=== PATIENT | female | born 1955 | race Caucasian/White ===

== ENCOUNTER 2018-01-14 10:56 | Emergency (ER) | payer OTHER ==
--- NOTE | 2018-01-14 11:46 | RAD REPORT ---
EXAM DESCRIPTION: Nicolasa Single View01/14/2018 11:35 am CLINICAL HISTORY: Chest pain COMPARISON: 2014 FINDINGS: The lungs are hyperaerated. The lungs appear clear of acute infiltrate. The heart is macario l size IMPRESSION: No acute abnormalities displayed
[2018-01-14 12:07] LABS: Protime INR 0.97
[2018-01-14 12:08] LABS: Absolute Lymphocytes (CBC) 1.8 K/uL (0.7-4.9); Absolute Monocytes 0.6 K/uL (0.1-1.3); Absolute Neutrophil 4.8 K/uL (1.8-8.0); Basophils % 0.9 % (0-1.3); Eosinophils % 1.1 % (0-4.4); Hematocrit 41.4 % (36.0-45.0); Lymphocytes % 24.6 % (15.3-44.8); MCH 29.6 pg (27.0-35.0); MCV 89.5 fL (80-100); MPV 9.3 fL (7.6-11.3); Monocytes % 8.5 % (3.3-12.3); RBC Red Blood Cell Count 4.63 M/uL (3.86-4.86)
[2018-01-14 12:12] LABS: Potassium 3.8 mEq/L (3.6-5.0)
[2018-01-14] MEDS ORDERED: ASPIRIN 325 MG TAB ONE (12:17)
[2018-01-14 12:18] LABS: Albumin 3.7 g/dL (3.2-5.5); Bilirubin Direct 0.2 mg/dL (0-0.2); Bilirubin Total 0.6 mg/dL (0.3-1.2); Magnesium 1.7 mg/dL (1.8-2.5); Protein, Total 6.3 g/dL (6.0-8.3)
[2018-01-14 12:29] LABS: Blood Morphology Comment NOT SEEN (NOT SEEN); Platelet Estimate ADEQ; Urine White Blood Cell Casts OK
[2018-01-14 12:36] LABS: Barbiturates NEGATIVE; Benzodiazepines NEGATIVE; Cocaine NEGATIVE; METHAMPHETAM NEGATIVE; Opiates NEGATIVE; Phencyclidine NEGATIVE; THC Cannibis NEGATIVE
--- NOTE | 2018-01-14 14:03 | EKG ---
Test Date: 2018-01-14 Test Time: 11:21:15 Shipping Manager: MEASUREMENT RESULTS: Intervals: Rate: 64 WY: 198 QRSD: 82 QT: 472 QTc: 486 [place]: P: 78 WY: 198 QRS: -35 T: 71 INTERPRETIVE STATEMENTS: Normal sinus rhythm Left axis deviation Cannot rule out Anteroseptal infarct, age undetermined Abnormal ECG Compared to ECG 12/24/2014 05:30:08 Myocardial infarct finding now present ST (T wave) deviation no longer present Possible ischemia no longer present Electronically Signed On 01-14-18 14:02:48 CDT by Mahad Meredith
[2018-01-14 14:20] LABS: Urine Blood NEGATIVE (NEG); Urine Glucose NEGATIVE (NEG); Urine Protein NEGATIVE (NEG); Urine Specific Gravity 1.015 (1.005-1.030)
[2018-01-14] MEDS ORDERED: predniSONE 20 MG TAB ONE (14:40)
[2018-01-14] MEDS ORDERED: IPRATROPIUM BROM 0.5MG/2.5ML ONE (14:40)
[2018-01-14] MEDS ORDERED: MAGNESIUM SULFATE 1 gm IVPB 1 GM/100 ML BAG IV ONE (14:40)
[2018-01-14] MEDS ORDERED: ALBUTEROL 2.5 MG/3 ML NEB SOL ONE (14:40)
--- NOTE | 2018-01-14 17:05 | ER ---
Nurse's Notes [facility] Name: Ophelia Grady Age: 62 yrs Sex: Female : 1955 Arrival Date: 01/14/2018 Time: 11:00 Bed 25 Private MD: Diagnosis: Chest pain, unspecified;Chronic obstructive pulmonary disease, unspecified Presentation: 01/14 11:02 Presenting complaint: Patient states: Chest pain with exertion today, hx of CHF and la1 COPD. Transition of care: patient was not received from another setting of care. Onset of symptoms was January 14, 2018. Care prior to arrival: None. 11:02 Method Of Arrival: Ambulatory la1 11:02 Acuity: SHAWN 3 la1 Historical: - Allergies: 11:03 No Known Allergies; la1 - PMHx: 11:03 Hyperlipidemia; Hypertension; COPD; CHF; la1 - Immunization history:: Adult Immunizations up to date. - Social history:: Smoking status: Patient uses tobacco products, smokes one pack cigarettes per day. Screenin:15 Abuse screen: Denies threats or abuse. Denies injuries from another. Nutritional aj1 screening: No deficits noted. Tuberculosis screening: No symptoms or risk factors identified. 17:13 Fall Risk None identified. aj1 Assessment: 11:15 General: Appears in no apparent distress. comfortable, Behavior is calm, cooperative, aj1 appropriate for age. Pain: Complains of pain in left breast Pain does not radiate. Pain currently is 2 out of 10 on a pain scale. Quality of pain is described as aching, Pain began 1 hour ago. Is continuous, Alleviated by aspirin Aggravated by nothing. Neuro: Level of Consciousness is awake, alert, obeys commands, Oriented to person, place, time, situation, Speech is normal, Facial symmetry appears normal. Cardiovascular: Reports chest pain, Denies diaphoresis, lightheadedness, nausea, palpitations, shortness of breath, syncope, vomiting, Heart tones S1 S2 present Patient's skin is warm and dry. Rhythm is regular Chest pain is described as mild, quality is aching is located in left anterior chest wall began 1 hour prior to arrival. Respiratory: Airway is patent Respiratory effort is even, unlabored, Respiratory pattern is regular, symmetrical, Breath sounds are clear bilaterally. Denies cough, shortness of breath. GI: No signs and/or symptoms were reported involving the gastrointestinal system. : No signs and/or symptoms were reported regarding the genitourinary system. EENT: No signs and/or symptoms were reported regarding the EENT system. Derm: No signs and/or symptoms reported regarding the dermatologic system. Skin is pink, warm \T\ dry. normal. Musculoskeletal: No signs and/or symptoms reported regarding the musculoskeletal system. Circulation, motion, and sensation intact. 12:10 Reassessment: Patient appears in no apparent distress at this time. No changes from aj1 previously documented assessment. Patient and/or family updated on plan of care and expected duration. Pain level reassessed. Patient is alert, oriented x 3, equal unlabored respirations, skin warm/dry/pink. 13:10 Reassessment: Patient and/or family updated on plan of care and expected duration. Pain aj1 level reassessed. General: Appears in no apparent distress. comfortable, Behavior is calm, cooperative, appropriate for age. Neuro: Level of Consciousness is awake, alert, obeys commands, Oriented to person, place, time, situation, Speech is normal, Facial symmetry appears normal. Cardiovascular: Patient's skin is warm and dry. Rhythm is sinus rhythm Chest pain is improved. Respiratory: Airway is patent Respiratory effort is even, unlabored, Respiratory pattern is regular, symmetrical, Breath sounds are clear bilaterally. GI: No signs and/or symptoms were reported involving the gastrointestinal system. : No signs and/or symptoms were reported regarding the genitourinary system. EENT: No signs and/or symptoms were reported regarding the EENT system. Derm: No signs and/or symptoms reported regarding the dermatologic system. Skin is pink, warm \T\ dry. normal. Musculoskeletal: No signs and/or symptoms reported regarding the musculoskeletal system. Circulation, motion, and sensation intact. 14:10 Reassessment: Patient appears in no apparent distress at this time. No changes from aj1 previously documented assessment. Patient and/or family updated on plan of care and expected duration. Pain level reassessed. Patient is alert, oriented x 3, equal unlabored respirations, skin warm/dry/pink. 14:45 Reassessment: Notified Blaise Morin NP that patient no longer has IV access, and has aj1 multiple missed attempts trying to get IC access order received to continue to attempt to get IV access. 15:10 Reassessment: P. Marinas ENDO TECH notified by ANA Fountain charge nurse that we continue to aj1 have difficulty obtaining IV access, order received to change Magnesium to PO and stop attempting to obtain IV access. 15:21 Reassessment: Patient and/or family updated on plan of care and expected duration. Pain aj1 level reassessed. General: Appears in no apparent distress. comfortable, Behavior is calm, cooperative, appropriate for age. Neuro: Level of Consciousness is awake, alert, obeys commands, Oriented to person, place, time, situation, Speech is normal, Facial symmetry appears normal. Cardiovascular: Patient's skin is warm and dry. Rhythm is sinus rhythm Chest pain remains improved. Respiratory: Airway is patent Respiratory effort is even, unlabored, Respiratory pattern is regular, symmetrical. Derm: Skin is pink, warm \T\ dry. normal. Musculoskeletal: Circulation, motion, and sensation intact. 16:20 Reassessment: No changes from previously documented assessment. General: Appears in no aj1 apparent distress. comfortable, Behavior is calm, cooperative. Neuro: Level of Consciousness is awake, alert, obeys commands, Oriented to person, place, time, situation, Speech is normal, Facial symmetry appears normal. Cardiovascular: Patient's skin is warm and dry. Rhythm is sinus rhythm. Respiratory: Airway is patent Respiratory effort is even, unlabored, Respiratory pattern is regular, symmetrical. GI: No signs and/or symptoms were reported involving the gastrointestinal system. : No signs and/or symptoms were reported regarding the genitourinary system. EENT: No signs and/or symptoms were reported regarding the EENT system. Derm: No signs and/or symptoms reported regarding the dermatologic system. Skin is pink, warm \T\ dry. normal. Musculoskeletal: No signs and/or symptoms reported regarding the musculoskeletal system. Circulation, motion, and sensation intact. 17:10 Reassessment: Patient appears in no apparent distress at this time. No changes from aj1 previously documented assessment. Patient and/or family updated on plan of care and expected duration. Pain level reassessed. Patient is alert, oriented x 3, equal unlabored respirations, skin warm/dry/pink. Patient states that she would like a meal tray before she leaves. Patient notified that she is already ready for discharge and provided with crackers and peanut butter. Vital Signs: 11:03 BP 158 / 96; Pulse 68; Resp 16; Temp 98.7(TE); Pulse Ox 98% on R/A; Weight 71.67 kg; la1 Height 5 ft. 4 in. (162.56 cm); Pain 3/10; 12:10 BP 169 / 107; Pulse 60; Resp 15; Pulse Ox 97% on R/A; aj1 13:15 BP 137 / 85; Pulse 58; Resp 16; Pulse Ox 97% on R/A; aj1 14:15 BP 147 / 80; Pulse 62; Resp 18; Pulse Ox 96% on R/A; aj1 15:24 BP 158 / 90; Pulse 60; Resp 14; Pulse Ox 97% on R/A; aj1 16:20 BP 149 / 89; Pulse 65; Resp 18; Pulse Ox 99% ; aj1 17:13 BP 147 / 89; Pulse 58; Resp 20; Pulse Ox 97% ; aj1 11:03 Body Mass Index 27.12 (71.67 kg, 162.56 cm) la1 ED Course: 11:00 Patient arrived in ED. sb2 11:03 Triage completed. la1 11:03 Arm band placed on left wrist. la1 11:05 Daniel Morin, AMANDEEP is PHCP. pm1 11:05 Mike Vegas MD is Attending Physician. pm1 11:05 Angi Spears, ANA is Primary Nurse. aj1 11:15 Patient has correct armband on for positive identification. Placed in gown. Bed in low aj1 position. Call light in reach. Side rails up X 1. gambling monitor on. Pulse ox on. NIBP on. 11:15 No provider procedures requiring assistance completed. EKG done, reviewed by Mike Vegas MD. Patient maintains SpO2 saturation greater than 95% on room air. 11:35 X-ray completed. Portable x-ray completed in exam room. Patient tolerated procedure jb2 well. 11:36 XRAY Chest (1 view) In Process Unspecified. EDMS 11:45 Missed attempt(s): 20 gauge in left antecubital area. Bleeding controlled, band aid aj1 applied, catheter tip intact. 11:50 Missed attempt(s): 22 gauge in left forearm. Bleeding controlled, band aid applied, aj1 catheter tip intact. 11:50 Initial lab(s) drawn, by me, sent to lab. aj1 12:45 Inserted saline lock: 22 gauge in left antecubital area, using aseptic technique. [facility] 14:30 IV discontinued, intact, bleeding controlled, Pressure dressing applied, IV infiltrated.aj1 14:40 Missed attempt(s): 22 gauge in right antecubital area. by ANA Lauren. aj1 15:00 Missed attempt(s): 24 gauge in left forearm. by CECELIA Conway. Notified neida Fountain charge nurse, RN of need for a new IV. 17:43 Artur Ambrocio MD is Referral Physician. pm1 17:44 Mahad Meredith MD is Referral Physician. pm1 Administered Medications: 11:59 Drug: Aspirin 325 mg Route: PO; aj1 12:53 Follow up: Response: No adverse reaction aj1 14:37 Drug: Albuterol - atroVENT (3:1) (2.5 mg - 0.5 mg) 3 ml Route: Nebulizer; aj1 17:50 Follow up: Response: No adverse reaction aj1 14:37 Drug: predniSONE 60 mg Route: PO; aj1 17:50 Follow up: Response: No adverse reaction aj1 18:07 Drug: Magnesium 400 mg Route: PO; aj1 18:21 Follow up: Response: No adverse reaction aj1 18:22 Not Given (changed to PO): Magnesium Sulfate 1 grams IVPB once over 1 hrs aj Outcome: 17:05 Discharge ordered by . pm1 18:22 Discharged to home ambulatory. aj1 18:22 Condition: good 18:22 Discharge instructions given to patient, Instructed on discharge instructions, follow up and referral plans. medication usage, Demonstrated understanding of instructions, follow-up care, medications. 18:22 Patient left the ED. aj1 Signatures: Dispatcher [employer] EDMS Angi Spears RN RN aj1 Karson Al jb2 Kalen Mcdonnell RN RN la1 Daniel Morin, AMANDEEP ENDO TECH pm1 Morena Tenorio 5 Jory Meadows
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
[2018-01-14] MEDS ORDERED: MAGNESIUM OXIDE 400 MG TAB ONE (18:19)
[2018-01-14 18:45] VITALS: TEMP 98.7
[2018-01-14 18:51] VITALS: BP 147/89; O2SAT 97
== END 2018-01-14 18:22 | disposition home or self-care (01) ==
LOC: ER 10:56
DX: J44.9 Chronic obstructive pulmonary disease, unspecified (principal); I10 Essential (primary) hypertension; F17.210 Nicotine dependence, cigarettes, uncomplicated
CPT/HCPCS: 36415; 71045; 80048; 80076; 80307; 81003; 83735; 83880; 84484; 85025; 85610; 85730; 93005; 94640; 99285; J3475; J7512

== ENCOUNTER 2018-02-13 18:41 | Emergency (ER) | payer OTHER ==
--- OUTSIDE RECORDS SUMMARY | 2018-02-13 18:43 | XMS REPORT ---
:1955 Author Organization eClinicalWorks Care Team Providers Name Role Phone Juancarlos Rodriguez Provider Role Unavailable Allergies No Known Allergies Problems Problem Type Condition Code Onset Dates Condition Status Problem Osteoarthritis of multiple joints M15.9 Active Problem Hyperlipidemia, mixed E78.2 Active Problem Hx of breast cancer Z85.3 Active Problem GERD (gastroesophageal reflux K21.9 Active disease) Assessment Osteoarthritis of multiple joints M15.9 Active Problem Insomnia G47.00 Active Assessment GERD (gastroesophageal reflux K21.9 Active disease) Problem Benign essential HTN I10 Active Problem Chronic back pain M54.9 Active Problem Chronic obstructive pulmonary J44.9 Active disease Problem Depression with anxiety F41.8 Active Problem Stented coronary artery Z95.5 Active Assessment Insomnia G47.00 Active Assessment Tobacco use disorder Z72.0 Active Assessment Stented coronary artery Z95.5 Active Assessment Hyperlipidemia, mixed E78.2 Active Assessment Benign essential HTN I10 Active Assessment Chronic obstructive pulmonary J44.9 Active disease Assessment Depression with anxiety F41.8 Active Problem Atherosclerosis of coronary artery I25.10 Active of [place] heart Assessment Atherosclerosis of coronary artery I25.10 Active of [place] heart Problem Tobacco use disorder Z72.0 Active Medications Medication Code Code Instructions Start End Status Dosage System Date Date Prozac [facility] 26898582891 40 MG Orally Active 1 capsule Once a day Trazodone HCl [facility] [place] 80573669041 300 MG Orally Active 0.5 Once a day tablet at bedtime Lisinopril [facility] [place] 66684856133 40 MG Orally Active 1 tablet Once a day Norvasc [facility] 14093853102 10 MG Orally Active 1 tablet Once a day Isosorbide Mononitrate [facility] [place] 12017030078 60 MG Orally Active 1 tablet ER Once a day in the morning Aspir-81 [facility] [place] 69568944765 81 MG Orally Active 1 tablet Once a day Latuda [facility] [place] 21565802805 60 MG Orally Active 1 tablet Once a day with food Hydrochlorothiazide [facility] [place] 20575451952 25 MG Orally Active 1 tablet Once a day in the morning Lipitor [facility] [place] 74501686285 40 MG Orally Active 1 tablet Once a day Metoprolol Tartrate [facility] 89964532117 100 MG Orally Active 1 tablet Twice a day with food ProAir HFA [facility] [place] 49569443525 108 (90 Base) Active 2 puffs MCG/ACT as needed Inhalation every 6 hrs HydrALAZINE HCl [facility] [place] 06419302410 50 MG Orally Active 1 tablet Three times a with food day Results Name Result Date Reference Range Unit Abnormality Flag CBC W/AUTO DIFF CMP Magnesium, Serum LIPID PANEL WITH REFLEX TO DIRECT LDL Summary Purpose eClinicalWorks Submission
[2018-02-13] MEDS ORDERED: NA CHLORIDE 0.9% 0 ML ONE (19:29)
[2018-02-13] MEDS ORDERED: NA CHLORIDE 0.9% 1,000 ML ONE (19:29)
[2018-02-13] MEDS ORDERED: NA CHLORIDE 0.9% 500 ML ONE (19:33)
[2018-02-13 19:48] LABS: Absolute Lymphocytes (CBC) 2.2 K/uL (0.7-4.9); Absolute Monocytes 0.6 K/uL (0.1-1.3); Absolute Neutrophil 4.3 K/uL (1.8-8.0); Basophils % 0.8 % (0-1.3); Eosinophils % 1.5 % (0-4.4); Hematocrit 45.7 % (36.0-45.0); Lymphocytes % 30.4 % (15.3-44.8); MCH 29.5 pg (27.0-35.0); MCV 88.1 fL (80-100); MPV 8.9 fL (7.6-11.3); RBC Red Blood Cell Count 5.19 M/uL (3.86-4.86)
[2018-02-13 19:49] LABS: Protime INR 0.97
[2018-02-13 19:53] LABS: Barbiturates NEGATIVE; Benzodiazepines NEGATIVE; Cocaine NEGATIVE; Opiates NEGATIVE; Phencyclidine NEGATIVE; THC Cannibis NEGATIVE
[2018-02-13 19:55] LABS: METHAMPHETAM POSITIVE
[2018-02-13 19:56] LABS: Glucose Level 92 mg/dL (65-120)
[2018-02-13 20:02] LABS: Alkaline Phosphatase 62 IU/L (42-121); BUN Blood Urea Nitrogen 16 mg/dL (6-20); Bilirubin Direct 0.2 mg/dL (0-0.2); Bilirubin Total 0.6 mg/dL (0.3-1.2)
[2018-02-13 20:03] LABS: ALT/SGPT 38 IU/L (10-60); AST/SGOT 40 IU/L (10-42); Alcohol Serum/Plasma < 10 mg/dl; Bicarbonate 26 mEq/L (21-31); Potassium 3.6 mEq/L (3.6-5.0); Salicylates Level < 4.0 mg/dl (<30); Sodium Level 139 mEq/L (135-145)
[2018-02-13 20:04] LABS: Urine Blood NEGATIVE (NEG); Urine Glucose NEGATIVE (NEG); Urine Protein NEGATIVE (NEG); Urine pH 5.5 (5.0-7.0)
[2018-02-13] MEDS ORDERED: KETOROLAC 30 MG/ML INJ ONE ×2 (20:21→21:22)
[2018-02-13] MEDS ORDERED: hydrOXYzine HCl 25 MG TAB ONE (21:22)
[2018-02-13] MEDS ORDERED: MAGNESIUM SULFATE 1 gm IVPB 1 GM/100 ML BAG IV ONE (21:22)
--- NOTE | 2018-02-13 23:06 | EDPHYS ---
Physician Documentation [facility] Name: Ophelia Grady Age: 62 yrs Sex: Female : 1955 Arrival Date: 02/13/2018 Time: 18:47 Bed 16 Private MD: ED Physician Adonis Mc HPI: 02/13 19:04 This 62 yrs old Female presents to ER via EMS with complaints of Suicidal snw Ideation, Flank Pain. 19:04 The patient presents to the emergency department with anxiety, depression, suicide snw ideation, and the patient has a plan, to overdose with medications. Onset: The symptoms/episode began/occurred 2 day(s) ago. Past psychiatric history: Prior diagnosis: depression, schizo affective, the patient has not had a prior suicide gesture. Associated signs and symptoms: Pertinent positives; anxiety, suicide ideation, back/flank pain. Severity of symptoms: At their worst the symptoms were moderate. The patient has not experienced similar symptoms in the past. The patient has been recently seen by a physician: the patient's primary care provider, Dr. Rodriguez. pt states she had breast cancer, no rad, no chemo, resection and revision. Historical: - Allergies: 18:52 No Known Allergies; la1 - PMHx: 18:52 CHF; COPD; Hyperlipidemia; Hypertension; Depression; major depressive disorder; la1 schizo-affective disorder; - PSHx: 23:34 Unable to obtain; bs1 - Immunization history:: Adult Immunizations up to date. - Social history:: Smoking status: Patient uses tobacco products, smokes one pack cigarettes per day. ROS: 19:01 Constitutional: Negative for fever, chills, and weight loss, Eyes: Negative for injury, snw pain, redness, and discharge, ENT: Negative for injury, pain, and discharge, Neck: Negative for injury, pain, and swelling, Cardiovascular: Negative for chest pain, palpitations, and edema, Respiratory: Negative for shortness of breath, cough, wheezing, and pleuritic chest pain, Abdomen/GI: Negative for abdominal pain, nausea, vomiting, diarrhea, and constipation. 19:01 : Negative for injury, bleeding, discharge, and swelling. 19:01 Skin: Negative for injury, rash, and discoloration, Neuro: Negative for headache, weakness, numbness, tingling, and seizure. 19:01 Back: Positive for pain at rest, flank pain, radiated pain. 19:01 MS/extremity: Positive for tenderness, of the left foot. 19:01 Psych: Positive for depression, suicidal ideation. Exam: 18:59 Constitutional: This is a well developed, well nourished patient who is awake, alert, snw and in no acute distress. Head/Face: Normocephalic, atraumatic. Eyes: Pupils equal round and reactive to light, extra-ocular motions intact. Lids and lashes normal. Conjunctiva and sclera are non-icteric and not injected. Cornea within normal limits. Periorbital areas with no swelling, redness, or edema. ENT: Nares patent. No nasal discharge, no septal abnormalities noted. Tympanic membranes are normal and external auditory canals are clear. Oropharynx with no redness, swelling, or masses, exudates, or evidence of obstruction, uvula midline. Mucous membranes moist. Neck: Trachea midline, no thyromegaly or masses palpated, and no cervical lymphadenopathy. Supple, full range of motion without nuchal rigidity, or vertebral point tenderness. No Meningismus. Chest/axilla: Normal chest wall appearance and motion. Nontender with no deformity. No lesions are appreciated. Cardiovascular: Regular rate and rhythm with a normal S1 and S2. No gallops, murmurs, or rubs. Normal PMI, no JVD. No pulse deficits. Respiratory: Lungs have equal breath sounds bilaterally, clear to auscultation and percussion. No rales, rhonchi or wheezes noted. No increased work of breathing, no retractions or nasal flaring. Abdomen/GI: Soft, non-tender, with normal bowel sounds. No distension or tympany. No guarding or rebound. No evidence of tenderness throughout. Back: No spinal tenderness. No costovertebral tenderness. Full range of motion. MS/ Extremity: Pulses equal, no cyanosis. Neurovascular intact. Full, normal range of motion. Neuro: Awake and alert, GCS 15, oriented to person, place, time, and situation. Cranial nerves II-XII grossly intact. Motor strength 5/5 in all extremities. Sensory grossly intact. Cerebellar exam normal. Normal gait. 18:59 Skin: Appearance: Color: Bronze, Temperature: normal temperature, Moisture: dry. 18:59 Psych: Behavior/mood is pleasant, cooperative, Affect is calm, Oriented to person, place, time, Patient having thoughts of suicide. Plan for suicide is take all HTN meds Pt did not discuss suicidal ideation on my exam, she states she has had diarrhea x 3 days and right flank/upper back pain . Vital Signs: 18:52 BP 167 / 108; Pulse 67; Resp 19; Temp 97.1; Pulse Ox 100% on R/A; Weight 71.67 kg; la1 Height 5 ft. 4 in. (162.56 cm); 23:15 BP 152 / 87; Pulse 63; Resp 16; Temp 97.9(O); Pulse Ox 96% on R/A; Pain 6/10; bs1 18:52 Body Mass Index 27.12 (71.67 kg, 162.56 cm) la1 MDM: 18:50 Patient medically screened. snw 23:06 Data reviewed: vital signs, nurses notes. Data interpreted: Pulse oximetry: on room air snw is 100 %. Interpretation: normal. Counseling: I had a detailed discussion with the patient and/or guardian regarding: the historical points, exam findings, and any diagnostic results supporting the discharge/admit diagnosis, lab results, radiology results, the need for outpatient follow up, to return to the emergency department if symptoms worsen or persist or if there are any questions or concerns that arise at home. Other consultation: [facility]. Special discussion: Based on the history and exam findings, there is no indication for further emergent testing or inpatient evaluation. I discussed with the patient/guardian the need to see the psychiatrist for further evaluation of the symptoms. 23:27 ED course: pt annoyed that she is not being treated with stronger pain medication and snw sleep agents. 02/13 18:50 Order name: Acetaminophen; Complete Time: 20:19 snw 02/13 18:50 Order name: Basic Metabolic Panel; Complete Time: 20:19 snw 02/13 18:50 Order name: CBC with Diff; Complete Time: 19:54 snw 02/13 18:50 Order name: ETOH Level; Complete Time: 20:19 snw 02/13 18:50 Order name: Hepatic Function; Complete Time: 20:19 snw 02/13 18:50 Order name: PT-INR; Complete Time: 19:54 snw 02/13 18:50 Order name: Ptt, Activated; Complete Time: 19:54 snw 02/13 18:50 Order name: Salicylate; Complete Time: 20:19 snw 02/13 18:50 Order name: Urine Drug Screen; Complete Time: 19:56 snw 02/13 19:39 Order name: Urine Dipstick--Ancillary (enter results); Complete Time: 20:19 em1 02/13 18:50 Order name: EKG; Complete Time: 18:50 snw 02/13 18:50 Order name: EKG - Nurse/Tech; Complete Time: 19:34 snw 02/13 18:50 Order name: IV Saline Lock; Complete Time: 19:34 snw 02/13 18:50 Order name: Labs collected and sent; Complete Time: 19:34 snw 02/13 18:50 Order name: Urine Dipstick-Ancillary (obtain specimen); Complete Time: 19:34 snw Administered Medications: 19:35 Drug: NS 0.9% 500 ml Route: IV; Rate: bolus; Site: left hand; aa1 23:36 Follow up: IV Status: Completed infusion bs1 19:35 Drug: NS 0.9% 1000 ml Route: IV; Rate: 125 ml/hr; Site: left hand; aa1 23:37 Follow up: IV Status: Order to discontinue infusion; IV Intake: 600ml bs1 20:22 CANCELLED (Patient Refused): TORadol 30 mg IVP once la1 21:29 Drug: TORadol 30 mg Route: IVP; Site: left hand; la1 23:36 Follow up: Response: No adverse reaction bs1 21:29 Drug: Atarax 25 mg Route: PO; la1 23:36 Follow up: Response: No adverse reaction bs1 21:29 Drug: Magnesium Sulfate 1 grams Route: IVPB; Infused Over: 1 hrs; Site: left hand; la1 23:35 Follow up: IV Status: Completed infusion bs1 Disposition: 02/14 07:30 Co-signature as Attending Physician, Adonis Mc MD. rn Disposition: 02/13/18 23:05 Discharged to Home. Impression: Insomnia, unspecified, Flank pain. - Condition is Stable. - Discharge Instructions: Insomnia, Leg Cramps, Muscle Strain, Muscle Pain, Adult, Cryotherapy, Heat Therapy. - Medication Reconciliation Form, Thank You Letter, Antibiotic Education, Prescription Opioid Use form. - Follow up: Private Physician; When: Tomorrow; Reason: Recheck today's complaints, Continuance of care, Re-evaluation by your physician. Follow up: Emergency Department; When: As needed; Reason: Worsening of condition. - Notes: Follow up with [facility] as directed. Signatures: Dispatcher [employer] EDMS Shellie Cuadra RN RN aa1 Angela Talavera, DIRECTOR PHONE-C DIRECTOR PHONE-Csnw Adonis Mc MD MD rn Attema, Lee, RN RN la1 Haley Rocha RN RN bs1 Corrections: (The following items were deleted from the chart) 02/13 20:22 20:19 TORadol 30 mg IVP once ordered. dee laguna 23:37 23:05 02/13/2018 23:05 Discharged to Home. Impression: Insomnia, unspecified; Flank bs1 pain. Condition is Stable. Forms are Medication Reconciliation Form, Thank You Letter, Antibiotic Education, Prescription Opioid Use. Follow up: Private Physician; When: Tomorrow; Reason: Recheck today's complaints, Continuance of care, Re-evaluation by your physician. Follow up: Emergency Department; When: As needed; Reason: Worsening of condition. dee
--- NOTE | 2018-02-13 23:06 | ER ---
Nurse's Notes [facility] Name: Ophelia Grady Age: 62 yrs Sex: Female : 1955 Arrival Date: 02/13/2018 Time: 18:47 Bed 16 Private MD: Diagnosis: Insomnia, unspecified;Flank pain Presentation: 02/13 18:49 Presenting complaint: Patient states: SI for 2 days, states she wants to take all of la1 her BP meds to kill herself, also C/O right flank pain. Transition of care: patient was not received from another setting of care. Onset of symptoms was February 13, 2018. Initial Sepsis Screen: Does the patient meet any 2 criteria? No. Patient's initial sepsis screen is negative. Does the patient have a suspected source of infection? No. Patient's initial sepsis screen is negative. Care prior to arrival: None. 18:49 Method Of Arrival: Ambulatory la1 18:49 Method Of Arrival: EMS: [facility] la1 18:49 Acuity: SHAWN 2 la1 Historical: - Allergies: 18:52 No Known Allergies; la1 - PMHx: 18:52 CHF; COPD; Hyperlipidemia; Hypertension; Depression; major depressive disorder; la1 schizo-affective disorder; - PSHx: 23:34 Unable to obtain; bs1 - Immunization history:: Adult Immunizations up to date. - Social history:: Smoking status: Patient uses tobacco products, smokes one pack cigarettes per day. Screenin:54 Abuse screen: Denies threats or abuse. Nutritional screening: No deficits noted. la1 Tuberculosis screening: No symptoms or risk factors identified. Fall Risk None identified. Assessment: 18:54 General: Appears uncomfortable, Behavior is calm, cooperative. Pain: Complains of pain la1 in abdomen diffusely. Neuro: Level of Consciousness is awake, alert, obeys commands, Oriented to person, place, time, situation. Cardiovascular: Heart tones S1 S2 present Capillary refill < 3 seconds Patient's skin is warm and dry. Respiratory: Airway is patent Respiratory effort is even, unlabored, Respiratory pattern is regular, symmetrical, Breath sounds are clear bilaterally. GI: Abdomen is round non-distended, Bowel sounds present X 4 quads. Abd is soft and non tender X 4 quads. : No signs and/or symptoms were reported regarding the genitourinary system. 20:23 Reassessment: Pt requesting medication for RUQ pain from bending over 3 days ago and la1 "bruising her rib" pt offered toradol, states "I don't want that, I want something to help me sleep" . 21:05 Reassessment: Patient appears in no apparent distress at this time. No changes from la1 previously documented assessment. Patient and/or family updated on plan of care and expected duration. Pain level reassessed. pt resting in stretcher, sitter at bedside. 21:33 Reassessment: pt states " I am no longer suicidal, I prayed and now I want to be on the la right side, I still have things to love for. It is a waste of time fot [facility] to [facility] out". 22:01 Reassessment: Report received from ANA Higuera. bs1 23:03 Reassessment: Patient appears in no apparent distress at this time. Patient and/or bs1 family updated on plan of care and expected duration. Pain level reassessed. Patient is alert, oriented x 3, equal unlabored respirations, skin warm/dry/pink. Archie Coast at bedside. Patient states "I am no longer suicidal.". Psych: 18:52 Subjective: Patient's mood is sad, Delusions are denied, Hallucinations are denied la1 Having thoughts of suicide. Plan for suicide is Take all of her BP medications. Objective: Patient is cooperative, Speech is normal, Affect is appropriate. Interventions: Removed personal items and placed in bag. Patient placed in hospital gown. Suicide Risk Assessment: Sad Person Scale: Sex of patient: Female: Score 0 points. Age of patient: Score 0 point if patient falls outside of specified age parameters. Depression: Score 1 point if signs of depression are present. Previous Attempt: Score 1 point if patient has previously attempted suicide. Substance Abuse: Score 0 point if patient does not abuse alcohol or drugs. Rational Thinking: Score 0 point if patient has rational thinking. Social Support: Score 1 point if social support is lacking and/or unavailable. Organized Plan: Score 1 point if patient had a plan in place. Relationship: Score 1 point if patient is , , , or for a single male Chronic Sickness: Score 1 point if patient has illness, chronic, debilitating, or severe. Safety Checks: Personal items have been removed. Door is open. No visitors are present at this time. Pt denies substance abuse. Commitment: Patient will be a voluntary commitment. Vital Signs: 18:52 BP 167 / 108; Pulse 67; Resp 19; Temp 97.1; Pulse Ox 100% on R/A; Weight 71.67 kg; la1 Height 5 ft. 4 in. (162.56 cm); 23:15 BP 152 / 87; Pulse 63; Resp 16; Temp 97.9(O); Pulse Ox 96% on R/A; Pain 6/10; bs1 18:52 Body Mass Index 27.12 (71.67 kg, 162.56 cm) la1 ED Course: 18:47 Patient arrived in ED. la1 18:49 Angela Talavera FNP-C [facility]. snw 18:49 Adonis Mc MD is Attending Physician. snw 18:50 Triage completed. la1 18:52 Arm band placed on left wrist. la1 18:54 Bed in low position. Call light in reach. Side rails up X 1. Cardiac monitoring not la1 applicable on this patient. 19:00 Safety Checks: Personal items have been removed The door is open or patient has been la1 placed in a hallway bed/chair. There are no family/friend visitors at this time. 19:00 Safety checks: Items removed: yes. Door open/sign placed on door: yes. Family/friend mt present: no. 19:15 Safety Checks: Personal items have been removed The door is open or patient has been la1 placed in a hallway bed/chair. There are no family/friend visitors at this time. 19:15 Safety checks: Items removed: yes. Door open/sign placed on door: yes. Family/friend mt present: no. 19:20 Urine collected: clean catch specimen, clear. Missed attempt(s): 16 gauge in right dh3 wrist. Bleeding controlled, band aid applied, catheter tip intact. 19:30 Safety Checks: Personal items have been removed The door is open or patient has been la1 placed in a hallway bed/chair. There are no family/friend visitors at this time. 19:30 Safety checks: Items removed: yes. Door open/sign placed on door: yes. Family/friend mt present: no. 19:45 Safety Checks: Personal items have been removed The door is open or patient has been la1 placed in a hallway bed/chair. There are no family/friend visitors at this time. 19:45 Safety checks: Items removed: yes. Door open/sign placed on door: yes. Family/friend mt present: no. 20:00 Kalen Mcdonnell RN is Primary Nurse. la1 20:00 Safety Checks: Personal items have been removed The door is open or patient has been la1 placed in a hallway bed/chair. There are no family/friend visitors at this time. 20:00 Safety checks: Items removed: yes. Door open/sign placed on door: yes. Family/friend mt present: no. 20:15 Safety Checks: Personal items have been removed The door is open or patient has been la1 placed in a hallway bed/chair. There are no family/friend visitors at this time. 20:15 Safety checks: Items removed: yes. Door open/sign placed on door: yes. Family/friend mt present: no. 20:30 Safety Checks: Personal items have been removed The door is open or patient has been la1 placed in a hallway bed/chair. There are no family/friend visitors at this time. 20:30 Safety checks: Items removed: yes. Door open/sign placed on door: yes. Family/friend mt present: no. 20:45 Safety Checks: Personal items have been removed The door is open or patient has been la1 placed in a hallway bed/chair. There are no family/friend visitors at this time. 20:45 Safety checks: Items removed: yes. Door open/sign placed on door: yes. Family/friend mt present: no. 21:00 Safety Checks: Personal items have been removed The door is open or patient has been la1 placed in a hallway bed/chair. There are no family/friend visitors at this time. 21:00 Safety checks: Items removed: yes. Door open/sign placed on door: yes. Family/friend mt present: no. 21:15 Safety Checks: Personal items have been removed The door is open or patient has been la1 placed in a hallway bed/chair. There are no family/friend visitors at this time. 21:15 Safety checks: Items removed: yes. Door open/sign placed on door: yes. Family/friend mt present: no. 21:30 Safety Checks: Personal items have been removed The door is open or patient has been la1 placed in a hallway bed/chair. There are no family/friend visitors at this time. 21:30 Safety checks: Items removed: yes. Door open/sign placed on door: yes. Family/friend mt present: no. 21:45 Safety checks: Items removed: yes. Door open/sign placed on door: yes. Family/friend mt present: no. 22:00 Safety checks: Items removed: yes. Door open/sign placed on door: yes. Family/friend mt present: no. 23:34 No provider procedures requiring assistance completed. IV discontinued, bleeding bs1 controlled, No redness/swelling at site. Pressure dressing applied. Administered Medications: 19:35 Drug: NS 0.9% 500 ml Route: IV; Rate: bolus; Site: left hand; aa1 23:36 Follow up: IV Status: Completed infusion bs1 19:35 Drug: NS 0.9% 1000 ml Route: IV; Rate: 125 ml/hr; Site: left hand; aa1 23:37 Follow up: IV Status: Order to discontinue infusion; IV Intake: 600ml bs1 20:22 CANCELLED (Patient Refused): TORadol 30 mg IVP once la1 21:29 Drug: TORadol 30 mg Route: IVP; Site: left hand; la1 23:36 Follow up: Response: No adverse reaction bs1 21:29 Drug: Atarax 25 mg Route: PO; la1 23:36 Follow up: Response: No adverse reaction bs1 21:29 Drug: Magnesium Sulfate 1 grams Route: IVPB; Infused Over: 1 hrs; Site: left hand; la1 23:35 Follow up: IV Status: Completed infusion bs1 Intake: 23:37 IV: 600ml; Total: 600ml. bs1 Outcome: 23:05 Discharge ordered by MD. price 23:35 Discharged to [facility],patient called family member to pick patient up bs1 23:35 Condition: stable 23:35 Discharge instructions given to patient, Instructed on discharge instructions, follow up and referral plans. Demonstrated understanding of instructions, follow-up care. 23:37 Patient left the ED. bs1 Signatures: Shellie Cuadra RN RN aa1 Angela Talavera, NUCLE[employer]APONS MECHANICAL SPECIALIST-C NUCLE[employer] MECHANICAL SPECIALIST-Csnw Kalen Mcdonnell RN RN la1 Jasmine Viera mt, Deanna 3 Haley Rocha RN RN bs1
[2018-02-13 23:43] VITALS: BP 152/87; TEMP 97.9; O2SAT 96
--- NOTE | 2018-02-14 06:54 | EKG ---
Test Date: 2018-02-13 Test Time: 19:37:19 Appeals And Generalist Clerk: MAO MEASUREMENT RESULTS: Intervals: Rate: 61 VT: 194 QRSD: 90 QT: 490 QTc: 493 Linn: P: 46 VT: 194 QRS: -43 T: 77 INTERPRETIVE STATEMENTS: Normal sinus rhythm Left axis deviation Septal infarct, age undetermined Abnormal ECG Compared to ECG 01/14/2018 11:21:15 No significant changes Electronically Signed On 02-14-18 06:53:43 CDT by Pacheco Sotomayor
== END 2018-02-13 23:37 | disposition home or self-care (01) ==
LOC: ER 18:41
DX: R10.9 Unspecified abdominal pain (principal); G47.00 Insomnia, unspecified; F17.210 Nicotine dependence, cigarettes, uncomplicated; I10 Essential (primary) hypertension
CPT/HCPCS: 36415; 80048; 80076; 80307; 80320; 80329; 81003; 85025; 85610; 85730; 93005; 96361; 96365; 96366; 96375; 99284; J3475; J7030

== ENCOUNTER 2018-04-12 16:29 | Emergency (ER) | payer OTHER ==
--- OUTSIDE RECORDS SUMMARY | 2018-04-12 16:31 | XMS REPORT ---
:1955 Author Organization eClinicalWorks Care Team Providers Name Role Phone Juancarlos Rodriguez Provider Role Unavailable Allergies No Known Allergies Problems Problem Type Condition Code Onset Dates Condition Status Problem Osteoarthritis of multiple joints M15.9 Active Problem Hyperlipidemia, mixed E78.2 Active Problem Hx of breast cancer Z85.3 Active Problem GERD (gastroesophageal reflux K21.9 Active disease) Problem Insomnia G47.00 Active Problem Benign essential HTN I10 Active Problem Chronic back pain M54.9 Active Problem Chronic obstructive pulmonary J44.9 Active disease Problem Depression with anxiety F41.8 Active Problem Stented coronary artery Z95.5 Active Assessment Atherosclerosis of coronary artery I25.10 Active of [place] heart Problem Atherosclerosis of coronary artery I25.10 Active of [place] heart Problem Tobacco use disorder Z72.0 Active Medications Medication Code Code Instructions Start End Status Dosage System Date Date Isosorbide NDC 58070926352 60 MG Orally Active 1 tablet Mononitrate ER Once a day in the morning Results No Known Results Summary Purpose [employer] Submission
--- OUTSIDE RECORDS SUMMARY | 2018-04-12 16:31 | XMS REPORT ---
[...] Atherosclerosis of coronary artery I25.10 Active of [place] heart Assessment Atherosclerosis of coronary artery I25.10 Active of [place] [facility] Problem Tobacco use disorder Z72.0 Active Medications Medication Code Code Instructions Start End Status Dosage System Date Date Prozac [facility] 48293589579 40 MG Orally Active 1 capsule Once a day Trazodone HCl [facility] 13825040920 300 MG Orally Active 0.5 Once a day tablet at bedtime Lisinopril [facility] 75632030851 40 MG Orally Active 1 tablet Once a day Norvasc [facility] 80591145729 10 MG Orally Active 1 tablet Once a day Isosorbide Mononitrate [facility] 87108441139 60 MG Orally Active 1 tablet ER Once a day in the morning Aspir-81 [facility] 37157052008 81 MG Orally Active 1 tablet Once a day Latuda [facility] 64921851491 60 MG Orally Active 1 tablet Once a day with food Hydrochlorothiazide [facility] 56590897629 25 MG Orally Active 1 tablet Once a day in the morning Lipitor [facility] 89791615239 40 MG Orally Active 1 tablet Once a day Metoprolol Tartrate [facility] 94307215905 100 MG Orally Active 1 tablet Twice a day with food ProAir HFA [facility] 91892710863 108 (90 Base) Active 2 puffs MCG/ACT as needed Inhalation every 6 hrs HydrALAZINE HCl [facility] 95064931652 50 MG Orally Active 1 tablet Three times a with food day Results Name Result Date Reference Range Unit Abnormality Flag CBC W/AUTO DIFF CMP Magnesium, Serum LIPID PANEL WITH REFLEX TO DIRECT LDL Summary Purpose eClinicalWorks Submission
--- OUTSIDE RECORDS SUMMARY | 2018-04-12 16:31 | XMS REPORT ---
:1955 Author Organization eClinicalWorks Care Team Providers Name Role Phone uJancarlos Rodriguez Provider Role Unavailable Allergies No Known [...] Atherosclerosis of coronary artery I25.10 Active of [place] heart Assessment Atherosclerosis of coronary artery I25.10 Active of [place] [facility] Problem Tobacco use disorder Z72.0 Active Medications Medication Code Code Instructions Start End Status Dosage System Date Date Metoprolol Tartrate [facility] 04316638355 100 MG Orally Active 1 tablet Twice a day with food Lisinopril [facility] 41146284810 40 MG Orally Active 1 tablet Once a day Trazodone HCl [facility] 03451209128 300 MG Orally Active 0.5 Once a day tablet at bedtime Norvasc [facility] 90249642155 10 MG Orally Active 1 tablet Once a day Latuda [facility] 30810536090 60 MG Orally Active 1 tablet Once a day with food HydrALAZINE HCl [facility] 02738256448 50 MG Orally Active 1 tablet Three times a with food day ProAir HFA [facility] 14411937059 108 (90 Base) Active 2 puffs MCG/ACT as needed Inhalation every 6 hrs as needed for cough, shortness of breath and wheezing Isosorbide Mononitrate [facility] 42792367486 60 MG Orally Active 1 tablet ER Once a day in the morning Prozac [facility] 35505164321 40 MG Orally Active 1 capsule Once a day Hydrochlorothiazide [facility] 80880719031 25 MG Orally Active 1 tablet Once a day in the morning -81 [facility] 45415197482 81 MG Orally Active 1 tablet Once a day Lipitor [facility] 57527703568 40 MG Orally Active 1 tablet Once a day Results No Known Results Summary Purpose eClinicalWorks Submission
--- OUTSIDE RECORDS SUMMARY | 2018-04-12 16:32 | XMS REPORT ---
[...] Problem Stented coronary artery Z95.5 Active Assessment Benign essential HTN I10 Active Assessment Hyperlipidemia, mixed E78.2 Active Problem Atherosclerosis of coronary artery I25.10 Active of [place] heart Problem Tobacco use disorder Z72.0 Active Medications Medication Code Code Instructions Start End Status Dosage System Date Date Lipitor ND 64814938042 40 MG Orally Active 1 tablet Once a day Lisinopril ND 89273220318 40 MG Orally Active 1 tablet Once a day HydrALAZINE HCl ND 64958995092 50 MG Orally Active 1 tablet Three times a with food day Hydrochlorothiazide ND 17936177179 25 MG Orally Active 1 tablet Once a day in the morning Metoprolol Tartrate ND 70987548159 100 MG Orally Active 1 tablet Twice a day with food Results No Known Results Summary Purpose eClinicalWorks Submission
--- OUTSIDE RECORDS SUMMARY | 2018-04-12 16:32 | XMS REPORT ---
:1955 Author Organization eClinicalWorks Care Team Providers Name Role Phone Rodriguez, Juancarlos Provider Role Unavailable Allergies No Known Allergies Problems Problem Type Condition Code Onset Dates Condition Status Problem Osteoarthritis of multiple joints M15.9 Active Problem Hyperlipidemia, mixed E78.2 Active Problem Hx of breast cancer Z85.3 Active Problem Atherosclerosis of coronary artery I25.10 Active of [place] heart Problem Tobacco use disorder Z72.0 Active Problem GERD (gastroesophageal reflux K21.9 Active disease) Problem Insomnia G47.00 Active Problem Benign essential HTN I10 Active Problem Chronic back pain M54.9 Active Problem Chronic obstructive pulmonary J44.9 Active disease Problem Depression with anxiety F41.8 Active Problem Stented coronary artery Z95.5 Active Medications No Known Medications Results No Known Results Summary Purpose eClinicalWorks Submission
[2018-04-12] MEDS ORDERED: TETANUS & DIPHTHERIA TOX,ADULT 0.5 ML VIAL ONE (16:49)
[2018-04-12] MEDS ORDERED: LIDOCAINE 1% MPF 5 ML VIAL ONE (16:49)
--- NOTE | 2018-04-12 17:49 | RAD REPORT ---
EXAM DESCRIPTION: RAD - Hand Right 3 View - 04/12/2018 5:20 pm CLINICAL HISTORY: Right hand pain status post injury FINDINGS: No fracture or dislocation is seen.
--- NOTE | 2018-04-12 18:29 | EDPHYS ---
Physician Documentation [facility] Name: Ophelia Grady Age: 62 yrs Sex: Female : 1955 Arrival Date: 04/12/2018 Time: 16:30 Bed 6 Private MD: ED Physician Mike Vegas HPI: 04/12 16:38 This 62 yrs old Female presents to ER via EMS with complaints of Finger cp Injury. 16:38 The patient or guardian reports injury, a laceration, clean. cp 16:38 The complaints affect the dorsal aspect of distal phalanx of right middle finger. cp Context: resulted from crush injury getting caught in door. Onset: The symptoms/episode began/occurred just prior to arrival. Associated signs and symptoms: Pertinent negatives: cyanosis distally, decreased sensation distally. Severity of symptoms: in the emergency department the symptoms are unchanged, despite EMS interventions. Historical: - Allergies: 16:35 No Known Drug Allergies; tw2 - Home Meds: 16:35 amlodipine 10 mg tab 1 tab once daily [Active]; aspirin 81 mg Oral TbEC 1 tab once tw2 daily [Active]; atorvastatin 40 mg Oral tab 1 tab once daily [Active]; fluoxetine 40 mg Oral cap 1 cap once daily [Active]; hydralazine 50 mg Oral tab 1 tab 2 times per day [Active]; hydrochlorothiazide 25 mg Oral tab 1 tab once daily [Active]; isosorbide mononitrate 60 mg Oral Tb24 1 tab once daily [Active]; Latuda 60 mg Oral tab 1 tab once daily [Active]; lisinopril 40 mg Oral tab 1 tab once daily [Active]; metoprolol tartrate 100 mg Oral tab 1 tab 2 times per day [Active]; trazodone 300 mg Oral tab 1 tab nightly [Active]; - PMHx: 16:35 CHF; COPD; Depression; Hyperlipidemia; Hypertension; Major Depressive Disorder; tw2 Schizo-affective disorder; - PSHx: 16:35 Unable to obtain; tw2 - Immunization history:: Last tetanus immunization: unknown. - Social history:: Smoking status: Patient uses tobacco products, smokes one pack cigarettes per day. - Ebola Screening: : Patient denies travel to an Ebola-affected area in the 21 days before illness onset. ROS: 16:45 Constitutional: Negative for body aches, chills, fever, poor PO intake. cp 16:45 Eyes: Negative for injury, pain, redness, and discharge. cp 16:45 Neck: Negative for pain with movement, pain at rest, tenderness. 16:45 Cardiovascular: Negative for chest pain. 16:45 Respiratory: Negative for cough, shortness of breath, wheezing. 16:45 Abdomen/GI: Negative for abdominal pain, nausea, vomiting, and diarrhea. 16:45 MS/extremity: Positive for laceration, pain, of the dorsal aspect of distal phalanx of right middle finger, Negative for paresthesias. 16:45 All other systems are negative. Exam: 16:52 Constitutional: The patient appears in no acute distress, alert, awake, well developed, cp well nourished. 16:52 Head/Face: Normocephalic, atraumatic. cp 16:52 Eyes: Periorbital structures: appear normal, Conjunctiva: normal, no exudate, no injection, Lids and lashes: appear normal, bilaterally. 16:52 ENT: External ear(s): are unremarkable, Nose: is normal, Mouth: is normal, Posterior pharynx: is normal, airway is patent. 16:52 Neck: ROM/movement: is normal, is supple, without pain, no range of motions limitations. 16:52 Chest/axilla: Inspection: normal. 16:52 Cardiovascular: Rate: normal, Pulses: Pulses are 2+ in right radial artery. 16:52 Respiratory: the patient does not display signs of respiratory distress, Respirations: normal, no use of accessory muscles, no retractions, no splinting, no tachypnea. 16:52 Abdomen/GI: Exam negative for discomfort, distension, guarding, Inspection: abdomen appears normal. 16:52 Musculoskeletal/extremity: Extremities: grossly normal except: noted in the dorsal aspect of distal phalanx of right middle finger: laceration, pain, There is no evidence of decreased ROM, deformity, Perfusion: the extremity is normally perfused throughout, Sensation intact. 16:52 Neuro: Orientation: to person, place \T\ time. Mentation: is normal. Vital Signs: 16:31 BP 153 / 98; Pulse 66; Resp 19; Temp 98.6; Pulse Ox 96% on R/A; Weight 73.94 kg; Height aj 5 ft. 4 in. (162.56 cm); 16:31 Body Mass Index 27.98 (73.94 kg, 162.56 cm) Laceration: 18:25 Wound Repair of 2.5cm ( 1.0in ) subcutaneous laceration to dorsal aspect of distal cp phalanx of right middle finger. Skin/tissue flap noted.. Distal neuro/vascular/tendon intact. Anesthesia: Wound infiltrated with 4 mls of 1% lidocaine. Wound prep: Moderate cleansing by me, Wound irrigation by me. Skin closed with 4 5-0 Prolene using simple sutures and sterile technique. Dressed with Bacitracin, 4x4's, finger splint. Patient tolerated well. MDM: 16:31 Patient medically screened. cp 17:00 Differential diagnosis: dislocation, open fracture, closed fracture, contusion. cp 18:25 Data reviewed: vital signs, nurses notes, radiologic studies, plain films, and as a cp result, I will discharge patient. 18:27 Counseling: I had a detailed discussion with the patient and/or guardian regarding: the cp historical points, exam findings, and any diagnostic results supporting the discharge/admit diagnosis, radiology results, the need for outpatient follow up, a hand specialist, to return to the emergency department if symptoms worsen or persist or if there are any questions or concerns that arise at home. 18:27 Response to treatment: the patient's symptoms have markedly improved after treatment, cp and as a result, I will discharge patient. Special discussion: I discussed in detail with the patient the higher chance of wound infection based on his presenting history. 04/12 16:41 Order name: XRAY Hand RIGHT 3 View; Complete Time: 17:51 04/12 17:51 Interpretation: Report reviewed. 04/12 18:27 Order name: Diet Regular: patient requests a turkey sandwich please; Complete Time: aj 18:27 04/12 16:42 Order name: Gloves, Sterile; Complete Time: 16:48 04/12 16:42 Order name: Setup Suture Tray; Complete Time: 16:48 04/12 18:33 Order name: Wound dressing; Complete Time: 19:04 04/12 18:33 Order name: Splint - Finger; Complete Time: 19:04 cp Administered Medications: 16:30 Drug: Lidocaine (1 %) 5 ml Volume: 5 ml; Route: Infiltration; 16:51 Drug: Tetanus-Diphtheria Toxoid Adult 0.5 ml {Child Care Specialist: [employer]. Exp: aj 05/30/2020. Lot #: [id number]. } Route: IM; Site: right deltoid; 17:55 Follow up: Response: No adverse reaction tw2 19:05 Drug: Ancef 1 grams Route: IM; Site: right gluteus; aj 19:05 Follow up: Response: Medication administered at discharge. aj Disposition: 04/12/18 18:28 Discharged to Home. Impression: Laceration without foreign body of finger without damage to nail - Right Midle, Displaced fracture of distal phalanx of right middle finger. - Condition is Stable. - Discharge Instructions: Finger Fracture, Laceration Care, Adult. - Prescriptions for Ibuprofen 800 mg Oral Tablet - take 1 tablet by ORAL route every 8 hours As needed take with food; 30 tablet. Keflex 500 mg Oral Capsule - take 1 capsule by ORAL route every 6 hours for 10 days; 40 capsule. - Medication Reconciliation Form, Thank You Letter, Antibiotic Education, Prescription Opioid Use form. - Follow up: Kofi Rondon MD; When: 2 - 3 days; Reason: Recheck today's complaints. - Problem is new. - Symptoms have improved. Addendum: 04/14/2018 06:24 Co-signature as Attending Physician, Mike Vegas MD I agree with the assessment and c conte plan of care. Signatures: Dispatcher [employer] Cindy Andrews, RN Mike Ramirez MD MD cha Page, Corey, PA PA Chloé Romano RN RN tw2 Corrections: (The following items were deleted from the chart) 04/12 19:05 18:28 04/12/2018 18:28 Discharged to Home. Impression: Laceration without foreign body aj of finger without damage to nail - Right Midle; Displaced fracture of distal phalanx of right middle finger. Condition is Stable. Forms are Medication Reconciliation Form, Thank You Letter, Antibiotic Education, Prescription Opioid Use. Follow up: Kofi Rondon; When: 2 - 3 days; Reason: Recheck today's complaints. Problem is new. Symptoms have improved. cp
--- NOTE | 2018-04-12 18:29 | ER ---
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 Not bleeding. Transition of care: patient was not received from another setting of care. Onset of symptoms was April 12, 2018. Risk Assessment: Do you want to hurt yourself or someone else? Patient reports no desire to harm self or others. Initial Sepsis Screen: Does the patient meet any 2 criteria? No. Patient's initial sepsis screen is negative. Does the patient have a suspected source of infection? No. Patient's initial sepsis screen is negative. Care prior to arrival: None. 16:31 Method Of Arrival: EMS: [facility] aj 16:31 Acuity: SHAWN 4 aj Triage Assessment: 16:31 General: Appears in no apparent distress. comfortable, Behavior is calm, cooperative, aj appropriate for age. Pain: Complains of pain in dorsal aspect of distal phalanx of right middle finger. Neuro: Level of Consciousness is awake, alert, obeys commands, Oriented to person, place, time, situation, Appropriate for age. Respiratory: Airway is patent Trachea midline Respiratory effort is even, unlabored, Respiratory pattern is regular, symmetrical. Derm: Skin is intact, is healthy with good turgor, Skin is pink, warm \T\ dry. normal. Musculoskeletal: Range of motion: Reports pain in dorsal aspect of distal phalanx of right middle finger. Injury Description: Laceration sustained to dorsal aspect of distal phalanx of right middle finger is clean, 0.5 to 2.5 cm long, was sustained less than 30 minutes ago. no active bleeding noted at this time. Historical: - Allergies: 16:35 No Known Drug Allergies; tw2 - Home Meds: 16:35 amlodipine 10 mg tab 1 tab once daily [Active]; aspirin 81 mg Oral TbEC 1 tab once tw2 daily [Active]; atorvastatin 40 mg Oral tab 1 tab once daily [Active]; fluoxetine 40 mg Oral cap 1 cap once daily [Active]; hydralazine 50 mg Oral tab 1 tab 2 times per day [Active]; hydrochlorothiazide 25 mg Oral tab 1 tab once daily [Active]; isosorbide mononitrate 60 mg Oral Tb24 1 tab once daily [Active]; Latuda 60 mg Oral tab 1 tab once daily [Active]; lisinopril 40 mg Oral tab 1 tab once daily [Active]; metoprolol tartrate 100 mg Oral tab 1 tab 2 times per day [Active]; trazodone 300 mg Oral tab 1 tab nightly [Active]; - PMHx: 16:35 CHF; COPD; Depression; Hyperlipidemia; Hypertension; Major Depressive Disorder; tw2 Schizo-affective disorder; - PSHx: 16:35 Unable to obtain; tw2 - Immunization history:: Last tetanus immunization: unknown. - Social history:: Smoking status: Patient uses tobacco products, smokes one pack cigarettes per day. - Ebola Screening: : Patient denies travel to an Ebola-affected area in the 21 days before illness onset. Screenin:32 Abuse screen: Denies threats or abuse. Nutritional screening: No deficits noted. tw2 Tuberculosis screening: No symptoms or risk factors identified. Fall Risk None identified. Assessment: 16:44 Reassessment: See triage. aj 17:45 Reassessment: Patient appears in no apparent distress at this time. No changes from previously documented assessment. Patient and/or family updated on plan of care and expected duration. Pain level reassessed. Patient is alert, oriented x 3, equal unlabored respirations, skin warm/dry/pink. Visitor is at bedside Patient states feeling better. Vital Signs: 16:31 BP 153 / 98; Pulse 66; Resp 19; Temp 98.6; Pulse Ox 96% on R/A; Weight 73.94 kg; Height aj 5 ft. 4 in. (162.56 cm); 16:31 Body Mass Index 27.98 (73.94 kg, 162.56 cm) ED Course: 16:30 Patient arrived in ED. aj 16:31 Mike Valle PA is PHCP. cp 16:31 Mike Vegas MD is Attending Physician. cp 16:32 Triage completed. aj 16:32 Bed in low position. Call light in reach. Pulse ox on. NIBP on. tw2 16:32 Arm band placed on. tw2 16:44 Cindy Solitario, RN is Primary Nurse. aj 17:17 X-ray completed. Portable x-ray completed in exam room. Patient tolerated procedure bb2 well. 17:18 XRAY Hand RIGHT 3 View In Process Unspecified. EDMS 18:17 Assist provider with laceration repair on dorsal aspect of distal phalanx of right aj middle finger that was 2.5 cm. or less using sutures. Set up tray. Performed by Mike BHATIA Dressed with band aid, Patient tolerated well. Patient did not have IV access during this emergency room visit. 18:25 Kofi Rondon MD is Referral Physician. cp Administered Medications: 16:30 Drug: Lidocaine (1 %) 5 ml Volume: 5 ml; Route: Infiltration; aj 16:51 Drug: Tetanus-Diphtheria Toxoid Adult 0.5 ml {Medical Cost Consultant: [employer]. Exp: aj 05/30/2020. Lot #: [id number]. } Route: IM; Site: right deltoid; 17:55 Follow up: Response: No adverse reaction tw2 19:05 Drug: Ancef 1 grams Route: IM; Site: right gluteus; aj 19:05 Follow up: Response: Medication administered at discharge. aj Outcome: 18:28 Discharge ordered by . cp 19:05 Patient left the ED. aj Signatures: Dispatcher [employer] Cindy Andrews, RN Mike Avery PA PA cp Wise, Tara RN RN tw2 Haley Martino bb2
[2018-04-12] MEDS ORDERED: CEFAZOLIN SODIUM 1 GM/VIAL ONE (18:56)
== END 2018-04-12 19:05 | disposition home or self-care (01) ==
LOC: ER 16:29
PROC: 0HQFXZZ Repair Right Hand Skin, External Approach (ICD-10-PCS; principal; 2018-04-12)
DX: S62.632B Displaced fracture of distal phalanx of right middle finger, initial encounter for open fracture (principal); I11.0 Hypertensive heart disease with heart failure; I50.9 Heart failure, unspecified; E78.5 Hyperlipidemia, unspecified; J44.9 Chronic obstructive pulmonary disease, unspecified; F17.210 Nicotine dependence, cigarettes, uncomplicated; W23.0XXA Caught, crushed, jammed, or pinched between moving objects, initial encounter; Y93.9 Activity, unspecified; Y92.9 Unspecified place or not applicable; Y99.9 Unspecified external cause status; Z23 Encounter for immunization
CPT/HCPCS: 90714; 96372; 99284; J0690

== ENCOUNTER 2018-08-08 10:23 | Emergency (ER) | payer OTHER ==
--- OUTSIDE RECORDS SUMMARY | 2018-08-08 10:25 | XMS REPORT | Continuity of Care Document ---
:1955 Author Organization Interface Problems Problem Status Onset Classification Date Comments Source Date Reported ACUTE CHEST Active [facility] Medications Medication Details Route Status Patient Ordering Order Source Instructions Provider Date Allergies, Adverse Reactions, Alerts Substance Category Reaction Severity Reaction Status Date Comments Source type Reported Immunizations Immunization Date Given Site Status Last Updated Comments Source Results Order Results Value Reference Date Interpretation Comments Source Name Range Chest Chest EXAM: XR CHEST 1 VIEW 06/21 - [facility] 1view 1view /2017 - Hospital DX DATE: 06/21/2018 4:58 PM CDT Read by: Olegario Soto MD Dictated Date/time: 06/21/18 17:26 Electronically Signed by: Olegario Soto MD 06/21/18 17:26 FINAL REPORT INDICATION: Chest pain. COMPARISON: December 22, 2005. TECHNIQUE: Frontal radiograph of the chest was obtained. FINDINGS: No focal consolidation or pneumothorax is identified. The cardiomediastinal silhouette is within normal limits. The costophrenic recesses are sharp and without effusion. No acute osseous abnormality is noted. IMPRESSION: No acute cardiopulmonary abnormality. SL: [id number] Vital Signs Vital Sign Value Date Comments Source Encounters Location Location Encounter Encounter Reason Attending ADM DC Status Source Details Type Number For Provider Date Date Visit Procedures Procedure Code Date Perfomer Comments Source
--- OUTSIDE RECORDS SUMMARY | 2018-08-08 10:25 | XMS REPORT ---
[...] Atherosclerosis of coronary artery I25.10 Active of [place] heart Assessment Atherosclerosis of coronary artery I25.10 Active of [place] heart Problem Tobacco use disorder Z72.0 Active Medications Medication Code Code Instructions Start End Status Dosage System Date Date Prozac [facility] 69438482901 40 MG Orally Active 1 capsule Once a day Trazodone HCl [facility] 44013071766 300 MG Orally Active 0.5 Once a day tablet at bedtime Lisinopril [facility] 89743809742 40 MG Orally Active 1 tablet Once a day Norvasc [facility] 61663951742 10 MG Orally Active 1 tablet Once a day Isosorbide Mononitrate [facility] 05060041364 60 MG Orally Active 1 tablet ER Once a day in the morning Aspir-81 [facility] 31313774683 81 MG Orally Active 1 tablet Once a day Latuda [facility] 13432149090 60 MG Orally Active 1 tablet Once a day with food Hydrochlorothiazide [facility] 09450288540 25 MG Orally Active 1 tablet Once a day in the morning Lipitor [facility] 66130925766 40 MG Orally Active 1 tablet Once a day Metoprolol Tartrate [facility] 30825405190 100 MG Orally Active 1 tablet Twice a day with food ProAir HFA [facility] 64063406379 108 (90 Base) Active 2 puffs MCG/ACT as needed Inhalation every 6 hrs HydrALAZINE HCl [facility] 22058230485 50 MG Orally Active 1 tablet Three times a with food day Results Name Result Date Reference Range Unit Abnormality Flag CBC W/AUTO DIFF CMP Magnesium, Serum LIPID PANEL WITH REFLEX TO DIRECT LDL Summary Purpose eClinicalWorks Submission
--- OUTSIDE RECORDS SUMMARY | 2018-08-08 10:26 | XMS REPORT ---
:1955 Author Organization eClinicalWorks Care Team Providers Name Role Phone Rodriguez, Juancarlos Provider Role Unavailable Allergies No Known Allergies Problems Problem Type Condition Code Onset Dates Condition Status Problem Osteoarthritis of multiple joints M15.9 Active Problem Hyperlipidemia, mixed E78.2 Active Problem Hx of breast cancer Z85.3 Active Problem Atherosclerosis of coronary artery I25.10 Active of [place] heart Problem Tobacco use disorder Z72.0 Active [...]
--- OUTSIDE RECORDS SUMMARY | 2018-08-08 10:26 | XMS REPORT ---
[...] Atherosclerosis of coronary artery I25.10 Active of [place] [facility] Problem Atherosclerosis of coronary artery I25.10 Active of [place] [facility] Problem Tobacco use disorder Z72.0 Active Medications Medication Code Code Instructions Start End Status Dosage System Date Date Isosorbide [facility] 37353771984 60 MG Orally Active 1 tablet Mononitrate ER Once a day in the morning Results No Known Results Summary Purpose [employer] Submission
--- OUTSIDE RECORDS SUMMARY | 2018-08-08 10:26 | XMS REPORT ---
[...] Atherosclerosis of coronary artery I25.10 Active of [place] [facility] Assessment Atherosclerosis of coronary artery I25.10 Active of [place] [facility] Problem Tobacco use disorder Z72.0 Active Medications Medication Code Code Instructions Start End Status Dosage System Date Date Metoprolol Tartrate [facility] 25461077101 100 MG Orally Active 1 tablet Twice a day with food Lisinopril [facility] 52234685224 40 MG Orally Active 1 tablet Once a day Trazodone HCl [facility] 40883353992 300 MG Orally Active 0.5 Once a day tablet at bedtime Norvasc [facility] 87392374616 10 MG Orally Active 1 tablet Once a day Latuda [facility] 40223408013 60 MG Orally Active 1 tablet Once a day with food HydrALAZINE HCl [facility] 17657934897 50 MG Orally Active 1 tablet Three times a with food day ProAir HFA [facility] 60115832063 108 (90 Base) Active 2 puffs MCG/ACT as needed Inhalation every 6 hrs as needed for cough, shortness of breath and wheezing Isosorbide Mononitrate [facility] 56934312173 60 MG Orally Active 1 tablet ER Once a day in the morning Prozac [facility] 90327856039 40 MG Orally Active 1 capsule Once a day Hydrochlorothiazide [facility] 06683901110 25 MG Orally Active 1 tablet Once a day in the morning -81 [facility] 53870407166 81 MG Orally Active 1 tablet Once a day Lipitor [facility] 42879331053 40 MG Orally Active 1 tablet Once a day Results No Known Results Summary Purpose eClinicalWorks Submission
--- OUTSIDE RECORDS SUMMARY | 2018-08-08 10:26 | XMS REPORT ---
:1955 Author Organization eClinicalWorks Care Team Providers Name Role Phone Juancarlos Rodriguez Provider Role Unavailable Allergies No Known Allergies Problems Problem Type Condition Code Onset Dates Condition Status Problem Osteoarthritis of multiple joints M15.9 Active Problem Hyperlipidemia, mixed E78.2 Active Problem Hx of breast cancer Z85.3 Active Problem GERD (gastroesophageal reflux K21.9 Active disease) Assessment Stented coronary artery Z95.5 Active Problem Insomnia G47.00 Active Assessment Osteoarthritis of multiple joints M15.9 Active Assessment GERD (gastroesophageal reflux K21.9 Active disease) Problem Benign essential HTN I10 Active Problem Chronic back pain M54.9 Active Problem Chronic obstructive pulmonary J44.9 Active disease Problem Depression with anxiety F41.8 Active Problem Stented coronary artery Z95.5 Active Assessment Tobacco use disorder Z72.0 Active Assessment Depression with anxiety F41.8 Active Assessment Hyperlipidemia, mixed E78.2 Active Assessment Insomnia G47.00 Active Assessment Chronic obstructive pulmonary J44.9 Active disease Assessment Atherosclerosis of coronary artery I25.10 Active of [place] [facility] Problem Atherosclerosis of coronary artery I25.10 Active of [place] [facility] Assessment Benign essential HTN I10 Active Problem Tobacco use disorder Z72.0 Active Medications Medication Code Code Instructions Start End Status Dosage System Date Date [facility] 89144067073 10 MG Orally Active 1 tablet Once a day Hydrochlorothiazide [facility] 63756069724 25 MG Orally Active 1 tablet Once a day in the morning HydrALAZINE HCl [facility] 57340022696 50 MG Orally Active 1 tablet Three times a with food day Latuda [facility] 68166490436 60 MG Orally Active 1 tablet Once a day with food Lisinopril [facility] 56514802883 40 MG Orally Active 1 tablet Once a day Isosorbide Mononitrate [facility] 44894519227 60 MG Orally Active 1 tablet ER Once a day in the morning Aspir-81 [facility] 39336401125 81 MG Orally Active 1 tablet Once a day Metoprolol Tartrate [facility] 19729173557 100 MG Orally Active 1 tablet Twice a day with food Prozac [facility] 73806514286 40 MG Orally Active 1 capsule Once a day HydrALAZINE HCl [facility] 32671192464 50 MG Orally Active 1 tablet Three times a with food day Trazodone HCl [facility] 76235692576 300 MG Orally Active 0.5 Once a day tablet at bedtime Lipitor [facility] 37047147844 40 MG Orally Active 1 tablet Once a day Norvasc [facility] 82687266130 10 MG Orally Active 1 tablet Once a day ProAir HFA [facility] 65404044523 108 (90 Base) Active 2 puffs MCG/ACT as needed Inhalation every 6 hrs as needed for cough, shortness of breath and wheezing Isosorbide Mononitrate [facility] 99921116673 60 MG Orally Active 1 tablet ER Once a day in the morning Results No Known Results Summary Purpose eClinicalWorks Submission
--- OUTSIDE RECORDS SUMMARY | 2018-08-08 10:26 | XMS REPORT ---
[...] Atherosclerosis of coronary artery I25.10 Active of [place] [facility] Problem Tobacco use disorder Z72.0 Active Medications Medication Code Code Instructions Start End Status Dosage System Date Date Lipitor ND 01370030501 40 MG Orally Active 1 tablet Once a day Lisinopril ND 21114979858 40 MG Orally Active 1 tablet Once a day HydrALAZINE HCl ND 14649390120 50 MG Orally Active 1 tablet Three times a with food day Hydrochlorothiazide ND 92347826331 25 MG Orally Active 1 tablet Once a day in the morning Metoprolol Tartrate ND 20114641684 100 MG Orally Active 1 tablet Twice a day with food Results No Known Results Summary Purpose eClinicalWorks Submission
[2018-08-08 11:43] LABS: Absolute Lymphocytes (CBC) 1.7 K/uL (0.7-4.9); Absolute Monocytes 0.5 K/uL (0.1-1.3); Absolute Neutrophil 4.8 K/uL (1.8-8.0); Basophils % 0.8 % (0-1.3); Eosinophils % 1.1 % (0-4.4); Hematocrit 42.3 % (36.0-45.0); Lymphocytes % 23.9 % (15.3-44.8); MCH 30.9 pg (27.0-35.0); MCV 90.8 fL (80-100); Monocytes % 6.8 % (3.3-12.3); RBC Red Blood Cell Count 4.65 M/uL (3.86-4.86)
[2018-08-08 11:44] LABS: Protime INR 1.03
[2018-08-08 11:52] LABS: Barbiturates NEGATIVE (NEGATIVE); Benzodiazepines NEGATIVE (NEGATIVE); Cocaine NEGATIVE (NEGATIVE); METHAMPHETAM NEGATIVE (NEGATIVE); Methadone NEGATIVE (NEGATIVE); Opiates NEGATIVE (NEGATIVE); Phencyclidine NEGATIVE (NEGATIVE); THC Cannibis NEGATIVE (NEGATIVE)
[2018-08-08 12:04] LABS: ALT/SGPT 35 U/L (12-78); AST/SGOT 24 U/L (15-37); Albumin 3.5 g/dL (3.4-5.0); Alkaline Phosphatase 78 U/L (45-117); BUN Blood Urea Nitrogen 17 mg/dL (7-18); Bicarbonate 26 mmol/L (21-32); Bilirubin Direct 0.2 mg/dL (0-0.2); Bilirubin Total 0.4 mg/dL (0.2-1.0); Glucose Level 116 mg/dL (74-106); Potassium 3.3 mmol/L (3.5-5.1); Protein, Total 6.4 g/dL (6.4-8.2); Sodium Level 142 mmol/L (136-145)
[2018-08-08] MEDS ORDERED: POTASSIUM CL SA 10 MEQ TAB PO ONE (12:59)
[2018-08-08 13:36] LABS: Urine Blood NEGATIVE (NEG); Urine Glucose NEGATIVE (NEG); Urine Protein NEGATIVE (NEG); Urine pH 6.5 (5.0-7.0)
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
--- NOTE | 2018-08-08 16:54 | EDPHYS ---
Physician Documentation [facility] Name: Ophelia Grady Age: 63 yrs Sex: Female : 1955 Arrival Date: 08/08/2018 Time: 10:19 Bed 20 Private MD: ED Physician Mike Vegas HPI: 08/08 13:25 This 63 yrs old Female presents to ER via EMS with complaints of Suicidal jr8 Ideation. 13:25 The patient presents to the emergency department with anxiety, depression, suicide jr8 ideation, and the patient has a plan, to walk into a car. Onset: The symptoms/episode began/occurred gradually, 2 week(s) ago, and became worse and became persistent. Past psychiatric history: Prior diagnosis: no previous psychiatric diagnosis known, depression. Associated signs and symptoms: The patient has no apparent associated signs or symptoms. Severity of symptoms: At their worst the symptoms were moderate in the emergency department the symptoms are unchanged. The patient has not experienced similar symptoms in the past. The patient has not recently seen a physician. 16:49 Patient stated that she battles from depression. Stated that because of her living jr8 situation and other past events she has been having a worse time. Feels that she could walk in front of traffic. Knows that she should not do that so came here for help. Patient is a [facility] patient and has contacted them. Historical: - Allergies: 10:22 No Known Allergies; ch - Home Meds: 10:22 hydralazine 50 mg Oral tab 1 tab 2 times per day [Active]; amlodipine 10 mg tab 1 tab ch once daily [Active]; aspirin 81 mg Oral TbEC 1 tab once daily [Active]; atorvastatin 40 mg Oral tab 1 tab once daily [Active]; fluoxetine 40 mg Oral cap 1 cap once daily [Active]; hydrochlorothiazide 25 mg Oral tab 1 tab once daily [Active]; isosorbide mononitrate 60 mg Oral Tb24 1 tab once daily [Active]; Latuda 60 mg Oral tab 1 tab once daily [Active]; lisinopril 40 mg Oral tab 1 tab once daily [Active]; metoprolol tartrate 100 mg Oral tab 1 tab 2 times per day [Active]; trazodone 300 mg Oral tab 1 tab nightly [Active]; - PMHx: 10:22 CHF; COPD; Depression; Hyperlipidemia; Hypertension; Major Depressive Disorder; ch Schizo-affective disorder; Anemia; ADD/ADHD; - Immunization history:: Adult Immunizations up to date. - Social history:: Smoking status: Patient uses tobacco products, smokes one pack cigarettes per day. - Ebola Screening: : Patient negative for fever greater than or equal to 101.5 degrees Fahrenheit, and additional compatible Ebola Virus Disease symptoms Patient denies exposure to infectious person Patient denies travel to an Ebola-affected area in the 21 days before illness onset No symptoms or risks identified at this time. ROS: 13:25 Eyes: Negative for injury, pain, redness, and discharge, ENT: Negative for injury, jr8 pain, and discharge, Neck: Negative for injury, pain, and swelling, Cardiovascular: Negative for chest pain, palpitations, and edema, Respiratory: Negative for shortness of breath, cough, wheezing, and pleuritic chest pain, Abdomen/GI: Negative for abdominal pain, nausea, vomiting, diarrhea, and constipation, Back: Negative for injury and pain, MS/Extremity: Negative for injury and deformity, Skin: Negative for injury, rash, and discoloration, Neuro: Negative for headache, weakness, numbness, tingling, and seizure. 13:25 Psych: Positive for depression, suicidal ideation. Exam: 16:49 Eyes: Pupils equal round and reactive to light, extra-ocular motions intact. Lids and jr8 lashes normal. Conjunctiva and sclera are non-icteric and not injected. Cornea within normal limits. Periorbital areas with no swelling, redness, or edema. ENT: Nares patent. No nasal discharge, no septal abnormalities noted. Tympanic membranes are normal and external auditory canals are clear. Oropharynx with no redness, swelling, or masses, exudates, or evidence of obstruction, uvula midline. Mucous membranes moist. Neck: Trachea midline, no thyromegaly or masses palpated, and no cervical lymphadenopathy. Supple, full range of motion without nuchal rigidity, or vertebral point tenderness. No Meningismus. Cardiovascular: Regular rate and rhythm with a normal S1 and S2. No gallops, murmurs, or rubs. Normal PMI, no JVD. No pulse deficits. Respiratory: Lungs have equal breath sounds bilaterally, clear to auscultation and percussion. No rales, rhonchi or wheezes noted. No increased work of breathing, no retractions or nasal flaring. Abdomen/GI: Soft, non-tender, with normal bowel sounds. No distension or tympany. No guarding or rebound. No evidence of tenderness throughout. Back: No spinal tenderness. No costovertebral tenderness. Full range of motion. Skin: Warm, dry with normal turgor. Normal color with no rashes, no lesions, and no evidence of cellulitis. MS/ Extremity: Pulses equal, no cyanosis. Neurovascular intact. Full, normal range of motion. Neuro: Awake and alert, GCS 15, oriented to person, place, time, and situation. Cranial nerves II-XII grossly intact. Motor strength 5/5 in all extremities. Sensory grossly intact. Cerebellar exam normal. Normal gait. 16:49 Psych: Behavior/mood is depressed, Affect is calm, Oriented to person, place, time, Patient has no thoughts/intents to harm self or others. Judgement / Insight is normal. Memory is normal. Delusions/hallucinations are not present. Vital Signs: 10:40 BP 146 / 75; Pulse 69; Resp 18; Temp 98.3; Pulse Ox 99% on R/A; Weight 71.67 kg; Height ch 5 ft. 4 in. (162.56 cm); Pain 0/10; 11:07 BP 139 / 79; Pulse 69; Resp 18; Temp 98.0(O); Pulse Ox 97% on R/A; mh5 14:16 BP 130 / 72; Pulse 68; Resp 17; Pulse Ox 99% on R/A; mh5 15:40 BP 124 / 78; Pulse 71; Resp 16; Temp 98.3; Pulse Ox 99% on R/A; Pain 0/10; ch 16:47 BP 132 / 65; Pulse 62; Resp 15; Temp 98.3; Pulse Ox 99% on R/A; Pain 0/10; ch 10:40 Body Mass Index 27.12 (71.67 kg, 162.56 cm) MDM: 10:31 Patient medically screened. [facility] 16:49 Data reviewed: vital signs, nurses notes, lab test result(s), EKG. Data interpreted: [facility] Pulse oximetry: on room air is 99 %. Interpretation: normal. Counseling: I had a detailed discussion with the patient and/or guardian regarding: the historical points, exam findings, and any diagnostic results supporting the discharge/admit diagnosis, lab results, the need for outpatient follow up, a psychiatrist, to return to the emergency department if symptoms worsen or persist or if there are any questions or concerns that arise at home. ED course: Patient feeling much better after talking with us and Lazaro José. [facility] has worked out a plan with her and will adjust medications as well. Not suicidal. Wants to go back to retirement. Would come back if worse. 08/08 11:00 Order name: Acetaminophen; Complete Time: 12:11 [facility] 08/08 11:00 Order name: Basic Metabolic Panel; Complete Time: 12:11 [facility] 08/08 11:00 Order name: CBC with Diff; Complete Time: 12:00 [facility] 08/08 11:00 Order name: ETOH Level; Complete Time: 12:26 [facility] 08/08 11:00 Order name: Hepatic Function; Complete Time: 12:11 08/08 11:00 Order name: PT-INR; Complete Time: 12:00 [facility] 08/08 11:00 Order name: Urine Drug Screen; Complete Time: 12:00 [facility] 08/08 11:28 Order name: Diet Finger Food; Complete Time: 11:28 08/08 11:42 Order name: Urine Dipstick--Ancillary (enter results); Complete Time: 14:14 08/08 11:42 Order name: Urine --Ancillary (enter results); Complete Time: 14:14 08/08 14:55 Order name: Diet Regular; Complete Time: 14:55 [facility] 08/08 11:00 Order name: Labs collected and sent; Complete Time: 11:30 [facility] 08/08 11:00 Order name: Urine Dipstick-Ancillary (obtain specimen); Complete Time: 11:30 Administered Medications: 12:41 Drug: Potassium Chloride 40 mEq Route: PO; ch 15:04 Follow up: Response: No adverse reaction; Marked relief of symptoms Disposition: 08/09 09:25 Co-signature as Attending Physician, Mike Vegas MD I agree with the assessment and denny plan of care. Disposition: 08/08/18 16:52 Discharged to Home. Impression: Major depressive disorder, recurrent, Suicidal ideations. - Condition is Stable. - Discharge Instructions: Suicidal Feelings: How to Help Yourself, Helping Someone Who is Suicidal, Stress and Stress Management, Major Depressive Disorder. - Medication Reconciliation Form, Thank You Letter, Antibiotic Education, Prescription Opioid Use form. - Follow up: Private Physician; When: 1 - 2 days; Reason: Recheck today's complaints, Continuance of care, Re-evaluation by your physician. - Problem is new. - Symptoms have improved. Signatures: Dispatcher [employer] [facility] Xin Fitch RN RN Mike Echeverria MD MD cha Roszak, Josh, PA PA jr8 Corrections: (The following items were deleted from the chart) 08/08 12:20 11:00 SALICYLATE+C.LAB.BRZ ordered. EDDE EDDE 15:04 11:00 IV Saline Lock ordered. jr8 17:22 16:52 08/08/2018 16:52 Discharged to Home. Impression: Major depressive disorder, ch recurrent; Suicidal ideations. Condition is Stable. Forms are Medication Reconciliation Form, Thank You Letter, Antibiotic Education, Prescription Opioid Use. Follow up: Private Physician; When: 1 - 2 days; Reason: Recheck today's complaints, Continuance of care, Re-evaluation by your physician. Problem is new. Symptoms have improved. jr8
[2018-08-08 18:22] VITALS: O2SAT 99
[2018-08-08 18:24] VITALS: TEMP 98.3
[2018-08-08 18:25] VITALS: BP 132/65
== END 2018-08-08 17:22 | disposition home or self-care (01) ==
LOC: ER 10:23
DX: F32.9 Major depressive disorder, single episode, unspecified (principal); R45.851 Suicidal ideations; I11.0 Hypertensive heart disease with heart failure; I50.9 Heart failure, unspecified; J44.9 Chronic obstructive pulmonary disease, unspecified; F17.210 Nicotine dependence, cigarettes, uncomplicated
CPT/HCPCS: 36415; 80048; 80076; 80307; 80320; 80329; 81003; 81025; 85025; 85610; 99284

== ENCOUNTER 2018-08-29 17:34 | Observation (INO) | payer OTHER ==
--- OUTSIDE RECORDS SUMMARY | 2018-08-29 17:37 | XMS REPORT ---
[...] Atherosclerosis of coronary artery I25.10 Active of [place] heart Problem Tobacco use disorder Z72.0 Active Medications Medication Code Code Instructions Start End Status Dosage System Date Date Lipitor ND 63615992957 40 MG Orally Active 1 tablet Once a day Lisinopril ND 69615354887 40 MG Orally Active 1 tablet Once a day HydrALAZINE HCl ND 70027866925 50 MG Orally Active 1 tablet Three times a with food day Hydrochlorothiazide ND 39677706879 25 MG Orally Active 1 tablet Once a day in the morning Metoprolol Tartrate ND 57343290268 100 MG Orally Active 1 tablet Twice a day with food Results No Known Results Summary Purpose eClinicalWorks Submission
--- OUTSIDE RECORDS SUMMARY | 2018-08-29 17:37 | XMS REPORT ---
[...] Atherosclerosis of coronary artery I25.10 Active of [place] heart Assessment Atherosclerosis of coronary artery I25.10 Active of [place] heart Problem Tobacco use disorder Z72.0 Active Medications Medication Code Code Instructions Start End Status Dosage System Date Date Prozac [facility] 02082971939 40 MG Orally Active 1 capsule Once a day Trazodone HCl [facility] 96720582485 300 MG Orally Active 0.5 Once a day tablet at bedtime Lisinopril [facility] 73031792371 40 MG Orally Active 1 tablet Once a day Norvasc [facility] 26929074733 10 MG Orally Active 1 tablet Once a day Isosorbide Mononitrate [facility] 91181042168 60 MG Orally Active 1 tablet ER Once a day in the morning Aspir-81 [facility] 17225984032 81 MG Orally Active 1 tablet Once a day Latuda [facility] 44832052856 60 MG Orally Active 1 tablet Once a day with food Hydrochlorothiazide [facility] 02437916526 25 MG Orally Active 1 tablet Once a day in the morning Lipitor [facility] 32073765191 40 MG Orally Active 1 tablet Once a day Metoprolol Tartrate [facility] 30658633055 100 MG Orally Active 1 tablet Twice a day with food ProAir HFA [facility] 01246199768 108 (90 Base) Active 2 puffs MCG/ACT as needed Inhalation every 6 hrs HydrALAZINE HCl [facility] 09222345719 50 MG Orally Active 1 tablet Three times a with food day Results Name Result Date Reference Range Unit Abnormality Flag CBC W/AUTO DIFF CMP Magnesium, Serum LIPID PANEL WITH REFLEX TO DIRECT LDL Summary Purpose eClinicalWorks Submission
--- OUTSIDE RECORDS SUMMARY | 2018-08-29 17:37 | XMS REPORT ---
[...] Atherosclerosis of coronary artery I25.10 Active of [place] heart Problem Atherosclerosis of coronary artery I25.10 Active of [place] heart Assessment Benign essential HTN I10 Active Problem Tobacco use disorder Z72.0 Active Medications Medication Code Code Instructions Start End Status Dosage System Date Date [facility] 10 MG Orally Active 1 tablet Once a day Hydrochlorothiazide [facility] 70675591573 25 MG Orally Active 1 tablet Once a day in the morning HydrALAZINE HCl [facility] 11683250883 50 MG Orally Active 1 tablet Three times a with food day Latuda [facility] 89720030254 60 MG Orally Active 1 tablet Once a day with food Lisinopril [facility] 63006898682 40 MG Orally Active 1 tablet Once a day Isosorbide Mononitrate [facility] 18361727421 60 MG Orally Active 1 tablet ER Once a day in the morning Aspir-81 [facility] 86666369138 81 MG Orally Active 1 tablet Once a day Metoprolol Tartrate [facility] 99910623444 100 MG Orally Active 1 tablet Twice a day with food Prozac [facility] 15674414009 40 MG Orally Active 1 capsule Once a day HydrALAZINE HCl [facility] 98993668935 50 MG Orally Active 1 tablet Three times a with food day Trazodone HCl [facility] 92516178516 300 MG Orally Active 0.5 Once a day tablet at bedtime Lipitor [facility] 17835214908 40 MG Orally Active 1 tablet Once a day Norvasc [facility] 02046056701 10 MG Orally Active 1 tablet Once a day ProAir HFA [facility] 74156204443 108 (90 Base) Active 2 puffs MCG/ACT as needed Inhalation every 6 hrs as needed for cough, shortness of breath and wheezing Isosorbide Mononitrate [facility] 20830814236 60 MG Orally Active 1 tablet ER Once a day in the morning Results No Known Results Summary Purpose eClinicalWorks Submission
--- OUTSIDE RECORDS SUMMARY | 2018-08-29 17:37 | XMS REPORT ---
:1955 Author Organization eClinicalWorks Care Team Providers Name Role Phone Rodriguez, Juancarlos Provider Role Unavailable Allergies No Known Allergies Problems Problem Type Condition Code Onset Dates Condition Status Problem Osteoarthritis of multiple joints M15.9 Active Problem Hyperlipidemia, mixed E78.2 Active Problem Hx of breast cancer Z85.3 Active Problem Atherosclerosis of coronary artery I25.10 Active of [place] heart Problem Tobacco use disorder Z72.0 Active [...]
--- OUTSIDE RECORDS SUMMARY | 2018-08-29 17:37 | XMS REPORT | Continuity of Care Document ---
:1955 Author Organization Interface Problems Problem Status Onset Classification Date Comments Source Date Reported ACUTE CHEST Active [facility] Medications Medication Details [...]
--- OUTSIDE RECORDS SUMMARY | 2018-08-29 17:37 | XMS REPORT ---
[...] Atherosclerosis of coronary artery I25.10 Active of [place] heart Assessment Atherosclerosis of coronary artery I25.10 Active of [place] heart Problem Tobacco use disorder Z72.0 Active Medications Medication Code Code Instructions Start End Status Dosage System Date Date Metoprolol Tartrate [facility] 68124475819 100 MG Orally Active 1 tablet Twice a day with food Lisinopril [facility] 25817685935 40 MG Orally Active 1 tablet Once a day Trazodone HCl [facility] 49790016481 300 MG Orally Active 0.5 Once a day tablet at bedtime Norvasc [facility] 89170417630 10 MG Orally Active 1 tablet Once a day Latuda [facility] 87285160860 60 MG Orally Active 1 tablet Once a day with food HydrALAZINE HCl [facility] 41238812878 50 MG Orally Active 1 tablet Three times a with food day ProAir HFA [facility] 05098195599 108 (90 Base) Active 2 puffs MCG/ACT as needed Inhalation every 6 hrs as needed for cough, shortness of breath and wheezing Isosorbide Mononitrate [facility] 02132297729 60 MG Orally Active 1 tablet ER Once a day in the morning Prozac [facility] 74905316398 40 MG Orally Active 1 capsule Once a day Hydrochlorothiazide [facility] 86850075117 25 MG Orally Active 1 tablet Once a day in the morning -81 [facility] 86940498226 81 MG Orally Active 1 tablet Once a day Lipitor [facility] 71994432476 40 MG Orally Active 1 tablet Once a day Results No Known Results Summary Purpose eClinicalWorks Submission
--- OUTSIDE RECORDS SUMMARY | 2018-08-29 17:37 | XMS REPORT ---
[...] Atherosclerosis of coronary artery I25.10 Active of [place] heart Problem Atherosclerosis of coronary artery I25.10 Active of [place] heart Problem Tobacco use disorder Z72.0 Active Medications Medication Code Code Instructions Start End Status Dosage System Date Date Isosorbide NDC 15616918579 60 MG Orally Active 1 tablet Mononitrate ER Once a day in the morning Results No Known Results Summary Purpose [employer] Submission
[2018-08-29 18:27] LABS: Absolute Lymphocytes (CBC) 2.3 K/uL (0.7-4.9); Absolute Monocytes 0.5 K/uL (0.1-1.3); Absolute Neutrophil 2.9 K/uL (1.8-8.0); Basophils % 0.7 % (0-1.3); Eosinophils % 1.4 % (0-4.4); Hematocrit 40.7 % (36.0-45.0); Lymphocytes % 39.5 % (15.3-44.8); MCH 31.2 pg (27.0-35.0); MCV 91.4 fL (80-100); MPV 8.9 fL (7.6-11.3); Monocytes % 8.8 % (3.3-12.3); RBC Red Blood Cell Count 4.45 M/uL (3.86-4.86)
[2018-08-29 18:35] LABS: Urine Blood NEGATIVE (NEG); Urine Glucose NEGATIVE (NEG); Urine Protein NEGATIVE (NEG)
[2018-08-29 18:36] LABS: Protime INR 0.97
[2018-08-29 18:56] LABS: ALT/SGPT 30 U/L (12-78); AST/SGOT 27 U/L (15-37); Albumin 3.4 g/dL (3.4-5.0); Alkaline Phosphatase 81 U/L (45-117); BUN Blood Urea Nitrogen 12 mg/dL (7-18); Bicarbonate 28 mmol/L (21-32); Bilirubin Direct 0.1 mg/dL (0-0.2); Bilirubin Total 0.3 mg/dL (0.2-1.0); Glucose Level 107 mg/dL (74-106); NT PRO-BNP 1227 pg/mL (<125); Potassium 3.3 mmol/L (3.5-5.1); Protein, Total 6.3 g/dL (6.4-8.2); Sodium Level 142 mmol/L (136-145); Troponin (Emerg Dept Use Only) < 0.02 ng/mL (0.0-0.045)
--- NOTE | 2018-08-29 19:25 | RAD REPORT ---
EXAM DESCRIPTION: RAD - Chest Single View - 08/29/2018 7:04 pm CLINICAL HISTORY: CHEST PAIN Chest pain. COMPARISON: Chest Pa And Lat (2 Views) dated 08/25/2018; Chest Single View dated 01/14/2018; CHEST SIN GLE VIEW dated 12/24/2014; CHEST PA AND LAT 2 VIEW dated 11/15/2014 FINDINGS: Portable technique limits examination quality. The lungs are grossly clear. The heart is normal in size. No displaced fractures. IMPRESSION: No acute intrathoracic process suspected.
--- NOTE | 2018-08-29 20:08 | ER ---
Nurse's Notes [facility] Name: Ophelia Grady Age: 63 yrs Sex: Female : 1955 Arrival Date: 08/29/2018 Time: 17:39 Bed 26 Private MD: Diagnosis: Chest pain, unspecified Presentation: 08/29 17:47 Presenting complaint: EMS states: left sided chest pain. Transition of care: patient tl3 was not received from another setting of care. Onset of symptoms was August 29, 2018. Risk Assessment: Do you want to hurt yourself or someone else? Patient reports no desire to harm self or others. Initial Sepsis Screen: Does the patient meet any 2 criteria? No. Patient's initial sepsis screen is negative. Does the patient have a suspected source of infection? No. Patient's initial sepsis screen is negative. Care prior to arrival: None. 17:47 Method Of Arrival: EMS: [facility] tl3 17:47 Acuity: SHAWN 3 tl3 Triage Assessment: 17:55 General: Appears uncomfortable, well groomed, well developed, well nourished, Behavior tl3 is calm, cooperative. Pain: Complains of pain in left breast. EENT: No signs and/or symptoms were reported regarding the EENT system. Neuro: Level of Consciousness is awake, alert, obeys commands, Oriented to person, place, time, situation, Appropriate for age. Cardiovascular: Reports chest pain, since earlier today Heart tones S1 S2 present Patient's skin is warm and dry. Respiratory: Airway is patent Respiratory effort is even, unlabored, Respiratory pattern is regular, symmetrical, Breath sounds are clear bilaterally. GI: No signs and/or symptoms were reported involving the gastrointestinal system. : No signs and/or symptoms were reported regarding the genitourinary system. Derm: No signs and/or symptoms reported regarding the dermatologic system. Musculoskeletal: No signs and/or symptoms reported regarding the musculoskeletal system. Historical: - Allergies: 17:55 No Known Drug Allergies; tl3 - Home Meds: 17:55 amlodipine 10 mg tab 1 tab once daily [Active]; aspirin 81 mg Oral TbEC 1 tab once tl3 daily [Active]; atorvastatin 40 mg Oral tab 1 tab once daily [Active]; fluoxetine 40 mg Oral cap 1 cap once daily [Active]; hydralazine 50 mg Oral tab 1 tab 2 times per day [Active]; hydrochlorothiazide 25 mg Oral tab 1 tab once daily [Active]; isosorbide mononitrate 60 mg Oral Tb24 1 tab once daily [Active]; Latuda 60 mg Oral tab 1 tab once daily [Active]; lisinopril 40 mg Oral tab 1 tab once daily [Active]; metoprolol tartrate 100 mg Oral tab 1 tab 2 times per day [Active]; trazodone 300 mg Oral tab 1 tab nightly [Active]; - PMHx: 17:55 ADD/ADHD; Anemia; CHF; COPD; Depression; Hyperlipidemia; Hypertension; Major Depressive tl3 Disorder; Schizo-affective disorder; Cancer; - PSHx: 17:55 Heart stents; tl3 - Immunization history:: Adult Immunizations up to date. - Social history:: Smoking status: unknown. - Ebola Screening: : No symptoms or risks identified at this time. Screenin:03 Abuse screen: Denies threats or abuse. Nutritional screening: No deficits noted. tl3 Tuberculosis screening: No symptoms or risk factors identified. Fall Risk None identified. Assessment: 18:03 Reassessment: No changes from previously documented assessment. tl3 20:22 Reassessment: Patient appears in no apparent distress at this time. No changes from tl3 previously documented assessment. Patient and/or family updated on plan of care and expected duration. Pain level reassessed. Patient is alert, oriented x 3, equal unlabored respirations, skin warm/dry/pink. sandwich and drink offered to pt. 21:00 Pain: Pain does not radiate. Pain began gradually. mg2 Vital Signs: 17:55 BP 161 / 104; Pulse 65; Resp 18; Temp 99.0(O); Pulse Ox 99% on R/A; tl3 19:07 BP 152 / 84; Pulse 63; Resp 18; Pulse Ox 97% on R/A; mg2 20:22 BP 171 / 95; Pulse 67; Resp 18; Pulse Ox 96% on R/A; tl3 20:58 BP 145 / 95; Pulse 61; Resp 18; Temp 99; Pulse Ox 96% on R/A; Pain 0/10; mg2 ED Course: 17:39 Patient arrived in ED. tl3 17:44 Dick Hammond PA is PHCP. hillary 17:44 Mike Vegas MD is Attending Physician. hillary 17:45 EKG done, by remanufacturing technician. reviewed by Mike Vegas MD. sm3 17:48 Triage completed. tl3 17:55 Arm band placed on right wrist. tl3 18:03 No provider procedures requiring assistance completed. Patient maintains SpO2 tl3 saturation greater than 95% on room air. 18:03 Patient has correct armband on for positive identification. Bed in low position. Call tl3 light in reach. Side rails up X 1. environmental monitoring specialist on. Pulse ox on. NIBP on. 18:04 Arminda Rosado, RN is Primary Nurse. tl3 18:41 Urine Dipstick--Ancillary (enter results) Sent. tl3 18:47 Inserted saline lock: 22 gauge in right wrist, using aseptic technique. Blood collected.mg2 20:07 Jorge Alberto Ruff MD is Hospitalizing Provider. [facility] 21:01 Patient admitted, IV remains in place. mg2 Administered Medications: 20:19 Drug: Aspirin Chewable Tablet 324 mg Route: PO; tl3 20:57 Follow up: Response: No adverse reaction mg2 Outcome: 20:08 Decision to Hospitalize by Provider. [facility] 21:07 Admitted to Tele accompanied by tech, via wheelchair, room 428, with chart, Report mg2 called to ANA Vega 21:07 Condition: stable 21:07 Instructed on the need for admit, Demonstrated understanding of instructions. 21:16 Patient left the ED. mg2 Signatures: Dick Hammond PA PA jmm Lowrey, Tammy, RN RN tl3 Fernie Pelletier RN RN mg2 Colleen Miramontes 3
--- NOTE | 2018-08-29 20:08 | EDPHYS ---
Physician Documentation [facility] Name: Ophelia Grady Age: 63 yrs Sex: Female : 1955 Arrival Date: 08/29/2018 Time: 17:39 Bed 26 Private MD: ED Physician Mike Vegas HPI: 08/29 17:54 This 63 yrs old Female presents to ER via EMS with complaints of Chest Pain. [facility] 17:54 The patient or guardian reports chest pain that is located primarily in the substernal [facility] area. Onset: acutely, just prior to arrival. The pain radiates to Associated signs and symptoms: Pertinent negatives: abdominal pain. The chest pain is described as aching, sharp. Duration: The patient or guardian reports a single episode, that is still ongoing, but improving. This is a 63 year old female with a history of CHF, COPD, HLP, CAD that presents to the ED with substernal chest pain beginning approx 1 hour prior to arrival. patient states the pain radiates to her back. Patient admits to tobacco use. . Historical: - Allergies: 17:55 No Known Drug Allergies; tl3 - Home Meds: 17:55 amlodipine 10 mg tab 1 tab once daily [Active]; aspirin 81 mg Oral TbEC 1 tab once tl3 daily [Active]; atorvastatin 40 mg Oral tab 1 tab once daily [Active]; fluoxetine 40 mg Oral cap 1 cap once daily [Active]; hydralazine 50 mg Oral tab 1 tab 2 times per day [Active]; hydrochlorothiazide 25 mg Oral tab 1 tab once daily [Active]; isosorbide mononitrate 60 mg Oral Tb24 1 tab once daily [Active]; Latuda 60 mg Oral tab 1 tab once daily [Active]; lisinopril 40 mg Oral tab 1 tab once daily [Active]; metoprolol tartrate 100 mg Oral tab 1 tab 2 times per day [Active]; trazodone 300 mg Oral tab 1 tab nightly [Active]; - PMHx: 17:55 ADD/ADHD; Anemia; CHF; COPD; Depression; Hyperlipidemia; Hypertension; Major Depressive tl3 Disorder; Schizo-affective disorder; Cancer; - PSHx: 17:55 Heart stents; tl3 - Immunization history:: Adult Immunizations up to date. - Social history:: Smoking status: unknown. - Ebola Screening: : No symptoms or risks identified at this time. ROS: 17:54 Constitutional: Negative for fever, chills, and weight loss. [facility] 17:54 Cardiovascular: Positive for chest pain. 17:54 Respiratory: Negative for shortness of breath. 17:54 Back: Positive for radiated pain. 17:54 All other systems are negative. Exam: 17:54 Constitutional: This is a well developed, well nourished patient who is awake, alert, jmm and in no acute distress. Head/Face: atraumatic. Eyes: EOMI, no conjunctival erythema appreciated ENT: Moist Mucus Membranes Neck: Trachea midline, Supple Chest/axilla: Normal chest wall appearance and motion. Cardiovascular: Regular rate and rhythm. No edema appreciated Respiratory: Normal respirations, no respiratory distress appreciated 17:54 Abdomen/GI: Non distended, soft Back: Normal ROM Skin: General appearance color normal MS/ Extremity: Moves all extremities, no obvious deformities appreciated, no edema noted to the lower extremities Neuro: Awake and alert, normal gait Psych: Behavior is normal, Mood is normal, Patient is cooperative and pleasant 17:54 Cardiovascular: Rate: normal, Rhythm: regular, Pulses: no pulse deficits are appreciated. Vital Signs: 17:55 BP 161 / 104; Pulse 65; Resp 18; Temp 99.0(O); Pulse Ox 99% on R/A; tl3 19:07 BP 152 / 84; Pulse 63; Resp 18; Pulse Ox 97% on R/A; mg2 20:22 BP 171 / 95; Pulse 67; Resp 18; Pulse Ox 96% on R/A; tl3 20:58 BP 145 / 95; Pulse 61; Resp 18; Temp 99; Pulse Ox 96% on R/A; Pain 0/10; mg2 MDM: 17:54 Patient medically screened. [facility] 19:26 The patient was given aspirin in the Emergency Department. [facility] 19:26 Data reviewed: lab test result(s), EKG, radiologic studies, plain films. Data [facility] interpreted: Pulse oximetry: on room air is 96 %. Interpretation: normal. 20:06 Data reviewed: vital signs, nurses notes. Counseling: I had a detailed discussion with hillary the patient and/or guardian regarding: the historical points, exam findings, and any diagnostic results supporting the discharge/admit diagnosis, lab results, radiology results, the need for further work-up and treatment in the hospital. ED course: I discussed the patient with Dr. Ruff whom accepted admission. . 08/29 17:54 Order name: Basic Metabolic Panel [facility] 08/29 17:54 Order name: CBC with Diff [facility] 08/29 17:54 Order name: LFT's [facility] 08/29 17:54 Order name: Magnesium [facility] 08/29 17:54 Order name: NT PRO-BNP [facility] 08/29 17:54 Order name: PT-INR [facility] 08/29 17:54 Order name: Troponin (emerg Dept Use Only) [facility] 08/29 17:54 Order name: D-Dimer [facility] 08/29 18:28 Order name: CBC with Automated Diff; Complete Time: 18:33 [facility] 08/29 18:35 Order name: Urine Dipstick--Ancillary (enter results) 08/29 18:36 Order name: Urine Dipstick-Ancillary; Complete Time: 18:46 [facility] 08/29 18:37 Order name: Protime (+INR); Complete Time: 18:46 [facility] 08/29 18:37 Order name: D-Dimer; Complete Time: 18:46 [facility] 08/29 18:57 Order name: Basic Metabolic Panel; Complete Time: 19:04 [facility] 08/29 17:54 Order name: XRAY Chest (1 view) [facility] 08/29 17:54 Order name: EKG; Complete Time: 17:55 [facility] 08/29 17:54 Order name: Cardiac monitoring; Complete Time: 18:05 [facility] 08/29 17:54 Order name: EKG - Nurse/Tech; Complete Time: 18:05 [facility] 08/29 17:54 Order name: IV Saline Lock; Complete Time: 18:05 [facility] 08/29 17:54 Order name: Labs collected and sent; Complete Time: 18:05 [facility] 08/29 17:54 Order name: O2 Per Protocol; Complete Time: 18:05 [facility] 08/29 17:54 Order name: O2 Sat Monitoring; Complete Time: 18:05 [facility] 08/29 18:57 Order name: Liver (Hepatic) Function; Complete Time: 19:04 [facility] 08/29 18:57 Order name: Troponin (Emerg Dept Use Only); Complete Time: 19:04 [facility] 08/29 18:57 Order name: NT PRO-BNP; Complete Time: 19:04 [facility] 08/29 18:58 Order name: Magnesium; Complete Time: 19:04 [facility] 08/29 19:25 Order name: RAD; Complete Time: 19:26 [facility] Administered Medications: 20:19 Drug: Aspirin Chewable Tablet 324 mg Route: PO; tl3 20:57 Follow up: Response: No adverse reaction mg2 Disposition: 20:06 Chart complete. [facility] 08/30 06:46 Co-signature as Attending Physician, Mike Vegas MD I agree with the assessment and the [facility] plan of care. Disposition: 08/29/18 20:08 Hospitalization ordered by Jorge Alberto Ruff for Observation. Preliminary diagnosis is Chest pain, unspecified. - Bed requested for Telemetry/MedSurg (observation). - Status is Observation. mg2 - Condition is Stable. - Problem is new. - Symptoms have improved. UTI on Admission? No Signatures: Dispatcher [employer] [facility] Mike Vegas MD MD the [facility] Dick Hammond PA PA [facility] Graciela Lynn, RN RN Arminda Rosado RN RN 3 Fernie Pelletier, ANA RN mg2 Corrections: (The following items were deleted from the chart) 08/29 20:37 20:08 Hospitalization Ordered by Jorge Alberto Ruff MD for Observation. Preliminary cg diagnosis is Chest pain, unspecified. Bed requested for Telemetry/MedSurg (observation). Status is Observation. Condition is Stable. Problem is new. Symptoms have improved. UTI on Admission? No. [facility] 21:16 20:37 08/29/2018 20:08 Hospitalization Ordered by Jorge Alberto Ruff MD for Observation. mg2 Preliminary diagnosis is Chest pain, unspecified. Bed requested for Telemetry/MedSurg (observation). Status is Observation. Condition is Stable. Problem is new. Symptoms have improved. UTI on Admission? No.
[2018-08-29] MEDS ORDERED: ASPIRIN 81 MG CHEWABLE TABLET ONE (20:29)
[2018-08-29] MEDS ORDERED: MORPHINE 4 MG/ML SYR IV PRN (20:39)
[2018-08-29] MEDS ORDERED: ACETAMINOPHEN 500 MG TAB PO PRN (20:39)
[2018-08-29] MEDS ORDERED: ALPRAZOLAM 0.25 MG TABLET PO PRN (20:39)
[2018-08-29 21:37] VITALS: BMI 26.8
--- NOTE | 2018-08-29 22:03 | EKG ---
Test Date: 2018-08-29 Test Time: 17:42:18 Traffic Clerk: BAILEY MEASUREMENT RESULTS: Intervals: Rate: 66 MI: 184 QRSD: 90 QT: 462 QTc: 484 [place]: P: 72 MI: 184 QRS: 8 T: 76 INTERPRETIVE STATEMENTS: Normal sinus rhythm Septal infarct, age undetermined Abnormal ECG Compared to ECG 02/13/2018 19:37:19 Left-axis deviation no longer present Myocardial infarct finding still present Electronically Signed On 08-29-18 22:02:57 TOPOGRAPHICAL ENGINEER by Mahad Meredith
[2018-08-29] MEDS: METOPROLOL TAR 50 MG TAB PO SCH (22:23)
[2018-08-30 05:20] LABS: Urine Appearance CLEAR; Urine Bilirubin NEGATIVE (NEG); Urine Blood NEGATIVE (NEG); Urine Color YELLOW; Urine Glucose NEGATIVE (NEG); Urine Protein NEGATIVE (NEG); Urine Urobilinogen 0.2 mg/dL (0.2-1.0); Urine pH 7.5 (5.0-7.0)
[2018-08-30 05:31] LABS: Urine Microscopic Reflex NO UMIC
[2018-08-30] MEDS ORDERED: INFLUENZA VACCINE (for 3y+) 0.5 ML DOSE IMVAC ONE (08:00)
--- NOTE | 2018-08-30 08:24 | P.HP ---
Certification for Inpatient Patient admitted to: Observation With expected LOS: <2 Midnights Patient will require the following post-hospital care: None Practitioner: I am a practitioner with admitting privileges, knowledge of patient current condition, hospital course, and medical plan of care. Services: Services provided to patient in accordance with Admission requirements found in Title 42 Section 412.3 of the Code of Federal Regulations Patient History Date of Service: 08/29/18 Reason for admission: Chest pain rule out acute coronary syndrome History of Present Illness: Patient is a 63-year-old female came into the hospital with chest discomfort. Patient has been having tenderness in the chest which goes to the back. She also has some back issues but she says this was different. Pain was mainly substernal and she had pain on deep inspiration. She is scheduled see her sales and service engineer for pulmonary function testing in the morning. She came into the hospital because her pain was so severe that she could not wait for the appointment. In the emergency room her initial troponins were negative and EKG showed finding suggestive of a septal infarct however age was indeterminate. Her chest pain has resolved. Her troponins are negative. She will go ahead and get treated with anti-platelet therapy and statin therapy. She will be admitted to the hospital for further workup. Allergies ketorolac [From Toradol] Allergy (Verified 08/29/18 22:45) Restless legs Home Medications: Metoprolol Tartrate [Lopressor*] 100 mg PO BID 07/30/13 Amlodipine Besylate 10 mg PO DAILY 08/29/18 Atorvastatin Calcium [Lipitor] 40 mg PO BEDTIME 08/29/18 Fluoxetine HCl [Prozac] 40 mg PO DAILY 08/29/18 Hydralazine HCl [Apresoline] 50 mg PO TID 08/29/18 Isosorbide Mononitrate [Isosorbide Mononitrate ER] 60 mg PO DAILY 08/29/18 Lisinopril 40 mg PO DAILY 08/29/18 Lurasidone HCl [Latuda] 60 mg PO BEDTIME 08/29/18 Trazodone [Desyrel] 300 mg PO BEDTIME 08/29/18 Umeclidinium Brm/Vilanterol Tr [Anoro Ellipta 62.5-25 Mcg INH] 1 each IH DAILY PRN 08/29/18 - Past Medical/Surgical History Has patient received pneumonia vaccine in the past: No Diabetic: Yes -: Cholelithiasis -: Breast Cancer -: Coronary artery disease with stent placement -: Cholecystectomy -: Double Mastectomy -: Coronary artery disease with stent placement -: Ovarian Cyst - Family History Mother Medical History: Cancer Notes: breast cancer Father Medical History: Cancer Notes: lung and throat cancer - Social History Smoking Status: Current every day smoker Alcohol use: No CD- Drugs: No Caffeine use: Yes Place of Residence: [facility] Review of Systems 10-point ROS is otherwise unremarkable Physical Examination - Vital Signs Temperature: 97.9 F Blood Pressure: 176/93 Pulse: 62 Respirations: 18 Pulse Ox (%): 97 - Physical Exam General: Alert, In no apparent distress, Oriented x3 HEENT: Atraumatic, PERRLA, Mucous membr. moist/pink, EOMI, Sclerae nonicteric Neck: Supple, 2+ carotid pulse no bruit, No LAD, Without JVD or thyroid abnormality Respiratory: Diminished, Expiratory wheezes Cardiovascular: Regular rate/rhythm, Normal S1 S2, No murmurs Gastrointestinal: Normal bowel sounds, Soft and benign, Non-distended, No tenderness Musculoskeletal: No clubbing, No swelling, No tenderness Integumentary: No rashes Neurological: Normal gait, Normal speech, Normal strength at 5/5 x4 extr, Normal tone, Sensation intact, Cranial nerves 3-12 intact, Normal affect Lymphatics: No axilla or inguinal lymphadenopathy - Studies Laboratory Data (last 24 hrs) 08/29/18 18:05: PT 11.5, INR 0.97 08/29/18 18:05: WBC 5.8, Hgb 13.9, Hct 40.7, Plt Count 169 08/29/18 18:05: Sodium 142, Potassium 3.3 L, BUN 12, Creatinine 0.80, Glucose 107 H, Magnesium 2.0, Total Bilirubin 0.3, AST 27, ALT 30, Alkaline Phosphatase 81 Assessment & Plan - Problems (Diagnosis) (1) Pleuritic chest pain Current Visit: Yes Status: Acute (2) COPD (chronic obstructive pulmonary disease) Current Visit: Yes Status: Acute (3) Presence of stent in coronary artery in patient with coronary artery disease Current Visit: Yes Status: Acute (4) Tobacco abuse Current Visit: Yes Status: Acute (5) Hypertension Current Visit: Yes Status: Acute (6) Chest pain Current Visit: No Status: Active - Plan 1. Serial troponins and EKG 2. Cardiology and Pulmonary consultation 3. Echocardiogram and stress test 4. Anti-platelet therapy, anti coagulation, beta-angel, statin, and O2 as needed 5. IV morphine for pain 6. Nitro p.r.n. 7. GI and DVT prophylax - Advance Directives Does patient have a Living Will: No Does patient have a Durable POA for Healthcare: No - Code Status/Comfort Care Code Status Assessed: Yes Code Status: Full Code Critical Care: No Time Spent Managing PTS Care (In Minutes): 50
[2018-08-30] MEDS: ASPIRIN EC 81 MG TAB PO SCH (09:12)
[2018-08-30] MEDS: METOPROLOL TAR 50 MG TAB PO SCH ×2 (09:12→20:09)
[2018-08-30] MEDS: ENOXAPARIN 40 MG/0.4 ML SQ SCH (09:13)
--- NOTE | 2018-08-30 12:13 | P.CNS ---
Date of Consult: 08/30/18 Reason for Consult: COPD exacerbation Chief Complaint: Chest discomfort History of Present Illness: Patient is 63 years of age heavy smoker with a history of COPD admitted with nonspecific chest discomfort feeling better today heavy smoker noncompliant with medications has dyspnea on exertion history of coronary artery disease Allergies ketorolac [From Toradol] Allergy (Verified 08/29/18 22:45) Restless legs Home Medications: Metoprolol Tartrate [Lopressor*] 100 mg PO BID 07/30/13 Amlodipine Besylate 10 mg PO DAILY 08/29/18 Atorvastatin Calcium [Lipitor] 40 mg PO BEDTIME 08/29/18 Fluoxetine HCl [Prozac] 40 mg PO DAILY 08/29/18 Hydralazine HCl [Apresoline] 50 mg PO TID 08/29/18 Isosorbide Mononitrate [Isosorbide Mononitrate ER] 60 mg PO DAILY 08/29/18 Lisinopril 40 mg PO DAILY 08/29/18 Lurasidone HCl [Latuda] 60 mg PO BEDTIME 08/29/18 Trazodone [Desyrel] 300 mg PO BEDTIME 08/29/18 Umeclidinium Brm/Vilanterol Tr [Anoro Ellipta 62.5-25 Mcg INH] 1 each IH DAILY PRN 08/29/18 - Past Medical/Surgical History Diabetic: Yes -: Cholelithiasis -: Breast Cancer -: Coronary artery disease with stent placement -: Cholecystectomy -: Double Mastectomy -: Coronary artery disease with stent placement -: Ovarian Cyst - Family History Mother Medical History: Cancer Notes: breast cancer Father Medical History: Cancer Notes: lung and throat cancer - Social History Smoking Status: Unknown if ever smoked Alcohol use: No CD- Drugs: No Caffeine use: Yes Place of Residence: [facility] Review of Systems 10-point ROS is otherwise unremarkable Respiratory: Cough, Shortness of Breath Physical Examination Temp Pulse Resp BP Pulse Ox 97.9 F 62 18 176/93 H 97 08/30/18 08:26 08/30/18 09:12 08/30/18 08:26 08/30/18 09:12 08/30/18 08:26 General: Alert, Oriented x3 HEENT: Atraumatic Neck: Supple Respiratory: Clear to auscultation bilaterally Cardiovascular: No edema, Normal S1 S2 Gastrointestinal: Normal bowel sounds, Soft and benign Laboratory Data (last 24 hrs) 08/29/18 18:05: PT 11.5, INR 0.97 08/29/18 18:05: WBC 5.8, Hgb 13.9, Hct 40.7, Plt Count 169 08/29/18 18:05: Sodium 142, Potassium 3.3 L, BUN 12, Creatinine 0.80, Glucose 107 H, Magnesium 2.0, Total Bilirubin 0.3, AST 27, ALT 30, Alkaline Phosphatase 81 - Problems (1) COPD exacerbation Current Visit: Yes Status: Acute Plan: Patient is 63 years of age admitted with COPD exacerbation heavy smoker non compliant with Anoro. Can be discharged home on prednisone 10 mg twice a day for 10 days in addition to refilling her Anoro labs reviewed chest x-rays clear no evidence of an infection troponins negative echocardiogram no acute changes blood pressure is elevated oxygenation satisfactory
[2018-08-30] MEDS: predniSONE 20 MG TAB PO SCH ×2 (13:14→20:10)
--- NOTE | 2018-08-30 16:36 | P.PN ---
Subjective Date of Service: 08/30/18 Chief Complaint: Chest discomfort Patient seen and examined at bedside. No family at bedside. Case discussed with nursing staff. Patient reports slightly improved chest pain, but was very sleepy when I went to see patient this morning. No other concerns or complaints this morning Review of Systems As noted Physical Examination - Vital Signs Temperature: 98.1 F Blood Pressure: 172/100 Pulse: 66 Respirations: 18 Pulse Ox (%): 96 - Physical Exam General: Alert, In no apparent distress, Oriented x3 HEENT: Atraumatic, PERRLA, EOMI Neck: Supple, JVD not distended Respiratory: Clear to auscultation bilaterally, Normal air movement Cardiovascular: Regular rate/rhythm, Normal S1 S2 Gastrointestinal: Normal bowel sounds, No tenderness Musculoskeletal: No tenderness Integumentary: No rashes Neurological: Normal speech, Normal tone, Normal affect Lymphatics: No axilla or inguinal lymphadenopathy - Studies Laboratory Data (last 24 hrs) 08/29/18 18:05: PT 11.5, INR 0.97 08/29/18 18:05: WBC 5.8, Hgb 13.9, Hct 40.7, Plt Count 169 08/29/18 18:05: Sodium 142, Potassium 3.3 L, BUN 12, Creatinine 0.80, Glucose 107 H, Magnesium 2.0, Total Bilirubin 0.3, AST 27, ALT 30, Alkaline Phosphatase 81 Assessment And Plan - Plan This is a 63-year-old female with: Pleuritic chest pain Patient with chest pain. Cardiology consulted, recommendations appreciated. Echo pending. Pain control Start beta-angel, statin, aspirin, YAEL-inhibitor. Palpitations Likely due to patient being noncompliant to medication. Restart metoprolol Monitor with tele Chronic obstructive pulmonary disease Exacerbation likely secondary to noncompliance with medication. Breathing treatments as required Pulmonology consulted. Recommendations appreciated Presence of stent in coronary artery in patient with coronary artery disease. Coronary artery disease guidelines Tobacco abuse Counseled on smoking cessation Hypertension Patient with elevated blood pressures. Not receiving any home medications. Restart home medications. Monitor and will adjust medications as required Noncompliance Educate patient on compliance with medications. Per patient, she was in a [facility] and sometimes does not have availability to get her medications. Social work involves DVT prophylaxis: Lovenox GI prophylaxis: Not needed. Diet: Heart healthy Disposition: Pending symptomatic treatment. Echo pending, likely discharge home tomorrow if echo normal. Plan to discharge in: 24 Hours Physician Review: Patient Assessed, Agree with Above Assessment and Plan Time Spent Managing PTS Care (In Minutes): 35
--- NOTE | 2018-08-30 20:15 | CON ---
Ophelia Grady was admitted on 08/29/[address] Ruff's service for chest pain and palpitation. DICTATION ENDS HERE. [facility] Voice ID: [id number] Report ID: [id number]
--- NOTE | 2018-08-30 20:21 | CON ---
Date of Consultation: 08/30/2018 She was admitted to Dr. Ruff's service on 08/29/2018. I saw the patient on 08/30/2018. Reason For Consultation: Chest pain and palpitations. History Of Present Illness: Ms. Grady is a 63-year-old woman has had a history of stent a year ago, has a history of COPD, anemia, congestive heart failure, depression with ADD, dyslipidemia, and hyper tension. Continues to smoke. Came in more with palpitation. After the palpitation, she had some sh randall chest pain that is stabbing, radiating to her left shoulder. No nausea, vomiting, diaphoresis, P ND, orthopnea, pedal edema, or syncope. Workup was negative except for a BNP was 1227. EKG showed o ld septal OR. Chest x-ray is negative. Troponin is negative. Potassium 3.3. She was hypertensive at 176/93. Allergies: TO KETOROLAC. Review of Systems: Negative. Social History: Positive for tobacco and alcohol. Family History: Positive for heart disease. Medications At Home: Include Latuda, Lopressor, inhalers, Norvasc, Lipitor, Prozac, hydralazine, Imd ur, and lisinopril. Physical Examination: General: She was anxious, otherwise sinus rhythm. Vital Signs: Stable. Afebrile. HEENT: Negative. Neck: Supple without any lymphadenopathy, JVD, thyromegaly, bruit. Chest: Clear. Cardiac: Revealed a regular rhythm and rate without any murmurs, gallops, or rubs. Abdomen: Benign. Extremities: Revealed no clubbing, cyanosis, or edema. Diagnostic Data: As stated earlier. Impression And Plan: The patient really had more palpitation concerned and chest pain. Her chest pa in is sharp, atypical, lasted seconds, noncardiac. Her palpitations are obviously related to all her other problems including hypertension, her anxiety issue, and her attention deficit disorder. She i s continuing to smoke. She has low potassium. I think an echocardiogram is pending. We need to get increase her Lopressor to 100 mg 3 times a day or have her take an extra 1 as needed. She is very n oncompliant with her metoprolol and I instructed her that of all her medications she can certainly sk ip what she wants except for the Lopressor because of rebound hypertension and palpitation. Complian ce with medication was readdressed regarding all of them. Her other problems include hypertension, a gain same issue. I think this is a rebound hypertension secondary to not taking her Lopressor on lenny e. Her other problems include chronic obstructive pulmonary disease, anemia, history of congestive h eart failure, and coronary artery disease status post stent last year. The patient continues to smok e. She was instructed not to. We will see what the echocardiogram shows. Regarding her history of congestive heart failure, I assume if she does have CHF it is probably diastolic. If her echocardiog jose manuel is negative, I think she can go home and we can certainly see her as an outpatient for a stress t est. She has seen Dr. Greenberg in the past and she is certainly welcome to go back and see him. [facility]ANDERS Voice ID: [id number] Report ID: [id number]
[2018-08-30] MEDS ORDERED: HYDRALAZINE HCL 25 MG TABLET PO SCH (21:00)
[2018-08-30] MEDS ORDERED: TRAZODONE 150 MG TAB PO SCH (21:00)
[2018-08-30] MEDS ORDERED: LURASIDONE HCL 60 MG PO SCH (21:00)
[2018-08-30] MEDS ORDERED: ATORVASTATIN 40 MG TAB PO SCH (21:00)
[2018-08-30 22:25] VITALS: O2SAT 96
[2018-08-31] MEDS: ASPIRIN EC 81 MG TAB PO SCH (08:38)
[2018-08-31] MEDS: ENOXAPARIN 40 MG/0.4 ML SQ SCH (08:38)
[2018-08-31] MEDS: METOPROLOL TAR 50 MG TAB PO SCH (08:39)
[2018-08-31] MEDS: predniSONE 20 MG TAB PO SCH (08:40)
[2018-08-31] MEDS ORDERED: AMLODIPINE 10 MG TAB PO SCH (09:00)
[2018-08-31] MEDS ORDERED: LISINOPRIL 20 MG TAB PO SCH (09:00)
[2018-08-31] MEDS ORDERED: FLUOXETINE 20 MG CAP PO SCH (09:00)
[2018-08-31] MEDS ORDERED: ISOSORBIDE MONO SR 60 MG TAB PO SCH (09:00)
--- NOTE | 2018-08-31 11:07 | ECHO ---
HEIGHT: 5 ft 4 in WEIGHT: 156 lb 6.4 oz DATE OF STUDY: 08/31/[address]: Gerson Reed MD 2-DIMENSIONAL: YES M.MODE: YES DOPPLER: YES COLOR FLOW: YES TDS: PORTABLE: DEFINITY: BUBBLE STUDY: DIAGNOSIS: CHEST PAIN CARDIAC HISTORY: CATHERIZATION: YES SURGERY: NO PROSTHETIC VALVE: NO PACEMAKER: NO MEASUREMENTS (cm) DIASTOLIC (NORMALS) SYSTOLIC (NORMALS) IVSd 1.3 (0.6-1.2) LA Diam 4.2 (1.9-4.0) LVEF 57% LVIDd 4.4 (3.5-5.7) LVIDs 3.1 (2.0-3.5) %FS 30% LVPWd 1.3 (0.6-1.2) Ao Diam 2.6 (2.0-3.7) 2 DIMENSIONAL ASSESSMENT: RIGHT ATRIUM: NORMAL LEFT ATRIUM: DILATED RIGHT VENTRICLE: NORMAL LEFT VENTRICLE: NORMAL TRICUSPID VALVE: NORMAL MITRAL VALVE: NORMAL PULMONIC VALVE: NORMAL AORTIC VALVE: NORMAL PERICARDIAL EFFUSION: NONE AORTIC ROOT: NORMAL LEFT VENTRICULAR WALL MOTION: NORMAL DOPPLER/COLOR FLOW: MILD AORTIC REGURGITATION AND TRICUSPID REGURGITATION. NORMAL RIGHT VENTRICULAR SYSTOLIC PRESSURE. COMMENTS: NORMAL LEFT VENTRICULAR EJECTION FRACTION. DILATED LEFT ATRIUM. MILD AORTIC REGURGITATION AND TRICUSPID REGURGITATION. TECHNOLOGIST: MANUEL MIRANDA
[2018-08-31] MEDS ORDERED: INFLUENZA VACCINE (for 3y+) 0.5 ML DOSE IMVAC ONE (12:00)
[2018-08-31 13:41] VITALS: BP 148/85; TEMP 97.6
--- NOTE | 2018-08-31 16:27 | P.SSS ---
Patient History Date of Service: 08/31/18 Reason for admission: Chest discomfort History of Present Illness: Patient is a 63-year-old female came into the hospital with chest discomfort. Patient has been having tenderness in the chest which goes to the back. She also has some back issues but she says this was different. Pain was mainly substernal and she had pain on deep inspiration. She is scheduled see her mica plate layer for pulmonary function testing in the morning. She came into the hospital because her pain was so severe that she could not wait for the appointment. In the emergency room her initial troponins were negative and EKG showed finding suggestive of a septal infarct however age was indeterminate. Her chest pain has resolved. Her troponins are negative. She will go ahead and get treated with anti-platelet therapy and statin therapy. She will be admitted to the hospital for further workup. Allergies ketorolac [From Toradol] Allergy (Verified 08/29/18 22:45) Restless legs Home Medications: Amlodipine Besylate 10 mg PO DAILY 08/29/18 Atorvastatin Calcium [Lipitor] 40 mg PO BEDTIME 08/29/18 Fluoxetine HCl [Prozac] 40 mg PO DAILY 08/29/18 Hydralazine HCl [Apresoline] 50 mg PO TID 08/29/18 Isosorbide Mononitrate [Isosorbide Mononitrate ER] 60 mg PO DAILY 08/29/18 Lisinopril 40 mg PO DAILY 08/29/18 Lurasidone HCl [Latuda] 60 mg PO BEDTIME 08/29/18 Trazodone [Desyrel*] 300 mg PO BEDTIME 08/29/18 Prednisone [Sterapred Ds] 10 mg PO BID #20 tab.ds.pk 08/30/18 Umeclidinium Brm/Vilanterol Tr [Anoro Ellipta 62.5-25 Mcg INH] 1 each IH DAILY PRN #1 blst.w.dev 08/30/18 Metoprolol Tartrate [Lopressor*] 100 mg PO TID #90 tab 08/31/18 - Past Medical/Surgical History Has patient received pneumonia vaccine in the past: No Diabetic: Yes -: Cholelithiasis -: Breast Cancer -: Coronary artery disease with stent placement -: Cholecystectomy -: Double Mastectomy -: Coronary artery disease with stent placement -: Ovarian Cyst - Family History Mother -: Cancer Notes: breast cancer Father -: Cancer Notes: lung and throat cancer - Social History Smoking Status: Current every day smoker Alcohol use: No CD- Drugs: No Caffeine use: Yes Place of Residence: [facility] Review of Systems As noted Physical Examination - Vital Signs Temperature: 97.6 F Blood Pressure: 148/85 Pulse: 59 Respirations: 16 Pulse Ox (%): 96 - Physical Exam General: Alert, In no apparent distress, Oriented x3 HEENT: Atraumatic, PERRLA, Mucous membr. moist/pink, EOMI, Sclerae nonicteric Neck: Supple, 2+ carotid pulse no bruit, No LAD, Without JVD or thyroid abnormality Respiratory: Clear to auscultation bilaterally, Normal air movement Cardiovascular: Regular rate/rhythm, Normal S1 S2 Gastrointestinal: Normal bowel sounds, No tenderness Musculoskeletal: No tenderness Integumentary: No rashes Neurological: Normal gait, Normal speech, Normal strength at 5/5 x4 extr, Normal tone, Normal affect Treatment Summary: Patient is admitted for chest pain, rule outs. Cardiology was consulted and echocardiogram was done, which was normal. Cardiology recommended increasing Lopressor 200 mg 3 times a day. Patient does have a history of noncompliance with medications, states that she sometimes forgets to take her medications. Educate patient on importance of taking medications as prescribed. All instructions in interactions explained to patient she verbalized understanding. She was instructed to follow up with cardiology and her primary care physician in the next 1-2 weeks. She was discharged when she is cleared for discharge by cardiology and she was hemodynamically stable, alert oriented x3. At the time of my exam, prior to discharge, she was cheerful and alert oriented x3. She denied any chest pain at this time. She was discharged in a safe manner. - Disposition Disposition: ROUTINE DISCHARGE Condition: GOOD Patient Discharge Instructions: Please follow up with your primary care physician in 1 week. Please follow up with Dr. Ambrocio (pulmonology) in 1-2 weeks. Please make sure you take ALL your medications as prescribed. Diet: AHA Activity: Ad lynette Physician Review: Patient Assessed, Agree with Above Assessment and Plan Time Spent Managing Pts Care (In Minutes): 55
== END 2018-08-31 16:01 | disposition home or self-care (01) ==
LOC: ER 17:34 → ERHOLD 20:30 → 4TH 21:10
PROVIDERS: ADMIT Hospitalist; ATTEND Hospitalist
DX: R07.89 Other chest pain (principal); J44.1 Chronic obstructive pulmonary disease with (acute) exacerbation; R00.2 Palpitations; I25.10 Atherosclerotic heart disease of native coronary artery without angina pectoris; F17.210 Nicotine dependence, cigarettes, uncomplicated; F32.9 Major depressive disorder, single episode, unspecified; F98.8 Other specified behavioral and emotional disorders with onset usually occurring in childhood and adolescence; I11.0 Hypertensive heart disease with heart failure; I50.9 Heart failure, unspecified; Z95.5 Presence of coronary angioplasty implant and graft; Z91.14 Patient's other noncompliance with medication regimen; Z85.3 Personal history of malignant neoplasm of breast; Z23 Encounter for immunization
CPT/HCPCS: 36415; 71045; 80048; 80061; 80076; 81003; 83735; 83880; 84484; 85025; 85379; 85610; 93005; 93306; 99285; G0008; G0378; J1650; J7512; Q2035

== ENCOUNTER 2018-09-28 18:50 | Observation (INO) | payer OTHER ==
--- NOTE | 2018-09-28 19:43 | RAD REPORT ---
EXAM DESCRIPTION: CT - Head Brain Wo Cont - 09/28/2018 7:33 pm CLINICAL HISTORY: headache, dizziness Drowsiness COMPARISON: HEAD BRAIN W O CONTRAST dated 07/29/2013 TECHNIQUE: All CT scans are performed using dose optimization technique as appropriate and may inclu de automated exposure control or mA/KV adjustment according to patient size. FINDINGS: No intracranial hemorrhage, hydrocephalus or extra-axial fluid collection.No areas of brai n edema or evidence of midline shift. The paranasal sinuses and mastoids are clear. The calvarium is intact. IMPRESSION: No acute intracranial abnormality.
[2018-09-28 20:07] LABS: Absolute Lymphocytes (CBC) 2.3 K/uL (0.7-4.9); Absolute Monocytes 0.6 K/uL (0.1-1.3); Absolute Neutrophil 4.2 K/uL (1.8-8.0); Basophils % 0.8 % (0-1.3); Hematocrit 41.2 % (36.0-45.0); Lymphocytes % 31.5 % (15.3-44.8); MPV 8.3 fL (7.6-11.3); Monocytes % 7.7 % (3.3-12.3); RBC Red Blood Cell Count 4.56 M/uL (3.86-4.86)
[2018-09-28 20:08] LABS: Protime INR 1.02
--- NOTE | 2018-09-28 20:33 | RAD REPORT ---
EXAM DESCRIPTION: RAD - Chest Single View - 09/28/2018 8:09 pm CLINICAL HISTORY: CHEST PAIN Chest pain. COMPARISON: Chest Single View dated 08/29/2018; Chest Pa And Lat (2 Views) dated 08/25/2018; Chest S arturo View dated 01/14/2018; CHEST SINGLE VIEW dated 12/24/2014 FINDINGS: Portable technique limits examination quality. The lungs are grossly clear. The heart is normal in size. No displaced fractures. IMPRESSION: No acute intrathoracic process suspected.
[2018-09-28 20:43] LABS: ALT/SGPT 37 U/L (12-78); AST/SGOT 29 U/L (15-37); Albumin 3.6 g/dL (3.4-5.0); Alkaline Phosphatase 79 U/L (45-117); BUN Blood Urea Nitrogen 21 mg/dL (7-18); Bicarbonate 28 mmol/L (21-32); Bilirubin Direct 0.2 mg/dL (0-0.2); Bilirubin Total 0.4 mg/dL (0.2-1.0); Glucose Level 88 mg/dL (74-106); NT PRO-BNP 634 pg/mL (<125); Potassium 3.1 mmol/L (3.5-5.1); Protein, Total 6.6 g/dL (6.4-8.2); Sodium Level 141 mmol/L (136-145); Troponin (Emerg Dept Use Only) < 0.02 ng/mL (0.0-0.045)
--- NOTE | 2018-09-28 21:30 | RAD REPORT ---
EXAM DESCRIPTION: CT - Neck Angio - 09/28/2018 9:20 pm CLINICAL HISTORY: headache, dizziness TIA, CVA COMPARISON: Head Brain Wo Cont dated 09/28/2018 TECHNIQUE: CT angiography of the neck vessels was performed with MIPs. All CT scans are performed using dose optimization technique as appropriate and may include automated exposure control or mA/KV adjustment according to patient size. FINDINGS: No significant flow abnormality is seen of the common carotid bilaterally. No significant stenosis is identified involving the cervical segments of both internal carotid arteri es. Mild mixed plaquing seen in both carotid bulbs. Normal flow is seen within both vertebral arteries. IMPRESSION: No significant flow abnormality of the neck vessels is identified.
--- NOTE | 2018-09-28 21:31 | RAD REPORT ---
EXAM DESCRIPTION: CT - Head angio - 09/28/2018 9:20 pm CLINICAL HISTORY: headach, dizziness TIA, CVA COMPARISON: Head Brain Wo Cont dated 09/28/2018; HEAD BRAIN W O CONTRAST dated 07/29/2013 TECHNIQUE: CT angiography of the head was performed with MIPs. All CT scans are performed using dose optimization technique as appropriate and may include automated exposure control or mA/KV adjustment according to patient size. FINDINGS: No evidence of aneurysm is detected. No flow-limiting stenosis or vascular malformation id entified. Antegrade flow is seen in the vertebral arteries. The vertebral arteries are codominant. The visualized dural venous sinuses are patent. IMPRESSION: No significant flow abnormality is detected.
[2018-09-28] MEDS ORDERED: ACETAMINOPHEN 500 MG TAB PO PRN (22:02)
[2018-09-28] MEDS ORDERED: ALPRAZOLAM 0.25 MG TABLET PO PRN (22:02)
[2018-09-28] MEDS ORDERED: MORPHINE 4 MG/ML SYR IV PRN (22:02)
--- NOTE | 2018-09-28 22:03 | ER ---
Nurse's Notes [facility] Name: Ophelia Grady Age: 63 yrs Sex: Female : 1955 Arrival Date: 09/28/2018 Time: 18:52 Bed 18 Private MD: Diagnosis: Chest pain, unspecified Presentation: 09/28 18:51 Presenting complaint: EMS states: called out for anxious and headache, on scene pt BP em was 150/110's, A\T\O x 3, reports dizziness and chest pain. Transition of care: patient was not received from another setting of care. 18:51 Onset of symptoms was September 28, 2018. Risk Assessment: Do you want to hurt yourself em or someone else? Patient reports no desire to harm self or others. Initial Sepsis Screen: Does the patient meet any 2 criteria? No. Patient's initial sepsis screen is negative. Does the patient have a suspected source of infection? No. Patient's initial sepsis screen is negative. 18:52 Care prior to arrival: None. 18:52 Method Of Arrival: EMS: [facility] 18:52 Acuity: SHAWN 3 ss Triage Assessment: 19:03 Headache History: Denies prior headaches. General: Appears in no apparent distress. em comfortable, Behavior is calm, cooperative, Denies fever. Pain: Complains of pain in occipital area and chest Pain currently is 8 out of 10 on a pain scale. Pain began suddenly, Also complains of shortness of breath, dizziness. Neuro: Level of Consciousness is awake, alert, obeys commands, Oriented to person, place, time, situation. Historical: - Allergies: 19:03 No Known Allergies; em - PMHx: 19:03 ADD/ADHD; Anemia; Cancer; CHF; COPD; Depression; Hyperlipidemia; Hypertension; Major em Depressive Disorder; Schizo-affective disorder; - PSHx: 19:03 Mastectomy, Left; Mastectomy, Right; Hernia repair; em - Immunization history:: Adult Immunizations up to date. - Social history:: Smoking status: Patient uses tobacco products, smokes one pack cigarettes per day. - Ebola Screening: : Patient negative for fever greater than or equal to 101.5 degrees Fahrenheit, and additional compatible Ebola Virus Disease symptoms Patient denies exposure to infectious person Patient denies travel to an Ebola-affected area in the 21 days before illness onset No symptoms or risks identified at this time. Screenin:05 Abuse screen: Denies threats or abuse. Nutritional screening: No deficits noted. em Tuberculosis screening: No symptoms or risk factors identified. Fall Risk None identified. Assessment: 19:02 General: Appears in no apparent distress. comfortable, Behavior is calm, cooperative. em Pain: Complains of pain in lumbar area and chest and occipital area. Neuro: Level of Consciousness is awake, alert, obeys commands, Oriented to person, place, time, situation, Photography Spotter are equal bilaterally Moves all extremities. Speech is normal, Facial symmetry appears normal, Reports dizziness, headache occipital area. Cardiovascular: Patient's skin is warm and dry. Respiratory: Airway is patent Respiratory effort is even, unlabored, Respiratory pattern is regular, symmetrical. GI: Patient currently denies nausea, vomiting. : No signs and/or symptoms were reported regarding the genitourinary system. EENT: No signs and/or symptoms were reported regarding the EENT system. Derm: Skin is intact, is healthy with good turgor, Skin is pink, warm \T\ dry. Musculoskeletal: Range of motion: intact in all extremities. 19:14 General: The previous assessment is accurate, call light remains within reach. . ss 20:20 Reassessment: Patient appears in no apparent distress at this time. no complaints made. rr5 21:20 Reassessment: Patient appears in no apparent distress at this time. Patient and/or rr5 family updated on plan of care and expected duration. Pain level reassessed. Patient is alert, oriented x 3, equal unlabored respirations, skin warm/dry/pink. Patient states symptoms have improved. 22:00 Reassessment: Patient appears in no apparent distress at this time. Patient and/or rr5 family updated on plan of care and expected duration. Pain level reassessed. ed provider explained to patient the needs for admission and agreed to stay. 23:00 Reassessment: Patient appears in no apparent distress at this time. asleep on bed rr5 comfortably no complaints made. 23:23 Reassessment: generalized tonic clonic seizure upward rolling of eyeball lasted about rr5 10 seconds. oxygen shifted to non rebreather mask at 10 liters, vital signs taken and recorded. dr. torres informed. 09/29 00:36 Reassessment: Patient appears in no apparent distress at this time. Patient and/or rr5 family updated on plan of care and expected duration. Pain level reassessed. went to washroom with no assistance. Vital Signs: 09/28 19:03 BP 157 / 98; Pulse 59; Resp 18; Temp 98.4(O); Pulse Ox 100% on R/A; Weight 72.57 kg; em Height 5 ft. 4 in. (162.56 cm); Pain 8/10; 20:00 BP 151 / 70; Pulse 60; Resp 17; Temp 98; Pulse Ox 100% ; rr5 21:00 BP 155 / 71; Pulse 61; Resp 17; Pulse Ox 99% ; rr5 22:00 BP 143 / 76; Pulse 58; Resp 17; Pulse Ox 98% ; rr5 23:00 BP 157 / 92; Pulse 62; Resp 18; Pulse Ox 96% ; rr5 09/29 00:00 BP 150 / 91; Pulse 60; Resp 16; Pulse Ox 99% ; rr5 09/28 19:03 Body Mass Index 27.46 (72.57 kg, 162.56 cm) em ED Course: 09/28 18:52 Patient arrived in ED. ss 18:53 Triage completed. ss 18:55 Dick Hammond PA is PHCP. jmm 18:55 Juan M Padron MD is Attending Physician. [facility] 18:56 Paul Diaz LVN is Primary Nurse. em 19:03 Arm band placed on. em 19:05 Patient has correct armband on for positive identification. Bed in low position. Call em light in reach. Side rails up X2. Pulse ox on. NIBP on. 19:06 Placed in gown. Seizure precautions initiated. rr5 19:[address] nj 19:32 CT completed. Patient tolerated procedure well. Patient moved back from CT. nj 19:33 CT Head Brain wo Cont In Process Unspecified. EDMS 19:57 Inserted saline lock: 22 gauge in left forearm, using aseptic technique. Blood ag4 collected. 20:09 XRAY Chest (1 view) In Process Unspecified. EDMS 20:35 Radiology exam delayed due to lab results not completed at this time. (BUN/Creatinine). nj 21:[address] via wheelchair. rr5 21:20 Head angio In Process Unspecified. EDMS 21:20 Neck Angio In Process Unspecified. EDMS 22:02 Jorge Alberto Ruff MD is Hospitalizing Provider. [facility] 23:17 No provider procedures requiring assistance completed. Patient admitted, IV remains in rr5 place. intact, No redness/swelling at site. Administered Medications: 23:05 CANCELLED (Other Intervention Used): Aspirin 325 mg PO once rr5 23:14 Drug: Aspirin Chewable Tablet 324 mg Route: PO; rr5 09/29 00:13 Follow up: Response: No adverse reaction rr5 Outcome: 09/28 22:03 Decision to Hospitalize by Provider. [facility] 09/29 00:12 Admitted to Tele accompanied by tech, via wheelchair, with chart, Report called to rr5 paul Condition: stable Instructed on the need for admit. 00:48 Patient left the ED. rr5 Signatures: Dispatcher [employer] EDMS Dick Hammond PA PA jmPaul Camacho, SENIOR PRINCIPAL ARCHITECT SENIOR PRINCIPAL ARCHITECT Essie Oneil RN RN Jose Pardo Raymond RN RN rr5 Dylan Angel ag4 Corrections: (The following items were deleted from the chart) 09/28 18:53 18:52 Acuity: SHAWN 4 ss ss 23:18 23:17 No provider procedures requiring assistance completed. rr5 rr5 23:18 23:17 Patient admitted, IV remains in place. rr5 rr5 23:46 23:23 Notified ED physician of other seizure episode general tonic clonic upward rr5 rolling of eyeball lasted for 10 seconds rr5
--- NOTE | 2018-09-28 22:04 | EDPHYS ---
Physician Documentation [facility] Name: Ophelia Grady Age: 63 yrs Sex: Female : 1955 Arrival Date: 09/28/2018 Time: 18:52 Bed 18 Private MD: ED Physician Juan M Padron HPI: 09/28 19:24 This 63 yrs old Female presents to ER via EMS with complaints of Headache. jmm 19:24 The patient complains of pain to the forehead. The patient describes the headache as jmm aching. Onset: The symptoms/episode began/occurred gradually, 4 day(s) ago. Associated signs and symptoms: Pertinent positives: dizziness. This is a 63 year old female with a history of CHF, COPD, Depression, HLP, presents to the ED with 4 days of dizziness, 2 days of congestion. Patient states she became anxious when she missed her bus earlier today and states she developed chest pain. Patient states she has an MRI scheduled outpatient to evaluate her back and her brain due to worsening back pain and dizziness. . Historical: - Allergies: 19:03 No Known Allergies; em - PMHx: 19:03 ADD/ADHD; Anemia; Cancer; CHF; COPD; Depression; Hyperlipidemia; Hypertension; Major em Depressive Disorder; Schizo-affective disorder; - PSHx: 19:03 Mastectomy, Left; Mastectomy, Right; Hernia repair; em - Immunization history:: Adult Immunizations up to date. - Social history:: Smoking status: Patient uses tobacco products, smokes one pack cigarettes per day. - Ebola Screening: : Patient negative for fever greater than or equal to 101.5 degrees Fahrenheit, and additional compatible Ebola Virus Disease symptoms Patient denies exposure to infectious person Patient denies travel to an Ebola-affected area in the 21 days before illness onset No symptoms or risks identified at this time. ROS: 19:24 Constitutional: Negative for fever, chills, and weight loss. jmm 19:24 Abdomen/GI: Negative for abdominal pain, nausea, vomiting, diarrhea, and constipation, Back: Negative for injury and pain. 19:24 ENT: Positive for sinus congestion. 19:24 Cardiovascular: Positive for chest pain. 19:24 Respiratory: Positive for shortness of breath. 19:24 Neuro: Positive for dizziness, headache. 19:24 All other systems are negative. Exam: 19:24 Constitutional: This is a well developed, well nourished patient who is awake, alert, jmm and in no acute distress. Head/Face: atraumatic. Eyes: EOMI, no conjunctival erythema appreciated ENT: Moist Mucus Membranes Neck: Trachea midline, Supple Chest/axilla: Normal chest wall appearance and motion. 19:24 Cardiovascular: Rate: normal, Rhythm: regular, Pulses: no pulse deficits are appreciated. 19:24 Respiratory: the patient does not display signs of respiratory distress, Respirations: normal, Breath sounds: are clear throughout. 19:24 Abdomen/GI: Inspection: abdomen appears normal, Bowel sounds: normal, Palpation: abdomen is soft and non-tender. 19:24 Musculoskeletal/extremity: ROM: intact in all extremities. 19:24 Skin: Appearance: Color: normal in color. 19:24 Neuro: Orientation: is normal, Mentation: is normal, Memory: is normal. 19:24 Psych: Behavior/mood is pleasant, cooperative, anxious. Vital Signs: 19:03 BP 157 / 98; Pulse 59; Resp 18; Temp 98.4(O); Pulse Ox 100% on R/A; Weight 72.57 kg; em Height 5 ft. 4 in. (162.56 cm); Pain 8/10; 20:00 BP 151 / 70; Pulse 60; Resp 17; Temp 98; Pulse Ox 100% ; rr5 21:00 BP 155 / 71; Pulse 61; Resp 17; Pulse Ox 99% ; rr5 22:00 BP 143 / 76; Pulse 58; Resp 17; Pulse Ox 98% ; rr5 23:00 BP 157 / 92; Pulse 62; Resp 18; Pulse Ox 96% ; rr5 09/29 00:00 BP 150 / 91; Pulse 60; Resp 16; Pulse Ox 99% ; rr5 09/28 19:03 Body Mass Index 27.46 (72.57 kg, 162.56 cm) em MDM: 09/28 19:14 Patient medically screened. [facility] 22:02 Data reviewed: vital signs, nurses notes, EKG, radiologic studies, CT scan, plain [facility] films. Counseling: I had a detailed discussion with the patient and/or guardian regarding: the historical points, exam findings, and any diagnostic results supporting the discharge/admit diagnosis, lab results, radiology results. ED course: I discussed the patient with Dr. Ruff whom accepted admission. . 09/28 19:21 Order name: Basic Metabolic Panel; Complete Time: 20:53 [facility] 09/28 19:21 Order name: CBC with Diff; Complete Time: 20:25 [facility] 09/28 19:21 Order name: LFT's; Complete Time: 20:53 [facility] 09/28 19:21 Order name: Magnesium; Complete Time: 20:53 [facility] 09/28 19:21 Order name: NT PRO-BNP; Complete Time: 20:53 [facility] 09/28 19:21 Order name: PT-INR; Complete Time: 20:25 [facility] 09/28 19:21 Order name: Troponin (emerg Dept Use Only); Complete Time: 20:53 [facility] 09/28 22:05 Order name: Basic Metabolic Panel [facility] 09/28 22:05 Order name: Basic Metabolic Panel [facility] 09/28 22:05 Order name: CBC with Automated Diff [facility] 09/28 22:05 Order name: CBC with Automated Diff [facility] 09/28 22:05 Order name: Lipid Profile [facility] 09/28 22:05 Order name: Lipid Profile [facility] 09/28 22:35 Order name: Urine Dipstick--Ancillary (enter results) em1 09/28 19:21 Order name: XRAY Chest (1 view); Complete Time: 20:38 [facility] 09/28 19:21 Order name: EKG; Complete Time: 19:22 [facility] 09/28 19:21 Order name: Cardiac monitoring; Complete Time: 20:10 [facility] 09/28 19:21 Order name: CT Head Brain wo Cont; Complete Time: 20:04 [facility] 09/28 20:09 Order name: Head angio; Complete Time: 21:53 [facility] 09/28 20:09 Order name: Neck Angio; Complete Time: 21:53 [facility] 09/28 22:05 Order name: CONS Physician Consult [facility] 09/28 22:05 Order name: Heart Healthy [facility] 09/28 22:05 Order name: Echo with Doppler [facility] 09/28 22:05 Order name: EKG Electrocardiogram [facility] 09/28 22:05 Order name: EKG Electrocardiogram [facility] 09/28 22:48 Order name: Urine Dipstick-Ancillary [facility] 09/28 23:05 Order name: Urine Microscopic Only rr5 09/28 23:38 Order name: Urine Microscopic Only [facility] 09/28 19:21 Order name: EKG - Nurse/Tech; Complete Time: 20:10 [facility] 09/28 19:21 Order name: IV Saline Lock; Complete Time: 19:58 [facility] 09/28 19:21 Order name: Labs collected and sent; Complete Time: 19:59 [facility] 09/28 19:21 Order name: O2 Per Protocol; Complete Time: 20:10 [facility] 09/28 19:21 Order name: O2 Sat Monitoring; Complete Time: 20:10 [facility] Administered Medications: 23:05 CANCELLED (Other Intervention Used): Aspirin 325 mg PO once rr5 23:14 Drug: Aspirin Chewable Tablet 324 mg Route: PO; rr5 09/29 00:13 Follow up: Response: No adverse reaction rr5 Disposition: 07:44 Co-signature as Attending Physician, Juan M Padron MD I agree with the assessment and kdr plan of care. Disposition: 09/28/18 22:03 Hospitalization ordered by Jorge Alberto Ruff for Observation. Preliminary diagnosis is Chest pain, unspecified. - Bed requested for Telemetry/MedSurg (observation). - Status is Observation. rr5 - Condition is Stable. - Problem is an acute exacerbation. - Symptoms are unchanged. UTI on Admission? No Signatures: Dispatcher [employer] [facility] Juan M Padron MD MD [facility] Dick Hammond PA PA [facility] Paul Diaz, WOOD BARREL RECONDITIONER WOOD BARREL RECONDITIONER Graciela Almaraz, ANA RN cg Sukumar Martin, RN RN rr5 Corrections: (The following items were deleted from the chart) 09/28 22:27 22:03 Hospitalization Ordered by Jorge Alberto Ruff MD for Observation. Preliminary cg diagnosis is Chest pain, unspecified. Bed requested for Telemetry/MedSurg (observation). Status is Observation. Condition is Stable. Problem is an acute exacerbation. Symptoms are unchanged. UTI on Admission? No. [facility] 23:05 22:05 Aspirin 325 mg PO once ordered. [facility] rr5 09/29 00:48 09/28 22:27 09/28/2018 22:03 Hospitalization Ordered by Jorge Alberto Ruff MD for rr5 Observation. Preliminary diagnosis is Chest pain, unspecified. Bed requested for Telemetry/MedSurg (observation). Status is Observation. Condition is Stable. Problem is an acute exacerbation. Symptoms are unchanged. UTI on Admission? No. cg
[2018-09-28 22:48] LABS: Urine Blood NEGATIVE (NEG); Urine Glucose NEGATIVE (NEG); Urine Protein NEGATIVE (NEG)
[2018-09-28] MEDS ORDERED: ASPIRIN 81 MG CHEWABLE TABLET ONE (23:16)
[2018-09-28 23:37] LABS: Urine Bacteria <20 /HPF (<20); Urine Culture Reflex Order NOT NEEDED; Urine Mucus LIGHT /HPF (NONE SEEN); Urine RBC NONE SEEN /HPF (NONE SEEN)
[2018-09-29 01:20] VITALS: TEMP 97.5
[2018-09-29 02:20] VITALS: O2SAT 99
[2018-09-29 03:42] VITALS: BMI 27.4
[2018-09-29 04:33] LABS: Absolute Lymphocytes (CBC) 2.2 K/uL (0.7-4.9); Absolute Monocytes 0.6 K/uL (0.1-1.3); Absolute Neutrophil 2.8 K/uL (1.8-8.0); Basophils % 0.7 % (0-1.3); Eosinophils % 2.2 % (0-4.4); Hematocrit 42.8 % (36.0-45.0); Lymphocytes % 38.8 % (15.3-44.8); Monocytes % 9.8 % (3.3-12.3); RBC Red Blood Cell Count 4.79 M/uL (3.86-4.86)
--- NOTE | 2018-09-29 05:58 | EKG ---
Test Date: 2018-09-28 Test Time: 20:05:59 Remodeler: CASSANDRA MEASUREMENT RESULTS: Intervals: Rate: 62 NH: 206 QRSD: 94 QT: 484 QTc: 491 [place]: P: 53 NH: 206 QRS: -36 T: 59 INTERPRETIVE STATEMENTS: Sinus rhythm with premature atrial complexes Left axis deviation Prolonged QT Abnormal ECG Compared to ECG 08/29/2018 17:42:18 Atrial premature complex(es) now present Left-axis deviation now present Prolonged QT interval now present Myocardial infarct finding no longer present Electronically Signed On 09-29-18 05:58:12 CORE MANAGER by Mahad Meredith
[2018-09-29] MEDS ORDERED: METOPROLOL TAR 50 MG TAB PO SCH ×2 (06:00→09:00)
--- NOTE | 2018-09-29 08:15 | P.HP ---
Certification for Inpatient Patient admitted to: Observation With expected LOS: <2 Midnights Patient will require the following post-hospital care: Other (Social work consultation as patient is currently homeless and I believe without her medications.) Practitioner: I am a practitioner with admitting privileges, knowledge of patient current condition, hospital course, and medical plan of care. Services: Services provided to patient in accordance with Admission requirements found in Title 42 Section 412.3 of the Code of Federal Regulations Patient History Date of Service: 09/28/18 Reason for admission: Chest pain rule out acute coronary syndrome History of Present Illness: Patient is a 63-year-old female who was recently in the hospital for similar complaints. At that time she had minimal cardiac workup including echocardiogram and serial troponins and EKG. She was asymptomatic and her workup was unremarkable so she was discharged home with outpatient follow-up. Unfortunately, patient has not been able to maker follow-up because of her social situation (She is living at the [facility]. She is pretty much homeless). Her pain was mainly in the sternal region. She does not really talk much. She states she is tired and wants to be left alone. However, she does state that the pain is better. She is having a headache but denies getting nitroglycerin. Will monitor her closely. Allergies ketorolac [From Toradol] Allergy (Verified 08/29/18 22:45) Restless legs Home Medications: Amlodipine Besylate 10 mg PO DAILY 08/29/18 Atorvastatin Calcium [Lipitor] 40 mg PO BEDTIME 08/29/18 Fluoxetine HCl [Prozac] 40 mg PO DAILY 08/29/18 Hydralazine HCl [Apresoline] 50 mg PO TID 08/29/18 Isosorbide Mononitrate [Isosorbide Mononitrate ER] 60 mg PO DAILY 08/29/18 Lisinopril 40 mg PO DAILY 08/29/18 Lurasidone HCl [Latuda] 60 mg PO BEDTIME 08/29/18 Trazodone [Desyrel*] 300 mg PO BEDTIME 08/29/18 Metoprolol Tartrate [Lopressor*] 100 mg PO BID 09/29/18 hydroCHLOROthiazide [Hydrochlorothiazide] 25 mg PO DAILY 09/29/18 - Past Medical/Surgical History Diabetic: Yes -: Cholelithiasis -: Breast Cancer bilateral breasts -: Coronary artery disease with stent placement -: ADD/AHD -: CHF -: COPD -: depression -: HTN -: schizo affective disorder -: depressive disorder -: hyperlipidemia -: Cholecystectomy -: Double Mastectomy -: Coronary artery disease with stent placement x 4 -: Ovarian Cyst -: fatty tumor removed from left shoulder and back -: hernia repair -: heel spur surgery bilateral - Family History Mother Medical History: Cancer Notes: breast cancer Father Medical History: Cancer Notes: lung and throat cancer - Social History Smoking Status: Current every day smoker Alcohol use: No CD- Drugs: No Caffeine use: Yes Place of Residence: [facility] Review of Systems 10-point ROS is otherwise unremarkable Physical Examination - Vital Signs Temperature: 97.5 F Blood Pressure: 150/89 Pulse: 63 Respirations: 18 Pulse Ox (%): 98 - Physical Exam General: Alert, In no apparent distress, Oriented x3 HEENT: Atraumatic, PERRLA, Mucous membr. moist/pink, EOMI, Sclerae nonicteric Neck: Supple, 2+ carotid pulse no bruit, No LAD, Without JVD or thyroid abnormality Respiratory: Clear to auscultation bilaterally, Normal air movement Cardiovascular: Regular rate/rhythm, Normal S1 S2, No murmurs Gastrointestinal: Normal bowel sounds, Soft and benign, Non-distended, No tenderness, No rebound, No guarding Musculoskeletal: No clubbing, No swelling, No tenderness Integumentary: No rashes Neurological: Normal gait, Normal speech, Normal strength at 5/5 x4 extr, Normal tone, Sensation intact, Cranial nerves 3-12 intact, Normal affect Lymphatics: No axilla or inguinal lymphadenopathy - Studies Laboratory Data (last 24 hrs) 09/28/18 19:55: Triglycerides 122, Cholesterol 149, HDL Cholesterol 69 H, Cholesterol/HDL Ratio 2.16 09/28/18 19:55: PT 12.0, INR 1.02 09/28/18 19:55: WBC 7.3, Hgb 14.1, Hct 41.2, Plt Count 186 09/28/18 19:55: Sodium 141, Potassium 3.1 L, BUN 21 H, Creatinine 0.90, Glucose 88, Magnesium 2.0, Total Bilirubin 0.4, AST 29, ALT 37, Alkaline Phosphatase 79 Assessment & Plan - Problems (Diagnosis) (1) Headache Current Visit: Yes Status: Acute (2) Chest pain, rule out acute myocardial infarction Current Visit: Yes Status: Acute (3) Homeless Current Visit: Yes Status: Acute (4) COPD (chronic obstructive pulmonary disease) Onset Date: 08/30/18 Current Visit: No Status: Acute (5) Hypertension Onset Date: 08/30/18 Current Visit: No Status: Acute Qualifiers: Hypertension type: essential hypertension Qualified Code(s): I10 - Essential (primary) hypertension (6) Presence of stent in coronary artery in patient with coronary artery disease Onset Date: 08/30/18 Current Visit: No Status: Acute (7) Tobacco abuse Onset Date: 08/30/18 Current Visit: No Status: Acute - Plan 1. Serial troponins and EKG 2. Cardiology consultation 3. Monitor neuro status. Having a headache and blood pressure elevated. Resume anti-platelet therapy and statin therapy. 4. Continue with cardiac meds; anti-platelet therapy, anticoagulation the blood pressure is better, beta-angel, statin, and O2 as needed 5. IV morphine for pain 6. Nitro p.r.n. 7. GI/DVT prophylaxis Discharge Plan: Home Plan to discharge in: Greater than 2 days - Advance Directives Does patient have a Living Will: No Does patient have a Durable POA for Healthcare: No - Code Status/Comfort Care Code Status Assessed: Yes Code Status: Full Code Critical Care: No Time Spent Managing PTS Care (In Minutes): 50
[2018-09-29] MEDS ORDERED: HYDRALAZINE HCL 25 MG TABLET PO SCH (09:00)
[2018-09-29] MEDS ORDERED: ASPIRIN EC 81 MG TAB PO SCH (09:00)
[2018-09-29] MEDS ORDERED: HOME MED 1 EA UNK (Lisinopril [Lisinopril] 40 MG) PO SCH ×2 (09:00→21:00)
[2018-09-29] MEDS ORDERED: PNEUMOCOCCAL VACCINE 0.5 ML IMVAC ONE (09:00)
[2018-09-29] MEDS ORDERED: ISOSORBIDE MONO SR 60 MG TAB PO SCH (09:00)
[2018-09-29] MEDS ORDERED: FLUOXETINE 20 MG CAP PO SCH (09:00)
[2018-09-29] MEDS ORDERED: ENOXAPARIN 40 MG/0.4 ML SQ SCH (09:00)
[2018-09-29] MEDS ORDERED: AMLODIPINE 10 MG TAB PO SCH (09:00)
[2018-09-29] MEDS ORDERED: hydroCHLOROthiazide 25 MG TAB PO SCH (09:00)
[2018-09-29 10:40] VITALS: BP 152/90
--- NOTE | 2018-09-29 16:54 | P.SSS ---
Patient History Date of Service: 09/29/18 Reason for admission: Chest pain rule out acute coronary syndrome History of Present Illness: Patient is a 63-year-old female who was recently in the hospital for similar complaints. At that time she had minimal cardiac workup including echocardiogram and serial troponins and EKG. She was asymptomatic and her workup was unremarkable so she was discharged home with outpatient follow-up. Unfortunately, patient has not been able to maker follow-up because of her social situation (She is living at the [facility]. She is pretty much homeless). Her pain was mainly in the sternal region. She does not really talk much. She states she is tired and wants to be left alone. However, she does state that the pain is better. She is having a headache but denies getting nitroglycerin. Will monitor her closely Allergies ketorolac [From Toradol] Allergy (Verified 08/29/18 22:45) Restless legs Home Medications: Amlodipine Besylate 10 mg PO DAILY 08/29/18 Atorvastatin Calcium [Lipitor] 40 mg PO BEDTIME 08/29/18 Fluoxetine HCl [Prozac] 40 mg PO DAILY 08/29/18 Hydralazine HCl [Apresoline] 50 mg PO TID 08/29/18 Isosorbide Mononitrate [Isosorbide Mononitrate ER] 60 mg PO DAILY 08/29/18 Lisinopril 40 mg PO DAILY 08/29/18 Lurasidone HCl [Latuda] 60 mg PO BEDTIME 08/29/18 Trazodone [Desyrel*] 300 mg PO BEDTIME 08/29/18 Metoprolol Tartrate [Lopressor*] 100 mg PO BID 09/29/18 hydroCHLOROthiazide [Hydrochlorothiazide] 25 mg PO DAILY 09/29/18 - Past Medical/Surgical History Diabetic: Yes -: Cholelithiasis -: Breast Cancer bilateral breasts -: Coronary artery disease with stent placement -: ADD/AHD -: CHF -: COPD -: depression -: HTN -: schizo affective disorder -: depressive disorder -: hyperlipidemia -: Cholecystectomy -: Double Mastectomy -: Coronary artery disease with stent placement x 4 -: Ovarian Cyst -: fatty tumor removed from left shoulder and back -: hernia repair -: heel spur surgery bilateral - Family History Mother -: Cancer Notes: breast cancer Father -: Cancer Notes: lung and throat cancer - Social History Smoking Status: Current every day smoker Alcohol use: No CD- Drugs: No Caffeine use: Yes Place of Residence: Homeless Review of Systems 10-point ROS is otherwise unremarkable Physical Examination - Vital Signs Temperature: 97.5 F Blood Pressure: 152/90 Pulse: 70 Respirations: 18 Pulse Ox (%): 98 - Physical Exam General: Alert, In no apparent distress HEENT: Atraumatic, PERRLA, Mucous membr. moist/pink, EOMI, Sclerae nonicteric Neck: Supple, 2+ carotid pulse no bruit, No LAD, Without JVD or thyroid abnormality Respiratory: Clear to auscultation bilaterally, Normal air movement Cardiovascular: Regular rate/rhythm, Normal S1 S2 Gastrointestinal: Normal bowel sounds, No tenderness Musculoskeletal: No tenderness Integumentary: No rashes Neurological: Normal gait, Normal speech, Normal strength at 5/5 x4 extr, Normal tone, Normal affect Lymphatics: No axilla or inguinal lymphadenopathy - Studies Laboratory Data (last 24 hrs) 09/28/18 19:55: Triglycerides 122, Cholesterol 149, HDL Cholesterol 69 H, Cholesterol/HDL Ratio 2.16 09/28/18 19:55: PT 12.0, INR 1.02 09/28/18 19:55: WBC 7.3, Hgb 14.1, Hct 41.2, Plt Count 186 09/28/18 19:55: Sodium 141, Potassium 3.1 L, BUN 21 H, Creatinine 0.90, Glucose 88, Magnesium 2.0, Total Bilirubin 0.4, AST 29, ALT 37, Alkaline Phosphatase 79 - Diagnosis (Problem(s)) (1) Chest pain Status: Active (2) COPD (chronic obstructive pulmonary disease) Onset Date: 08/30/18 Status: Chronic Qualifiers: COPD type: chronic bronchitis Chronic bronchitis type: simple Qualified Code(s): J41.0 - Simple chronic bronchitis (3) Hypertension Onset Date: 08/30/18 Status: Chronic Qualifiers: Hypertension type: essential hypertension Qualified Code(s): I10 - Essential (primary) hypertension (4) Presence of stent in coronary artery in patient with coronary artery disease Onset Date: 08/30/18 Status: Chronic (5) Tobacco abuse Onset Date: 08/30/18 Status: Chronic Treatment Summary: Overall during the hospital stay patient remained stable Patient was admitted to the hospital for chest pain ACS rule out. Cardiology was consulted. Who recommended the patient does not need any further workup as her troponin x2 were negative and EKGs negative for any acute ischemia. Patient then was notified regarding the recommendations and was discharged home once her chest pain had resolved. Patient was asked to follow up with her nutrition tech outpatient to schedule for a stress test. Chest pain was most likely related to anxiety. Patient was then discharged home under stable condition was asked to follow up with primary care provider and cardiology in about 1-2 weeks post discharge. Patient was asked to resume all her home medication as prescribed previously by her doctor. - Disposition Disposition: ROUTINE DISCHARGE Condition: GOOD Patient Discharge Instructions: Please F.u with PCP and Cardiology in 1 to 2 week post discharge. No New medication. You will need to schedule for outpt stress test Diet: Regular Activity: Ad lynette
[2018-09-29] MEDS ORDERED: LURASIDONE HCL 60 MG PO SCH (21:00)
[2018-09-29] MEDS ORDERED: TRAZODONE 150 MG TAB PO SCH (21:00)
[2018-09-29] MEDS ORDERED: ATORVASTATIN 40 MG TAB PO SCH (21:00)
--- NOTE | 2018-09-30 04:22 | CON ---
Date of Consultation: 09/29/[address] Ruff on 09/28/2018. She was seen on 09/29/2018. Reason For Consultation: Headaches, chest pain and hypokalemia. History Of Present Illness: Ms. Grady is a 63, has a history of schizophrenia, attention-deficit dis order, depression, hypertension, dyslipidemia, anemia, congestive heart failure, COPD, and history of breast cancer in the past. She came in with headache, atypical chest pain, sharp, negative troponin , negative CPKs and MBs. Her BNP was 634. She was hypokalemic with a potassium of 3.0. Echocardiog kathleen in August of 2018 was normal. The patient is asymptomatic now. Allergies: INCLUDE KETOROLAC. Medications: At home include lisinopril, hydrochlorothiazide, Lipitor, Norvasc, Prozac, hydralazine, Toprol, and Imdur. Social History: Negative. Review of Systems: Negative. Family History: Noncontributory. Physical Examination: Vital Signs: Stable, afebrile. HEENT: Negative. Neck: Supple. No bruit. Chest: Clear. Cardiac: Normal. Abdomen: Benign. Extremities: Revealed no clubbing, cyanosis, or edema. Diagnostic Data: As stated earlier. Impression And Plan: Atypical chest pain. Negative CPKs, MBs and troponin, possibly significant sec ondary to hypokalemia, could be musculoskeletal. I would certainly not repeat any cardiac workup at this point. I feel comfortable with her going home whenever it is okay with admitting physician. He r other problems including hypertension, dyslipidemia, congestive heart failure and COPD, seems to be stable. I think her congestive heart failure may be chronic diastolic and that may be where her BNP is elevated. She can certainly come see us in the office in the next week or two. KINGSTON/ANDERS Voice ID: [id number] Report ID: [id number]
[2018-09-30] MEDS ORDERED: ISOSORBIDE MONO SR 60 MG TAB PO SCH (06:00)
--- OUTSIDE RECORDS SUMMARY | 2018-09-30 16:39 | XMS REPORT ---
[...] Atherosclerosis of coronary artery I25.10 Active of [place] heart Problem Tobacco use disorder Z72.0 Active Medications Medication Code Code Instructions Start End Status Dosage System Date Date Lipitor ND 14617836482 40 MG Orally Active 1 tablet Once a day Lisinopril ND 34720364543 40 MG Orally Active 1 tablet Once a day HydrALAZINE HCl ND 78180976993 50 MG Orally Active 1 tablet Three times a with food day Hydrochlorothiazide ND 34529058089 25 MG Orally Active 1 tablet Once a day in the morning Metoprolol Tartrate ND 44390857964 100 MG Orally Active 1 tablet Twice a day with food Results No Known Results Summary Purpose eClinicalWorks Submission
--- OUTSIDE RECORDS SUMMARY | 2018-09-30 16:39 | XMS REPORT ---
[...] Atherosclerosis of coronary artery I25.10 Active of [place] heart Problem Atherosclerosis of coronary artery I25.10 Active of [place] heart Problem Tobacco use disorder Z72.0 Active Medications Medication Code Code Instructions Start End Status Dosage System Date Date Isosorbide NDC 07260957530 60 MG Orally Active 1 tablet Mononitrate ER Once a day in the morning Results No Known Results Summary Purpose [employer] Submission
--- OUTSIDE RECORDS SUMMARY | 2018-09-30 16:39 | XMS REPORT ---
[...] Atherosclerosis of coronary artery I25.10 Active of [place] heart Assessment Atherosclerosis of coronary artery I25.10 Active of [place] heart Problem Tobacco use disorder Z72.0 Active Medications Medication Code Code Instructions Start End Status Dosage System Date Date Prozac [facility] 87173988172 40 MG Orally Active 1 capsule Once a day Trazodone HCl [facility] 93618444325 300 MG Orally Active 0.5 Once a day tablet at bedtime Lisinopril [facility] 34307790751 40 MG Orally Active 1 tablet Once a day Norvasc [facility] 99553467639 10 MG Orally Active 1 tablet Once a day Isosorbide Mononitrate [facility] 69900163094 60 MG Orally Active 1 tablet ER Once a day in the morning Aspir-81 [facility] 05118879619 81 MG Orally Active 1 tablet Once a day Latuda [facility] 40611221689 60 MG Orally Active 1 tablet Once a day with food Hydrochlorothiazide [facility] 13259809484 25 MG Orally Active 1 tablet Once a day in the morning Lipitor [facility] 16490824904 40 MG Orally Active 1 tablet Once a day Metoprolol Tartrate [facility] 03377960212 100 MG Orally Active 1 tablet Twice a day with food ProAir HFA [facility] 34966087244 108 (90 Base) Active 2 puffs MCG/ACT as needed Inhalation every 6 hrs HydrALAZINE HCl [facility] 83177267058 50 MG Orally Active 1 tablet Three times a with food day Results Name Result Date Reference Range Unit Abnormality Flag CBC W/AUTO DIFF CMP Magnesium, Serum LIPID PANEL WITH REFLEX TO DIRECT LDL Summary Purpose eClinicalWorks Submission
--- OUTSIDE RECORDS SUMMARY | 2018-09-30 16:39 | XMS REPORT | Continuity of Care Document ---
:1955 Author Organization Interface Problems Problem Status Onset Classification Date Comments Source Date Reported ACUTE CHEST Active [facility], ESSENTIAL 8 Hospital HYPERTENSION ESSENTIAL Active [facility] (PRIMARY) Hospital HYPERTENSION Medications Medication Details Route [...]
--- OUTSIDE RECORDS SUMMARY | 2018-09-30 16:39 | XMS REPORT ---
:1955 Author Organization eClinicalWorks Care Team Providers Name Role Phone Rodriguez, Juacnarlos Provider Role Unavailable Allergies No Known Allergies Problems Problem Type Condition Code Onset Dates Condition Status Problem Osteoarthritis of multiple joints M15.9 Active Problem Hyperlipidemia, mixed E78.2 Active Problem Hx of breast cancer Z85.3 Active Problem Atherosclerosis of coronary artery I25.10 Active of [place] heart Problem Tobacco use disorder Z72.0 Active [...]
--- OUTSIDE RECORDS SUMMARY | 2018-09-30 16:39 | XMS REPORT ---
[...] Status Dosage System Date Date Metoprolol Tartrate [facility] 42325849830 100 MG Orally Active 1 tablet Twice a day with food Lisinopril [facility] 29381292517 40 MG Orally Active 1 tablet Once a day Trazodone HCl [facility] 14648277118 300 MG Orally Active 0.5 Once a day tablet at bedtime Norvasc [facility] 38542521665 10 MG Orally Active 1 tablet Once a day Latuda [facility] 59516185526 60 MG Orally Active 1 tablet Once a day with food HydrALAZINE HCl [facility] 87977308016 50 MG Orally Active 1 tablet Three times a with food day ProAir HFA [facility] 49323069266 108 (90 Base) Active 2 puffs MCG/ACT as needed Inhalation every 6 hrs as needed for cough, shortness of breath and wheezing Isosorbide Mononitrate [facility] 62743174490 60 MG Orally Active 1 tablet ER Once a day in the morning Prozac [facility] 48400316446 40 MG Orally Active 1 capsule Once a day Hydrochlorothiazide [facility] 04370218033 25 MG Orally Active 1 tablet Once a day in the morning -81 [facility] 80462723490 81 MG Orally Active 1 tablet Once a day Lipitor [facility] 10849467451 40 MG Orally Active 1 tablet Once a day Results No Known Results Summary Purpose eClinicalWorks Submission
--- OUTSIDE RECORDS SUMMARY | 2018-09-30 16:39 | XMS REPORT ---
[...] Atherosclerosis of coronary artery I25.10 Active of [place] heart Problem Atherosclerosis of coronary artery I25.10 Active of [place] heart Assessment Benign essential HTN I10 Active Problem Tobacco use disorder Z72.0 Active Medications Medication Code Code Instructions Start End Status Dosage System Date Date [facility]23[facility] 10 MG Orally Active 1 tablet Once a day Hydrochlorothiazide [facility] 47637114016 25 MG Orally Active 1 tablet Once a day in the morning HydrALAZINE HCl [facility] 00439759669 50 MG Orally Active 1 tablet Three times a with food day Latuda [facility] 36723194564 60 MG Orally Active 1 tablet Once a day with food Lisinopril [facility] 69486239564 40 MG Orally Active 1 tablet Once a day Isosorbide Mononitrate [facility] 81953672181 60 MG Orally Active 1 tablet ER Once a day in the morning Aspir-81 [facility] 41699483620 81 MG Orally Active 1 tablet Once a day Metoprolol Tartrate [facility] 95642977441 100 MG Orally Active 1 tablet Twice a day with food Prozac [facility] 12515611534 40 MG Orally Active 1 capsule Once a day HydrALAZINE HCl [facility] 89203712088 50 MG Orally Active 1 tablet Three times a with food day Trazodone HCl [facility] 66472020751 300 MG Orally Active 0.5 Once a day tablet at bedtime Lipitor [facility] 22689124882 40 MG Orally Active 1 tablet Once a day Norvasc [facility] 06994537697 10 MG Orally Active 1 tablet Once a day ProAir HFA [facility] 20772367666 108 (90 Base) Active 2 puffs MCG/ACT as needed Inhalation every 6 hrs as needed for cough, shortness of breath and wheezing Isosorbide Mononitrate [facility] 84551123338 60 MG Orally Active 1 tablet ER Once a day in the morning Results No Known Results Summary Purpose eClinicalWorks Submission
== END 2018-09-29 11:15 | disposition home or self-care (01) ==
LOC: ER 18:50 → ERHOLD 22:02 → 4TH 09-29 00:13
PROVIDERS: ADMIT Hospitalist; ATTEND Hospitalist
DX: R07.9 Chest pain, unspecified (principal); R51 Headache; J44.9 Chronic obstructive pulmonary disease, unspecified; I25.10 Atherosclerotic heart disease of native coronary artery without angina pectoris; F32.9 Major depressive disorder, single episode, unspecified; E78.5 Hyperlipidemia, unspecified; F98.8 Other specified behavioral and emotional disorders with onset usually occurring in childhood and adolescence; I11.0 Hypertensive heart disease with heart failure; I50.9 Heart failure, unspecified; F17.210 Nicotine dependence, cigarettes, uncomplicated; Z59.0 Homelessness; Z95.5 Presence of coronary angioplasty implant and graft; Z85.3 Personal history of malignant neoplasm of breast; Z23 Encounter for immunization
CPT/HCPCS: 36415; 70450; 70496; 70498; 71045; 80048; 80061; 80076; 81003; 81015; 83735; 83880; 84484; 85025; 85610; 90670; 93005; 99285; G0009; G0378; J1650; Q9967

== ENCOUNTER 2018-11-02 17:07 | Emergency (ER) | payer OTHER ==
--- OUTSIDE RECORDS SUMMARY | 2018-11-02 17:09 | XMS REPORT ---
[...] Atherosclerosis of coronary artery I25.10 Active of [place] heart Problem Atherosclerosis of coronary artery I25.10 Active of [place] heart Problem Tobacco use disorder Z72.0 Active Medications Medication Code Code Instructions Start End Status Dosage System Date Date Isosorbide NDC 75390572247 60 MG Orally Active 1 tablet Mononitrate ER Once a day in the morning Results No Known Results Summary Purpose [employer] Submission
--- OUTSIDE RECORDS SUMMARY | 2018-11-02 17:09 | XMS REPORT ---
[...] Atherosclerosis of coronary artery I25.10 Active of [place] heart Assessment Atherosclerosis of coronary artery I25.10 Active of [place] heart Problem Tobacco use disorder Z72.0 Active Medications Medication Code Code Instructions Start End Status Dosage System Date Date Metoprolol Tartrate [facility] 07456887682 100 MG Orally Active 1 tablet Twice a day with food Lisinopril [facility] 50198605659 40 MG Orally Active 1 tablet Once a day Trazodone HCl [facility] 56373414846 300 MG Orally Active 0.5 Once a day tablet at bedtime Norvasc [facility] 21379980799 10 MG Orally Active 1 tablet Once a day Latuda [facility] 76595207494 60 MG Orally Active 1 tablet Once a day with food HydrALAZINE HCl [facility] 14924487254 50 MG Orally Active 1 tablet Three times a with food day ProAir HFA [facility] 28087186724 108 (90 Base) Active 2 puffs MCG/ACT as needed Inhalation every 6 hrs as needed for cough, shortness of breath and wheezing Isosorbide Mononitrate [facility] 36795536921 60 MG Orally Active 1 tablet ER Once a day in the morning Prozac [facility] 92455460977 40 MG Orally Active 1 capsule Once a day Hydrochlorothiazide [facility] 71937830990 25 MG Orally Active 1 tablet Once a day in the morning -81 [facility] 50208194128 81 MG Orally Active 1 tablet Once a day Lipitor [facility] 93672004371 40 MG Orally Active 1 tablet Once a day Results No Known Results Summary Purpose eClinicalWorks Submission
--- OUTSIDE RECORDS SUMMARY | 2018-11-02 17:09 | XMS REPORT ---
:1955 Author Organization eClinicalWorks Care Team Providers Name Role Phone Rodriguez, Juancarlos Provider Role Unavailable Allergies No Known Allergies Problems Problem Type Condition Code Onset Dates Condition Status Problem Osteoarthritis of multiple joints M15.9 Active Problem Hyperlipidemia, mixed E78.2 Active Problem Hx of breast cancer Z85.3 Active Problem Atherosclerosis of coronary artery I25.10 Active of [place] heart Problem Tobacco use disorder Z72.0 Active [...]
--- OUTSIDE RECORDS SUMMARY | 2018-11-02 17:09 | XMS REPORT ---
[...] Atherosclerosis of coronary artery I25.10 Active of [place] heart Assessment Atherosclerosis of coronary artery I25.10 Active of [place] [facility] Problem Tobacco use disorder Z72.0 Active Medications Medication Code Code Instructions Start End Status Dosage System Date Date Prozac [facility] 02906895748 40 MG Orally Active 1 capsule Once a day Trazodone HCl [facility] 49600320646 300 MG Orally Active 0.5 Once a day tablet at bedtime Lisinopril [facility] 70575627408 40 MG Orally Active 1 tablet Once a day Norvasc [facility] 95221795658 10 MG Orally Active 1 tablet Once a day Isosorbide Mononitrate [facility] 37951505009 60 MG Orally Active 1 tablet ER Once a day in the morning Aspir-81 [facility] 31963068920 81 MG Orally Active 1 tablet Once a day Latuda [facility] 10107412151 60 MG Orally Active 1 tablet Once a day with food Hydrochlorothiazide [facility] 97518536398 25 MG Orally Active 1 tablet Once a day in the morning Lipitor [facility] 32299885498 40 MG Orally Active 1 tablet Once a day Metoprolol Tartrate [facility] 64431049061 100 MG Orally Active 1 tablet Twice a day with food ProAir HFA [facility] 11547393871 108 (90 Base) Active 2 puffs MCG/ACT as needed Inhalation every 6 hrs HydrALAZINE HCl [facility] 96655432254 50 MG Orally Active 1 tablet Three times a with food day Results Name Result Date Reference Range Unit Abnormality Flag CBC W/AUTO DIFF CMP Magnesium, Serum LIPID PANEL WITH REFLEX TO DIRECT LDL Summary Purpose eClinicalWorks Submission
--- OUTSIDE RECORDS SUMMARY | 2018-11-02 17:09 | XMS REPORT ---
[...] Atherosclerosis of coronary artery I25.10 Active of [place] heart Problem Atherosclerosis of coronary artery I25.10 Active of [place] heart Assessment Benign essential HTN I10 Active Problem Tobacco use disorder Z72.0 Active Medications Medication Code Code Instructions Start End Status Dosage System Date Date [facility] 10 MG Orally Active 1 tablet Once a day Hydrochlorothiazide [facility] 29156113890 25 MG Orally Active 1 tablet Once a day in the morning HydrALAZINE HCl [facility] 57052448086 50 MG Orally Active 1 tablet Three times a with food day Latuda [facility] 44357764844 60 MG Orally Active 1 tablet Once a day with food Lisinopril [facility] 73420013377 40 MG Orally Active 1 tablet Once a day Isosorbide Mononitrate [facility] 48547759829 60 MG Orally Active 1 tablet ER Once a day in the morning Aspir-81 [facility] 43223959331 81 MG Orally Active 1 tablet Once a day Metoprolol Tartrate [facility] 69016097359 100 MG Orally Active 1 tablet Twice a day with food Prozac [facility] 99374229782 40 MG Orally Active 1 capsule Once a day HydrALAZINE HCl [facility] 06333541284 50 MG Orally Active 1 tablet Three times a with food day Trazodone HCl [facility] 67273556432 300 MG Orally Active 0.5 Once a day tablet at bedtime Lipitor [facility] 71619561238 40 MG Orally Active 1 tablet Once a day Norvasc [facility] 99159586277 10 MG Orally Active 1 tablet Once a day ProAir HFA [facility] 22521946753 108 (90 Base) Active 2 puffs MCG/ACT as needed Inhalation every 6 hrs as needed for cough, shortness of breath and wheezing Isosorbide Mononitrate [facility] 37232772345 60 MG Orally Active 1 tablet ER Once a day in the morning Results No Known Results Summary Purpose eClinicalWorks Submission
--- OUTSIDE RECORDS SUMMARY | 2018-11-02 17:09 | XMS REPORT ---
[...] Atherosclerosis of coronary artery I25.10 Active of [place] heart Problem Tobacco use disorder Z72.0 Active Medications Medication Code Code Instructions Start End Status Dosage System Date Date Lipitor ND 94234986256 40 MG Orally Active 1 tablet Once a day Lisinopril ND 10298774386 40 MG Orally Active 1 tablet Once a day HydrALAZINE HCl ND 34488483199 50 MG Orally Active 1 tablet Three times a with food day Hydrochlorothiazide ND 97825661956 25 MG Orally Active 1 tablet Once a day in the morning Metoprolol Tartrate ND 64951468736 100 MG Orally Active 1 tablet Twice a day with food Results No Known Results Summary Purpose eClinicalWorks Submission
--- OUTSIDE RECORDS SUMMARY | 2018-11-02 17:09 | XMS REPORT | Continuity of Care Document ---
:1955 Author Organization Interface Problems Problem Status Onset Classification Date Comments Source Date Reported ACUTE CHEST Active [facility] Medications Medication Details [...]
--- OUTSIDE RECORDS SUMMARY | 2018-11-02 17:09 | XMS REPORT ---
:1955 Author Organization eClinicalWorks Care Team Providers Name Role Phone Michael Juancarlos Provider Role Unavailable Allergies No Known Allergies Problems Problem Type Condition Code Onset Dates Condition Status Problem Insomnia G47.00 Active Problem Benign essential HTN I10 Active Problem GERD (gastroesophageal reflux K21.9 Active disease) Problem Chronic obstructive pulmonary J44.9 Active disease Problem Hyperlipidemia, mixed E78.2 Active Problem Other chronic pain G89.29 Active Problem Tobacco use disorder Z72.0 Active Problem Atherosclerosis of coronary artery I25.10 Active of [place] heart Problem Hx of breast cancer Z85.3 Active Problem Osteoarthritis of multiple joints M15.9 Active Assessment Upper back pain M54.9 Active Assessment Other chronic pain G89.29 Active Problem Chronic back pain M54.9 Active Assessment Low back pain M54.5 Active Problem Stented coronary artery Z95.5 Active Assessment Left hip pain M25.552 Active Problem Depression with anxiety F41.8 Active Medications No Known Medications Results No Known Results Summary Purpose eClinicalWorks Submission
--- NOTE | 2018-11-02 18:14 | RAD REPORT ---
EXAM DESCRIPTION: RAD - Foot Left 3 View - 11/02/2018 6:04 pm CLINICAL HISTORY: Foot pain, suspected fifth toe fracture COMPARISON: None. FINDINGS: No fracture, dislocation or periosteal reaction. No acute or destructive bony process. Th ere is old trauma or postsurgical change and the distal fifth metatarsal. No acute bony process. Mild first MTP joint degenerative change present. Moderate sized plantar and Achilles spur is present. No air or foreign body in the soft tissues. IMPRESSION: No fracture or acute bone process identifiable. Degenerative changes are present as deta iled.
--- NOTE | 2018-11-02 18:24 | ER ---
Nurse's Notes [facility] Name: Ophelia Grady Age: 63 yrs Sex: Female : 1955 Arrival Date: 11/02/2018 Time: 17:10 Bed 28 Private MD: Juancarlos Rodriguez Diagnosis: Pain in left toe(s)-Fifth toe Presentation: 11/02 17:18 Presenting complaint: Patient states: it started hurting for 2 weeks. Not sure how she ca1 hurt herself or if the toe bumped into something. It's the pinky toe on the left foot. Today, it was hurting worse and she said she was limping. Presenting complaint:. Transition of care: patient was not received from another setting of care. Onset of symptoms was November 02, 2018. Risk Assessment: Do you want to hurt yourself or someone else? Patient reports no desire to harm self or others. Initial Sepsis Screen: Does the patient meet any 2 criteria? No. Patient's initial sepsis screen is negative. Does the patient have a suspected source of infection? No. Patient's initial sepsis screen is negative. Care prior to arrival: None. 17:18 Method Of Arrival: Ambulatory ca1 17:18 Acuity: SHAWN 4 ca1 Historical: - Allergies: 17:26 Codeine; ca1 - Home Meds: 17:26 Latuda 60 mg Oral tab 1 tab once daily [Active]; aspirin 81 mg Oral TbEC 1 tab once ca1 daily [Active]; trazodone 300 mg Oral tab 1 tab nightly [Active]; metoprolol tartrate 100 mg Oral tab 1 tab 2 times per day [Active]; atorvastatin 40 mg Oral tab 1 tab once daily [Active]; Lipitor Oral [Active]; lisinopril 40 mg Oral tab 1 tab once daily [Active]; isosorbide mononitrate 60 mg Oral Tb24 1 tab once daily [Active]; hydrochlorothiazide 25 mg Oral tab 1 tab once daily [Active]; hydralazine 50 mg Oral tab 1 tab 2 times per day [Active]; amlodipine 10 mg tab 1 tab once daily [Active]; fluoxetine 40 mg Oral cap 1 cap once daily [Active]; - PMHx: 17:26 ADD/ADHD; Anemia; Cancer; CHF; COPD; Depression; Hyperlipidemia; Hypertension; Major ca1 Depressive Disorder; Schizo-affective disorder; - PSHx: 17:26 Mastectomy, Left; Mastectomy, Right; Hernia repair; Cholecystectomy; Heel Surgery both ca1 Feet; Tumor removal - L shoulder; Heart stents; Umbilical Hernia Mesh; - Immunization history:: Flu vaccine is up to date. - Social history:: Smoking status: Patient uses tobacco products, smokes one pack cigarettes per day. - Ebola Screening: : No symptoms or risks identified at this time. Screenin:44 Abuse screen: Denies threats or abuse. Denies injuries from another. Nutritional mg2 screening: No deficits noted. Tuberculosis screening: No symptoms or risk factors identified. Fall Risk None identified. Assessment: 18:34 General: Appears in no apparent distress. comfortable, Behavior is calm, cooperative. mg2 Pain: Complains of pain in left little toe Pain does not radiate. Pain currently is 3 out of 10 on a pain scale. Quality of pain is described as aching, Pain began gradually. Neuro: Level of Consciousness is awake, alert, obeys commands, Oriented to person, place, time, situation. Cardiovascular: Capillary refill < 3 seconds Patient's skin is warm and dry. Respiratory: Airway is patent Respiratory effort is even, unlabored, Respiratory pattern is regular, symmetrical. GI: No signs and/or symptoms were reported involving the gastrointestinal system. : No signs and/or symptoms were reported regarding the genitourinary system. EENT: No signs and/or symptoms were reported regarding the EENT system. Derm: Skin is intact, is healthy with good turgor, Skin is pink, warm \T\ dry. normal. Musculoskeletal: Circulation, motion, and sensation intact. Capillary refill < 3 seconds, Reports pain in left little toe. Vital Signs: 17:26 BP 151 / 106; Pulse 65; Resp 19; Temp 98.9; Pulse Ox 96% on R/A; Weight 72.57 kg; ca1 Height 5 ft. 4 in. (162.56 cm); Pain 10/10; 18:41 BP 145 / 80; Pulse 70; Resp 18; Pulse Ox 100% on R/A; Pain 2/10; mg2 17:26 Body Mass Index 27.46 (72.57 kg, 162.56 cm) ca1 ED Course: 17:10 Patient arrived in ED. dl4 17:10 Juancarlos Rodriguez DO is Private Physician. dl4 17:20 Triage completed. ca1 17:26 Arm band placed on left wrist. ca1 17:28 Mike Valle PA is PHCP. cp 17:28 Adonis Mc MD is Attending Physician. cp 17:30 Ice pack to injury. jp3 17:43 Fernie Pelletier, RN is Primary Nurse. mg2 17:44 No provider procedures requiring assistance completed. Patient did not have IV access mg2 during this emergency room visit. 18:04 XRAY Foot LEFT 3 View In Process Unspecified. EDMS 18:36 Patient has correct armband on for positive identification. mg2 Administered Medications: No medications were administered Outcome: 18:23 Discharge ordered by MD. cp 18:57 Discharged to home via wheelchair. mg2 18:57 Condition: stable 18:57 Discharge instructions given to patient, Instructed on discharge instructions, follow up and referral plans. medication usage, Demonstrated understanding of instructions, follow-up care, medications, Prescriptions given X 1. 18:57 Patient left the ED. mg2 Signatures: Dispatcher [employer] EDMS Mike Valle PA PA cp Fernie Pelletier, RN RN mg2 David Renteria jp3 Shon Ponce dl4 Jayda Manning RN RN ca1
--- NOTE | 2018-11-02 18:24 | EDPHYS ---
Physician Documentation [facility] Name: Ophelia Grady Age: 63 yrs Sex: Female : 1955 Arrival Date: 11/02/2018 Time: 17:10 Bed 28 Private MD: Misael Rodriguezh ED Physician Adonis Mc HPI: 11/02 17:37 This 63 yrs old Female presents to ER via Ambulatory with complaints of Toe cp Injury. 17:38 The patient presents with pain, that is acute, swelling, tenderness. The complaints cp affect the left fifth toe. Context: Mechanism of Injury: Unknown the patient can fully bear weight, the patient is able to ambulate, with mild difficulty. Onset: The symptoms/episode began/occurred 2 week(s) ago. Historical: - Allergies: 17:26 Codeine; ca1 - Home Meds: 17:26 Latuda 60 mg Oral tab 1 tab once daily [Active]; aspirin 81 mg Oral TbEC 1 tab once ca1 daily [Active]; trazodone 300 mg Oral tab 1 tab nightly [Active]; metoprolol tartrate 100 mg Oral tab 1 tab 2 times per day [Active]; atorvastatin 40 mg Oral tab 1 tab once daily [Active]; Lipitor Oral [Active]; lisinopril 40 mg Oral tab 1 tab once daily [Active]; isosorbide mononitrate 60 mg Oral Tb24 1 tab once daily [Active]; hydrochlorothiazide 25 mg Oral tab 1 tab once daily [Active]; hydralazine 50 mg Oral tab 1 tab 2 times per day [Active]; amlodipine 10 mg tab 1 tab once daily [Active]; fluoxetine 40 mg Oral cap 1 cap once daily [Active]; - PMHx: 17:26 ADD/ADHD; Anemia; Cancer; CHF; COPD; Depression; Hyperlipidemia; Hypertension; Major ca1 Depressive Disorder; Schizo-affective disorder; - PSHx: 17:26 Mastectomy, Left; Mastectomy, Right; Hernia repair; Cholecystectomy; Heel Surgery both ca1 Feet; Tumor removal - L shoulder; Heart stents; Umbilical Hernia Mesh; - Immunization history:: Flu vaccine is up to date. - Social history:: Smoking status: Patient uses tobacco products, smokes one pack cigarettes per day. - Ebola Screening: : No symptoms or risks identified at this time. ROS: 17:40 Constitutional: Negative for body aches, chills, fever, poor PO intake. cp 17:40 MS/extremity: Positive for pain, tenderness, of the left fifth pain, Negative for cp paresthesias. 17:40 Eyes: Negative for injury, pain, redness, and discharge. 17:40 All other systems are negative. Exam: 17:45 Constitutional: The patient appears in no acute distress, alert, awake, non-toxic, well cp developed, well nourished. 17:45 Head/Face: Normocephalic, atraumatic. cp 17:45 Eyes: Periorbital structures: appear normal, Conjunctiva: normal, no exudate, no injection, Lids and lashes: appear normal, bilaterally. 17:45 ENT: External ear(s): are unremarkable, Nose: is normal, Mouth: is normal. 17:45 Chest/axilla: Inspection: normal. 17:45 Cardiovascular: Rate: normal. 17:45 Respiratory: the patient does not display signs of respiratory distress, Respirations: normal, no use of accessory muscles, no retractions, no splinting, no tachypnea. 17:45 Abdomen/GI: Exam negative for discomfort, distension, guarding, Inspection: abdomen appears normal. 17:45 Musculoskeletal/extremity: Extremities: grossly normal except: noted in the left foot: pain, tenderness, noted fifth toe, There is no evidence of erythema, Perfusion: the extremity is normally perfused throughout, Sensation intact. Vital Signs: 17:26 BP 151 / 106; Pulse 65; Resp 19; Temp 98.9; Pulse Ox 96% on R/A; Weight 72.57 kg; ca1 Height 5 ft. 4 in. (162.56 cm); Pain 10/10; 18:41 BP 145 / 80; Pulse 70; Resp 18; Pulse Ox 100% on R/A; Pain 2/10; mg2 17:26 Body Mass Index 27.46 (72.57 kg, 162.56 cm) ca1 MDM: 17:28 Patient medically screened. cp 18:00 Differential diagnosis: fracture, sprain, gout, cellulitis. cp 18:22 Data reviewed: vital signs, nurses notes, radiologic studies, plain films. cp 18:22 Test interpretation: by ED physician or midlevel provider: plain radiologic studies. cp 18:22 Counseling: I had a detailed discussion with the patient and/or guardian regarding: the cp historical points, exam findings, and any diagnostic results supporting the discharge/admit diagnosis, radiology results, to return to the emergency department if symptoms worsen or persist or if there are any questions or concerns that arise at home. 11/02 17:36 Order name: XRAY Foot LEFT 3 View; Complete Time: 18:18 cp 11/02 18:18 Interpretation: Reviewed report. cp Administered Medications: No medications were administered Disposition: 19:12 Co-signature as Attending Physician, Adonis Mc MD. rn Disposition: 11/02/18 18:23 Discharged to Home. Impression: Pain in left toe(s) - Fifth toe. - Condition is Stable. - Discharge Instructions: Musculoskeletal Pain. - Prescriptions for Naprosyn 500 mg Oral Tablet - take 1 tablet by ORAL route 2 times per day take with food; 20 tablet. - Medication Reconciliation Form, Thank You Letter, Antibiotic Education, Prescription Opioid Use, Work release form form. - Follow up: Private Physician; When: 2 - 3 days; Reason: Recheck today's complaints. - Problem is new. - Symptoms have improved. Signatures: Dispatcher [employer] EDMS Adonis Mc MD MD rn Mike Valle PA PA cp Fernie Pelletier RN RN mg2 Jayda Manning RN RN ca1 Corrections: (The following items were deleted from the chart) 18:57 18:23 11/02/2018 18:23 Discharged to Home. Impression: Pain in left toe(s) - Fifth toe. mg2 Condition is Stable. Forms are Medication Reconciliation Form, Thank You Letter, Antibiotic Education, Prescription Opioid Use. Follow up: Private Physician; When: 2 - 3 days; Reason: Recheck today's complaints. Problem is new. Symptoms have improved. cp
[2018-11-02 19:12] VITALS: TEMP 98.9
[2018-11-02 19:13] VITALS: BP 145/80; O2SAT 100
== END 2018-11-02 18:57 | disposition home or self-care (01) ==
LOC: ER 17:07
DX: M79.675 Pain in left toe(s) (principal); F90.9 Attention-deficit hyperactivity disorder, unspecified type; D64.9 Anemia, unspecified; I11.0 Hypertensive heart disease with heart failure; I50.9 Heart failure, unspecified; E78.5 Hyperlipidemia, unspecified; F25.9 Schizoaffective disorder, unspecified; Z79.82 Long term (current) use of aspirin; Z79.51 Long term (current) use of inhaled steroids; Z79.899 Other long term (current) drug therapy; F17.210 Nicotine dependence, cigarettes, uncomplicated
CPT/HCPCS: 99283

== ENCOUNTER 2018-11-23 05:02 | Inpatient (IN) | payer OTHER ==
--- OUTSIDE RECORDS SUMMARY | 2018-11-23 05:04 | XMS REPORT ---
:1955 Author Organization eClinicalWorks Care Team Providers Name Role Phone Rodriguez, Juancarlos Provider Role Unavailable Allergies No Known Allergies Problems Problem Type Condition Code Onset Dates Condition Status Problem Osteoarthritis of multiple joints M15.9 Active Problem Hyperlipidemia, mixed E78.2 Active Problem Hx of breast cancer Z85.3 Active Problem Atherosclerosis of coronary artery I25.10 Active of [place] heart Problem Tobacco use disorder Z72.0 Active [...]
--- OUTSIDE RECORDS SUMMARY | 2018-11-23 05:04 | XMS REPORT ---
[...] Atherosclerosis of coronary artery I25.10 Active of [place] heart Problem Tobacco use disorder Z72.0 Active Medications Medication Code Code Instructions Start End Status Dosage System Date Date Lipitor ND 08158397401 40 MG Orally Active 1 tablet Once a day Lisinopril ND 73456825657 40 MG Orally Active 1 tablet Once a day HydrALAZINE HCl ND 46494278119 50 MG Orally Active 1 tablet Three times a with food day Hydrochlorothiazide ND 11883453323 25 MG Orally Active 1 tablet Once a day in the morning Metoprolol Tartrate ND 57761146300 100 MG Orally Active 1 tablet Twice a day with food Results No Known Results Summary Purpose eClinicalWorks Submission
--- OUTSIDE RECORDS SUMMARY | 2018-11-23 05:04 | XMS REPORT ---
:1955 [facility] Address [address] [place] [address] Dr. García. [address] [place] [id number] Care Team Providers Name Role Phone Unavailable Unavailable Unavailable Problems This patient has no known problems. Allergies, Adverse Reactions, Alerts This patient has no known allergies or adverse reactions. Medications This patient has no known medications.
--- OUTSIDE RECORDS SUMMARY | 2018-11-23 05:04 | XMS REPORT ---
[...] Atherosclerosis of coronary artery I25.10 Active of [place] heart Problem Atherosclerosis of coronary artery I25.10 Active of [place] heart Assessment Benign essential HTN I10 Active Problem Tobacco use disorder Z72.0 Active Medications Medication Code Code Instructions Start End Status Dosage System Date Date [facility] 10 MG Orally Active 1 tablet Once a day Hydrochlorothiazide [facility] 33168392508 25 MG Orally Active 1 tablet Once a day in the morning HydrALAZINE HCl [facility] 94385519528 50 MG Orally Active 1 tablet Three times a with food day Latuda [facility] 81530459299 60 MG Orally Active 1 tablet Once a day with food Lisinopril [facility] 75055234098 40 MG Orally Active 1 tablet Once a day Isosorbide Mononitrate [facility] 95874117662 60 MG Orally Active 1 tablet ER Once a day in the morning Aspir-81 [facility] 77909078337 81 MG Orally Active 1 tablet Once a day Metoprolol Tartrate [facility] 16464985974 100 MG Orally Active 1 tablet Twice a day with food Prozac [facility] 18346405841 40 MG Orally Active 1 capsule Once a day HydrALAZINE HCl [facility] 33137502408 50 MG Orally Active 1 tablet Three times a with food day Trazodone HCl [facility] 38197830508 300 MG Orally Active 0.5 Once a day tablet at bedtime Lipitor [facility] 12647943340 40 MG Orally Active 1 tablet Once a day Norvasc [facility] 06878881354 10 MG Orally Active 1 tablet Once a day ProAir HFA [facility] 30914030460 108 (90 Base) Active 2 puffs MCG/ACT as needed Inhalation every 6 hrs as needed for cough, shortness of breath and wheezing Isosorbide Mononitrate [facility] 19634538225 60 MG Orally Active 1 tablet ER Once a day in the morning Results No Known Results Summary Purpose eClinicalWorks Submission
--- OUTSIDE RECORDS SUMMARY | 2018-11-23 05:04 | XMS REPORT | Continuity of Care Document ---
:1955 Author Organization Interface Problems Problem Status Onset Classification Date Comments Source Date Reported ACUTE CHEST Active [facility] 8 [facility] Medications Medication Details Route [...]
--- OUTSIDE RECORDS SUMMARY | 2018-11-23 05:04 | XMS REPORT ---
[...] Atherosclerosis of coronary artery I25.10 Active of [place] heart Assessment Atherosclerosis of coronary artery I25.10 Active of [place] heart Problem Tobacco use disorder Z72.0 Active Medications Medication Code Code Instructions Start End Status Dosage System Date Date Prozac [facility] 05239775571 40 MG Orally Active 1 capsule Once a day Trazodone HCl [facility] 00900079429 300 MG Orally Active 0.5 Once a day tablet at bedtime Lisinopril [facility] 03687585616 40 MG Orally Active 1 tablet Once a day Norvasc [facility] 00668576473 10 MG Orally Active 1 tablet Once a day Isosorbide Mononitrate [facility] 61236425610 60 MG Orally Active 1 tablet ER Once a day in the morning Aspir-81 [facility] 50830867936 81 MG Orally Active 1 tablet Once a day Latuda [facility] 94152871189 60 MG Orally Active 1 tablet Once a day with food Hydrochlorothiazide [facility] 31571335257 25 MG Orally Active 1 tablet Once a day in the morning Lipitor [facility] 71819020853 40 MG Orally Active 1 tablet Once a day Metoprolol Tartrate [facility] 34547634649 100 MG Orally Active 1 tablet Twice a day with food ProAir HFA [facility] 68271532779 108 (90 Base) Active 2 puffs MCG/ACT as needed Inhalation every 6 hrs HydrALAZINE HCl [facility] 28378825322 50 MG Orally Active 1 tablet Three times a with food day Results Name Result Date Reference Range Unit Abnormality Flag CBC W/AUTO DIFF CMP Magnesium, Serum LIPID PANEL WITH REFLEX TO DIRECT LDL Summary Purpose eClinicalWorks Submission
--- OUTSIDE RECORDS SUMMARY | 2018-11-23 05:04 | XMS REPORT ---
[...] Atherosclerosis of coronary artery I25.10 Active of [place] [facility] Problem Atherosclerosis of coronary artery I25.10 Active of [place] [facility] Problem Tobacco use disorder Z72.0 Active Medications Medication Code Code Instructions Start End Status Dosage System Date Date Isosorbide NDC 62822362901 60 MG Orally Active 1 tablet Mononitrate ER Once a day in the morning Results No Known Results Summary Purpose [employer] Submission
--- OUTSIDE RECORDS SUMMARY | 2018-11-23 05:04 | XMS REPORT ---
[...] Atherosclerosis of coronary artery I25.10 Active of [place] [facility] Assessment Atherosclerosis of coronary artery I25.10 Active of [place] [facility] Problem Tobacco use disorder Z72.0 Active Medications Medication Code Code Instructions Start End Status Dosage System Date Date Metoprolol Tartrate [facility] 04598092192 100 MG Orally Active 1 tablet Twice a day with food Lisinopril [facility] 58039047826 40 MG Orally Active 1 tablet Once a day Trazodone HCl [facility] 39083603003 300 MG Orally Active 0.5 Once a day tablet at bedtime Norvasc [facility] 35768669425 10 MG Orally Active 1 tablet Once a day Latuda [facility] 34261374894 60 MG Orally Active 1 tablet Once a day with food HydrALAZINE HCl [facility] 71836953967 50 MG Orally Active 1 tablet Three times a with food day ProAir HFA [facility] 59986003091 108 (90 Base) Active 2 puffs MCG/ACT as needed Inhalation every 6 hrs as needed for cough, shortness of breath and wheezing Isosorbide Mononitrate [facility] 33293649995 60 MG Orally Active 1 tablet ER Once a day in the morning Prozac [facility] 15639376603 40 MG Orally Active 1 capsule Once a day Hydrochlorothiazide [facility] 88792531131 25 MG Orally Active 1 tablet Once a day in the morning -81 [facility] 71598532572 81 MG Orally Active 1 tablet Once a day Lipitor [facility] 69858654776 40 MG Orally Active 1 tablet Once a day Results No Known Results Summary Purpose [employer] Submission
--- OUTSIDE RECORDS SUMMARY | 2018-11-23 05:05 | XMS REPORT ---
:1955 Author Organization [employer] Care Team Providers Name Role Phone Juancarlos Rodriguez Provider Role Unavailable Allergies No Known Allergies Problems Problem Type Condition Code Onset Dates Condition Status Problem GERD (gastroesophageal reflux K21.9 Active disease) Problem Atherosclerosis of coronary artery I25.10 Active of [place] [facility] Problem Benign essential HTN I10 Active Problem Chronic back pain M54.9 Active Problem Stented coronary artery Z95.5 Active Problem Depression with anxiety F41.8 Active Problem Insomnia G47.00 Active Problem Other chronic pain G89.29 Active Problem Chronic obstructive pulmonary J44.9 Active disease Problem Paresthesia R20.2 Active Problem Osteoarthritis of multiple joints M15.9 Active Problem Tobacco use disorder Z72.0 Active Problem Hyperlipidemia, mixed E78.2 Active Problem Hx of breast cancer Z85.3 Active Medications No Known Medications Results No Known Results Summary Purpose [employer] Submission
--- OUTSIDE RECORDS SUMMARY | 2018-11-23 05:05 | XMS REPORT ---
[...] Atherosclerosis of coronary artery I25.10 Active of [place] [facility] Problem Hx of breast cancer Z85.3 [...]
--- OUTSIDE RECORDS SUMMARY | 2018-11-23 05:05 | XMS REPORT ---
:1955 Author Organization [employer] Care Team Providers Name Role Phone Misael Rodriguezh Provider Role Unavailable Allergies, Adverse Reactions, Alerts Substance Reaction Event Type N.K.D.A. Info Not Available Non Drug Allergy Problems Problem Type Condition Code Onset Dates Condition Status Problem GERD (gastroesophageal reflux K21.9 Active disease) Problem Atherosclerosis of coronary artery I25.10 Active of [place] [facility] Problem Benign essential HTN I10 Active Problem Other chronic pain G89.29 Active Problem Chronic obstructive pulmonary J44.9 Active disease Problem Paresthesia R20.2 Active Problem Osteoarthritis of multiple joints M15.9 Active Problem Tobacco use disorder Z72.0 Active Problem Hyperlipidemia, mixed E78.2 Active Problem Hx of breast cancer Z85.3 Active Assessment Other chronic pain G89.29 Active Assessment Osteoarthritis of multiple joints M15.9 Active Assessment Paresthesia R20.2 Active Assessment Radiculopathy of thoracolumbar M54.15 Active region Problem Chronic back pain M54.9 Active Problem Stented coronary artery Z95.5 Active Assessment Chronic back pain M54.9 Active Problem Depression with anxiety F41.8 Active Problem Insomnia G47.00 Active Medications Medication Code Code Instructions Start End Status Dosage System Date Date [facility] 57006656821 81 MG Orally Active 1 tablet Once a day Metoprolol Tartrate [facility] 25775731212 100 MG Orally Active 1 tablet Twice a day with food ProAir HFA [facility] 05720758666 108 (90 Base) Active 2 puffs MCG/ACT as needed Inhalation every 6 hrs as needed for cough, shortness of breath and wheezing Prozac [facility] 58916511338 40 MG Orally Active 1 capsule Once a day Metoprolol Tartrate [facility] 70657107363 100 MG Orally Active 1 tablet Twice a day with food HydrALAZINE HCl [facility] 38940836945 50 MG Orally Active 1 tablet Three times a with food day Lipitor [facility] 36281235471 40 MG Orally Active 1 tablet Once a day Hydrochlorothiazide [facility] 55913171034 25 MG Orally Active 1 tablet Once a day in the morning Isosorbide Mononitrate [facility] 79485386023 60 MG Active TAKE 1 ER TABLET BY MOUTH INTHE MORNING Latuda [facility] 00339509969 60 MG Orally Active 1 tablet Once a day with food Lisinopril [facility] 32251144532 40 MG Active TAKE 1 TABLET BY MOUTH ONCE DAILY HydrALAZINE HCl [facility] 82355772244 50 MG Orally Active 1 tablet Three times a with food day Trazodone HCl [facility] 51001053603 300 MG Orally Active 0.5 Once a day tablet at bedtime Isosorbide Mononitrate [facility] 91363214317 60 MG Orally Active 1 tablet ER Once a day in the morning Hydrochlorothiazide [facility] 38856793379 25 MG Orally Active 1 tablet Once a day in the morning Lipitor [facility] 08895195048 40 MG Orally Active 1 tablet Once a day Lisinopril [facility] 71479658159 40 MG Orally Active 1 tablet Once a day [facility] 81962817816 10 MG Orally Active 1 tablet Once a day [facility] 92968699217 10 MG Orally Active 1 tablet Once a day Results No Known Results Summary Purpose [employer] Submission
--- NOTE | 2018-11-23 05:34 | ER ---
Nurse's Notes [facility] Name: Ophelia Grady Age: 63 yrs Sex: Female : 1955 Arrival Date: 11/23/2018 Time: 05:03 Bed 2 Private MD: Diagnosis: Dyspnea;Hypoxemia;Essential (primary) hypertension;Chronic obstructive pulmonary disease with (acute) exacerbation;Tobacco abuse counseling;Tobacco use;Hypokalemia Presentation: 11/23 05:13 Presenting complaint: Patient states: she woke up this morning with difficulty bb breathing states she has hx of COPD and CHF and she has been smoking "a lot lately". Transition of care: patient was not received from another setting of care. Onset of symptoms was November 23, 2018. Risk Assessment: Do you want to hurt yourself or someone else? Patient reports no desire to harm self or others. Initial Sepsis Screen: Does the patient meet any 2 criteria? No. Patient's initial sepsis screen is negative. Does the patient have a suspected source of infection? No. Patient's initial sepsis screen is negative. Care prior to arrival: None. 05:13 Method Of Arrival: Ambulatory bb 05:13 Acuity: SHAWN 2 bb Historical: - Allergies: 05:18 Codeine; bb - Home Meds: 05:18 atorvastatin 40 mg Oral tab 1 tab once daily [Active]; fluoxetine 40 mg Oral cap 1 cap bb once daily [Active]; hydralazine 50 mg Oral tab 1 tab three times a day [Active]; isosorbide mononitrate 60 mg Oral Tb24 1 tab once daily [Active]; trazodone 300 mg Oral tab 1 tab nightly [Active]; metoprolol tartrate 100 mg Oral tab 1 tab 2 times per day [Active]; Latuda 60 mg Oral tab 1 tab once daily [Active]; lisinopril 40 mg Oral tab 1 tab once daily [Active]; aspirin 81 mg Oral TbEC 1 tab once daily [Active]; buspirone 10 mg Oral tab 1 tab 2 times per day [Active]; - PMHx: 05:18 ADD/ADHD; Anemia; Cancer; CHF; COPD; Depression; Hyperlipidemia; Hypertension; Major bb Depressive Disorder; Schizo-affective disorder; - PSHx: 05:18 Mastectomy, Left; Mastectomy, Right; Hernia repair; Cholecystectomy; Heel Surgery both bb Feet; Heart stents; Umbilical Hernia Mesh; Tumor removal - L shoulder; - Immunization history:: Adult Immunizations up to date, Pneumococcal vaccine is up to date, Flu vaccine is up to date. - Social history:: Smoking status: Patient uses tobacco products, smokes one pack cigarettes per day. Patient/guardian denies using alcohol, street drugs. - Ebola Screening: : No symptoms or risks identified at this time. Screenin:00 Abuse screen: Denies threats or abuse. Nutritional screening: No deficits noted. ea Tuberculosis screening: No symptoms or risk factors identified. Fall Risk IV access (20 points). Assessment: 05:25 General: Appears uncomfortable, Behavior is restless. Pain: Denies pain. Neuro: Level ea of Consciousness is awake, alert, obeys commands, Oriented to person, place, time, situation. Cardiovascular: Patient's skin is warm and dry. Respiratory: Airway is patent Respiratory effort is labored, Respiratory pattern is tachypnea Breath sounds are diminished bilaterally. 05:25 GI: Abdomen is non-distended. : Reports burning with urination. Derm: Skin is pink, ea warm \\T\\ dry. 06:50 Reassessment: Patient and/or family updated on plan of care and expected duration. Pain ea level reassessed. Patient is alert, oriented x 3, equal unlabored respirations, skin warm/dry/pink. Patient states feeling better. Patient states symptoms have improved. Vital Signs: 05:18 BP 217 / 124; Pulse 85; Resp 24 S; Temp 97.2(O); Pulse Ox 77% on R/A; Weight 72.57 kg bb (R); Height 5 ft. 4 in. (162.56 cm) (R); Pain 0/10; 05:18 Pulse Ox 85% on 4 lpm NC; bb 05:37 BP 160 / 97; Pulse 72; Resp 16; Pulse Ox 97% on BiPAP; tl2 07:40 BP 162 / 89; Pulse 67; Resp 19; Pulse Ox 98% on 3 lpm NC; sg 07:50 Temp 97.6; sg 05:18 Body Mass Index 27.46 (72.57 kg, 162.56 cm) ED Course: 05:03 Patient arrived in ED. tl2 05:09 Mike Vegas MD is Attending Physician. [facility] 05:14 Triage completed. bb 05:18 Arm band placed on Patient placed in an exam room, on a stretcher, on oxygen, on bb teletypesetter monitor, on pulse oximetry. EKG completed in triage. Results shown to MD. 05:30 Missed attempt(s): 22 gauge in right antecubital area. Bleeding controlled, band aid ea applied, catheter tip intact. 05:32 Jorge Alberto Ruff MD is Hospitalizing Provider. denny 05:35 Inserted saline lock: 22 gauge in right forearm, using aseptic technique. Blood ea collected. 05:46 X-ray completed. Portable x-ray completed in exam room. Patient tolerated procedure kw well. 05:48 XRAY Chest (1 view) In Process Unspecified. EDMS 05:52 Vane Ferraro RN is Primary Nurse. ea 06:00 Patient has correct armband on for positive identification. Placed in gown. Bed in low ea position. Call light in reach. Side rails up X2. 06:22 No provider procedures requiring assistance completed. Patient admitted, IV remains in ea place. Administered Medications: 05:50 Drug: SOLU-Medrol 125 mg Route: IVP; Site: right forearm; ea 07:13 Follow up: Response: No adverse reaction sv 05:53 Drug: levofloxacin 500 mg Volume: 100 ml; Route: IVPB; Infused Over: 60 mins; Site: ea right forearm; 06:50 Follow up: Response: No adverse reaction; IV Status: Completed infusion; IV Intake: ea 100ml 05:53 Drug: Nitro-Bid Ointment 2 % 1 inches Route: Transdermal; Site: anterior chest wall; ea 05:59 Drug: NS 0.9% 1000 ml Route: IV; Rate: 125 ml/hr; Site: right forearm; ea 07:12 Follow up: Response: No adverse reaction; IV Status: Completed infusion; IV Intake: ea 250ml 05:59 Drug: Albuterol - atroVENT (3:1) (2.5 mg - 0.5 mg) 3 ml Route: Nebulizer; ea 07:13 Follow up: Response: No adverse reaction sv 07:36 Drug: Potassium Effervescent Tablet 25 mEq Route: PO; sg Intake: 06:50 IV: 100ml; Total: 100ml. ea 07:12 IV: 250ml; Total: 350ml. ea Outcome: 05:33 Decision to Hospitalize by Provider. denny 08:38 Patient left the ED. sg Signatures: Dispatcher [employer] EDKrystyna Dias, RN RN Oneil Philip RN RN Mike Sultana MD MD cha Ballard, Brenda RN RN Georgie Hermosillo Taylor, RN RN tl2 Vane Ferraro RN RN ea
--- NOTE | 2018-11-23 05:34 | EDPHYS ---
Physician Documentation [facility] Name: Ophelia Grady Age: 63 yrs Sex: Female : 1955 Arrival Date: 11/23/2018 Time: 05:03 Bed 2 Private MD: ED Mike Elizondo HPI: 11/23 05:30 This 63 yrs old Female presents to ER via Ambulatory with complaints of denny Breathing Difficulty. 05:30 The patient has shortness of breath at rest, with light activity. Onset: The denny symptoms/episode began/occurred 4 day(s) ago. Duration: The symptoms are continuous, and are steadily getting worse. The patient's shortness of breath has no apparent modifying factors. Associated signs and symptoms: Pertinent positives: non-productive cough. Severity of symptoms: At their worst the symptoms were moderate. The patient has experienced similar episodes in the past, multiple times. Historical: - Allergies: 05:18 Codeine; bb - Home Meds: 05:18 atorvastatin 40 mg Oral tab 1 tab once daily [Active]; fluoxetine 40 mg Oral cap 1 cap bb once daily [Active]; hydralazine 50 mg Oral tab 1 tab three times a day [Active]; isosorbide mononitrate 60 mg Oral Tb24 1 tab once daily [Active]; trazodone 300 mg Oral tab 1 tab nightly [Active]; metoprolol tartrate 100 mg Oral tab 1 tab 2 times per day [Active]; Latuda 60 mg Oral tab 1 tab once daily [Active]; lisinopril 40 mg Oral tab 1 tab once daily [Active]; aspirin 81 mg Oral TbEC 1 tab once daily [Active]; buspirone 10 mg Oral tab 1 tab 2 times per day [Active]; - PMHx: 05:18 ADD/ADHD; Anemia; Cancer; CHF; COPD; Depression; Hyperlipidemia; Hypertension; Major bb Depressive Disorder; Schizo-affective disorder; - PSHx: 05:18 Mastectomy, Left; Mastectomy, Right; Hernia repair; Cholecystectomy; Heel Surgery both bb Feet; Heart stents; Umbilical Hernia Mesh; Tumor removal - L shoulder; - Immunization history:: Adult Immunizations up to date, Pneumococcal vaccine is up to date, Flu vaccine is up to date. - Social history:: Smoking status: Patient uses tobacco products, smokes one pack cigarettes per day. Patient/guardian denies using alcohol, street drugs. - Ebola Screening: : No symptoms or risks identified at this time. ROS: 05:31 Constitutional: Negative for fever, chills, and weight loss, Eyes: Negative for injury, denny pain, redness, and discharge, ENT: Negative for injury, pain, and discharge, Neck: Negative for injury, pain, and swelling, Cardiovascular: Negative for chest pain, palpitations, and edema, Abdomen/GI: Negative for abdominal pain, nausea, vomiting, diarrhea, and constipation, Back: Negative for injury and pain, : Negative for injury, bleeding, discharge, and swelling, MS/Extremity: Negative for injury and deformity, Skin: Negative for injury, rash, and discoloration, Neuro: Negative for headache, weakness, numbness, tingling, and seizure, Psych: Negative for depression, anxiety, suicide ideation, homicidal ideation, and hallucinations, Allergy/Immunology: Negative for hives, rash, and allergies, Endocrine: Negative for neck swelling, polydipsia, polyuria, polyphagia, and marked weight changes, Hematologic/Lymphatic: Negative for swollen nodes, abnormal bleeding, and unusual bruising. 05:31 Respiratory: Positive for cough, shortness of breath, wheezing, expiratory. Exam: 05:31 Constitutional: This is a well developed, well nourished patient who is awake, alert, denny and in no acute distress. Head/Face: Normocephalic, atraumatic. Eyes: Pupils equal round and reactive to light, extra-ocular motions intact. Lids and lashes normal. Conjunctiva and sclera are non-icteric and not injected. Cornea within normal limits. Periorbital areas with no swelling, redness, or edema. ENT: Nares patent. No nasal discharge, no septal abnormalities noted. Tympanic membranes are normal and external auditory canals are clear. Oropharynx with no redness, swelling, or masses, exudates, or evidence of obstruction, uvula midline. Mucous membranes moist. Neck: Trachea midline, no thyromegaly or masses palpated, and no cervical lymphadenopathy. Supple, full range of motion without nuchal rigidity, or vertebral point tenderness. No Meningismus. Chest/axilla: Normal chest wall appearance and motion. Nontender with no deformity. No lesions are appreciated. Cardiovascular: Regular rate and rhythm with a normal S1 and S2. No gallops, murmurs, or rubs. Normal PMI, no JVD. No pulse deficits. Abdomen/GI: Soft, non-tender, with normal bowel sounds. No distension or tympany. No guarding or rebound. No evidence of tenderness throughout. Back: No spinal tenderness. No costovertebral tenderness. Full range of motion. Female : Normal external genitalia. Skin: Warm, dry with normal turgor. Normal color with no rashes, no lesions, and no evidence of cellulitis. 05:31 Respiratory: mild respiratory distress is noted, Respirations: labored breathing, that is moderate, Breath sounds: decreased breath sounds, rhonchi, wheezing: expiratory Vital Signs: 05:18 BP 217 / 124; Pulse 85; Resp 24 S; Temp 97.2(O); Pulse Ox 77% on R/A; Weight 72.57 kg bb (R); Height 5 ft. 4 in. (162.56 cm) (R); Pain 0/10; 05:18 Pulse Ox 85% on 4 lpm NC; bb 05:37 BP 160 / 97; Pulse 72; Resp 16; Pulse Ox 97% on BiPAP; tl2 07:40 BP 162 / 89; Pulse 67; Resp 19; Pulse Ox 98% on 3 lpm NC; sg 07:50 Temp 97.6; sg 05:18 Body Mass Index 27.46 (72.57 kg, 162.56 cm) MDM: 05:09 Patient medically screened. [facility] 05:31 Data reviewed: vital signs, nurses notes, lab test result(s), EKG, radiologic studies, denny plain films. 11/23 05:29 Order name: Basic Metabolic Panel; Complete Time: 07:02 [facility] 11/23 05:29 Order name: CBC with Diff; Complete Time: 07:02 [facility] 11/23 05:29 Order name: LFT's; Complete Time: 07:02 [facility] 11/23 05:29 Order name: Magnesium; Complete Time: 07:02 [facility] 11/23 05:29 Order name: NT PRO-BNP; Complete Time: 07:02 [facility] 11/23 05:29 Order name: PT-INR; Complete Time: 07:02 [facility] 11/23 05:29 Order name: Troponin (emerg Dept Use Only); Complete Time: 07:02 [facility] 11/23 05:29 Order name: Blood Culture Adult (2) [facility] 11/23 05:29 Order name: Urine Culture [facility] 11/23 05:50 Order name: Lactate; Complete Time: 07:02 mw2 11/23 06:57 Order name: Urinalysis [facility] 11/23 06:57 Order name: CBC with Automated Diff EDMS 11/23 06:57 Order name: CBC with Automated Diff EDMS 11/23 06:57 Order name: Comprehensive Metabolic Panel [facility] 11/23 05:29 Order name: XRAY Chest (1 view) [facility] 11/23 05:29 Order name: EKG; Complete Time: 05:30 [facility] 11/23 05:30 Order name: BIPAP [facility] 11/23 06:57 Order name: Comprehensive Metabolic Panel [facility] 11/23 06:57 Order name: Magnesium EDMS 11/23 06:57 Order name: Magnesium EDMS 11/23 06:57 Order name: Phosphorus EDMS 11/23 06:57 Order name: Phosphorus ED[facility] 11/23 06:57 Order name: NT PRO-BNP [facility] 11/23 06:57 Order name: NT PRO-BNP [facility] 11/23 05:29 Order name: Cardiac monitoring; Complete Time: 05:36 [facility] 11/23 05:29 Order name: EKG - Nurse/Tech; Complete Time: 05:36 [facility] 11/23 05:29 Order name: IV Saline Lock; Complete Time: 05:36 [facility] 11/23 05:29 Order name: Labs collected and sent; Complete Time: 05:36 [facility] 11/23 05:29 Order name: O2 Per Protocol; Complete Time: 05:36 [facility] 11/23 05:29 Order name: O2 Sat Monitoring; Complete Time: 05:36 [facility] 11/23 06:57 Order name: Heart Healthy EDMS Administered Medications: 05:50 Drug: SOLU-Medrol 125 mg Route: IVP; Site: right forearm; ea 07:13 Follow up: Response: No adverse reaction sv 05:53 Drug: levofloxacin 500 mg Volume: 100 ml; Route: IVPB; Infused Over: 60 mins; Site: ea right forearm; 06:50 Follow up: Response: No adverse reaction; IV Status: Completed infusion; IV Intake: ea 100ml 05:53 Drug: Nitro-Bid Ointment 2 % 1 inches Route: Transdermal; Site: anterior chest wall; ea 05:59 Drug: NS 0.9% 1000 ml Route: IV; Rate: 125 ml/hr; Site: right forearm; ea 07:12 Follow up: Response: No adverse reaction; IV Status: Completed infusion; IV Intake: ea 250ml 05:59 Drug: Albuterol - atroVENT (3:1) (2.5 mg - 0.5 mg) 3 ml Route: Nebulizer; ea 07:13 Follow up: Response: No adverse reaction sv 07:36 Drug: Potassium Effervescent Tablet 25 mEq Route: PO; sg Disposition: 11/23/18 05:33 Hospitalization ordered by Jorge Alberto Ruff for Inpatient Admission. Preliminary diagnosis are Dyspnea, Hypoxemia, Essential (primary) hypertension, Chronic obstructive pulmonary disease with (acute) exacerbation, Tobacco abuse counseling, Tobacco use, Hypokalemia. - Bed requested for Telemetry/MedSurg (Inpatient). - Status is Inpatient Admission. sg - Condition is Stable. - Problem is new. - Symptoms have improved. UTI on Admission? No Signatures: Dispatcher [employer] EDMS Oneil Aguila RN RN sg Anderson, Corey, MD MD cha Ballard, Brenda, RN RN bb Martinez, Eric em1 Vane Ferraro RN RN ea Verde, Stephanie RN sv Corrections: (The following items were deleted from the chart) 07:03 05:33 Hospitalization Ordered by Jorge Alberto Ruff MD for Inpatient Admission. Preliminary denny diagnosis is Dyspnea; Hypoxemia; Essential (primary) hypertension; Chronic obstructive pulmonary disease with (acute) exacerbation; Tobacco abuse counseling; Tobacco use. Bed requested for Telemetry/MedSurg (Inpatient). Status is Inpatient Admission. Condition is Stable. Problem is new. Symptoms have improved. UTI on Admission? No. denny 07:26 07:03 11/23/2018 05:33 Hospitalization Ordered by Jorge Alberto Ruff MD for Inpatient em1 Admission. Preliminary diagnosis is Dyspnea; Hypoxemia; Essential (primary) hypertension; Chronic obstructive pulmonary disease with (acute) exacerbation; Tobacco abuse counseling; Tobacco use; Hypokalemia. Bed requested for Telemetry/MedSurg (Inpatient). Status is Inpatient Admission. Condition is Stable. Problem is new. Symptoms have improved. UTI on Admission? No. denny 08:38 07:26 11/23/2018 05:33 Hospitalization Ordered by Jorge Alberto Ruff MD for Inpatient sg Admission. Preliminary diagnosis is Dyspnea; Hypoxemia; Essential (primary) hypertension; Chronic obstructive pulmonary disease with (acute) exacerbation; Tobacco abuse counseling; Tobacco use; Hypokalemia. Bed requested for Telemetry/MedSurg (Inpatient). Status is Inpatient Admission. Condition is Stable. Problem is new. Symptoms have improved. UTI on Admission? No. em1
[2018-11-23] MEDS ORDERED: METHYLPREDNISOLONE 125 MG INJ ONE (05:53)
[2018-11-23] MEDS ORDERED: Levofloxacin500mg IV 500 MG/100 ML BAG IV ONE (05:54)
[2018-11-23] MEDS ORDERED: IPRATROPIUM BROM 0.5MG/2.5ML ONE ×2 (05:54→07:56)
[2018-11-23] MEDS ORDERED: ALBUTEROL 2.5 MG/3 ML NEB SOL ONE ×2 (05:54→07:56)
[2018-11-23] MEDS ORDERED: NA CHLORIDE 0.9% 1,000 ML ONE (05:54)
[2018-11-23] MEDS ORDERED: NITROGLYCERIN 1 GM PKT TD ONE (05:54)
[2018-11-23 06:00] LABS: Absolute Monocytes 0.5 K/uL (0.1-1.3); Absolute Neutrophil 6.9 K/uL (1.8-8.0); Basophils % 0.5 % (0-1.3); Eosinophils % 1.1 % (0-4.4); Hematocrit 43.2 % (36.0-45.0); Lymphocytes % 11.8 % (15.3-44.8); MPV 8.9 fL (7.6-11.3); Monocytes % 5.6 % (3.3-12.3); RBC Red Blood Cell Count 4.78 M/uL (3.86-4.86)
[2018-11-23 06:15] LABS: Protime INR 0.99
[2018-11-23 06:21] LABS: ALT/SGPT 33 U/L (12-78); AST/SGOT 32 U/L (15-37); Albumin 3.2 g/dL (3.4-5.0); Alkaline Phosphatase 77 U/L (45-117); BUN Blood Urea Nitrogen 13 mg/dL (7-18); Bicarbonate 25 mmol/L (21-32); Bilirubin Direct 0.2 mg/dL (0-0.2); Bilirubin Total 0.6 mg/dL (0.2-1.0); Glucose Level 199 mg/dL (74-106); Magnesium 1.8 mg/dL (1.8-2.4); NT PRO-BNP 3154 pg/mL (<125); Potassium 3.1 mmol/L (3.5-5.1); Protein, Total 6.3 g/dL (6.4-8.2); Sodium Level 144 mmol/L (136-145); Troponin (Emerg Dept Use Only) < 0.02 ng/mL (0.0-0.045)
[2018-11-23] MEDS ORDERED: ALPRAZOLAM 0.25 MG TABLET PO PRN (06:52)
[2018-11-23] MEDS ORDERED: ONDANSETRON 4 MG/2 ML VIAL IV PRN (06:52)
[2018-11-23] MEDS ORDERED: ACETAMINOPHEN 500 MG TAB PO PRN (06:52)
[2018-11-23] MEDS ORDERED: POTASSIUM 25 MEQ EFFERV TAB ONE (07:37)
[2018-11-23] MEDS: ALBUTEROL 2.5 MG/3 ML NEB SOL NEB SCH ×2 (07:50→14:54)
[2018-11-23] MEDS: IPRATROPIUM BROM 0.5MG/2.5ML NEB SCH ×2 (07:50→14:54)
--- NOTE | 2018-11-23 08:18 | RAD REPORT ---
EXAM DESCRIPTION: Nicolasa Single View11/23/2018 5:50 am CLINICAL HISTORY: Shortness of breath COMPARISON: September 2018 FINDINGS: Lungs are hyperaerated. The The lungs appear clear of acute infiltrate. The heart is normal size IMPRESSION: COPD without visualization of an acute abnormality
--- NOTE | 2018-11-23 08:35 | P.HP ---
Certification for Inpatient Patient admitted to: Inpatient With expected LOS: >2 Midnights Patient will require the following post-hospital care: None Practitioner: I am a practitioner with admitting privileges, knowledge of patient current condition, hospital course, and medical plan of care. Services: Services provided to patient in accordance with Admission requirements found in Title 42 Section 412.3 of the Code of Federal Regulations Patient History Date of Service: 11/23/18 Reason for admission: respiratory distress History of Present Illness: Patient is a 63-year-old female who was admitted to the hospital with respiratory distress. Patient was not able to get her breath so she came to the hospital. In the emergency room patient was started on BiPAP and she was given nebs, steroids, and antibiotics. Patient was also found to have an elevated blood pressure and was given diuretics. Patient's symptoms have improved. Will wean off BiPAP and placed on nasal cannula. Will review a prior echocardiogram. Patient has acute diastolic dysfunction along with COPD exacerbation from chronic tobacco use. Patient will be admitted for further treatment of her respiratory failure. Allergies ketorolac [From Toradol] Allergy (Verified 08/29/18 22:45) Restless legs Home Medications: Amlodipine Besylate 10 mg PO DAILY 08/29/18 Atorvastatin Calcium [Lipitor] 40 mg PO BEDTIME 08/29/18 Fluoxetine HCl [Prozac] 40 mg PO DAILY 08/29/18 Hydralazine HCl [Apresoline] 50 mg PO TID 08/29/18 Isosorbide Mononitrate [Isosorbide Mononitrate ER] 60 mg PO DAILY 08/29/18 Lisinopril 40 mg PO DAILY 08/29/18 Lurasidone HCl [Latuda] 60 mg PO BEDTIME 08/29/18 Trazodone [Desyrel*] 300 mg PO BEDTIME 08/29/18 Metoprolol Tartrate [Lopressor*] 100 mg PO BID 09/29/18 hydroCHLOROthiazide [Hydrochlorothiazide] 25 mg PO DAILY 09/29/18 - Past Medical/Surgical History Diabetic: Yes -: Cholelithiasis -: Breast Cancer bilateral breasts -: Coronary artery disease with stent placement -: ADD/AHD -: CHF -: COPD -: depression -: HTN -: schizo affective disorder -: depressive disorder -: hyperlipidemia -: Cholecystectomy -: Double Mastectomy -: Coronary artery disease with stent placement x 4 -: Ovarian Cyst -: fatty tumor removed from left shoulder and back -: hernia repair -: heel spur surgery bilateral - Family History Mother Medical History: Cancer Notes: breast cancer Father Medical History: Cancer Notes: lung and throat cancer - Social History Alcohol use: No CD- Drugs: No Caffeine use: Yes Review of Systems 10-point ROS is otherwise unremarkable Physical Examination - Vital Signs Temperature: 99 F Blood Pressure: 140/80 Pulse: 85 Respirations: 18 Pulse Ox (%): 95 - Physical Exam General: Alert, In no apparent distress, Oriented x3, Severe distress HEENT: Atraumatic, Normocephalic, PERRLA, Mucous membr. moist/pink Neck: Supple, 2+ carotid pulse no bruit, JVD not distended, No Thyromegaly, No LAD Respiratory: Clear to auscultation bilaterally, Normal air movement, Expiratory wheezes Cardiovascular: Normal pulses, Regular rate/rhythm, Normal S1 S2, No gallops, No rubs, No murmurs Gastrointestinal: Normal bowel sounds, Soft and benign, Non-distended, No tenderness, No rebound, No guarding Musculoskeletal: No clubbing, No swelling, No tenderness Integumentary: No rashes Neurological: Normal gait, Normal speech, Normal strength at 5/5 x4 extr, Normal tone, Sensation intact, Cranial nerves 3-12 intact Lymphatics: No axilla or inguinal lymphadenopathy - Studies Laboratory Data (last 24 hrs) 11/23/18 05:35: PT 11.7, INR 0.99 11/23/18 05:35: WBC 8.5, Hgb 14.5, Hct 43.2, Plt Count 179 11/23/18 05:35: Sodium 144, Potassium 3.1 L, BUN 13, Creatinine 0.81, Glucose 199 H, Magnesium 1.8, Total Bilirubin 0.6, AST 32, ALT 33, Alkaline Phosphatase 77 Assessment & Plan - Problems (Diagnosis) (1) Acute bronchitis with COPD Current Visit: Yes Status: Acute (2) Acute diastolic (congestive) heart failure Current Visit: Yes Status: Acute (3) Chest pain Current Visit: No Status: Active (4) Hypertension Onset Date: 08/30/18 Current Visit: No Status: Chronic Qualifiers: (5) Presence of stent in coronary artery in patient with coronary artery disease Onset Date: 08/30/18 Current Visit: No Status: Chronic (6) Tobacco abuse Onset Date: 08/30/18 Current Visit: No Status: Chronic - Plan 1. Echocardiogram to assess LV function and relaxation 2. continue with nebs, steroids, and antibiotics 3. We will start patient on a Beta angel 4. Cardiology consultation if symptoms do not improve 5. Aggressive diuresis 6. Strict I's and O's 7. Repeat CXR 8. Daily weights 9. Education regarding diet and treatment of congestive heart failure Discharge Plan: Home Plan to discharge in: Greater than 2 days - Advance Directives Does patient have a Living Will: No Does patient have a Durable POA for Healthcare: No - Code Status/Comfort Care Code Status Assessed: Yes Code Status: Full Code Critical Care: No Time Spent Managing PTS Care (In Minutes): 50
[2018-11-23] MEDS: FUROSEMIDE 40 MG/4 ML VIAL IV SCH ×2 (08:58→15:40)
[2018-11-23] MEDS ORDERED: ENOXAPARIN 40 MG/0.4 ML SQ SCH (09:00)
[2018-11-23] MEDS ORDERED: METOPROLOL TAR 50 MG TAB PO SCH ×2 (09:00→21:00)
[2018-11-23 09:32] VITALS: BMI 27.4
--- NOTE | 2018-11-23 09:52 | EKG ---
Test Date: 2018-11-23 Test Time: 05:10:19 Python Programmer: VANNA MEASUREMENT RESULTS: Intervals: Rate: 81 CO: 194 QRSD: 92 QT: 452 QTc: 525 [place]: P: 77 CO: 194 QRS: -37 T: 79 INTERPRETIVE STATEMENTS: Normal sinus rhythm Left axis deviation Septal infarct, age undetermined Prolonged QT Abnormal ECG Compared to ECG 09/28/2018 20:05:59 Myocardial infarct finding now present Atrial premature complex(es) no longer present Electronically Signed On 11-23-18 09:51:30 [employer]INTED [employer]SEM[employer]ER by Mahad Meredith
[2018-11-23] MEDS ORDERED: METHYLPREDNISOLONE 125 MG INJ IV SCH (12:00)
[2018-11-23] MEDS ORDERED: HYDRALAZINE HCL 25 MG TABLET PO SCH (14:00)
[2018-11-23] MEDS ORDERED: POTASSIUM 25 MEQ EFFERV TAB PO ONE (16:00)
[2018-11-23] MEDS ORDERED: MAGNESIUM SULFATE 1 gm IVPB 1 GM/100 ML BAG IV ONE (16:00)
[2018-11-23 16:25] VITALS: O2SAT 94
[2018-11-23 16:34] VITALS: TEMP 98.1
[2018-11-23] MEDS ORDERED: NICOTINE 14 MG/PAT TD SCH (17:00)
[2018-11-23 17:10] VITALS: BP 170/88
[2018-11-23] MEDS ORDERED: LURASIDONE HCL 60 MG PO SCH (21:00)
[2018-11-23] MEDS ORDERED: ATORVASTATIN 40 MG TAB PO SCH (21:00)
[2018-11-23] MEDS ORDERED: TRAZODONE 150 MG TAB PO SCH (21:00)
[2018-11-24] MEDS ORDERED: AMLODIPINE 10 MG TAB PO SCH (09:00)
[2018-11-24] MEDS ORDERED: FLUOXETINE 20 MG CAP PO SCH (09:00)
[2018-11-24] MEDS ORDERED: LISINOPRIL 20 MG TAB PO SCH (09:00)
[2018-11-24] MEDS ORDERED: ISOSORBIDE MONO SR 60 MG TAB PO SCH (09:00)
== END 2018-11-23 17:49 | disposition left against medical advice (07) | DRG 291 ==
LOC: ER 05:02 → ERHOLD 06:52 → INTOOBSV 06:52 → 4TH 07:52 → OBSVTOIN 07:54
PROVIDERS: ADMIT Hospitalist; ATTEND Hospitalist
PROC: 5A09357 Assistance with Respiratory Ventilation, Less than 24 Consecutive Hours, Continuous Positive Airway Pressure (ICD-10-PCS; principal; 2018-11-23)
DX: I50.31 Acute diastolic (congestive) heart failure (principal); J96.90 Respiratory failure, unspecified, unspecified whether with hypoxia or hypercapnia; J44.1 Chronic obstructive pulmonary disease with (acute) exacerbation; I11.0 Hypertensive heart disease with heart failure; Z53.21 Procedure and treatment not carried out due to patient leaving prior to being seen by health care provider; I25.10 Atherosclerotic heart disease of native coronary artery without angina pectoris; F32.9 Major depressive disorder, single episode, unspecified; Z95.5 Presence of coronary angioplasty implant and graft; Z85.3 Personal history of malignant neoplasm of breast; F17.210 Nicotine dependence, cigarettes, uncomplicated
CPT/HCPCS: 36415; 71045; 80048; 80076; 83605; 83735; 83880; 84484; 85025; 85610; 87040; 93005; 94640; 96365; 96375; 99285; J1650; J1940; J2930; J3475; J7030

== ENCOUNTER 2018-11-24 17:07 | Observation (INO) | payer OTHER ==
--- OUTSIDE RECORDS SUMMARY | 2018-11-24 17:10 | XMS REPORT ---
[...] Atherosclerosis of coronary artery I25.10 Active of [place] [facility] Problem Atherosclerosis of coronary artery I25.10 Active of [place] [facility] Problem Tobacco use disorder Z72.0 Active Medications Medication Code Code Instructions Start End Status Dosage System Date Date Isosorbide NDC 82125344656 60 MG Orally Active 1 tablet Mononitrate ER Once a day in the morning Results No Known Results Summary Purpose [employer] Submission
--- OUTSIDE RECORDS SUMMARY | 2018-11-24 17:10 | XMS REPORT ---
[...] Atherosclerosis of coronary artery I25.10 Active of [place] [facility] Assessment Atherosclerosis of coronary artery I25.10 Active of [place] [facility] Problem Tobacco use disorder Z72.0 Active Medications Medication Code Code Instructions Start End Status Dosage System Date Date Prozac [facility] 94841751909 40 MG Orally Active 1 capsule Once a day Trazodone HCl [facility] 54886468242 300 MG Orally Active 0.5 Once a day tablet at bedtime Lisinopril [facility] 45283745915 40 MG Orally Active 1 tablet Once a day Norvasc [facility] 24298256951 10 MG Orally Active 1 tablet Once a day Isosorbide Mononitrate [facility] 03702253560 60 MG Orally Active 1 tablet ER Once a day in the morning Aspir-81 [facility] 42394844064 81 MG Orally Active 1 tablet Once a day Latuda [facility] 25217385510 60 MG Orally Active 1 tablet Once a day with food Hydrochlorothiazide [facility] 67868536638 25 MG Orally Active 1 tablet Once a day in the morning Lipitor [facility] 94866039062 40 MG Orally Active 1 tablet Once a day Metoprolol Tartrate [facility] 68860538329 100 MG Orally Active 1 tablet Twice a day with food ProAir HFA [facility] 10430520266 108 (90 Base) Active 2 puffs MCG/ACT as needed Inhalation every 6 hrs HydrALAZINE HCl [facility] 96477544295 50 MG Orally Active 1 tablet Three times a with food day Results Name Result Date Reference Range Unit Abnormality Flag CBC W/AUTO DIFF CMP Magnesium, Serum LIPID PANEL WITH REFLEX TO DIRECT LDL Summary Purpose eClinicalWorks Submission
--- OUTSIDE RECORDS SUMMARY | 2018-11-24 17:10 | XMS REPORT | Continuity of Care Document ---
:1955 Author Organization Interface Problems Problem Status Onset Classification Date Comments Source Date Reported ACUTE CHEST Active [facility] HYP[facility]ION [facility] Active [facility] HYPERTENSION Medications Medication Details [...]
--- OUTSIDE RECORDS SUMMARY | 2018-11-24 17:10 | XMS REPORT ---
[...] Atherosclerosis of coronary artery I25.10 Active of [place] [facility] Assessment Atherosclerosis of coronary artery I25.10 Active of [place] [facility] Problem Tobacco use disorder Z72.0 Active Medications Medication Code Code Instructions Start End Status Dosage System Date Date Metoprolol Tartrate [facility] 77760504610 100 MG Orally Active 1 tablet Twice a day with food Lisinopril [facility] 91051786614 40 MG Orally Active 1 tablet Once a day Trazodone HCl [facility] 52475051694 300 MG Orally Active 0.5 Once a day tablet at bedtime Norvasc [facility] 59994929999 10 MG Orally Active 1 tablet Once a day Latuda [facility] 65974584537 60 MG Orally Active 1 tablet Once a day with food HydrALAZINE HCl [facility] 37704625498 50 MG Orally Active 1 tablet Three times a with food day ProAir HFA [facility] 56095073155 108 (90 Base) Active 2 puffs MCG/ACT as needed Inhalation every 6 hrs as needed for cough, shortness of breath and wheezing Isosorbide Mononitrate [facility] 45568356630 60 MG Orally Active 1 tablet ER Once a day in the morning Prozac [facility] 76905103139 40 MG Orally Active 1 capsule Once a day Hydrochlorothiazide [facility] 95631479437 25 MG Orally Active 1 tablet Once a day in the morning -81 [facility] 84717318810 81 MG Orally Active 1 tablet Once a day Lipitor [facility] 71661208660 40 MG Orally Active 1 tablet Once a day Results No Known Results Summary Purpose eClinicalWorks Submission
--- OUTSIDE RECORDS SUMMARY | 2018-11-24 17:11 | XMS REPORT ---
[...] artery I25.10 Active of [place] [facility] Problem Hx of breast cancer Z85.3 [...]
--- OUTSIDE RECORDS SUMMARY | 2018-11-24 17:11 | XMS REPORT ---
[...] Atherosclerosis of coronary artery I25.10 Active of [place] [facility] Problem Atherosclerosis of coronary artery I25.10 Active of [place] [facility] Assessment Benign essential HTN I10 Active Problem Tobacco use disorder Z72.0 Active Medications Medication Code Code Instructions Start End Status Dosage System Date Date [facility] 43829062168 10 MG Orally Active 1 tablet Once a day Hydrochlorothiazide [facility] 41156799400 25 MG Orally Active 1 tablet Once a day in the morning HydrALAZINE HCl [facility] 80099965945 50 MG Orally Active 1 tablet Three times a with food day Latuda [facility] 66903862799 60 MG Orally Active 1 tablet Once a day with food Lisinopril [facility] 51215160546 40 MG Orally Active 1 tablet Once a day Isosorbide Mononitrate [facility] 91882106385 60 MG Orally Active 1 tablet ER Once a day in the morning Aspir-81 [facility] 45635828862 81 MG Orally Active 1 tablet Once a day Metoprolol Tartrate [facility] 28409041727 100 MG Orally Active 1 tablet Twice a day with food Prozac [facility] 66532922222 40 MG Orally Active 1 capsule Once a day HydrALAZINE HCl [facility] 56721383116 50 MG Orally Active 1 tablet Three times a with food day Trazodone HCl [facility] 19294126984 300 MG Orally Active 0.5 Once a day tablet at bedtime Lipitor [facility] 47142407893 40 MG Orally Active 1 tablet Once a day Norvasc [facility] 12902800539 10 MG Orally Active 1 tablet Once a day ProAir HFA [facility] 62655669480 108 (90 Base) Active 2 puffs MCG/ACT as needed Inhalation every 6 hrs as needed for cough, shortness of breath and wheezing Isosorbide Mononitrate [facility] 23027367565 60 MG Orally Active 1 tablet ER Once a day in the morning Results No Known Results Summary Purpose eClinicalWorks Submission
--- OUTSIDE RECORDS SUMMARY | 2018-11-24 17:11 | XMS REPORT ---
[...] Atherosclerosis of coronary artery I25.10 Active of [place] [facility] Problem Tobacco use disorder Z72.0 Active Medications Medication Code Code Instructions Start End Status Dosage System Date Date Lipitor ND 24417399830 40 MG Orally Active 1 tablet Once a day Lisinopril ND 79775003169 40 MG Orally Active 1 tablet Once a day HydrALAZINE HCl ND 50189967023 50 MG Orally Active 1 tablet Three times a with food day Hydrochlorothiazide ND 17797813354 25 MG Orally Active 1 tablet Once a day in the morning Metoprolol Tartrate ND 26405517551 100 MG Orally Active 1 tablet Twice a day with food Results No Known Results Summary Purpose eClinicalWorks Submission
--- OUTSIDE RECORDS SUMMARY | 2018-11-24 17:11 | XMS REPORT ---
:1955 Author Organization e[employer]Works Care Team Providers Name Role Phone Rodriguez, Juancarlos Provider Role Unavailable Allergies No Known Allergies Problems Problem Type Condition Code Onset Dates Condition Status Problem Osteoarthritis of multiple joints M15.9 Active Problem Hyperlipidemia, mixed E78.2 Active Problem Hx of breast cancer Z85.3 Active Problem Atherosclerosis of coronary artery I25.10 Active of [place] [facility] Problem Tobacco use disorder Z72.0 Active [...]
--- OUTSIDE RECORDS SUMMARY | 2018-11-24 17:11 | XMS REPORT ---
:1955 Author Organization [employer] Care Team Providers Name Role Phone Juancarlos Rodriguez Provider Role Unavailable Allergies No Known Allergies Problems Problem Type Condition Code Onset Dates Condition Status Problem GERD (gastroesophageal reflux K21.9 Active disease) Problem Atherosclerosis of coronary artery I25.10 Active of [place] [facility] Problem Benign essential HTN I10 Active [...]
--- OUTSIDE RECORDS SUMMARY | 2018-11-24 17:11 | XMS REPORT ---
:1955 Author Organization [employer] Care Team Providers Name Role Phone Misael Rodriguezh Provider Role Unavailable Allergies, Adverse Reactions, Alerts Substance Reaction Event Type N.K.D.A. Info Not Available Non Drug Allergy Problems Problem Type Condition Code Onset Dates Condition Status Problem GERD (gastroesophageal reflux K21.9 Active disease) Problem Atherosclerosis of coronary artery I25.[address] [facility] [place] heart Problem Benign essential HTN I10 Active [...] Start End Status Dosage System Date Date [facility] 85110638089 81 MG Orally Active 1 tablet Once a day Metoprolol Tartrate [facility] 11180196005 100 MG Orally Active 1 tablet Twice a day with food ProAir HFA [facility] 36113862823 108 (90 Base) Active 2 puffs MCG/ACT as needed Inhalation every 6 hrs as needed for cough, shortness of breath and wheezing Prozac [facility] 51868265198 40 MG Orally Active 1 capsule Once a day Metoprolol Tartrate [facility] 30486720460 100 MG Orally Active 1 tablet Twice a day with food HydrALAZINE HCl [facility] 67722942135 50 MG Orally Active 1 tablet Three times a with food day Lipitor [facility] 47911168820 40 MG Orally Active 1 tablet Once a day Hydrochlorothiazide [facility] 30751994540 25 MG Orally Active 1 tablet Once a day in the morning Isosorbide Mononitrate [facility] 50188519820 60 MG Active TAKE 1 ER TABLET BY MOUTH INTHE MORNING Latuda [facility] 69649744020 60 MG Orally Active 1 tablet Once a day with food Lisinopril [facility] 21873114448 40 MG Active TAKE 1 TABLET BY MOUTH ONCE DAILY HydrALAZINE HCl [facility] 75093561836 50 MG Orally Active 1 tablet Three times a with food day Trazodone HCl [facility] 89297810501 300 MG Orally Active 0.5 Once a day tablet at bedtime Isosorbide Mononitrate [facility] 02387096536 60 MG Orally Active 1 tablet ER Once a day in the morning Hydrochlorothiazide [facility] 61747484042 25 MG Orally Active 1 tablet Once a day in the morning Lipitor [facility] 36786148786 40 MG Orally Active 1 tablet Once a day Lisinopril [facility] 33369423215 40 MG Orally Active 1 tablet Once a day [facility] 70206852486 10 MG Orally Active 1 tablet Once a day [facility] 52598634920 10 MG Orally Active 1 tablet Once a day Results No Known Results Summary Purpose eClinicalWorks Submission
--- OUTSIDE RECORDS SUMMARY | 2018-11-24 17:11 | XMS REPORT ---
:1955 Author Organization [facility] Address [address] [place] [address] Dr. García. [address] [place] [id number] Care Team Providers Name Role Phone Unavailable Unavailable Unavailable Problems This patient has no known problems. Allergies, Adverse Reactions, Alerts This patient has no known allergies or adverse reactions. Medications This patient has no known medications.
--- NOTE | 2018-11-24 18:06 | RAD REPORT ---
EXAM DESCRIPTION: Nicolasa Single View11/24/2018 6:00 pm CLINICAL HISTORY: Chest pain COMPARISON: November 23 FINDINGS: Small right pleural effusion is suspected. The lungs appear clear of acute infiltrate. The heart is normal size
[2018-11-24 19:00] LABS: Absolute Lymphocytes (CBC) 2.8 K/uL (0.7-4.9); Absolute Monocytes 0.6 K/uL (0.1-1.3); Absolute Neutrophil 5.3 K/uL (1.8-8.0); Basophils % 0.4 % (0-1.3); Eosinophils % 0.5 % (0-4.4); Hematocrit 40.6 % (36.0-45.0); Lymphocytes % 31.5 % (15.3-44.8); MPV 9.2 fL (7.6-11.3); Monocytes % 6.9 % (3.3-12.3); Protime INR 0.98; RBC Red Blood Cell Count 4.53 M/uL (3.86-4.86)
[2018-11-24] MEDS ORDERED: ALBUTEROL 2.5 MG/3 ML NEB SOL ONE (19:04)
[2018-11-24] MEDS ORDERED: IPRATROPIUM BROM 0.5MG/2.5ML ONE (19:04)
[2018-11-24 19:16] LABS: Albumin 3.4 g/dL (3.4-5.0); Bilirubin Direct 0.2 mg/dL (0-0.2); Bilirubin Total 0.5 mg/dL (0.2-1.0); Potassium 3.6 mmol/L (3.5-5.1); Protein, Total 6.5 g/dL (6.4-8.2); Troponin (Emerg Dept Use Only) 0.02 ng/mL (0.0-0.045)
[2018-11-24] MEDS ORDERED: predniSONE 20 MG TAB ONE (19:34)
[2018-11-24] MEDS ORDERED: levoFLOXacin 500 MG TAB ONE (20:09)
[2018-11-24] MEDS ORDERED: NITROGLYCERIN 1 GM PKT TD ONE ×2 (20:09→23:58)
[2018-11-24] MEDS ORDERED: FUROSEMIDE 40 MG/4 ML VIAL ONE (20:09)
--- NOTE | 2018-11-24 21:33 | ER ---
Nurse's Notes [facility] Name: Ophelia Grady Age: 63 yrs Sex: Female : 1955 Arrival Date: 11/24/2018 Time: 17:09 Bed 7 Private MD: Juancarlos Bryan Diagnosis: Chronic obstructive pulmonary disease with (acute) exacerbation;Dyspnea;Chest pain, unspecified Presentation: 11/24 17:15 Presenting complaint: Patient states: i left [facility] yesterday, they couldn't get my bp tw2 down, so i got frustrated and so i left, dr. bryan called me this morning and told me to come back, they want to run somemore test and treat me for CHF, COPD, hypertension, i am having chest tightness and sob. Transition of care: patient was not received from another setting of care. Onset of symptoms was November 24, 2018. Risk Assessment: Do you want to hurt yourself or someone else? Patient reports no desire to harm self or others. Initial Sepsis Screen: Does the patient meet any 2 criteria? No. Patient's initial sepsis screen is negative. Does the patient have a suspected source of infection? No. Patient's initial sepsis screen is negative. Care prior to arrival: None. 17:15 Method Of Arrival: Ambulatory tw2 17:15 Acuity: SHAWN 3 tw2 Triage Assessment: 17:19 General: Appears in no apparent distress. Behavior is calm, cooperative, appropriate tw2 for age. Pain: Complains of pain in back and chest. Respiratory: Reports shortness of breath Onset: The symptoms/episode began/occurred today, the patient has moderate shortness of breath. Historical: - Allergies: 17:19 Codeine; tw2 17:19 Ketorolac; tw2 17:19 Benadryl; tw2 17:19 tramadol; tw2 - Home Meds: 17:19 aspirin 81 mg Oral TbEC 1 tab once daily [Active]; atorvastatin 40 mg Oral tab 1 tab tw2 once daily [Active]; buspirone 10 mg Oral tab 1 tab 2 times per day [Active]; fluoxetine 40 mg Oral cap 1 cap once daily [Active]; hydralazine 50 mg Oral tab 1 tab three times a day [Active]; isosorbide mononitrate 60 mg Oral Tb24 1 tab once daily [Active]; Latuda 60 mg Oral tab 1 tab once daily [Active]; lisinopril 40 mg Oral tab 1 tab once daily [Active]; metoprolol tartrate 100 mg Oral tab 1 tab 2 times per day [Active]; trazodone 300 mg Oral tab 1 tab nightly [Active]; - PMHx: 17:19 Hyperlipidemia; Major Depressive Disorder; Hypertension; Schizo-affective disorder; tw2 Depression; COPD; Cancer; Anemia; ADD/ADHD; CHF; - PSHx: 17:19 Mastectomy, Left; Hernia repair; Mastectomy, Right; Cholecystectomy; Heel Surgery both tw2 Feet; Umbilical Hernia Mesh; Tumor removal - L shoulder; Heart stents; - Immunization history:: Adult Immunizations. - Social history:: Smoking status: Patient uses tobacco products, smokes one pack cigarettes per day. - Ebola Screening: : Patient denies travel to an Ebola-affected area in the 21 days before illness onset. Screenin:18 Abuse screen: Denies threats or abuse. Denies injuries from another. Nutritional ph screening: No deficits noted. Tuberculosis screening: No symptoms or risk factors identified. Fall Risk None identified. Assessment: 18:00 General: Appears in no apparent distress. comfortable, well groomed, Behavior is calm, ph cooperative, appropriate for age, Denies fever, feeling ill. Pain: Complains of pain in mid-sternal area Pain radiates to back. Neuro: Level of Consciousness is awake, alert, obeys commands, Oriented to person, place, time, situation, Denies weakness dizziness, headache. Cardiovascular: Reports chest pain, fatigue, shortness of breath, Denies nausea, vomiting, Capillary refill < 3 seconds in bilateral fingers Patient's skin is warm and dry. Rhythm is regular Chest pain is located in substernal area radiates back is aggravated by breathing. Respiratory: Reports shortness of breath at rest cough that is non-productive, pain with cough pain with respiration Airway is patent Respiratory effort is even, labored, Respiratory pattern is tachypnea Breath sounds are coarse bilaterally. GI: No signs and/or symptoms were reported involving the gastrointestinal system. Derm: Skin is intact, Skin is pink, warm \T\ dry. Musculoskeletal: Circulation, motion, and sensation intact. Range of motion: intact in all extremities. 21:35 Reassessment: Patient appears in no apparent distress at this time. No changes from ak1 previously documented assessment. Patient and/or family updated on plan of care and expected duration. Pain level reassessed. Patient is alert, oriented x 3, equal unlabored respirations, skin warm/dry/pink. pt with steady gait to the restroom several times. pt informed of need for admit. pt agrees to admission. Vital Signs: 17:16 BP 195 / 111; Pulse 65; Resp 19; Temp 97.1(O); Pulse Ox 95% on R/A; Weight 72.57 kg tw2 (R); Height 5 ft. 4 in. (162.56 cm); Pain 6/10; 20:11 BP 173 / 97; Pulse 68; Resp 16; Pulse Ox 92% on R/A; ak1 20:36 BP 169 / 96; Pulse 68; ak1 21:35 BP 162 / 93; Pulse 68; Resp 16; Temp 98.; Pulse Ox 94% on R/A; ak1 23:51 BP 172 / 95; Pulse 66; Resp 20; Pulse Ox 95% ; Pain 0/10; tl1 17:16 Body Mass Index 27.46 (72.57 kg, 162.56 cm) tw2 ED Course: 17:09 Patient arrived in ED. sb2 17:09 Juancarlos Bryan DO is Private Physician. sb2 17:16 Triage completed. tw2 17:16 Arm band placed on. tw2 17:27 Anika Garcia, RN is Primary Nurse. ph 17:34 Daniel Morin NP is PHCP. pm1 17:34 Juan M Padron MD is Attending Physician. pm1 17:55 EKG done, by diesel truck technician. reviewed by Daniel Morin NP. sm3 17:58 XRAY Chest (1 view) In Process Unspecified. EDMS 18:35 Initial lab(s) drawn, by nj, sent to lab. Inserted saline lock: 20 gauge in left dh3 antecubital area, using aseptic technique. Blood collected. 19:18 Patient has correct armband on for positive identification. Placed in gown. Bed in low ph position. Call light in reach. Side rails up X 1. telemetry monitor on. Pulse ox on. NIBP on. Door closed. Noise minimized. Lights dimmed. Warm blanket given. 19:19 No provider procedures requiring assistance completed. Patient admitted, IV remains in ph place. 21:30 Jorge Alberto Ruff MD is Hospitalizing Provider. pm1 Administered Medications: 19:03 Drug: Albuterol - atroVENT (3:1) (2.5 mg - 0.5 mg) 3 ml Route: Nebulizer; 21:59 Follow up: Response: No adverse reaction ak1 19:28 Drug: predniSONE 60 mg Route: PO; tl1 21:59 Follow up: Response: No adverse reaction ak1 20:03 Drug: Nitro-Bid Ointment 2 % 1 inches Route: Transdermal; Site: anterior chest wall; tl1 20:04 Drug: Lasix 40 mg Route: IVP; Infused Over: 2 mins; Site: left antecubital; tl1 22:00 Follow up: Response: No adverse reaction ak1 20:04 Drug: LevaQUIN 500 mg Route: PO; tl1 21:59 Follow up: Response: No adverse reaction ak1 Outcome: 21:32 Decision to Hospitalize by Provider. pm1 23:51 Condition: stable ak1 23:51 Instructed on 23:55 Admitted to Tele accompanied by savanah, via wheelchair, room 429, with chart, Report ak1 called to Ravi 11/25 00:25 Patient left the ED. ak1 Signatures: Dispatcher [employer] EDMS Oneil Aguila RN ANA Christa Lawson RN RN tl1 Cayla Lowry RN RN ak1 Anika Garcia RN RN Daniel Morin, AMANDEEP FLOOR ATTENDANT pm1 Chloé Coates RN RN 2 Alyssa Wade 3 Jory Meadows [facility] Colleen Miramontes 3
--- NOTE | 2018-11-24 21:33 | EDPHYS ---
Physician Documentation [facility] Name: Ophelia Grady Age: 63 yrs Sex: Female : 1955 Arrival Date: 11/24/2018 Time: 17:09 Bed 7 Private MD: Michael [facility] ED Physician Juan M Padron HPI: 11/24 18:00 This 63 yrs old Female presents to ER via Ambulatory with complaints of pm1 Breathing Difficulty. 18:00 The patient has shortness of breath at rest, with light activity. Onset: The pm1 symptoms/episode began/occurred this morning. Duration: The symptoms are continuous, and are steadily getting worse. The patient's shortness of breath is aggravated by light activity, is alleviated by nothing. Associated signs and symptoms: Pertinent positives: chest pain, Pertinent negatives: non-productive cough, productive cough, fever, nausea, vomiting. Severity of symptoms: in the emergency department the symptoms are worse. The patient has experienced similar episodes in the past, multiple times. The patient has been recently seen by a physician: The patient has been recently been admitted at [facility], for similar complaints, 2 days ago but patient left AMA 12 hours into admission. After patient left AMA at 1800 yesterday, she felt fine until this morning. Patient with chest pain and shortness of breath. Attempted to see Dr. Ambrocio but missed her appointment. Patient was then contacted by her PCP Dr. Rodriguez who urged her to return to the ER to be readmitted. Historical: - Allergies: 17:19 Codeine; tw2 17:19 Ketorolac; tw2 17:19 Benadryl; tw2 17:19 tramadol; tw2 - Home Meds: 17:19 aspirin 81 mg Oral TbEC 1 tab once daily [Active]; atorvastatin 40 mg Oral tab 1 tab tw2 once daily [Active]; buspirone 10 mg Oral tab 1 tab 2 times per day [Active]; fluoxetine 40 mg Oral cap 1 cap once daily [Active]; hydralazine 50 mg Oral tab 1 tab three times a day [Active]; isosorbide mononitrate 60 mg Oral Tb24 1 tab once daily [Active]; Latuda 60 mg Oral tab 1 tab once daily [Active]; lisinopril 40 mg Oral tab 1 tab once daily [Active]; metoprolol tartrate 100 mg Oral tab 1 tab 2 times per day [Active]; trazodone 300 mg Oral tab 1 tab nightly [Active]; - PMHx: 17:19 Hyperlipidemia; Major Depressive Disorder; Hypertension; Schizo-affective disorder; tw2 Depression; COPD; Cancer; Anemia; ADD/ADHD; CHF; - PSHx: 17:19 Mastectomy, Left; Hernia repair; Mastectomy, Right; Cholecystectomy; Heel Surgery both tw2 Feet; Umbilical Hernia Mesh; Tumor removal - L shoulder; Heart stents; - Immunization history:: Adult Immunizations. - Social history:: Smoking status: Patient uses tobacco products, smokes one pack cigarettes per day. - Ebola Screening: : Patient denies travel to an Ebola-affected area in the 21 days before illness onset. ROS: 18:00 Constitutional: Negative for fever, chills, and weight loss, Eyes: Negative for injury, pm1 pain, redness, and discharge, ENT: Negative for injury, pain, and discharge, Neck: Negative for injury, pain, and swelling. 18:00 Abdomen/GI: Negative for abdominal pain, nausea, vomiting, diarrhea, and constipation, Back: Negative for injury and pain, : Negative for injury, bleeding, discharge, and swelling, MS/Extremity: Negative for injury and deformity, Skin: Negative for injury, rash, and discoloration, Neuro: Negative for headache, weakness, numbness, tingling, and seizure. 18:00 Cardiovascular: Positive for chest pain, Negative for edema, orthopnea, palpitations. 18:00 Respiratory: Positive for cough, shortness of breath, Negative for wheezing. Exam: 18:00 Constitutional: This is a well developed, well nourished patient who is awake, alert, pm1 and in no acute distress. Head/Face: Normocephalic, atraumatic. Eyes: Pupils equal round and reactive to light, extra-ocular motions intact. Lids and lashes normal. Conjunctiva and sclera are non-icteric and not injected. Cornea within normal limits. Periorbital areas with no swelling, redness, or edema. ENT: Nares patent. No nasal discharge, no septal abnormalities noted. Tympanic membranes are normal and external auditory canals are clear. Oropharynx with no redness, swelling, or masses, exudates, or evidence of obstruction, uvula midline. Mucous membranes moist. Neck: Trachea midline, no thyromegaly or masses palpated, and no cervical lymphadenopathy. Supple, full range of motion without nuchal rigidity, or vertebral point tenderness. No Meningismus. Chest/axilla: Normal chest wall appearance and motion. Nontender with no deformity. No lesions are appreciated. Cardiovascular: Regular rate and rhythm with a normal S1 and S2. No gallops, murmurs, or rubs. Normal PMI, no JVD. No pulse deficits. 18:00 Abdomen/GI: Soft, non-tender, with normal bowel sounds. No distension or tympany. No guarding or rebound. No evidence of tenderness throughout. Back: No spinal tenderness. No costovertebral tenderness. Full range of motion. Skin: Warm, dry with normal turgor. Normal color with no rashes, no lesions, and no evidence of cellulitis. MS/ Extremity: Pulses equal, no cyanosis. Neurovascular intact. Full, normal range of motion. 18:00 Respiratory: the patient does not display signs of respiratory distress, Respirations: normal, Breath sounds: wheezing: is heard diffusely. 18:00 Neuro: Orientation: is normal, Motor: is normal, moves all fours. Vital Signs: 17:16 BP 195 / 111; Pulse 65; Resp 19; Temp 97.1(O); Pulse Ox 95% on R/A; Weight 72.57 kg tw2 (R); Height 5 ft. 4 in. (162.56 cm); Pain 6/10; 20:11 BP 173 / 97; Pulse 68; Resp 16; Pulse Ox 92% on R/A; ak1 20:36 BP 169 / 96; Pulse 68; ak1 21:35 BP 162 / 93; Pulse 68; Resp 16; Temp 98.; Pulse Ox 94% on R/A; ak1 23:51 BP 172 / 95; Pulse 66; Resp 20; Pulse Ox 95% ; Pain 0/10; tl1 17:16 Body Mass Index 27.46 (72.57 kg, 162.56 cm) tw2 MDM: 17:34 Patient medically screened. pm1 21:13 Data reviewed: vital signs. Data interpreted: Pulse oximetry: on room air is 95 %. pm1 Interpretation: normal. Counseling: I had a detailed discussion with the patient and/or guardian regarding: the historical points, exam findings, and any diagnostic results supporting the discharge/admit diagnosis, lab results, radiology results, the need for further work-up and treatment in the hospital. 22:00 Physician consultation: Jorge Alberto Ruff MD was called at 21:30, regarding admission, pm1 patient's condition, and will see patient. 11/24 17:42 Order name: Basic Metabolic Panel; Complete Time: 19:16 pm11/24 17:42 Order name: CBC with Diff; Complete Time: 19:12 pm11/24 17:42 Order name: LFT's; Complete Time: 19:16 pm11/24 17:42 Order name: Magnesium; Complete Time: 19:16 pm11/24 17:42 Order name: NT PRO-BNP; Complete Time: 19:16 pm11/24 17:42 Order name: PT-INR; Complete Time: 19:28 pm11/24 17:42 Order name: Troponin (emerg Dept Use Only); Complete Time: 19:16 pm11/24 17:42 Order name: XRAY Chest (1 view); Complete Time: 18:20 pm11/24 23:19 Order name: CBC with Automated Diff EDAL 11/24 23:19 Order name: CBC with Automated Diff EDMS 11/24 23:19 Order name: Comprehensive Metabolic Panel EDAL 11/24 23:19 Order name: Comprehensive Metabolic Panel EDAL 11/24 23:19 Order name: Chest Single View EDAL 11/24 23:19 Order name: Chest Single View EDAL 11/24 17:42 Order name: EKG; Complete Time: 17:44 pm11/24 17:42 Order name: Cardiac monitoring; Complete Time: 18:41 pm11/24 17:42 Order name: EKG - Nurse/Tech; Complete Time: 18:41 pm11/24 17:42 Order name: IV Saline Lock; Complete Time: 18:40 pm11/24 17:42 Order name: Labs collected and sent; Complete Time: 18:40 pm11/24 17:42 Order name: O2 Per Protocol; Complete Time: 18:40 pm11/24 17:42 Order name: O2 Sat Monitoring; Complete Time: 18:40 pm11/24 23:19 Order name: CONS Pharmacy Consult EDAL 11/24 23:19 Order name: Heart Healthy EDMS Administered Medications: 19:03 Drug: Albuterol - atroVENT (3:1) (2.5 mg - 0.5 mg) 3 ml Route: Nebulizer; 21:59 Follow up: Response: No adverse reaction ak1 19:28 Drug: predniSONE 60 mg Route: PO; tl1 21:59 Follow up: Response: No adverse reaction ak1 20:03 Drug: Nitro-Bid Ointment 2 % 1 inches Route: Transdermal; Site: anterior chest wall; tl1 20:04 Drug: Lasix 40 mg Route: IVP; Infused Over: 2 mins; Site: left antecubital; tl1 22:00 Follow up: Response: No adverse reaction ak1 20:04 Drug: LevaQUIN 500 mg Route: PO; tl1 21:59 Follow up: Response: No adverse reaction ak1 Disposition: 11/25 06:45 Co-signature as Attending Physician, Juan M Padron MD I agree with the assessment and kdr plan of care. Disposition: 11/24/18 21:32 Hospitalization ordered by Jorge Alberto Ruff for Observation. Preliminary diagnosis are Chronic obstructive pulmonary disease with (acute) exacerbation, Dyspnea, Chest pain, unspecified. - Bed requested for Telemetry/MedSurg (observation). - Status is Observation. ak1 - Condition is Stable. - Problem is new. - Symptoms have improved. UTI on Admission? No Signatures: Dispatcher [employer] [facility] Torie Goodman RN RN Oneil Aguila RN RN sg Rittger, Kevin, MD MD kdr Lasagna, Tonya, RN RN tl1 Cayla Lowry RN RN ak1 Daniel Morin NP WATER SYSTEMS ENGINEER pm1 Chloé Coates RN RN tw2 Corrections: (The following items were deleted from the chart) 11/24 23:43 21:32 Hospitalization Ordered by Jorge Alberto Ruff MD for Observation. Preliminary diagnosis is Chronic obstructive pulmonary disease with (acute) exacerbation; Dyspnea; Chest pain, unspecified. Bed requested for Telemetry/MedSurg (observation). Status is Observation. Condition is Stable. Problem is new. Symptoms have improved. UTI on Admission? No. pm1 11/25 00:25 11/24 23:43 11/24/2018 21:32 Hospitalization Ordered by Jorge Alberto Ruff MD for ak1 Observation. Preliminary diagnosis is Chronic obstructive pulmonary disease with (acute) exacerbation; Dyspnea; Chest pain, unspecified. Bed requested for Telemetry/MedSurg (observation). Status is Observation. Condition is Stable. Problem is new. Symptoms have improved. UTI on Admission? No. mw
[2018-11-24] MEDS ORDERED: CEFTRIAXONE 1 GM/50 ML BAG IV SCH (23:00)
[2018-11-24] MEDS ORDERED: ONDANSETRON 4 MG/2 ML VIAL IV PRN (23:13)
[2018-11-24] MEDS ORDERED: MORPHINE 2 MG/ML SYR IV PRN (23:13)
[2018-11-24] MEDS ORDERED: ACETAMINOPHEN 500 MG TAB PO PRN (23:13)
[2018-11-24] MEDS: NA CHLORIDE 0.9% 1,000 ML IV SCH (23:45)
[2018-11-25] MEDS ORDERED: ONDANSETRON 4 MG/2 ML VIAL ONE (00:13)
[2018-11-25] MEDS ORDERED: MORPHINE 2 MG/ML SYR ONE (00:13)
[2018-11-25] MEDS: METHYLPREDNISOLONE 125 MG INJ IV SCH ×4 (01:00→16:59)
[2018-11-25] MEDS: METOPROLOL TAR 50 MG TAB PO SCH ×3 (01:36→20:55)
[2018-11-25] MEDS ORDERED: ALBUTEROL INHALER 60 PUFF/8 GM IH PRN (01:36)
[2018-11-25] MEDS: IPRATROPIUM BROM 0.5MG/2.5ML NEB SCH ×4 (02:00→20:18)
[2018-11-25] MEDS: ALBUTEROL 2.5 MG/3 ML NEB SOL NEB SCH ×4 (02:00→20:18)
[2018-11-25] MEDS: TRAZODONE 150 MG TAB PO SCH ×2 (02:00→20:54)
[2018-11-25] MEDS: CEFTRIAXONE/SWI 1gm 1 GM/10 ML SYR IV SCH ×2 (04:00→20:56)
[2018-11-25 05:23] VITALS: BMI 27.5
[2018-11-25 07:13] LABS: Absolute Lymphocytes (CBC) 0.4 K/uL (0.7-4.9); Absolute Monocytes 0.1 K/uL (0.1-1.3); Absolute Neutrophil 5.6 K/uL (1.8-8.0); Hematocrit 42.2 % (36.0-45.0); Lymphocytes % 7.1 % (15.3-44.8); MPV 9.8 fL (7.6-11.3); Monocytes % 1.2 % (3.3-12.3)
[2018-11-25 07:14] LABS: Albumin 3.5 g/dL (3.4-5.0); Bilirubin Total 0.4 mg/dL (0.2-1.0); Potassium 3.8 mmol/L (3.5-5.1); Protein, Total 6.7 g/dL (6.4-8.2)
--- NOTE | 2018-11-25 07:46 | EKG ---
Test Date: 2018-11-24 Test Time: 17:50:47 Roller Staker: BAILEY MEASUREMENT RESULTS: Intervals: Rate: 64 MT: 200 QRSD: 88 QT: 482 QTc: 497 [place]: P: 81 MT: 200 QRS: 42 T: 53 INTERPRETIVE STATEMENTS: Normal sinus rhythm Left ventricular hypertrophy with repolarization abnormality Prolonged QT Abnormal ECG Compared to ECG 11/23/2018 05:10:19 Left ventricular hypertrophy now present Early repolarization now present Left-axis deviation no longer present Myocardial infarct finding no longer present Electronically Signed On 11-25-18 06:53:31 SUPPLY MANAGER by Pacheco Sotomayor
--- NOTE | 2018-11-25 08:36 | RAD REPORT ---
EXAM DESCRIPTION: RAD - Chest Single View - 11/25/2018 6:33 am CLINICAL HISTORY: COPD, shortness of breath COMPARISON: November 24 TECHNIQUE: AP portable chest image was obtained 0630 hours . FINDINGS: No focal lung parenchymal process. Lung markings are not substantially different from the comparison. Patient does have a baseline of prominent interstitial disease which could mask early int erstitial edema or infiltrate. There is no focal consolidation or mass. Heart and vasculature are nor mal. No measurable pleural effusion and no pneumothorax. No acute bony abnormality seen. No acute aor tic findings suspected. IMPRESSION: Prominent interstitial markings not substantially different from comparison. No focal consolidations seen. Prominence of the lung markings could mask early interstitial edema or infiltrate.
[2018-11-25] MEDS: FLUOXETINE 40 MG PO SCH (08:40)
[2018-11-25] MEDS: HYDRALAZINE HCL 25 MG TABLET PO SCH ×3 (08:40→20:59)
[2018-11-25] MEDS: AMLODIPINE 10 MG TAB PO SCH (08:40)
[2018-11-25 08:41] LABS: Blood Morphology Comment NOT SEEN (NOT SEEN); Platelet Estimate ADEQ; Urine White Blood Cell Casts DIFF
[2018-11-25] MEDS ORDERED: FLUOXETINE 20 MG CAP PO SCH (09:00)
[2018-11-25 09:17] LABS: Urine Appearance CLOUDY; Urine Bilirubin NEGATIVE (NEG); Urine Blood NEGATIVE (NEG); Urine Color YELLOW; Urine Glucose TRACE (NEG); Urine Protein NEGATIVE (NEG); Urine pH 7.5 (5.0-7.0)
[2018-11-25 09:21] LABS: Urine Microscopic Reflex NO UMIC
[2018-11-25] MEDS: ISOSORBIDE MONO SR 60 MG TAB PO SCH (11:24)
[2018-11-25] MEDS: NA CHLORIDE 0.9% 1,000 ML IV SCH (13:02)
--- NOTE | 2018-11-25 16:22 | EKG ---
Test Date: 2018-11-24 Test Time: 23:51:48 Delivery Department Supervisor: SHEEBA MEASUREMENT RESULTS: Intervals: Rate: 65 [place]: 188 QRSD: 90 QT: 508 QTc: 528 [place]: P: 20 [place]: 188 QRS: -36 T: 65 INTERPRETIVE STATEMENTS: Normal sinus rhythm Left axis deviation Minimal voltage criteria for LVH, may be normal variant Nonspecific ST and T wave abnormality Prolonged QT Abnormal ECG Compared to ECG 11/24/2018 17:50:47 Left-axis deviation now present ST (T wave) deviation now present Early repolarization no longer present Electronically Signed On 11-25-18 16:20:53 MERCHANDISE EXECUTION LEADER by Pacheco Sotomayor
[2018-11-25] MEDS ORDERED: ATORVASTATIN 40 MG TAB PO SCH (21:00)
[2018-11-25] MEDS ORDERED: LATUDA 60 MG PO SCH (21:00)
[2018-11-25 21:18] VITALS: TEMP 98.1
--- NOTE | 2018-11-25 22:12 | P.HP ---
Certification for Inpatient Patient admitted to: Observation With expected LOS: <2 Midnights Patient will require the following post-hospital care: None Practitioner: I am a practitioner with admitting privileges, knowledge of patient current condition, hospital course, and medical plan of care. Services: Services provided to patient in accordance with Admission requirements found in Title 42 Section 412.3 of the Code of Federal Regulations Patient History Date of Service: 11/24/18 Reason for admission: COPD exacerbation History of Present Illness: Patient is a 63-year-old female came to the hospital with shortness of breath. She was discharged a couple days ago and she was in extreme distress. She had be placed on BiPAP. She did turn around and apparently she left against medical advice. She tells me she left because she wanted to go see her primary care provider. He advised her to return to the hospital. She did not come to the hospital right away. Throughout the day her respiratory status has worsened so she came into the emergency room for further evaluation. Patient is having coughing wheezing and congestion. She still short of breath. However I do not think she needs inpatient admission at this time. She will probably need observation with discharge in 24-48 hours. Allergies ketorolac [From Toradol] Allergy (Verified 11/23/18 09:51) Restless legs codeine Adverse Reaction (Verified 11/25/18 01:46) Nausea/Vomiting/Pain diphenhydramine [From Benadryl] Adverse Reaction (Verified 11/25/18 01:46) Opposite.effect tramadol Adverse Reaction (Verified 11/25/18 01:46) Nausea/Vomiting/Pain Home Medications: Amlodipine Besylate 10 mg PO DAILY 08/29/18 Atorvastatin Calcium [Lipitor] 40 mg PO BEDTIME 08/29/18 Fluoxetine HCl [Prozac] 40 mg PO DAILY 08/29/18 Hydralazine HCl [Apresoline] 50 mg PO TID 08/29/18 Isosorbide Mononitrate [Isosorbide Mononitrate ER] 60 mg PO DAILY 08/29/18 Lisinopril 40 mg PO DAILY 08/29/18 Lurasidone HCl [Latuda] 60 mg PO BEDTIME 08/29/18 Trazodone [Desyrel*] 300 mg PO BEDTIME 08/29/18 Metoprolol Tartrate [Lopressor*] 100 mg PO BID 09/29/18 Albuterol Sulfate [Proair Hfa] 2 puff IH TIDP PRN 11/23/18 - Past Medical/Surgical History Has patient received pneumonia vaccine in the past: Yes Diabetic: No -: Cholelithiasis -: Breast Cancer bilateral breasts -: Coronary artery disease with 4 stent placement -: ADD/AHD -: CHF -: COPD -: depression -: HTN -: schizo affective disorder -: depressive disorder -: hyperlipidemia -: Cholecystectomy -: Double Mastectomy -: Coronary artery disease with stent placement x 4 -: Ovarian Cyst -: fatty tumor removed from left shoulder and back -: hernia repair -: heel spur surgery bilateral - Family History Mother Medical History: Cancer Notes: breast cancer Father Medical History: Cancer Notes: lung and throat cancer - Social History Smoking Status: Current every day smoker Alcohol use: No CD- Drugs: No Caffeine use: Yes Place of Residence: Home Review of Systems 10-point ROS is otherwise unremarkable Physical Examination - Vital Signs Temperature: 98.1 F Blood Pressure: 155/80 Pulse: 71 Respirations: 18 Pulse Ox (%): 95 - Physical Exam General: Alert, In no apparent distress, Oriented x3 HEENT: Atraumatic, PERRLA, Mucous membr. moist/pink, EOMI, Sclerae nonicteric Neck: Supple, 2+ carotid pulse no bruit, No LAD, Without JVD or thyroid abnormality Respiratory: Diminished, Expiratory wheezes, Rhonchi/gurgles Cardiovascular: Regular rate/rhythm, Normal S1 S2 Gastrointestinal: Normal bowel sounds, Soft and benign, Non-distended, No tenderness Musculoskeletal: No clubbing, No swelling, No tenderness Integumentary: No rashes Neurological: Normal gait, Normal speech, Normal strength at 5/5 x4 extr, Normal tone, Sensation intact, Cranial nerves 3-12 intact, Normal affect Lymphatics: No axilla or inguinal lymphadenopathy Assessment & Plan - Problems (Diagnosis) (1) Acute bronchitis with COPD Onset Date: 11/25/18 Current Visit: No Status: Acute (2) Acute diastolic (congestive) heart failure Onset Date: 11/25/18 Current Visit: No Status: Acute (3) COPD exacerbation Current Visit: No Status: Acute (4) Hypertension Onset Date: 08/30/18 Current Visit: No Status: Chronic Qualifiers: (5) Tobacco abuse Onset Date: 08/30/18 Current Visit: No Status: Chronic - Plan -nebs, steroids, and antibiotics -O2 per protocol. - Check room air O2 sats at rest and exertion -. Wean off IV steroids and change to oral in the morning -strict blood pressure control -anticipate discharge in 24-48 hours Discharge Plan: Home Plan to discharge in: 48 Hours - Advance Directives Does patient have a Living Will: No Does patient have a Durable POA for Healthcare: No - Code Status/Comfort Care Code Status Assessed: Yes Code Status: Full Code Critical Care: No Time Spent Managing PTS Care (In Minutes): 45
[2018-11-26] MEDS: METHYLPREDNISOLONE 125 MG INJ IV SCH ×2 (00:31→05:26)
[2018-11-26] MEDS: IPRATROPIUM BROM 0.5MG/2.5ML NEB SCH ×2 (01:13→07:48)
[2018-11-26] MEDS: ALBUTEROL 2.5 MG/3 ML NEB SOL NEB SCH ×2 (01:14→07:48)
[2018-11-26] MEDS: NA CHLORIDE 0.9% 1,000 ML IV SCH (05:26)
--- NOTE | 2018-11-26 06:34 | P.PN ---
Subjective Date of Service: 11/25/18 Respiratory status has improved. Patient possible discharge home in the morning if she continues to improve Review of Systems 10-point ROS is otherwise unremarkable Physical Examination - Vital Signs Temperature: 98.1 F Blood Pressure: 155/80 Pulse: 71 Respirations: 18 Pulse Ox (%): 95 - Physical Exam General: Alert, In no apparent distress, Oriented x3 HEENT: Atraumatic, PERRLA, EOMI Neck: Supple, JVD not distended Respiratory: Diminished, Expiratory wheezes Cardiovascular: Regular rate/rhythm, Normal S1 S2 Gastrointestinal: Normal bowel sounds, No tenderness Musculoskeletal: No tenderness Integumentary: No rashes Neurological: Normal speech, Normal tone, Normal affect Lymphatics: No axilla or inguinal lymphadenopathy - Studies Medications List Reviewed: Yes Assessment & Plan - Problems (Diagnosis) (1) Acute bronchitis with COPD Onset Date: 11/25/18 Current Visit: No Status: Acute (2) Acute diastolic (congestive) heart failure Onset Date: 11/25/18 Current Visit: No Status: Acute (3) COPD exacerbation Current Visit: No Status: Acute (4) Hypertension Onset Date: 08/30/18 Current Visit: No Status: Chronic Qualifiers: (5) Tobacco abuse Onset Date: 08/30/18 Current Visit: No Status: Chronic - Plan Continue with current plan of care as mentioned below -nebs, steroids, and antibiotics -O2 per protocol. - Check room air O2 sats at rest and exertion - Wean off IV steroids and change to oral in the morning -strict blood pressure control -anticipate discharge in 24-48 hours Discharge Plan: Home Plan to discharge in: 24 Hours - Advance Directives Does patient have a Living Will: No Does patient have a Durable POA for Healthcare: No - Code Status/Comfort Care Code Status: Full Code Critical Care: No Time Spent Managing PTS Care (In Minutes): 35
[2018-11-26] MEDS: FLUOXETINE 40 MG PO SCH (08:16)
[2018-11-26] MEDS: ISOSORBIDE MONO SR 60 MG TAB PO SCH (08:17)
[2018-11-26] MEDS: METOPROLOL TAR 50 MG TAB PO SCH (08:17)
[2018-11-26] MEDS: HYDRALAZINE HCL 25 MG TABLET PO SCH (08:17)
[2018-11-26] MEDS: AMLODIPINE 10 MG TAB PO SCH (08:18)
[2018-11-26 10:42] VITALS: O2SAT 94
[2018-11-26 10:45] VITALS: BP 148/86
--- NOTE | 2018-11-28 07:29 | P.DS ---
Discharge Date: 11/26/18 Disposition: ROUTINE DISCHARGE Discharge Condition: GOOD Reason for Admission: COPD exacerbation - Problems (1) Acute bronchitis with COPD Onset Date: 11/25/18 Status: Acute (2) Acute diastolic (congestive) heart failure Onset Date: 11/25/18 Status: Acute (3) COPD exacerbation Status: Acute (4) Hypertension Onset Date: 08/30/18 Status: Chronic Qualifiers: (5) Tobacco abuse Onset Date: 08/30/18 Status: Chronic Brief History of Present Illness: Patient is a 63-year-old female came to the hospital with shortness of breath. She was discharged a couple days ago and she was in extreme distress. She had be placed on BiPAP. She did turn around and apparently she left against medical advice. She tells me she left because she wanted to go see her primary care provider. He advised her to return to the hospital. She did not come to the hospital right away. Throughout the day her respiratory status has worsened so she came into the emergency room for further evaluation. Patient is having coughing wheezing and congestion. She still short of breath. However I do not think she needs inpatient admission at this time. She will probably need observation with discharge in 24-48 hours. Vital Signs/Physical Exam: Temp Pulse Resp BP Pulse Ox 98.1 F 70 18 148/86 H 95 11/26/18 06:34 11/26/18 09:30 11/26/18 06:34 11/26/18 09:30 11/26/18 06:34 Laboratory Data at Discharge: WBC 6.1 K/uL (4.3-10.9) D 11/25/18 06:04 Hgb 14.2 g/dL (12.0-15.0) 11/25/18 06:04 Hct 42.2 % (36.0-45.0) 11/25/18 06:04 Plt Count 180 K/uL (152-406) 11/25/18 06:04 PT 11.6 SECONDS (9.5-12.5) 11/24/18 18:35 INR 0.98 11/24/18 18:35 Sodium 140 mmol/L (136-145) 11/25/18 06:04 Potassium 3.8 mmol/L (3.5-5.1) 11/25/18 06:04 BUN 18 mg/dL (7-18) 11/25/18 06:04 Creatinine 0.86 mg/dL (0.55-1.3) 11/25/18 06:04 Glucose 231 mg/dL (74-106) H 11/25/18 06:04 Magnesium 2.0 mg/dL (1.8-2.4) 11/24/18 18:35 Total Bilirubin 0.4 mg/dL (0.2-1.0) 11/25/18 06:04 AST 32 U/L (15-37) 11/25/18 06:04 ALT 38 U/L (12-78) 11/25/18 06:04 Alkaline Phosphatase 70 U/L (45-117) 11/25/18 06:04 Home Medications: Amlodipine Besylate 10 mg PO DAILY 08/29/18 Atorvastatin Calcium [Lipitor] 40 mg PO BEDTIME 08/29/18 Fluoxetine HCl [Prozac] 40 mg PO DAILY 08/29/18 Hydralazine HCl [Apresoline] 50 mg PO TID 08/29/18 Isosorbide Mononitrate [Isosorbide Mononitrate ER] 60 mg PO DAILY 08/29/18 Lisinopril 40 mg PO DAILY 08/29/18 Lurasidone HCl [Latuda] 60 mg PO BEDTIME 08/29/18 Trazodone [Desyrel*] 300 mg PO BEDTIME 08/29/18 Metoprolol Tartrate [Lopressor*] 100 mg PO BID 09/29/18 Albuterol Sulfate [Proair Hfa] 2 puff IH TIDP PRN 11/23/18 Cefdinir [Omnicef] 300 mg PO BID #10 capsule 11/26/18 Fluticasone/Salmeterol [Advair 250-50 Diskus] 1 each IH BID #1 blst.w.dev Prednisone [Deltasone] 20 mg PO DAILY #5 tablet 11/26/18 New Medications: Cefdinir [Omnicef] 300 mg PO BID #10 capsule Fluticasone/Salmeterol [Advair 250-50 Diskus] 1 each IH BID #1 blst.w.dev Prednisone [Deltasone] 20 mg PO DAILY #5 tablet Patient Discharge Instructions: OK TO DC IV AND DC HOME. FOLLOW-UP WITH PRIMARY CARE PROVIDER IN 1-2 WEEKS. FOLLOW-UP WITH Pulmonary, Dr. Massey, IN 1-2 WEEKS. RETURN TO THE ER IF symptoms worsen. CALL or TEXT DR. GRACIA AT [phone] IF ANY QUESTIONS REGARDING HOSPITAL STAY. PLEASE CALL THE FLOOR AT [phone] IF ANY MEDICATION OR NURSING QUESTIONS. Diet: Regular Activity: Fall precautions
== END 2018-11-26 10:00 | disposition home or self-care (01) ==
LOC: ER 17:07 → ERHOLD 23:14 → 4TH 11-25 00:06
PROVIDERS: ADMIT Hospitalist; ATTEND Hospitalist
DX: J44.1 Chronic obstructive pulmonary disease with (acute) exacerbation (principal); I11.0 Hypertensive heart disease with heart failure; I50.33 Acute on chronic diastolic (congestive) heart failure; E78.5 Hyperlipidemia, unspecified; I25.10 Atherosclerotic heart disease of native coronary artery without angina pectoris; F17.210 Nicotine dependence, cigarettes, uncomplicated; Z95.5 Presence of coronary angioplasty implant and graft; Z85.3 Personal history of malignant neoplasm of breast
CPT/HCPCS: 36415; 71045; 80048; 80053; 80076; 81003; 82962; 83735; 83880; 84484; 85025; 85610; 93005; 94640; 96374; 99285; G0378; J0696; J1940; J2270; J2405; J2930; J7030; J7512

== ENCOUNTER 2019-03-14 11:57 | Observation (INO) | payer OTHER ==
--- OUTSIDE RECORDS SUMMARY | 2019-03-14 12:01 | XMS REPORT ---
[...] Atherosclerosis of coronary artery I25.10 Active of [place] heart Assessment Atherosclerosis of coronary artery I25.10 Active of [place] heart Problem Tobacco use disorder Z72.0 Active Medications Medication Code Code Instructions Start End Status Dosage System Date Date Prozac [facility] 54235619642 40 MG Orally Active 1 capsule Once a day Trazodone HCl [facility] 84680233477 300 MG Orally Active 0.5 Once a day tablet at bedtime Lisinopril [facility] 71772675051 40 MG Orally Active 1 tablet Once a day Norvasc [facility] 92194497546 10 MG Orally Active 1 tablet Once a day Isosorbide Mononitrate [facility] 79336188905 60 MG Orally Active 1 tablet ER Once a day in the morning Aspir-81 [facility] 32910786701 81 MG Orally Active 1 tablet Once a day Latuda [facility] 68240753282 60 MG Orally Active 1 tablet Once a day with food Hydrochlorothiazide [facility] 67174956835 25 MG Orally Active 1 tablet Once a day in the morning Lipitor [facility] 09319877839 40 MG Orally Active 1 tablet Once a day Metoprolol Tartrate [facility] 37631530523 100 MG Orally Active 1 tablet Twice a day with food ProAir HFA [facility] 30244584552 108 (90 Base) Active 2 puffs MCG/ACT as needed Inhalation every 6 hrs HydrALAZINE HCl [facility] 65945142398 50 MG Orally Active 1 tablet Three times a with food day Results Name Result Date Reference Range Unit Abnormality Flag CBC W/AUTO DIFF CMP Magnesium, Serum LIPID PANEL WITH REFLEX TO DIRECT LDL Summary Purpose eClinicalWorks Submission
--- OUTSIDE RECORDS SUMMARY | 2019-03-14 12:01 | XMS REPORT | Summary of Care ---
:1955 Author Organization [facility] Address [address] [place] [address]- Encounter HQ Jeronimo(FIN) [id number] Date(s): 06/21/18 - 06/22/18 [facility] [address] [place] [address]- [phone] Encounter Diagnosis Other chest pain (Final) - 06/27/18 Atherosclerotic heart disease of [place] coronary artery without angina pectoris (Final) - Presence of coronary angioplasty implant and graft (Final) - Hypertensive chronic kidney disease with stage 1 through stage 4 chronic kidney disease, or unspecified chronic kidney disease (Final) - Chronic kidney disease, stage 2 (mild) (Final) - Hyperlipidemia, unspecified (Final) - Major depressive disorder, single episode, unspecified (Final) - Suicidal ideations (Final) - Unspecified viral hepatitis C without hepatic coma (Final) - Schizophrenia, unspecified (Final) - Bipolar disorder, unspecified (Final) - Chronic obstructive pulmonary disease, unspecified (Final) - Personal history of malignant neoplasm of breast (Final) - Acquired absence of bilateral breasts and nipples (Final) - Homelessness (Final) - Nicotine dependence, cigarettes, uncomplicated (Final) - Other penitentiary (current) drug therapy (Final) - Discharge Disposition: DC/TF To Psych Hosp Attending Physician: Eneida Wheeler MD Admitting Physician: Renee Jaime DO Vital Signs Most recent to oldest 1 2 3 [Reference Range]: Height 162.56 cm 162.56 cm (06/22/18 12:28 AM) (06/21/18 4:38 PM) Temperature Oral [96.4-99.1 98.3 DegF 97.3 DegF 98.4 DegF DegF] (06/22/18 11:30 AM) (06/22/18 7:22 AM) (06/22/18 3:42 AM) Blood Pressure [90-140/60-90 141/95 mmHg 144/79 mmHg 135/81 mmHg mmHg] *HI* *HI* (06/22/18 3:42 AM) (06/22/18 11:30 AM) (06/22/18 7:22 AM) Respiratory Rate [14-20 BRMIN] 18 BRMIN 18 BRMIN 18 BRMIN (06/22/18 11:30 AM) (06/22/18 7:22 AM) (06/22/18 3:42 AM) Peripheral Pulse Rate [60-100 67 bpm 67 bpm 54 bpm bpm] (06/22/18 11:30 AM) (06/22/18 7:22 AM) *LOW* (06/22/18 3:42 AM) Weight 70.909 kg 70.455 kg (06/22/18 12:28 AM) (06/21/18 4:38 PM) Body Mass Index 26.83 m2 26.66 m2 (06/22/18 12:28 AM) (06/21/18 4:38 PM) Problem List No data available for this section Allergies, Adverse Reactions, Alerts Substance Reaction Severity Status NKDA Active Medications amLODIPine 10 mg, 1 tab, Route: PO, Drug form: TAB, Daily, Dosing Weight 70.455, kg, Start date: 06/22/18 9:00:00 CDT, Duration: 30 day, Stop date: 07/21/18 9:00:00 CDT Notes: (Same as: Peter) Start Date: 06/22/18 Stop Date: 06/22/18 Status: DiscontinuedamLODIPine 10 mg, PO, Daily, 0 Refill(s) Start Date: 06/21/18 Status: Orderedaspirin 324 mg, 4 tab, Route: PO, Drug form: CHEWTAB, ONCE, Dosing Weight 70.455, kg, Priority: STAT, Start date: 06/21/18 16:58:00 CDT, Stop date: 06/21/18 16:58:00 CDT Notes: Take with food. Start Date: 06/21/18 Stop Date: 06/21/18 Status: Completedaspirin 81 mg tablet, enteric coated 81 mg, 1 tab, Route: PO, Drug form: ECTAB, Daily, Dosing Weight 70.455, kg, Start date: 06/22/18 9:00:00 CDT, Duration: 30 day, Stop date: 07/21/18 9:00:00 CDT Notes: Do not crush or chew.(Same As: Ecotrin) Start Date: 06/22/18 Stop Date: 06/22/18 Status: Discontinuedaspirin 81 mg tablet, enteric coated 81 mg=1 tab, PO, Daily, 0 Refill(s) Start Date: 06/22/18 Stop Date: 06/22/18 Status: Deletedaspirin 81 mg tablet, enteric coated 81 mg=1 tab, PO, Daily, # 30 tab, 0 Refill(s) Start Date: 06/22/18 Stop Date: 07/22/18 Status: OrderedBD Normal Saline Flush 25 mL, Route: IV, Drug Form: INJ, PRN, PRN Line Flush, Start date: 06/21/18 22: 47:00 CDT, Duration: 30 day, Stop date: 07/21/18 22:46:00 CDT Notes: (Same as: BD Posiflush) Start Date: 06/21/18 Stop Date: 06/22/18 Status: DiscontinuedhydrALAZINE 50 mg, PO, TID, 0 Refill(s) Start Date: 06/21/18 Status: OrderedhydrALAZINE 50 mg, 2 tab, Route: PO, Drug form: TAB, Q8H, Dosing Weight 70.455, kg, Start date: 06/22/18 0:00:00CDT, Duration: 30 day, Stop date: 07/21/18 16:00:00 CDT Notes: (Same as: Apresoline) May interfere w/enteral feedings Take With Food. Start Date: 06/22/18 Stop Date: 06/22/18 Status: DiscontinuedImdur 30 mg, 1 tab, Route: PO, Drug form: ERTAB, QAM, Dosing Weight 70.909, kg, Priority: NOW, Start date:06/22/18 9:31:00 CDT, Duration: 30 day, Stop date: 09/27 9:00:00 CDT Notes: (Same as:Imdur)"Do Not Crush" Take on empty stomach/ full glass of water. Do not crush Start Date: 06/22/18 Stop Date: 06/22/18 Status: Discontinuedisosorbide mononitrate 30 mg oral tablet, extended release 30 mg=1 tab, PO, QAM, # 30 tab, 0 Refill(s) Start Date: 06/22/18 Stop Date: 07/22/18 Status: OrderedLatuda 60 mg, PO, Bedtime Start Date: 06/21/18 Status: OrderedLipitor 40 mg, 2 tab, Route: PO, Drug form: TAB, Bedtime, Dosing Weight 70.455, kg, Start date: 06/22/18 21:00:00 CDT, Duration: 30 day, Stop date: 07/21/18 21:00: 00 CDT Notes: (Same As: Lipitor) Start Date: 06/22/18 Stop Date: 06/22/18 Status: CanceledLipitor 40 mg, PO, Daily, 0 Refill(s) Start Date: 06/21/18 Status: Orderedmetoprolol tartrate 100 mg, PO, BID, hold if SBP<120 or HR< 60, 0 Refill(s) Start Date: 06/21/18 Status: Orderedmetoprolol tartrate 100 mg, 2 tab, Route: PO, Drug form: TAB, Q12H, Dosing Weight 70.455, kg, Start date: 06/22/18 9:00:00 CDT, Duration: 30 day, Stop date: 07/21/18 21:00:00 CDT Notes: (Same as: Lopressor) Start Date: 06/22/18 Stop Date: 06/22/18 Status: DiscontinuedNicoderm C-Q 14 mg, 1 patch, Route: TOP, Drug form: ERFILM, Daily, Dosing Weight 70.455, kg, Start date: 06/21/1823:00:00 CDT, Duration: 30 day, Stop date: 07/20/18 23:00: 00 CDT Notes: (Same as: Habitrol)"Remove old patch before application of new patch "WASTE: F/P - P Waste Black; E - P Waste Black Start Date: 06/21/18 Stop Date: 06/22/18 Status: Discontinuednitroglycerin 2% ointment 1 inch, Route: TOP, Drug Form: OINT, Dosing Weight 70.455, kg, ONCE, STAT, Start date: 06/21/18 16:58:00 CDT, Stop date: 06/21/18 16:58:00 CDT Notes: 1 gram is approximately 1 inch of nitroglycerin ointment (20 mg NTG per gram) (Same as:Nitro-Bid) Start Date: 06/21/18 Stop Date: 06/21/18 Status: Completednitroglycerin SL Tab 0.4 mg, 1 tab, Route: SL, Drug form: TAB, Q5Min, Dosing Weight 70.455, kg, PRN Chest Pain, Start date: 06/21/18 21:43:00 CDT, Duration: 3 doses or times, Stop date: Limited # of times Notes: (Same as:Nitroquick, Nitrostat)"Do Not Crush" Sublingual tablet Start Date: 06/21/18 Stop Date: 06/22/18 Status: Discontinuedondansetron 4 mg, 1 tab, Route: PO, Drug form: TAB, Q8H, Dosing Weight 70.455, kg, PRN Nausea & Vomiting, Start date: 06/21/18 21:43:00 CDT, Duration: 30 day, Stop date: 07/21/18 21:42:00 CDT Notes: (Same as: Zofran) Start Date: 06/21/18 Stop Date: 06/22/18 Status: DiscontinuedPROzac 40 mg, PO, Daily, 0 Refill(s) Start Date: 06/21/18 Status: OrderedPROzac 40 mg, 2 cap, Route: PO, Drug form: CAP, Daily, Dosing Weight 70.455, kg, Start date: 06/22/18 9:00:00 CDT, Duration: 30 day, Stop date: 07/21/18 9:00:00 CDT Notes: (Same as: Prozac, Sar[place]) Start Date: 06/22/18 Stop Date: 06/22/18 Status: Discontinuedremove patch 1 patch, Route: TOP, Drug form: ERFILM, Daily, Start date: 06/21/18 23:00:00 CDT , Duration: 30 day, Stop date: 07/20/18 23:00:00 CDT Notes: Remove old patch before application of new patch.WASTE: F/P - P Waste Black; E - P Waste Black Start Date: 06/21/18 Stop Date: 06/22/18 Status: DiscontinuedSaline Flush 0.9% 10 ml, Route: IVP, Drug Form: INJ, Dosing Weight 70.455, kg, Q12H, Start date: 06/22/18 9:00:00 CDT,Duration: 30 day, Stop date: 07/21/18 21:00:00 CDT Notes: (Same as: BD Posiflush) Start Date: 06/22/18 Stop Date: 06/22/18 Status: DiscontinuedSaline Flush 0.9% 10 ml, Route: IVP, Drug Form: INJ, Dosing Weight 70.455, kg, PRN, PRN Line Flush , Start date: 06/21/18 21:43:00 CDT, Duration: 30 day, Stop date: 07/21/18 21:42 :00 CDT Notes: (Same as: BD Posiflush) Start Date: 06/21/18 Stop Date: 06/22/18 Status: DiscontinuedSaline Flush 0.9% 10 mL, Route: IVP, Drug Form: INJ, Dosing Weight 70.455, kg, PRN, PRN Line Flush , Start date: 06/21/18 16:58:00 CDT, Duration: 30 day, Stop date: 07/21/18 16:57 :00 CDT Notes: (Same as: BD Posiflush) Start Date: 06/21/18 Stop Date: 06/21/18 Status: Deletedtrazodone 300 mg, 6 tab, Route: PO, Drug form: TAB, Bedtime, Dosing Weight 70.455, kg, Start date: 06/22/18 1:00:00 CDT, Duration: 30 day, Stop date: 07/21/18 21:00: 00 CDT Notes: (Same As: Rosemarie) Start Date: 06/22/18 Stop Date: 06/22/18 Status: Discontinuedtrazodone 300 mg, PO, Bedtime, 0 Refill(s) Start Date: 06/21/18 Status: OrderedXanax 0.25 mg oral tablet 0.25 mg=1 tab, PO, BID, PRN Anxiety, Stress, X 10 day, # 20 tab, 0 Refill(s) Start Date: 06/22/18 Stop Date: 07/02/18 Status: Completed Results ELECTROLYTES Most recent to oldest [Reference Range]: 1 2 3 Sodium Lvl [135-145 mEq/L] 142 mEq/L 144 mEq/L (06/22/18 3:47 AM) (06/21/18 6:08 PM) Potassium Lvl [3.5-5.1 mEq/L] 3.7 mEq/L 3.6 mEq/L (06/22/18 3:47 AM) (06/21/18 6:08 PM) Chloride Lvl [95-109 mEq/L] 109 mEq/L 108 mEq/L (06/22/18 3:47 AM) (06/21/18 6:08 PM) CO2 [24-32 mEq/L] 24 mEq/L 31 mEq/L (06/22/18 3:47 AM) (06/21/18 6:08 PM) AGAP [10.0-20.0 mEq/L] 12.7 mEq/L 8.6 mEq/L (06/22/18 3:47 AM) *LOW* (06/21/18 6:08 PM) CHEM PANEL Most recent to oldest [Reference Range]: 1 2 3 Creatinine Lvl [0.50-1.40 mg/dL] 0.61 mg/dL 0.68 mg/dL (06/22/18 3:47 AM) (06/21/18 6:08 PM) eGFR 98 mL/min/1.73m2 1 95 mL/min/1.73m2 2 *NA* *NA* (06/22/18 3:47 AM) (06/21/18 6:08 PM) BUN [7-22 mg/dL] 15 mg/dL 16 mg/dL (06/22/18 3:47 AM) (06/21/18 6:08 PM) B/C Ratio [6-25] 24 (06/21/18 6:08 PM) Glucose Lvl [70-99 mg/dL] 80 mg/dL 95 mg/dL (06/22/18 3:47 AM) (06/21/18 6:08 PM) Total Protein [6.4-8.4 g/dL] 6.2 g/dL *LOW* (06/21/18 6:08 PM) Albumin Lvl [3.5-5.0 g/dL] 3.3 g/dL *LOW* (06/21/18 6:08 PM) Globulin [2.7-4.2 g/dL] 2.9 g/dL (06/21/18 6:08 PM) A/G Ratio [0.7-1.6] 1.1 (06/21/18 6:08 PM) Calcium Lvl [8.5-10.5 mg/dL] 8.0 mg/dL 8.4 mg/dL *LOW* *LOW* (06/22/18 3:47 AM) (06/21/18 6:08 PM) ALT [0-65 unit/L] 33 unit/L (06/21/18 6:08 PM) AST [0-37 unit/L] 23 unit/L (06/21/18 6:08 PM) Alk Phos [39-136 unit/L] 74 unit/L (06/21/18 6:08 PM) Bili Total [0.2-1.3 mg/dL] 0.3 mg/dL (06/21/18 6:08 PM) 1Result Comment: The eGFR is calculated using the CKD-EPI formula. In most young , healthy individualsthe eGFR will be >90 mL/min/1.73m2. The eGFR declines with age. An eGFR of 60-89 may be normal insome populations, particularly the elderly, for whom the CKD-EPI formula has not been extensively validated. Use of the eGFR is not recommended in the following populations: Individuals with unstable creatinine concentrations, including patients and those with serious co-morbid conditions. Patients with extremes in muscle mass or diet. The data above are obtained from the National Kidney Disease Education Program ( NKDEP) which additionally recommends that when the eGFR is used in patients with extremes of body mass index for purposesof drug dosing, the eGFR should be multiplied by the estimated BMI.2Result Comment: The eGFR is calculated using the CKD-EPI formula. In most young, healthy individualsthe eGFR will be >90 mL/min/1.73m2. The eGFR declines with age. An eGFR of 60-89 may be normal insome populations, particularly the elderly, for whom the CKD-EPI formula has not been extensively validated. Use of the eGFR is not recommended in the following populations: Individuals with unstable creatinine concentrations, including patients and those with serious co-morbid conditions. Patients with extremes in muscle mass or diet. The data above are obtained from the National Kidney Disease Education Program ( NKDEP) which additionally recommends that when the eGFR is used in patients with extremes of body mass index for purposesof drug dosing, the eGFR should be multiplied by the estimated BMI.CARDIAC ENZYMES Most recent to oldest 1 2 3 [Reference Range]: Total CK [12-191 unit/L] 56 unit/L (06/21/18 6:08 PM) Troponin-I [0.00-0.40 ng/mL] <0.02 ng/mL 0.02 ng/mL 0.02 ng/mL (06/22/18 3:47 AM) (06/21/18 10:29 PM) (06/21/18 6:08 PM) LIPIDS Most recent to oldest [Reference Range]: 1 2 3 CHD Risk [3.90-5.80] 3.02 *LOW* (06/22/18 3:47 AM) Chol [<=199 mg/dL] 145 mg/dL (06/22/18 3:47 AM) Trig [<=149 mg/dL] 164 mg/dL *HI* (06/22/18 3:47 AM) HDL [>=61 mg/dL] 48 mg/dL *LOW* (06/22/18 3:47 AM) LDL (Calculated) [<=99 mg/dL] 64 mg/dL (06/22/18 3:47 AM) VLDL 33 *NA* (06/22/18 3:47 AM) HEMATOLOGY Most recent to oldest [Reference Range]: 1 2 3 WBC [3.7-10.4 K/CMM] 6.0 K/CMM 6.7 K/CMM (06/22/18 3:47 AM) (06/21/18 5:14 PM) RBC [4.20-5.40 M/CMM] 4.65 M/CMM 4.61 M/CMM (06/22/18 3:47 AM) (06/21/18 5:14 PM) Hgb [12.0-16.0 g/dL] 13.9 g/dL 14.4 g/dL (06/22/18 3:47 AM) (06/21/18 5:14 PM) Hct [36.0-48.0 %] 40.9 % 40.5 % (06/22/18 3:47 AM) (06/21/18 5:14 PM) MCV [80.0-98.0 fL] 88.0 fL 87.8 fL (06/22/18 3:47 AM) (06/21/18 5:14 PM) MCH [27.0-31.0 pg] 29.9 pg 31.2 pg (06/22/18 3:47 AM) *HI* (06/21/18 5:14 PM) MCHC [32.0-36.0 g/dL] 33.9 g/dL 35.5 g/dL (06/22/18 3:47 AM) (06/21/18 5:14 PM) RDW [11.5-14.5 %] 13.6 % 13.6 % (06/22/18 3:47 AM) (06/21/18 5:14 PM) MPV [7.4-10.4 fL] 9.0 fL 9.0 fL (06/22/18 3:47 AM) (06/21/18 5:14 PM) Platelet [133-450 K/CMM] 173 K/CMM 183 K/CMM (06/22/18 3:47 AM) (06/21/18 5:14 PM) Segs [45.0-75.0 %] 53.0 % 58.4 % (06/22/18 3:47 AM) (06/21/18 5:14 PM) Lymphocytes [20.0-40.0 %] 34.4 % 31.3 % (06/22/18 3:47 AM) (06/21/18 5:14 PM) Monocytes [2.0-12.0 %] 8.9 % 6.8 % (06/22/18 3:47 AM) (06/21/18 5:14 PM) Eosinophils [0.0-4.0 %] 2.9 % 2.4 % (06/22/18 3:47 AM) (06/21/18 5:14 PM) Basophils [0.0-1.0 %] 0.8 % 1.1 % (06/22/18 3:47 AM) *HI* (06/21/18 5:14 PM) Neutrophils # [1.5-8.1 K/CMM] 3.2 K/CMM 3.9 K/CMM (06/22/18 3:47 AM) (06/21/18 5:14 PM) Lymphocytes # [1.0-5.5 K/CMM] 2.1 K/CMM 2.1 K/CMM (06/22/18 3:47 AM) (06/21/18 5:14 PM) Monocytes # [0.0-0.8 K/CMM] 0.5 K/CMM 0.5 K/CMM (06/22/18 3:47 AM) (06/21/18 5:14 PM) Eosinophils # [0.0-0.5 K/CMM] 0.2 K/CMM 0.2 K/CMM (06/22/18 3:47 AM) (06/21/18 5:14 PM) Basophils # [0.0-0.2 K/CMM] 0.1 K/CMM (06/21/18 5:14 PM) Immunizations No data available for this section Procedures Procedure Date Related Diagnosis Body Site Status Breast biopsy and related procedures Completed Cholecystectomy Completed Foot repair Completed Hernia repair Completed Stent placement Completed Social History Social History Type Response Substance Abuse Use: Past. Type: Methamphetamines. Recreational Drug Route: Inhaled, Intravenous, Oral.1 Alcohol Past, Last use: 2014. Smoking Status Current every day smoker; Type: Cigarettes; Exposure to Tobacco Smoke None; Cigarette Smoking Last 365 Days No; Reg Smoking Cessation Counseling No entered on: 06/22/18 1crack, meth, opiods stopped in 2014, relapsed 1 month ago with crack and meth ( smoke) for 24 hr period Assessment and Plan Extracted from: Title: History and Physical Author: Renee Jaime DO Date: 06/21/18 1.Atypical chest pain Patient will beadmitted under observation statusto the telemetry unit with anticipated LOS of 1 midnight. Heart healthy diet. IV fluids, home medications, supportive care as appropriate. Cycl e cardiac enzymes. Obtain a fasting lipid profile. 2.Essential hypertension Continue home medications as appropriate. PRN antihypertensive medications as appropriate. Ordered: Admit/Condition, 06/21/18 19:48:00 CDT, Status: Out Patient with Observation Services, Telemetry, Expected LOS: 1 Midnight, Renee Jaime DO, Admit MD Review/Approve Yes 3.Depression Continue medical management as appropriate. Patient was recently admitted to [facility] following suicide attempt 4.Tobacco use NicoDerm patch. Cessation encouraged DVT prophylaxis Patient will beadmitted under observation statusto the telemetry unit with anticipated LOS of 1 midnight. Patient was seen [email or web address] at 7:58 PM.
--- OUTSIDE RECORDS SUMMARY | 2019-03-14 12:01 | XMS REPORT ---
[...] Atherosclerosis of coronary artery I25.10 Active of [place] heart Problem Atherosclerosis of coronary artery I25.10 Active of [place] heart Problem Tobacco use disorder Z72.0 Active Medications Medication Code Code Instructions Start End Status Dosage System Date Date Isosorbide NDC 65909951330 60 MG Orally Active 1 tablet Mononitrate ER Once a day in the morning Results No Known Results Summary Purpose Spinal [employer] Submission
--- OUTSIDE RECORDS SUMMARY | 2019-03-14 12:02 | XMS REPORT ---
[...] Atherosclerosis of coronary artery I25.10 Active of [place] heart Problem Tobacco use disorder Z72.0 Active Medications Medication Code Code Instructions Start End Status Dosage System Date Date Lipitor ND 20867803575 40 MG Orally Active 1 tablet Once a day Lisinopril ND 98155357521 40 MG Orally Active 1 tablet Once a day HydrALAZINE HCl ND 28940210121 50 MG Orally Active 1 tablet Three times a with food day Hydrochlorothiazide ND 37560162230 25 MG Orally Active 1 tablet Once a day in the morning Metoprolol Tartrate ND 09384008625 100 MG Orally Active 1 tablet Twice a day with food Results No Known Results Summary Purpose eClinicalWorks Submission
--- OUTSIDE RECORDS SUMMARY | 2019-03-14 12:02 | XMS REPORT ---
:1955 Author Organization e[employer] Care Team Providers Name Role Phone Misael Rodriguezh Provider Role Unavailable Allergies, Adverse Reactions, Alerts Substance Reaction Event Type N.K.D.A. Info Not Available Non Drug Allergy Problems Problem Type Condition Code Onset Dates Condition Status Problem GERD (gastroesophageal reflux K21.9 Active disease) Problem Atherosclerosis of coronary artery I25.10 Active of [place] heart Problem Benign essential HTN I10 Active [...] End Status Dosage System Date Date [facility] 01897461592 81 MG Orally Active 1 tablet Once a day Metoprolol Tartrate [facility] 90943041242 100 MG Orally Active 1 tablet Twice a day with food ProAir HFA [facility] 03403569639 108 (90 Base) Active 2 puffs MCG/ACT as needed Inhalation every 6 hrs as needed for cough, shortness of breath and wheezing Prozac [facility] 85365280956 40 MG Orally Active 1 capsule Once a day Metoprolol Tartrate [facility] 09211051089 100 MG Orally Active 1 tablet Twice a day with food HydrALAZINE HCl [facility] 75532955515 50 MG Orally Active 1 tablet Three times a with food day Lipitor [facility] 17064526487 40 MG Orally Active 1 tablet Once a day Hydrochlorothiazide [facility] 47012187215 25 MG Orally Active 1 tablet Once a day in the morning Isosorbide Mononitrate [facility] 87975367042 60 MG Active TAKE 1 ER TABLET BY MOUTH INTHE MORNING Latuda [facility] 57662903224 60 MG Orally Active 1 tablet Once a day with food Lisinopril [facility] 00251367655 40 MG Active TAKE 1 TABLET BY MOUTH ONCE DAILY HydrALAZINE HCl [facility] 13167385845 50 MG Orally Active 1 tablet Three times a with food day Trazodone HCl [facility] 26123291196 300 MG Orally Active 0.5 Once a day tablet at bedtime Isosorbide Mononitrate [facility] 39128725880 60 MG Orally Active 1 tablet ER Once a day in the morning Hydrochlorothiazide [facility] 65975391084 25 MG Orally Active 1 tablet Once a day in the morning Lipitor [facility] 61079187497 40 MG Orally Active 1 tablet Once a day Lisinopril [facility] 28321143636 40 MG Orally Active 1 tablet Once a day [facility] 13776921759 10 MG Orally Active 1 tablet Once a day [facility] 23011272112 10 MG Orally Active 1 tablet Once a day Results No Known Results Summary Purpose eClinicalWorks Submission
--- OUTSIDE RECORDS SUMMARY | 2019-03-14 12:02 | XMS REPORT ---
[...] Atherosclerosis of coronary artery I25.10 Active of [place] heart Assessment Atherosclerosis of coronary artery I25.10 Active of [place] heart Problem Tobacco use disorder Z72.0 Active Medications Medication Code Code Instructions Start End Status Dosage System Date Date Metoprolol Tartrate [facility] 08067550503 100 MG Orally Active 1 tablet Twice a day with food Lisinopril [facility] 99489832810 40 MG Orally Active 1 tablet Once a day Trazodone HCl [facility] 00995103822 300 MG Orally Active 0.5 Once a day tablet at bedtime Norvasc [facility] 30316421258 10 MG Orally Active 1 tablet Once a day Latuda [facility] 37869222333 60 MG Orally Active 1 tablet Once a day with food HydrALAZINE HCl [facility] 56555556451 50 MG Orally Active 1 tablet Three times a with food day ProAir HFA [facility] 71006087321 108 (90 Base) Active 2 puffs MCG/ACT as needed Inhalation every 6 hrs as needed for cough, shortness of breath and wheezing Isosorbide Mononitrate [facility] 08015078512 60 MG Orally Active 1 tablet ER Once a day in the morning Prozac [facility] 70331654124 40 MG Orally Active 1 capsule Once a day Hydrochlorothiazide [facility] 44687128368 25 MG Orally Active 1 tablet Once a day in the morning -81 [facility] 38792884132 81 MG Orally Active 1 tablet Once a day Lipitor [facility] 84358534165 40 MG Orally Active 1 tablet Once a day Results No Known Results Summary Purpose eClinicalWorks Submission
--- OUTSIDE RECORDS SUMMARY | 2019-03-14 12:02 | XMS REPORT ---
:1955 [facility] Address [address] [place] [address] Dr. Santiago [address] [place] [address] Care Team Providers Name Role Phone Unavailable Unavailable Unavailable Problems This patient has no known problems. Allergies, Adverse Reactions, Alerts This patient has no known allergies or adverse reactions. Medications This patient has no known medications.
--- OUTSIDE RECORDS SUMMARY | 2019-03-14 12:02 | XMS REPORT ---
[...] Atherosclerosis of coronary artery I25.10 Active of [place] heart Problem Hx of breast cancer Z85.3 [...]
--- OUTSIDE RECORDS SUMMARY | 2019-03-14 12:02 | XMS REPORT ---
[...] Atherosclerosis of coronary artery I25.10 Active of [place] heart Problem Atherosclerosis of coronary artery I25.10 Active of [place] heart Assessment Benign essential HTN I10 Active Problem Tobacco use disorder Z72.0 Active Medications Medication Code Code Instructions Start End Status Dosage System Date Date [facility] 10 MG Orally Active 1 tablet Once a day Hydrochlorothiazide [facility] 62051086399 25 MG Orally Active 1 tablet Once a day in the morning HydrALAZINE HCl [facility] 60899636850 50 MG Orally Active 1 tablet Three times a with food day Latuda [facility] 35197006658 60 MG Orally Active 1 tablet Once a day with food Lisinopril [facility] 87571880021 40 MG Orally Active 1 tablet Once a day Isosorbide Mononitrate [facility] 17294930332 60 MG Orally Active 1 tablet ER Once a day in the morning Aspir-81 [facility] 66447328559 81 MG Orally Active 1 tablet Once a day Metoprolol Tartrate [facility] 93240290874 100 MG Orally Active 1 tablet Twice a day with food Prozac [facility] 88760520386 40 MG Orally Active 1 capsule Once a day HydrALAZINE HCl [facility] 75101912985 50 MG Orally Active 1 tablet Three times a with food day Trazodone HCl [facility] 55149850950 300 MG Orally Active 0.5 Once a day tablet at bedtime Lipitor [facility] 58865895285 40 MG Orally Active 1 tablet Once a day Norvasc [facility] 15421753809 10 MG Orally Active 1 tablet Once a day ProAir HFA [facility] 34966968132 108 (90 Base) Active 2 puffs MCG/ACT as needed Inhalation every 6 hrs as needed for cough, shortness of breath and wheezing Isosorbide Mononitrate [facility] 13807964921 60 MG Orally Active 1 tablet ER Once a day in the morning Results No Known Results Summary Purpose eClinicalWorks Submission
--- OUTSIDE RECORDS SUMMARY | 2019-03-14 12:02 | XMS REPORT ---
:1955 Author Organization [employer]Works Care Team Providers Name Role Phone Rodriguez, Juancarlos Provider Role Unavailable Allergies No Known Allergies Problems Problem Type Condition Code Onset Dates Condition Status Problem Osteoarthritis of multiple joints M15.9 Active Problem Hyperlipidemia, mixed E78.2 Active Problem Hx of breast cancer Z85.3 Active Problem Atherosclerosis of coronary artery I25.10 Active of [place] heart Problem Tobacco use disorder Z72.0 Active [...]
--- OUTSIDE RECORDS SUMMARY | 2019-03-14 12:02 | XMS REPORT ---
:1955 Author Organization [employer]Works Care Team Providers Name Role Phone Juancarlos Rodriguez Provider Role Unavailable Allergies No Known Allergies Problems Problem Type Condition Code Onset Dates Condition Status Problem GERD (gastroesophageal reflux K21.9 Active disease) Problem Atherosclerosis of coronary artery I25.10 Active of [place] heart Problem Benign essential HTN I10 Active [...]
--- OUTSIDE RECORDS SUMMARY | 2019-03-14 12:03 | XMS REPORT ---
:1955 Author Organization [employer]Works Care Team Providers Name Role Phone Michael Juancarlos Provider Role Unavailable Allergies, Adverse Reactions, Alerts Substance Reaction Event Type N.K.D.A. Info Not Available Non Drug Allergy Problems Problem Type Condition Code Onset Dates Condition Status Assessment GERD (gastroesophageal reflux K21.9 Active disease) Assessment Osteoarthritis of multiple joints M15.9 Active Assessment Stented coronary artery Z95.5 Active Assessment Hyperlipidemia, mixed E78.2 Active Problem Chronic back pain M54.9 Active Assessment Insomnia G47.00 Active Problem Stented coronary artery Z95.5 Active Assessment Tobacco use disorder Z72.0 Active Problem Depression with anxiety F41.8 Active Problem GERD (gastroesophageal reflux K21.9 Active disease) Problem Insomnia G47.00 Active Problem Acute on chronic diastolic I50.33 Active congestive heart failure Problem Paresthesia R20.2 Active Assessment Atherosclerosis of coronary artery I25.10 Active of [place] heart Assessment Chronic obstructive pulmonary J44.9 Active disease Problem COPD exacerbation J44.1 Active Assessment Depression with anxiety F41.8 Active Problem Hyperlipidemia, mixed E78.2 Active Problem Benign essential HTN I10 Active Problem Other chronic pain G89.29 Active Problem Chronic obstructive pulmonary J44.9 Active disease Assessment COPD exacerbation J44.1 Active Assessment Benign essential HTN I10 Active Assessment Acute on chronic diastolic I50.33 Active congestive heart failure Problem Osteoarthritis of multiple joints M15.9 Active Problem Hx of breast cancer Z85.3 Active Problem Atherosclerosis of coronary artery I25.10 Active of [place] heart Problem Tobacco use disorder Z72.0 Active Medications Medication Code Code Instructions Start End Status Dosage System Date Date Isosorbide Mononitrate [facility] 11020606931 60 MG Orally Active 1 tablet ER Once a day in the morning Aspir-81 [place] 35392638712 81 MG Orally Active 1 tablet Once a day Lisinopril ND 06801151816 40 MG Orally Active 1 tablet Once a day Metoprolol Tartrate ND 56720209357 100 MG Orally Active 1 tablet Twice a day with food Advair HFA ND 98154309653 230-21 MCG/ACT Active 2 puffs Inhalation Twice a day HydrALAZINE HCl [facility] 03416980076 50 MG Orally Active 1 tablet Three times a with food day Latuda [facility] 43527811136 60 MG Orally Active 1 tablet Once a day with food Norvasc [facility] 40052150947 10 MG Orally Active 1 tablet Once a day Hydrochlorothiazide [facility] 38723323459 25 MG Orally Active 1 tablet Once a day in the morning Isosorbide Mononitrate [facility] 70977276532 60 MG Active TAKE 1 ER TABLET BY MOUTH INTHE MORNING ProAir HFA [facility] 97428107016 108 (90 Base) Active 2 puffs MCG/ACT as needed Inhalation every 6 hrs as needed for cough, shortness of breath and wheezing Lipitor [facility] 82879058537 40 MG Orally Active 1 tablet Once a day Prozac [facility] 95322667354 40 MG Orally Active 1 capsule Once a day Trazodone HCl [facility] 09832378732 300 MG Orally Active 0.5 Once a day tablet at bedtime Results No Known Results Summary Purpose eClinicalWorks Submission
--- OUTSIDE RECORDS SUMMARY | 2019-03-14 12:03 | XMS REPORT ---
:1955 Author Organization eClinicalWorks Care Team Providers Name Role Phone Michael Juancarlos Provider Role Unavailable Allergies No Known Allergies Problems Problem Type Condition Code Onset Dates Condition Status Problem Chronic obstructive pulmonary J44.9 Active disease Problem Osteoarthritis of multiple joints M15.9 Active Problem Tobacco use disorder Z72.0 Active Problem Acute on chronic diastolic I50.33 Active congestive heart failure Problem Paresthesia R20.2 Active Problem COPD exacerbation J44.1 Active Problem Atherosclerosis of coronary artery I25.10 Active of [place] heart Problem Hx of breast cancer Z85.3 Active Problem Other chronic pain G89.29 Active Problem 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
--- OUTSIDE RECORDS SUMMARY | 2019-03-14 12:03 | XMS REPORT ---
:1955 Author Organization eClinicalWorks Care Team Providers Name Role Phone Juancarlos Rodriguez Provider Role Unavailable Allergies, Adverse Reactions, Alerts Substance Reaction Event Type N.K.D.A. Info Not Available Non Drug Allergy Problems Problem Type Condition Code Onset Dates Condition Status Problem GERD (gastroesophageal reflux K21.9 Active disease) Problem Atherosclerosis of coronary artery I25.10 Active of [place] heart Problem Benign essential HTN I10 Active Problem Other chronic pain G89.29 Active Problem Chronic obstructive pulmonary J44.9 Active disease Problem Paresthesia R20.2 Active Problem Osteoarthritis of multiple joints M15.9 Active Problem Tobacco use disorder Z72.0 Active Problem Hyperlipidemia, mixed E78.2 Active Problem Hx of breast cancer Z85.3 Active Problem Chronic back pain M54.9 Active Problem Stented coronary artery Z95.5 Active Assessment Chronic obstructive pulmonary J44.9 Active disease Problem Depression with anxiety F41.8 Active Problem Insomnia G47.00 Active Medications Medication Code Code Instructions Start End Status Dosage System Date Date ProAir HFA [facility] 13003253615 108 (90 Base) Active 2 puffs MCG/ACT as needed Inhalation every 6 hrs as needed for cough, shortness of breath and wheezing Isosorbide Mononitrate [facility] 96597110446 60 MG Active TAKE 1 ER TABLET BY MOUTH INTHE MORNING HydrALAZINE HCl [facility] 20645283839 50 MG Orally Active 1 tablet Three times a with food day [facility] 35731406057 10 MG Orally Active 1 tablet Once a day Prozac [facility] 36822395153 40 MG Orally Active 1 capsule Once a day Hydrochlorothiazide [facility] 59296750627 25 MG Orally Active 1 tablet Once a day in the morning Hydrochlorothiazide [facility] 45444269467 25 MG Orally Active 1 tablet Once a day in the morning [facility] 16263891877 10 MG Orally Active 1 tablet Once a day HydrALAZINE HCl [facility] 47727988496 50 MG Orally Active 1 tablet Three times a with food day Metoprolol Tartrate [facility] 19901849510 100 MG Orally Active 1 tablet Twice a day with food Latuda [facility] 39462864697 60 MG Orally Active 1 tablet Once a day with food Trazodone HCl [facility] 29950061276 300 MG Orally Active 0.5 Once a day tablet at bedtime Lisinopril [facility] 68946853755 40 MG Active TAKE 1 TABLET BY MOUTH ONCE DAILY Metoprolol Tartrate [facility] 64628136885 100 MG Orally Active 1 tablet Twice a day with food Aspir-81 [facility] 16422726982 81 MG Orally Active 1 tablet Once a day Lisinopril [facility] 65916541798 40 MG Orally Active 1 tablet Once a day Lipitor [facility] 63003336109 40 MG Orally Active 1 tablet Once a day Lipitor [facility] 01784151005 40 MG Orally Active 1 tablet Once a day Isosorbide Mononitrate [facility] 82143502715 60 MG Orally Active 1 tablet ER Once a day in the morning Results No Known Results Summary Purpose eClinicalWorks Submission
--- OUTSIDE RECORDS SUMMARY | 2019-03-14 12:03 | XMS REPORT ---
[...] mixed E78.2 Active Assessment Insomnia G47.00 Active Problem Benign essential HTN I10 Active Assessment Tobacco use disorder Z72.0 Active Problem Hyperlipidemia, mixed E78.2 Active Assessment Depression with anxiety F41.8 Active Problem Chronic obstructive pulmonary J44.9 Active disease Problem Osteoarthritis of multiple joints M15.9 Active Problem Tobacco use disorder Z72.0 Active Problem Acute on chronic diastolic I50.33 Active congestive heart failure Problem Paresthesia R20.2 Active Assessment Benign essential HTN I10 Active Assessment Chronic diastolic congestive heart I50.32 Active failure Problem COPD exacerbation J44.1 Active Assessment Atherosclerosis of coronary artery I25.10 Active of [place] heart Problem Atherosclerosis of coronary artery I25.10 Active of [place] [facility] Problem Hx of breast cancer Z85.3 Active Problem Other chronic pain G89.29 Active Problem 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 depressive disorder without prior episode Problem Chronic back pain M54.9 Active Assessment 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 depressive disorder without prior episode Assessment Chronic obstructive pulmonary J44.9 Active disease Problem Insomnia G47.00 Active Problem GERD (gastroesophageal reflux K21.9 Active disease) Problem Stented coronary artery Z95.5 Active Problem Depression with anxiety F41.8 Active Medications Medication Code Code Instructions Start End Status Dosage System Date [facility] 89651194729 81 MG Orally Active 1 tablet Once a day Trazodone HCl [facility] 93456847808 300 MG Orally Active 0.5 Once a day tablet at bedtime Lisinopril [facility] 49647208551 40 MG Orally Active 1 tablet Once a day Norvasc [facility] 33986386432 10 MG Orally Active 1 tablet Once a day ProAir HFA [facility] 27243658993 108 (90 Base) Active 2 puffs MCG/ACT as needed Inhalation every 6 hrs as needed for cough, shortness of breath and wheezing Isosorbide Mononitrate [facility] 81643264684 60 MG Orally Active 1 tablet ER Once a day in the morning Prozac [facility] 18077228651 40 MG Orally Active 1 capsule Once a day HydrALAZINE HCl [facility] 07910837273 50 MG Orally Active 1 tablet Three times a with food day Metoprolol Tartrate [facility] 35445791311 100 MG Orally Active 1 tablet Twice a day with food Hydrochlorothiazide [facility] 02890646948 25 MG Orally Active 1 tablet Once a day in the morning Advair HFA [facility] 29936308086 230-21 MCG/ACT Active 2 puffs Inhalation Twice a day Isosorbide Mononitrate [facility] 41880662658 60 MG Active TAKE 1 ER TABLET BY MOUTH INTHE MORNING Lipitor [facility] 06170640669 40 MG Orally Active 1 tablet Once a day Latuda [facility] 88845690549 60 MG Orally Active 1 tablet Once a day with food Results No Known Results Summary Purpose eClinicalWorks Submission
[2019-03-14 12:44] LABS: Absolute Lymphocytes (CBC) 1.8 K/uL (0.7-4.9); Absolute Monocytes 0.6 K/uL (0.1-1.3); Absolute Neutrophil 4.5 K/uL (1.8-8.0); Basophils % 0.6 % (0-1.3); Eosinophils % 0.7 % (0-4.4); Hematocrit 42.9 % (36.0-45.0); Lymphocytes % 25.8 % (15.3-44.8); MPV 9.1 fL (7.6-11.3); Monocytes % 8.2 % (3.3-12.3); RBC Red Blood Cell Count 4.83 M/uL (3.86-4.86)
[2019-03-14 13:03] LABS: Urine Blood NEGATIVE (NEG); Urine Glucose NEGATIVE (NEG); Urine Protein NEGATIVE (NEG); Urine Specific Gravity 1.015 (1.005-1.030); Urine pH 6.5 (5.0-7.0)
[2019-03-14 13:03] LABS: ALT/SGPT 34 U/L (12-78); AST/SGOT 30 U/L (15-37); Albumin 3.4 g/dL (3.4-5.0); Alkaline Phosphatase 64 U/L (45-117); BUN Blood Urea Nitrogen 20 mg/dL (7-18); Bicarbonate 27 mmol/L (21-32); Bilirubin Total 0.7 mg/dL (0.2-1.0); Glucose Level 133 mg/dL (74-106); Lipase 129 U/L (73-393); Protein, Total 6.9 g/dL (6.4-8.2); Sodium Level 141 mmol/L (136-145); Troponin (Emerg Dept Use Only) < 0.02 ng/mL (0.0-0.045)
[2019-03-14 13:03] LABS: Barbiturates NEGATIVE (NEGATIVE); Benzodiazepines NEGATIVE (NEGATIVE); Cocaine NEGATIVE (NEGATIVE); METHAMPHETAM NEGATIVE (NEGATIVE); Methadone NEGATIVE (NEGATIVE); Opiates NEGATIVE (NEGATIVE); Phencyclidine NEGATIVE (NEGATIVE); THC Cannibis NEGATIVE (NEGATIVE)
[2019-03-14 13:07] LABS: Potassium 2.8 mmol/L (3.5-5.1)
--- NOTE | 2019-03-14 13:34 | RAD REPORT ---
EXAM DESCRIPTION: Nicolasa Single View03/14/2019 1:20 pm CLINICAL HISTORY: Shortness of breath COMPARISON: November 2018 FINDINGS: The lungs appear clear of acute infiltrate. The heart is normal size IMPRESSION: No acute abnormalities displayed
--- NOTE | 2019-03-14 13:36 | EDPHYS ---
Physician Documentation [facility] Name: Ophelia Grady Age: 63 yrs Sex: Female : 1955 Arrival Date: 03/14/2019 Time: 12:03 Bed 7 Private MD: ED Physician Tristan Rich HPI: 03/14 12:12 This 63 yrs old Female presents to ER via EMS with complaints of near syncope.ps1 12:12 patient states that she started gabapentin 2 weeks ago while committed for Psych ps1 issues. She states that she drank etoh 14 days ago and became SI. Not today. She went to Dr. Chavez office for evaluation of non-specific abd pain that has been going on for a while and she had an episode of light headedness and felt as though she was going to fall out. She states that she had a couple of instances over the last couple of days. No CP, SOB, N,V,D or leg swelling. . Historical: - Allergies: 12:15 Benadryl; ph 12:15 Codeine; ph 12:15 Ketorolac; ph 12:15 tramadol; ph - Home Meds: 12:15 aspirin 81 mg Oral TbEC 1 tab once daily [Active]; atorvastatin 40 mg Oral tab 1 tab ph once daily [Active]; buspirone 10 mg Oral tab 1 tab 2 times per day [Active]; fluoxetine 40 mg Oral cap 1 cap once daily [Active]; hydralazine 50 mg Oral tab 1 tab three times a day [Active]; isosorbide mononitrate 60 mg Oral Tb24 1 tab once daily [Active]; Latuda 60 mg Oral tab 1 tab once daily [Active]; lisinopril 40 mg Oral tab 1 tab once daily [Active]; metoprolol tartrate 100 mg Oral tab 1 tab 2 times per day [Active]; trazodone 300 mg Oral tab 1 tab nightly [Active]; - PMHx: 12:15 ADD/ADHD; Anemia; Cancer; CHF; COPD; Depression; Hyperlipidemia; Hypertension; Major ph Depressive Disorder; Schizo-affective disorder; - PSHx: 12:15 Mastectomy, Left; Hernia repair; Mastectomy, Right; Cholecystectomy; Heel Surgery both ph Feet; Umbilical Hernia Mesh; Tumor removal - L shoulder; Heart stents; - Immunization history:: Adult Immunizations unknown. - Social history:: Smoking status: Patient uses tobacco products, smokes one pack cigarettes per day. Patient/guardian denies using alcohol, street drugs. - Ebola Screening: : No symptoms or risks identified at this time. ROS: 12:12 Constitutional: Negative for fever, chills, and weight loss, Eyes: Negative for injury, ps1 pain, redness, and discharge, ENT: Negative for injury, pain, and discharge, Cardiovascular: Negative for chest pain, palpitations, and edema, Respiratory: Negative for shortness of breath, cough, wheezing, and pleuritic chest pain, Abdomen/GI: Negative for abdominal pain, nausea, vomiting, diarrhea, and constipation, MS/Extremity: Negative for injury and deformity, Skin: Negative for injury, rash, and discoloration. 12:12 Neuro: Positive for near syncope. Exam: 12:12 Constitutional: This is a well developed, well nourished patient who is awake, alert, ps1 and in no acute distress. Head/Face: Normocephalic, atraumatic. Eyes: Pupils equal round and reactive to light, extra-ocular motions intact. Lids and lashes normal. Conjunctiva and sclera are non-icteric and not injected. ENT: Nares patent. No nasal discharge, no septal abnormalities noted. Tympanic membranes are normal and external auditory canals are clear. Oropharynx with no redness, swelling, or masses, exudates, or evidence of obstruction, uvula midline. Mucous membranes moist. Chest/axilla: Normal chest wall appearance and motion. Nontender with no deformity. No lesions are appreciated. Cardiovascular: Regular rate and rhythm. No gallops, murmurs, or rubs. Normal PMI, no JVD. No pulse deficits. Respiratory: Lungs have equal breath sounds bilaterally, clear to auscultation and percussion. No rales, rhonchi or wheezes noted. No increased work of breathing, no retractions or nasal flaring. Abdomen/GI: Soft, non-tender, with normal bowel sounds. No distension or tympany. No guarding or rebound. No evidence of tenderness throughout. Skin: Warm, dry with normal turgor. Normal color with no rashes, no lesions, and no evidence of cellulitis. MS/ Extremity: Pulses equal, no cyanosis. Neurovascular intact. Full, normal range of motion. Neuro: Awake and alert, GCS 15, oriented to person, place, time, and situation. Cranial nerves II-XII grossly intact. Sensory grossly intact. Vital Signs: 12:06 BP 92 / 67; Pulse 64; Resp 18; Temp 97.8; Pulse Ox 94% on R/A; Weight 70.31 kg; Height ph 5 ft. 4 in. (162.56 cm); 12:55 BP 100 / 71; Pulse 59; Resp 12; Temp 97.9(O); Pulse Ox 93% on R/A; mh5 13:34 BP 104 / 76; Pulse 59; Resp 16; Pulse Ox 97% on R/A; ph 14:19 BP 112 / 66; Pulse 57; Resp 14; Temp 97.6(O); Pulse Ox 94% on R/A; mh5 15:10 BP 97 / 63; Pulse 58; Resp 14; Temp 97.6(O); Pulse Ox 94% on R/A; mh5 15:51 BP 127 / 84; Pulse 65; Resp 18; Temp 97.8; Pulse Ox 98% on R/A; ph 12:06 Body Mass Index 26.61 (70.31 kg, 162.56 cm) ph MDM: 12:15 Patient medically screened. ps1 13:36 Data reviewed: vital signs, nurses notes, EMS record, lab test result(s), EKG, ps1 radiologic studies, and as a result, I will admit patient. Counseling: I had a detailed discussion with the patient and/or guardian regarding: the historical points, exam findings, and any diagnostic results supporting the discharge/admit diagnosis, the need for further work-up and treatment in the hospital. 03/14 12:11 Order name: UDS; Complete Time: 13:32 ps1 03/14 12:11 Order name: CBC with Diff; Complete Time: 12:51 ps1 03/14 12:11 Order name: Lipase; Complete Time: 13:32 ps1 03/14 12:11 Order name: Magnesium; Complete Time: 13:32 ps1 03/14 12:11 Order name: Troponin (emerg Dept Use Only); Complete Time: 13:32 ps1 03/14 12:11 Order name: CMP; Complete Time: 13:32 ps1 03/14 12:11 Order name: Call for Old EKG ps1 03/14 12:11 Order name: EKG; Complete Time: 12:13 ps1 03/14 12:12 Order name: CXR XRAY; Complete Time: 13:36 [facility] 03/14 12:53 Order name: Urine Dipstick--Ancillary (enter results); Complete Time: 13:32 dh3 03/14 14:04 Order name: CONS Physician Consult EDNC 03/14 14:04 Order name: Heart Healthy EDNC 03/14 14:07 Order name: Potassium EDNC 03/14 12:11 Order name: Cardiac monitoring; Complete Time: 12:16 ps1 03/14 12:11 Order name: EKG - Nurse/Tech; Complete Time: 12:16 ps1 03/14 12:11 Order name: IV Saline Lock; Complete Time: 12:51 ps1 03/14 12:11 Order name: Labs collected and sent; Complete Time: 12:51 ps1 03/14 12:11 Order name: NPO; Complete Time: 12:16 ps1 03/14 12:11 Order name: O2 Per Protocol; Complete Time: 12:16 ps1 03/14 12:11 Order name: O2 Sat Monitoring; Complete Time: 12:16 ps1 03/14 12:11 Order name: Urine Dipstick-Ancillary (obtain specimen); Complete Time: 12:49 ps1 EC:04 Rate is 62 beats/min. Rhythm is regular. QRS [place] is Normal. AL interval is normal. QRS ps1 interval is normal. QT interval is normal. No Q waves. T waves are Normal. ST Segment is depressed in leads III, aVF, V4, V5, V6. Clinical impression: NSR w/ Non-specific ST/T Changes. Interpreted by me. Administered Medications: 14:55 Drug: Potassium Chloride 40 mEq Route: PO; ph 16:32 Follow up: Response: No adverse reaction ph Disposition: 03/14/19 13:34 Hospitalization ordered by Martha Rodriguez for Inpatient Admission. Preliminary diagnosis are Syncope and collapse, Abnormal electrocardiogram [ECG] [EKG]. - Bed requested for Telemetry/MedSurg (Inpatient). - Status is Inpatient Admission. ph - Condition is Stable. - Problem is new. - Symptoms are unchanged. UTI on Admission? No Signatures: Dispatcher [employer] [facility] Marie Whitaker Patricia, RN RN ph Tristan Rich MD MD ps1 Corrections: (The following items were deleted from the chart) 15:06 13:34 Hospitalization Ordered by Martha Rodriguez MD for Inpatient Admission. Preliminary bd diagnosis is Syncope and collapse; Abnormal electrocardiogram [ECG] [EKG]. Bed requested for Telemetry/MedSurg (Inpatient). Status is Inpatient Admission. Condition is Stable. Problem is new. Symptoms are unchanged. UTI on Admission? No. ps1 16:32 15:06 03/14/2019 13:34 Hospitalization Ordered by Martha Rodriguez MD for Inpatient ph Admission. Preliminary diagnosis is Syncope and collapse; Abnormal electrocardiogram [ECG] [EKG]. Bed requested for Telemetry/MedSurg (Inpatient). Status is Inpatient Admission. Condition is Stable. Problem is new. Symptoms are unchanged. UTI on Admission? No. bd
--- NOTE | 2019-03-14 13:36 | ER ---
Nurse's Notes [facility] Name: Ophelia Grady Age: 63 yrs Sex: Female : 1955 Arrival Date: 03/14/2019 Time: 12:03 Bed 7 Private MD: Diagnosis: Syncope and collapse;Abnormal electrocardiogram [ECG] [EKG] Presentation: 03/14 12:03 Presenting complaint: EMS states: Was at [facility] for appt, had syncopal episode after ph standing, orthostatics positive for GI center staff, pt reports dizziness, initial systolic BP 80s, up to 107 after approx 100 mL of NS. Transition of care: patient was received from another setting of care (ambulatory specialty care practice), [facility]. Onset of symptoms was March 14, 2019. Risk Assessment: Do you want to hurt yourself or someone else? Patient reports no desire to harm self or others. Initial Sepsis Screen: Does the patient meet any 2 criteria? No. Patient's initial sepsis screen is negative. Does the patient have a suspected source of infection? No. Patient's initial sepsis screen is negative. Care prior to arrival: IV initiated. 22 GA, in the right hand. 12:03 Method Of Arrival: EMS: [facility] ph 12:03 Acuity: SHAWN 2 ph Historical: - Allergies: 12:15 Benadryl; ph 12:15 Codeine; ph 12:15 Ketorolac; ph 12:15 tramadol; ph - Home Meds: 12:15 aspirin 81 mg Oral TbEC 1 tab once daily [Active]; atorvastatin 40 mg Oral tab 1 tab ph once daily [Active]; buspirone 10 mg Oral tab 1 tab 2 times per day [Active]; fluoxetine 40 mg Oral cap 1 cap once daily [Active]; hydralazine 50 mg Oral tab 1 tab three times a day [Active]; isosorbide mononitrate 60 mg Oral Tb24 1 tab once daily [Active]; Latuda 60 mg Oral tab 1 tab once daily [Active]; lisinopril 40 mg Oral tab 1 tab once daily [Active]; metoprolol tartrate 100 mg Oral tab 1 tab 2 times per day [Active]; trazodone 300 mg Oral tab 1 tab nightly [Active]; - PMHx: 12:15 ADD/ADHD; Anemia; Cancer; CHF; COPD; Depression; Hyperlipidemia; Hypertension; Major ph Depressive Disorder; Schizo-affective disorder; - PSHx: 12:15 Mastectomy, Left; Hernia repair; Mastectomy, Right; Cholecystectomy; Heel Surgery both ph Feet; Umbilical Hernia Mesh; Tumor removal - L shoulder; Heart stents; - Immunization history:: Adult Immunizations unknown. - Social history:: Smoking status: Patient uses tobacco products, smokes one pack cigarettes per day. Patient/guardian denies using alcohol, street drugs. - Ebola Screening: : No symptoms or risks identified at this time. Screenin:18 Abuse screen: Denies threats or abuse. Denies injuries from another. Nutritional ph screening: No deficits noted. Tuberculosis screening: No symptoms or risk factors identified. Fall Risk Fall in past 12 months (25 points). No secondary diagnosis (0 pts). IV access (20 points). Ambulatory Aid- None/Bed Rest/Nurse Assist (0 pts). Gait- Weak (10 pts.). Mental Status- Oriented to own ability (0 pts). Total Paz Fall Scale indicates High Risk Score (45 or more points). Fall prevention measures have been instituted. Side Rails Up X 2 Placed Close to Nursing Station As available patient and family educated on Fall Prevention Program and Strategies. Assessment: 12:16 General: Appears in no apparent distress. comfortable, well groomed, Behavior is calm, ph cooperative, appropriate for age, Denies fever, feeling ill. Pain: Complains of pain in back. Neuro: Level of Consciousness is awake, alert, obeys commands, Oriented to person, place, time, situation, Reports dizziness, a syncopal episode weakness. Cardiovascular: Reports fatigue, lightheadedness, syncope, Denies chest pain, nausea, shortness of breath, vomiting. Respiratory: Airway is patent Respiratory effort is even, unlabored. GI: Patient currently denies abdominal pain, diarrhea, nausea, vomiting. : No signs and/or symptoms were reported regarding the genitourinary system. Derm: Skin is intact, is healthy with good turgor, Skin is pink, warm \\T\\ dry. Musculoskeletal: Circulation, motion, and sensation intact. Range of motion: intact in all extremities. 13:40 Reassessment: Patient appears in no apparent distress at this time. Patient and/or ph family updated on plan of care and expected duration. Pain level reassessed. Pt asleep w/ snoring respirations, awakens easily. 14:53 Reassessment: Patient appears in no apparent distress at this time. No changes from previously documented assessment. Patient and/or family updated on plan of care and expected duration. Pain level reassessed. Awaiting room, assignment. 15:39 Reassessment: Patient appears in no apparent distress at this time. Patient and/or ph family updated on plan of care and expected duration. Pain level reassessed. Pt asleep, awakens easily, when informed that she was being admitted for EKG changes pt states, " I can't stay. My car is in [facility] and I live in my car and I left the windows cracked and I know it's going to rain.". 16:10 Reassessment: Patient appears in no apparent distress at this time. Patient and/or ph family updated on plan of care and expected duration. Pain level reassessed. Patient is alert, oriented x 3, equal unlabored respirations, skin warm/dry/pink. Pt remains drowsy, denies pain at this time, agrees to stay in hospital for further evaluation, reports called to Catherine on 4th floor, pt taken upstairs by seed laboratory technician via wheelchair. Vital Signs: 12:06 BP 92 / 67; Pulse 64; Resp 18; Temp 97.8; Pulse Ox 94% on R/A; Weight 70.31 kg; Height ph 5 ft. 4 in. (162.56 cm); 12:55 BP 100 / 71; Pulse 59; Resp 12; Temp 97.9(O); Pulse Ox 93% on R/A; mh5 13:34 BP 104 / 76; Pulse 59; Resp 16; Pulse Ox 97% on R/A; ph 14:19 BP 112 / 66; Pulse 57; Resp 14; Temp 97.6(O); Pulse Ox 94% on R/A; mh5 15:10 BP 97 / 63; Pulse 58; Resp 14; Temp 97.6(O); Pulse Ox 94% on R/A; mh5 15:51 BP 127 / 84; Pulse 65; Resp 18; Temp 97.8; Pulse Ox 98% on R/A; ph 12:06 Body Mass Index 26.61 (70.31 kg, 162.56 cm) ED Course: 12:03 Patient arrived in ED. iw 12:03 Tristan Rich MD is Attending Physician. ps1 12:06 Triage completed. ph 12:13 EKG done, by transportation planning technician. reviewed by Tristan Rich MD. sm3 12:14 Anika Garcia RN is Primary Nurse. ph 12:16 Arm band placed on Patient placed in an exam room, in the treatment room, on cardiac ph monitor, on pulse oximetry. 12:19 Patient has correct armband on for positive identification. Bed in low position. Call ph light in reach. Side rails up X2. monitoring specialist on. Pulse ox on. NIBP on. Door closed. Noise minimized. Warm blanket given. Head of bed elevated. 12:20 Maintain EMS IV. Dressing intact. Good blood return noted. Site clean \\T\\ dry. Gauge \\T\\ ph site: 22 R hand. 12:49 UDS Sent. 5 12:49 Urine collected: clean catch specimen, clear, Amount Voided: 240mL. 5 13:17 X-ray completed. Portable x-ray completed in exam room. Patient tolerated procedure sw well. 13:21 CXR XRAY In Process Unspecified. EDMS 13:34 Martha Rodriguez MD is Hospitalizing Provider. ps1 13:43 No provider procedures requiring assistance completed. ph 16:32 Patient admitted, IV remains in place. ph Administered Medications: 14:55 Drug: Potassium Chloride 40 mEq Route: PO; ph 16:32 Follow up: Response: No adverse reaction ph Outcome: 13:34 Decision to Hospitalize by Provider. ps1 16:32 Patient left the ED. ph 16:32 Admitted to Tele accompanied by tech, via wheelchair, with chart. ph 16:32 Condition: stable 16:32 Instructed on the need for admit. Signatures: Dispatcher [employer] EDMS Aggie Mejia RN RN Anika Garcia RN RN Johanna Nicholson [facility] Tristan Rich MD MD [facility] Colleen Miramontes 3
[2019-03-14] MEDS ORDERED: NA CHLORIDE 0.9% 1,000 ML IV SCH (14:02)
[2019-03-14] MEDS ORDERED: POTASSIUM 25 MEQ EFFERV TAB PO ONE (14:28)
[2019-03-14] MEDS ORDERED: POTASSIUM CL SA 10 MEQ TAB PO ONE (15:13)
[2019-03-14] MEDS ORDERED: POTASSIUM 25 MEQ EFFERV TAB ONE (15:14)
[2019-03-14 16:57] VITALS: BP 131/84; TEMP 96.9
[2019-03-14 17:04] VITALS: O2SAT 98
[2019-03-14] MEDS ORDERED: ONDANSETRON 4 MG/2 ML VIAL IV PRN (17:12)
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
[2019-03-14 18:23] VITALS: BMI 26.6
[2019-03-14] MEDS ORDERED: NICOTINE 21 MG/PAT TD SCH (19:00)
--- NOTE | 2019-03-15 07:43 | EKG ---
Test Date: 2019-03-14 Test Time: 12:04:58 Heel Splitter: BAILEY MEASUREMENT RESULTS: Intervals: Rate: 62 WY: 208 QRSD: 96 QT: 502 QTc: 509 [place]: P: 24 WY: 208 QRS: -35 T: -67 INTERPRETIVE STATEMENTS: Normal sinus rhythm Left axis deviation ST & T wave abnormality, consider inferior ischemia Prolonged QT Abnormal ECG Compared to ECG 11/24/2018 23:51:48 Possible ischemia now present Left ventricular hypertrophy no longer present ST (T wave) deviation still present Electronically Signed On 03-15-19 07:42:20 CDT by Mahad Meredith
== END 2019-03-14 19:00 | disposition home or self-care (01) ==
LOC: ER 11:57 → ERHOLD 14:07 → 4TH 16:08
PROVIDERS: ADMIT Family Medicine; ATTEND Family Medicine
DX: E87.6 Hypokalemia (principal); R94.31 Abnormal electrocardiogram [ECG] [EKG]; I95.1 Orthostatic hypotension; J44.9 Chronic obstructive pulmonary disease, unspecified; I10 Essential (primary) hypertension; I25.10 Atherosclerotic heart disease of native coronary artery without angina pectoris; F25.9 Schizoaffective disorder, unspecified; E78.5 Hyperlipidemia, unspecified; F32.9 Major depressive disorder, single episode, unspecified; F90.9 Attention-deficit hyperactivity disorder, unspecified type; Z79.51 Long term (current) use of inhaled steroids; Z79.899 Other long term (current) drug therapy; Z95.5 Presence of coronary angioplasty implant and graft
CPT/HCPCS: 36415; 71045; 80053; 80307; 81003; 83690; 83735; 84132; 84484; 85025; 93005; 99285; G0378

== ENCOUNTER 2019-03-17 08:50 | Emergency (ER) | payer OTHER ==
--- OUTSIDE RECORDS SUMMARY | 2019-03-17 09:08 | XMS REPORT ---
:1955 Author Organization [employer] Care Team Providers Name Role Phone Rodriguez, Juancarlos Provider Role Unavailable Allergies No Known Allergies Problems Problem Type Condition Code Onset Dates Condition Status Problem Osteoarthritis of multiple joints M15.9 Active Problem Hyperlipidemia, mixed E78.2 Active Problem Hx of breast cancer Z85.3 Active Problem Atherosclerosis of coronary artery I25.10 Active of [place] [facility] Problem Tobacco use disorder Z72.0 [...]
--- OUTSIDE RECORDS SUMMARY | 2019-03-17 09:08 | XMS REPORT ---
[...] Atherosclerosis of coronary artery I25.10 Active of [place] [facility] Problem Atherosclerosis of coronary artery I25.10 Active of [place] [facility] Problem Tobacco use disorder Z72.0 Active Medications Medication Code Code Instructions Start End Status Dosage System Date Date Isosorbide NDC [id number] 60 MG Orally Active 1 tablet Mononitrate ER Once a day in the morning Results No Known Results Summary Purpose [employer] Submission
--- OUTSIDE RECORDS SUMMARY | 2019-03-17 09:08 | XMS REPORT ---
[...] Atherosclerosis of coronary artery I25.10 Active of [place] [facility] Assessment Atherosclerosis of coronary artery I25.10 Active of [place] [facility] Problem Tobacco use disorder Z72.0 Active Medications Medication Code Code Instructions Start End Status Dosage System Date Date Prozac [facility] 90340468606 40 MG Orally Active 1 capsule Once a day Trazodone HCl [facility] 96686305340 300 MG Orally Active 0.5 Once a day tablet at bedtime Lisinopril [facility] 54966587506 40 MG Orally Active 1 tablet Once a day Norvasc [facility] 44709498259 10 MG Orally Active 1 tablet Once a day Isosorbide Mononitrate [facility] 37154281059 60 MG Orally Active 1 tablet ER Once a day in the morning Aspir-81 [facility] 98373260991 81 MG Orally Active 1 tablet Once a day Latuda [facility] 80394021668 60 MG Orally Active 1 tablet Once a day with food Hydrochlorothiazide [facility] 63796939647 25 MG Orally Active 1 tablet Once a day in the morning Lipitor [facility] 56672357426 40 MG Orally Active 1 tablet Once a day Metoprolol Tartrate [facility] 39385918170 100 MG Orally Active 1 tablet Twice a day with food ProAir HFA [facility] 84966743185 108 (90 Base) Active 2 puffs MCG/ACT as needed Inhalation every 6 hrs HydrALAZINE HCl [facility] 55946483889 50 MG Orally Active 1 tablet Three times a with food day Results Name Result Date Reference Range Unit Abnormality Flag CBC W/AUTO DIFF CMP Magnesium, Serum LIPID PANEL WITH REFLEX TO DIRECT LDL Summary Purpose eClinicalWorks Submission
--- OUTSIDE RECORDS SUMMARY | 2019-03-17 09:08 | XMS REPORT ---
[...] Atherosclerosis of coronary artery I25.10 Active of [place] heart Assessment Atherosclerosis of coronary artery I25.10 Active of [place] [facility] Problem Tobacco use disorder Z72.0 Active Medications Medication Code Code Instructions Start End Status Dosage System Date Date Metoprolol Tartrate [facility] 98553255136 100 MG Orally Active 1 tablet Twice a day with food Lisinopril [facility] 98779700826 40 MG Orally Active 1 tablet Once a day Trazodone HCl [facility] 62786591599 300 MG Orally Active 0.5 Once a day tablet at bedtime Norvasc [facility] 03830856499 10 MG Orally Active 1 tablet Once a day Latuda [facility] 66853590188 60 MG Orally Active 1 tablet Once a day with food HydrALAZINE HCl [facility] 22182238437 50 MG Orally Active 1 tablet Three times a with food day ProAir HFA [facility] 25498729230 108 (90 Base) Active 2 puffs MCG/ACT as needed Inhalation every 6 hrs as needed for cough, shortness of breath and wheezing Isosorbide Mononitrate [facility] 22413226509 60 MG Orally Active 1 tablet ER Once a day in the morning Prozac [facility] 62243480018 40 MG Orally Active 1 capsule Once a day Hydrochlorothiazide [facility] 50400697173 25 MG Orally Active 1 tablet Once a day in the morning -81 [facility] 11311740316 81 MG Orally Active 1 tablet Once a day Lipitor [facility] 19405072155 40 MG Orally Active 1 tablet Once a day Results No Known Results Summary Purpose eClinicalWorks Submission
--- OUTSIDE RECORDS SUMMARY | 2019-03-17 09:08 | XMS REPORT ---
[...] Atherosclerosis of coronary artery I25.10 Active of [place] heart Problem Tobacco use disorder Z72.0 Active Medications Medication Code Code Instructions Start End Status Dosage System Date Date Lipitor ND 76204730260 40 MG Orally Active 1 tablet Once a day Lisinopril ND 76791737665 40 MG Orally Active 1 tablet Once a day HydrALAZINE HCl ND 92724112951 50 MG Orally Active 1 tablet Three times a with food day Hydrochlorothiazide ND 02000409753 25 MG Orally Active 1 tablet Once a day in the morning Metoprolol Tartrate ND 95201417168 100 MG Orally Active 1 tablet Twice a day with food Results No Known Results Summary Purpose eClinicalWorks Submission
--- OUTSIDE RECORDS SUMMARY | 2019-03-17 09:09 | XMS REPORT ---
[...] I25.10 Active of [place] [facility] Problem Hx of breast cancer Z85.3 [...] Instructions Start End Status Dosage System Date [facility] 06027894769 81 MG Orally Active 1 tablet Once a day Trazodone HCl [facility] 39791503766 300 MG Orally Active 0.5 Once a day tablet at bedtime Lisinopril [facility] 81525213532 40 MG Orally Active 1 tablet Once a day Norvasc [facility] 74581538077 10 MG Orally Active 1 tablet Once a day ProAir HFA [facility] 57884737012 108 (90 Base) Active 2 puffs MCG/ACT as needed Inhalation every 6 hrs as needed for cough, shortness of breath and wheezing Isosorbide Mononitrate [facility] 34952219421 60 MG Orally Active 1 tablet ER Once a day in the morning Prozac [facility] 55050064607 40 MG Orally Active 1 capsule Once a day HydrALAZINE HCl [facility] 98983030827 50 MG Orally Active 1 tablet Three times a with food day Metoprolol Tartrate [facility] 96199649500 100 MG Orally Active 1 tablet Twice a day with food Hydrochlorothiazide [facility] 93843260452 25 MG Orally Active 1 tablet Once a day in the morning Advair HFA [facility] 94566537812 230-21 MCG/ACT Active 2 puffs Inhalation Twice a day Isosorbide Mononitrate [facility] 89441758927 60 MG Active TAKE 1 ER TABLET BY MOUTH INTHE MORNING Lipitor [facility] 51889907340 40 MG Orally Active 1 tablet Once a day Latuda [facility] 84262768629 60 MG Orally Active 1 tablet Once a day with food Results No Known Results Summary Purpose eClinicalWorks Submission
--- OUTSIDE RECORDS SUMMARY | 2019-03-17 09:09 | XMS REPORT ---
[...] Atherosclerosis of coronary artery I25.10 Active of [place] heart Assessment Chronic obstructive pulmonary J44.9 Active [...] Atherosclerosis of coronary artery I25.10 Active of [place] heart Problem Tobacco use disorder Z72.0 Active Medications Medication Code Code Instructions Start End Status Dosage System Date Date Isosorbide Mononitrate [facility] 86526077228 60 MG Orally Active 1 tablet ER Once a day in the morning Aspir-81 [place] 11267803957 81 MG Orally Active 1 tablet Once a day Lisinopril ND 77650589631 40 MG Orally Active 1 tablet Once a day Metoprolol Tartrate ND 86141672962 100 MG Orally Active 1 tablet Twice a day with food Advair HFA ND 43568446584 230-21 MCG/ACT Active 2 puffs Inhalation Twice a day HydrALAZINE HCl [facility] 08753104194 50 MG Orally Active 1 tablet Three times a with food day Latuda [facility] 86507824919 60 MG Orally Active 1 tablet Once a day with food Norvasc [facility] 48147465161 10 MG Orally Active 1 tablet Once a day Hydrochlorothiazide [facility] 37348183064 25 MG Orally Active 1 tablet Once a day in the morning Isosorbide Mononitrate [facility] 23687451752 60 MG Active TAKE 1 ER TABLET BY MOUTH INTHE MORNING ProAir HFA [facility] 08955815808 108 (90 Base) Active 2 puffs MCG/ACT as needed Inhalation every 6 hrs as needed for cough, shortness of breath and wheezing Lipitor [facility] 64083188099 40 MG Orally Active 1 tablet Once a day Prozac [facility] 65921513246 40 MG Orally Active 1 capsule Once a day Trazodone HCl [facility] 67389782803 300 MG Orally Active 0.5 Once a day tablet at bedtime Results No Known Results Summary Purpose eClinicalWorks Submission
--- OUTSIDE RECORDS SUMMARY | 2019-03-17 09:09 | XMS REPORT ---
:1955 Author Organization eClinicalWorks Care Team Providers Name Role Phone Misael Rodriguezh Provider Role Unavailable Allergies, Adverse Reactions, Alerts Substance Reaction Event Type N.K.D.A. Info Not Available Non Drug Allergy Problems Problem Type Condition Code Onset Dates Condition Status Problem GERD (gastroesophageal reflux K21.9 Active disease) Problem Atherosclerosis of coronary artery I25.10 Active of [place] heart Problem Benign essential HTN I10 Active [...] Start End Status Dosage System Date Date [facility] 70979178049 81 MG Orally Active 1 tablet Once a day Metoprolol Tartrate [facility] 92456490144 100 MG Orally Active 1 tablet Twice a day with food ProAir HFA [facility] 41487565235 108 (90 Base) Active 2 puffs MCG/ACT as needed Inhalation every 6 hrs as needed for cough, shortness of breath and wheezing Prozac [facility] 98960736824 40 MG Orally Active 1 capsule Once a day Metoprolol Tartrate [facility] 70818664102 100 MG Orally Active 1 tablet Twice a day with food HydrALAZINE HCl [facility] 57968744257 50 MG Orally Active 1 tablet Three times a with food day Lipitor [facility] 95296464273 40 MG Orally Active 1 tablet Once a day Hydrochlorothiazide [facility] 57919207125 25 MG Orally Active 1 tablet Once a day in the morning Isosorbide Mononitrate [facility] 24814661306 60 MG Active TAKE 1 ER TABLET BY MOUTH INTHE MORNING Latuda [facility] 70611119515 60 MG Orally Active 1 tablet Once a day with food Lisinopril [facility] 58444794298 40 MG Active TAKE 1 TABLET BY MOUTH ONCE DAILY HydrALAZINE HCl [facility] 35699316150 50 MG Orally Active 1 tablet Three times a with food day Trazodone HCl [facility] 76757991637 300 MG Orally Active 0.5 Once a day tablet at bedtime Isosorbide Mononitrate [facility] 11256808672 60 MG Orally Active 1 tablet ER Once a day in the morning Hydrochlorothiazide [facility] 49300869743 25 MG Orally Active 1 tablet Once a day in the morning Lipitor [facility] 68240899301 40 MG Orally Active 1 tablet Once a day Lisinopril [facility] 39462021467 40 MG Orally Active 1 tablet Once a day [facility] 08959873096 10 MG Orally Active 1 tablet Once a day [facility] 06165011020 10 MG Orally Active 1 tablet Once a day Results No Known Results Summary Purpose eClinicalWorks Submission
--- OUTSIDE RECORDS SUMMARY | 2019-03-17 09:09 | XMS REPORT ---
[...] Atherosclerosis of coronary artery I25.10 Active of [place] [facility] Problem Atherosclerosis of coronary artery I25.10 Active of [place] [facility] Assessment Benign essential HTN I10 Active Problem Tobacco use disorder Z72.0 Active Medications Medication Code Code Instructions Start End Status Dosage System Date Date [facility] 10 MG Orally Active 1 tablet Once a day Hydrochlorothiazide [facility] 36945245556 25 MG Orally Active 1 tablet Once a day in the morning HydrALAZINE HCl [facility] 96657585159 50 MG Orally Active 1 tablet Three times a with food day Latuda [facility] 62868818700 60 MG Orally Active 1 tablet Once a day with food Lisinopril [facility] 59284141397 40 MG Orally Active 1 tablet Once a day Isosorbide Mononitrate [facility] 95108046105 60 MG Orally Active 1 tablet ER Once a day in the morning Aspir-81 [facility] 05667488860 81 MG Orally Active 1 tablet Once a day Metoprolol Tartrate [facility] 38236326338 100 MG Orally Active 1 tablet Twice a day with food Prozac [facility] 94993001716 40 MG Orally Active 1 capsule Once a day HydrALAZINE HCl [facility] 12446817660 50 MG Orally Active 1 tablet Three times a with food day Trazodone HCl [facility] 01339024944 300 MG Orally Active 0.5 Once a day tablet at bedtime Lipitor [facility] 41254907249 40 MG Orally Active 1 tablet Once a day Norvasc [facility] 66569481112 10 MG Orally Active 1 tablet Once a day ProAir HFA [facility] 09532996123 108 (90 Base) Active 2 puffs MCG/ACT as needed Inhalation every 6 hrs as needed for cough, shortness of breath and wheezing Isosorbide Mononitrate [facility] 74234696208 60 MG Orally Active 1 tablet ER Once a day in the morning Results No Known Results Summary Purpose eClinicalWorks Submission
--- OUTSIDE RECORDS SUMMARY | 2019-03-17 09:09 | XMS REPORT ---
:1955 Author Organization eClinicalWorks Care Team Providers Name Role Phone Juancarlos Rodriguez Provider Role Unavailable Allergies, Adverse Reactions, Alerts Substance Reaction Event Type N.K.D.A. Info Not Available Non Drug Allergy Problems Problem Type Condition Code Onset Dates Condition Status Problem GERD (gastroesophageal reflux K21.9 Active disease) Problem Atherosclerosis of coronary artery I25.10 Active of [place] heart Problem Benign essential HTN I10 Active [...] Status Dosage System Date Date ProAir HFA [facility] 21674615946 108 (90 Base) Active 2 puffs MCG/ACT as needed Inhalation every 6 hrs as needed for cough, shortness of breath and wheezing Isosorbide Mononitrate [facility] 14997462112 60 MG Active TAKE 1 ER TABLET BY MOUTH INTHE MORNING HydrALAZINE HCl [facility] 55691228400 50 MG Orally Active 1 tablet Three times a with food day [facility] 51774739934 10 MG Orally Active 1 tablet Once a day Prozac [facility] 44152742062 40 MG Orally Active 1 capsule Once a day Hydrochlorothiazide [facility] 55412529313 25 MG Orally Active 1 tablet Once a day in the morning Hydrochlorothiazide [facility] 18255468166 25 MG Orally Active 1 tablet Once a day in the morning [facility] 02050258987 10 MG Orally Active 1 tablet Once a day HydrALAZINE HCl [facility] 94795297334 50 MG Orally Active 1 tablet Three times a with food day Metoprolol Tartrate [facility] 12675264573 100 MG Orally Active 1 tablet Twice a day with food Latuda [facility] 81167461014 60 MG Orally Active 1 tablet Once a day with food Trazodone HCl [facility] 59673581759 300 MG Orally Active 0.5 Once a day tablet at bedtime Lisinopril [facility] 41726468521 40 MG Active TAKE 1 TABLET BY MOUTH ONCE DAILY Metoprolol Tartrate [facility] 69961492404 100 MG Orally Active 1 tablet Twice a day with food Aspir-81 [facility] 47227906960 81 MG Orally Active 1 tablet Once a day Lisinopril [facility] 53089547858 40 MG Orally Active 1 tablet Once a day Lipitor [facility] 26538272564 40 MG Orally Active 1 tablet Once a day Lipitor [facility] 84401947141 40 MG Orally Active 1 tablet Once a day Isosorbide Mononitrate [facility] 68621932028 60 MG Orally Active 1 tablet ER Once a day in the morning Results No Known Results Summary Purpose eClinicalWorks Submission
--- OUTSIDE RECORDS SUMMARY | 2019-03-17 09:09 | XMS REPORT ---
:1955 Author Organization eClinicalWorks Care Team Providers Name Role Phone Juancarlos Rodriguez Provider Role Unavailable Allergies No Known Allergies Problems Problem Type Condition Code Onset Dates Condition Status Problem GERD (gastroesophageal reflux K21.9 Active disease) Problem Atherosclerosis of coronary artery I25.10 Active of [place] heart Problem Benign essential HTN I10 Active [...]
--- OUTSIDE RECORDS SUMMARY | 2019-03-17 09:09 | XMS REPORT ---
[...] Atherosclerosis of coronary artery I25.10 Active of [place] heart Problem Hx of breast cancer Z85.3 [...]
--- OUTSIDE RECORDS SUMMARY | 2019-03-17 09:09 | XMS REPORT ---
:1955 Author [facility] Address [address] [place] [address] Dr. García. [address] [place] [id number] Care Team Providers Name Role Phone Unavailable Unavailable Unavailable Problems This patient has no known problems. Allergies, Adverse Reactions, Alerts This patient has no known allergies or adverse reactions. Medications This patient has no known medications.
--- OUTSIDE RECORDS SUMMARY | 2019-03-17 09:09 | XMS REPORT ---
[...] Atherosclerosis of coronary artery I25.10 Active of [place] heart Problem Hx of breast cancer Z85.3 [...]
[2019-03-17] MEDS ORDERED: ONDANSETRON 4 MG/2 ML VIAL ONE (09:19)
[2019-03-17 09:25] LABS: Absolute Lymphocytes (CBC) 1.8 K/uL (0.7-4.9); Absolute Monocytes 0.5 K/uL (0.1-1.3); Absolute Neutrophil 4.8 K/uL (1.8-8.0); Basophils % 0.9 % (0-1.3); Eosinophils % 0.4 % (0-4.4); Lymphocytes % 25.3 % (15.3-44.8); Monocytes % 6.4 % (3.3-12.3); RBC Red Blood Cell Count 5.82 M/uL (3.86-4.86)
[2019-03-17 09:27] LABS: Protime INR 1.05
[2019-03-17] MEDS ORDERED: FAMOTIDINE 20 MG/2 ML VIAL IV ONE (09:32)
--- NOTE | 2019-03-17 09:43 | RAD REPORT ---
EXAM DESCRIPTION: RAD - Chest Single View - 03/17/2019 9:34 am CLINICAL HISTORY: epigastric pain Chest pain. COMPARISON: Chest Single View dated 03/14/2019; Chest Single View dated 11/25/2018; Chest Single View d ated 11/24/2018; Chest Single View dated 11/23/2018 FINDINGS: Portable technique limits examination quality. The lungs are grossly clear. The heart is normal in size. No displaced fractures. IMPRESSION: No acute intrathoracic process suspected.
[2019-03-17 09:47] LABS: ALT/SGPT 33 U/L (12-78); AST/SGOT 28 U/L (15-37); Alkaline Phosphatase 72 U/L (45-117); BUN Blood Urea Nitrogen 13 mg/dL (7-18); Bicarbonate 30 mmol/L (21-32); Bilirubin Direct 0.3 mg/dL (0-0.2); Bilirubin Total 0.8 mg/dL (0.2-1.0); Glucose Level 120 mg/dL (74-106); Lipase 130 U/L (73-393); Magnesium 2.1 mg/dL (1.8-2.4); NT PRO-BNP 1449 pg/mL (<125); Potassium 3.5 mmol/L (3.5-5.1); Sodium Level 140 mmol/L (136-145); Troponin (Emerg Dept Use Only) < 0.02 ng/mL (0.0-0.045)
[2019-03-17] MEDS ORDERED: MAGNE/ALUM HYDROXD 30 ML UCUP ONE (10:53)
[2019-03-17] MEDS ORDERED: LIDOCAINE VISCOUS 2% SOLN 15 ML UDC ONE (10:54)
--- NOTE | 2019-03-17 10:56 | RAD REPORT ---
EXAM DESCRIPTION: CT - Angio Aorta For Dissection - 03/17/2019 10:40 am CLINICAL HISTORY: . Chest pain abdominal pain COMPARISON: None TECHNIQUE: Computed tomography angiography of the chest, abdomen pelvis were obtained. 100 cc Isovue 370 was administered intravenously. Coronal and sagittal reconstruction were performed. MIP 3D reconstruction was performed All CT scans are performed using dose optimization technique as appropriate and may include automated exposure control or mA/KV adjustment according to patient size. FINDINGS: An aortic dissection is not seen. An aortic aneurysm is not displayed. The celiac, SMA and INDRA are patent . A lung consolidation is not present. A pericardial effusion is not seen. A pleural effusion is not n oted. The liver,spleen, pancreas adrenals kidneys demonstrate no significant abnormality. The appendix is normal. There no evidence diverticulitis. The wall of the gastric body is moderately thickened. A minimal amount of pelvic ascites 17 millimeter lipoma ascending colon IMPRESSION: Negative for an aortic dissection. Moderate thickening of the wall of the gastric body probably indicates inflammation. Neoplasm can als o have this appearance. Follow-up recommended
[2019-03-17] MEDS ORDERED: PANTOPRAZOLE 40 MG INJ ONE (11:29)
[2019-03-17] MEDS ORDERED: METOPROLOL TAR 50 MG TAB ONE (12:49)
[2019-03-17] MEDS ORDERED: LISINOPRIL 20 MG TAB ONE (12:50)
--- NOTE | 2019-03-17 13:30 | ER ---
Nurse's Notes [facility] Name: Ophelia Grady Age: 63 yrs Sex: Female : 1955 Arrival Date: 03/17/2019 Time: 08:52 Bed 19 Private MD: Diagnosis: Epigastric pain Presentation: 03/17 08:52 Presenting complaint: Patient states: after eating large meal yesterday, patient has ss had epigastric discomfort with nausea that has subsided, but now c/o mid upper back pain that is 5/10. Transition of care: patient was not received from another setting of care. Onset of symptoms was March 16, 2019. Risk Assessment: Do you want to hurt yourself or someone else? Patient reports no desire to harm self or others. Initial Sepsis Screen: Does the patient meet any 2 criteria? No. Patient's initial sepsis screen is negative. Does the patient have a suspected source of infection? No. Patient's initial sepsis screen is negative. 08:52 Method Of Arrival: EMS: [facility] 08:52 Acuity: SHAWN 3 ss 08:56 Care prior to arrival: Glucose check: 128. ss Historical: - Allergies: 08:56 Benadryl; ss 08:56 Codeine; ss 08:56 Ketorolac; ss 08:56 tramadol; ss - Home Meds: 08:56 aspirin 81 mg Oral TbEC 1 tab once daily [Active]; atorvastatin 40 mg Oral tab 1 tab ss once daily [Active]; buspirone 10 mg Oral tab 1 tab 2 times per day [Active]; fluoxetine 40 mg Oral cap 1 cap once daily [Active]; hydralazine 50 mg Oral tab 1 tab three times a day [Active]; isosorbide mononitrate 60 mg Oral Tb24 1 tab once daily [Active]; Latuda 60 mg Oral tab 1 tab once daily [Active]; lisinopril 40 mg Oral tab 1 tab once daily [Active]; metoprolol tartrate 100 mg Oral tab 1 tab 2 times per day [Active]; trazodone 300 mg Oral tab 1 tab nightly [Active]; - PMHx: 08:56 ADD/ADHD; Hyperlipidemia; Schizo-affective disorder; Major Depressive Disorder; ss Hypertension; Depression; COPD; CHF; Cancer; Anemia; - PSHx: 08:56 Mastectomy, Left; Hernia repair; Mastectomy, Right; Cholecystectomy; Heel Surgery both ss Feet; Umbilical Hernia Mesh; Tumor removal - L shoulder; Heart stents; - Immunization history:: Adult Immunizations up to date. - Social history:: Smoking status: Patient uses tobacco products, smokes one pack cigarettes per day. - Ebola Screening: : Patient denies exposure to infectious person Patient denies travel to an Ebola-affected area in the 21 days before illness onset. Screenin:00 Abuse screen: Denies threats or abuse. Denies injuries from another. Nutritional ss screening: No deficits noted. Tuberculosis screening: Never had TB. Fall Risk None identified. Assessment: 08:50 Reassessment: EKG done and shown to provider. ss 09:00 General: Appears in no apparent distress. comfortable, Behavior is calm, cooperative, em Denies fever. Pain: Complains of pain in epigastric area Pain currently is 5 out of 10 on a pain scale. Pain began 1 day ago. Neuro: Level of Consciousness is awake, alert, obeys commands, Oriented to person, place, time, situation. Cardiovascular: Reports chest pain, nausea, vomiting, Denies shortness of breath, Capillary refill < 3 seconds Patient's skin is warm and dry. Rhythm is sinus rhythm. Respiratory: Airway is patent Respiratory effort is even, unlabored, Respiratory pattern is regular, symmetrical. GI: Abdomen is flat, Pt is actively vomiting Reports nausea, vomiting. Derm: Skin is intact, is healthy with good turgor, Skin is pink, warm \T\ dry. Musculoskeletal: Capillary refill < 3 seconds, Range of motion: intact in all extremities. 09:35 Reassessment: Patient appears in no apparent distress at this time. Patient and/or em family updated on plan of care and expected duration. Pain level reassessed. Patient is alert, oriented x 3, equal unlabored respirations, skin warm/dry/pink. Patient states feeling better. Patient states symptoms have improved. 12:28 Reassessment: Patient appears in no apparent distress at this time. Patient and/or em family updated on plan of care and expected duration. Pain level reassessed. Patient is alert, oriented x 3, equal unlabored respirations, skin warm/dry/pink. Patient states feeling better. 13:58 Reassessment: Patient appears in no apparent distress at this time. Patient and/or em family updated on plan of care and expected duration. Pain level reassessed. Patient is alert, oriented x 3, equal unlabored respirations, skin warm/dry/pink. Patient denies pain at this time. Patient states feeling better. Patient states symptoms have improved. Vital Signs: 08:56 Pulse 66; Resp 18; Temp 98.4(O); Pulse Ox 99% on R/A; Weight 70.31 kg; Height 5 ft. 4 ss in. (162.56 cm); Pain 5/10; 09:00 BP 148 / 103; ss 09:20 BP 140 / 93 LA; Pulse 94; em 10:00 BP 145 / 91; Pulse 63; Resp 18; Pulse Ox 99% on R/A; em 11:30 BP 145 / 104; Pulse 64; Resp 18; Pulse Ox 99% on R/A; Pain 0/10; em 12:36 BP 169 / 110; Pulse 62; Resp 16; Pulse Ox 100% on R/A; Pain 0/10; em 13:58 BP 134 / 80; Pulse 60; Resp 16; Pulse Ox 100% on R/A; Pain 0/10; em 08:56 Body Mass Index 26.61 (70.31 kg, 162.56 cm) ss 11:30 reports she has not had her BP medications today em ED Course: 08:52 Patient arrived in ED. ss 08:54 Triage completed. ss 08:56 Mike Valle PA is PHCP. cp 08:56 Adonis Mc MD is Attending Physician. cp 08:56 Arm band placed on right wrist. ss 09:00 Patient has correct armband on for positive identification. Bed in low position. Call light in reach. Side rails up X2. senior director of global commercial technology solutions on. Pulse ox on. NIBP on. 09:00 Patient maintains SpO2 saturation greater than 95% on room air. ss 09:00 Inserted saline lock: 22 gauge in left forearm, using aseptic technique. Blood em collected. 09:01 Paul Diaz LVN is Primary Nurse. em 09:28 X-ray completed. Portable x-ray completed in exam room. Patient tolerated procedure jb2 well. 09:37 XRAY Chest (1 view) In Process Unspecified. EDMS 10:[address] via stretcher. sw 10:42 CT Aorta for Dissection In Process Unspecified. EDMS 10:45 CT completed. Patient tolerated procedure well. Patient moved back from CT. ml 13:29 Jarrod Chavez MD is Referral Physician. cp 13:51 Repeat EKG was done. 3 13:57 No provider procedures requiring assistance completed. IV discontinued, intact, em bleeding controlled, No redness/swelling at site. Pressure dressing applied. Administered Medications: 09:20 Drug: Pepcid 20 mg Route: IVP; Site: left forearm; ss 10:00 Follow up: Response: No adverse reaction em 09:22 Drug: Zofran 4 mg Route: IVP; Site: left forearm; ss 10:00 Follow up: Response: No adverse reaction; Nausea is decreased em 11:00 Drug: GI Cocktail without - (Maalox Suspension 30 ml, Lidocaine Liquid 2 % 15 aa5 ml) Route: PO; 12:10 Follow up: Response: No adverse reaction em 11:00 Drug: ProTONIX 40 mg Route: IVP; Site: left forearm; aa5 12:10 Follow up: Response: No adverse reaction em 12:38 Drug: Metoprolol 50 mg Route: PO; em 12:38 Drug: Lisinopril 40 mg Route: PO; em Outcome: 13:29 Discharge ordered by MD. cp 13:58 Discharged to home ambulatory. em 13:58 Condition: good 13:58 Discharge instructions given to patient, Instructed on discharge instructions, follow up and referral plans. medication usage, Demonstrated understanding of instructions, follow-up care, medications, Prescriptions given X 1. 13:59 Patient left the ED. em Signatures: Dispatcher [employer] EDCT Karson Al jb2 Paul Diaz, BRIAN CLIPPER MACHINE OPERATOR em Kandace Gerardo Amanda Lunsford, RN RN aa5 Essie Guillen RN RN Johanna Smyth Corey, PA PA Colleen Nash 3 Corrections: (The following items were deleted from the chart) 08:57 08:52 Care prior to arrival: None. ss ss
--- NOTE | 2019-03-17 13:31 | EDPHYS ---
Physician Documentation [facility] Name: Ophelia Grady Age: 63 yrs Sex: Female : 1955 Arrival Date: 03/17/2019 Time: 08:52 Bed 19 Private MD: ED Physician Adonis Mc HPI: 03/17 09:13 This 63 yrs old Female presents to ER via EMS with complaints of Epigastric cp Pain, Back Pain. 09:13 The patient presents with abdominal pain in the epigastric area. Onset: The cp symptoms/episode began/occurred suddenly, this morning. 09:13 The symptoms radiate to back. cp 09:13 Associated signs and symptoms: Pertinent positives: nausea, Pertinent negatives: cp constipation, diarrhea, dysuria, fever, vomiting. The symptoms are described as waxing/waning. Severity of pain: in the emergency department the pain has improved mildly. Historical: - Allergies: 08:56 Benadryl; ss 08:56 Codeine; ss 08:56 Ketorolac; ss 08:56 tramadol; ss - Home Meds: 08:56 aspirin 81 mg Oral TbEC 1 tab once daily [Active]; atorvastatin 40 mg Oral tab 1 tab ss once daily [Active]; buspirone 10 mg Oral tab 1 tab 2 times per day [Active]; fluoxetine 40 mg Oral cap 1 cap once daily [Active]; hydralazine 50 mg Oral tab 1 tab three times a day [Active]; isosorbide mononitrate 60 mg Oral Tb24 1 tab once daily [Active]; Latuda 60 mg Oral tab 1 tab once daily [Active]; lisinopril 40 mg Oral tab 1 tab once daily [Active]; metoprolol tartrate 100 mg Oral tab 1 tab 2 times per day [Active]; trazodone 300 mg Oral tab 1 tab nightly [Active]; - PMHx: 08:56 ADD/ADHD; Hyperlipidemia; Schizo-affective disorder; Major Depressive Disorder; ss Hypertension; Depression; COPD; CHF; Cancer; Anemia; - PSHx: 08:56 Mastectomy, Left; Hernia repair; Mastectomy, Right; Cholecystectomy; Heel Surgery both ss Feet; Umbilical Hernia Mesh; Tumor removal - L shoulder; Heart stents; - Immunization history:: Adult Immunizations up to date. - Social history:: Smoking status: Patient uses tobacco products, smokes one pack cigarettes per day. - Ebola Screening: : Patient denies exposure to infectious person Patient denies travel to an Ebola-affected area in the 21 days before illness onset. ROS: 09:15 Constitutional: Negative for body aches, chills, fever, poor PO intake. cp 09:15 Eyes: Negative for injury, pain, redness, and discharge. cp 09:15 ENT: Negative for drainage from ear(s), ear pain, sore throat, difficulty swallowing, difficulty handling secretions. 09:15 Cardiovascular: Negative for chest pain, edema, palpitations. 09:15 Respiratory: Negative for cough, shortness of breath, wheezing. 09:15 Abdomen/GI: Positive for abdominal pain, nausea, of the epigastric area, Negative for constipation, black/tarry stool, rectal bleeding. 09:15 Back: Positive for radiated pain. 09:15 : Negative for urinary symptoms. 09:15 Skin: Negative for cellulitis, rash. 09:15 Neuro: Negative for altered mental status, headache, weakness. 09:15 All other systems are negative. Exam: 08:50 ECG was reviewed by the Attending Physician. cp 09:20 Constitutional: The patient appears in no acute distress, alert, awake, cp non-diaphoretic, non-toxic, well developed, well nourished. 09:20 Head/Face: Normocephalic, atraumatic. cp 09:20 Eyes: Periorbital structures: appear normal, Conjunctiva: normal, no exudate, no injection, Sclera: no appreciated abnormality, Lids and lashes: appear normal, bilaterally. 09:20 ENT: External ear(s): are unremarkable, Nose: is normal, Mouth: Lips: moist, Oral mucosa: moist, Posterior pharynx: Airway: no evidence of obstruction, patent. 09:20 Neck: ROM/movement: is normal, is supple, without pain, no range of motions limitations, no nuchal rigidity. 09:20 Chest/axilla: Inspection: normal, Palpation: crepitus, is not appreciated, tenderness, that is moderate, of the xyphoid area, that partially reproduces the patient's complaints. 09:20 Cardiovascular: Rate: normal, Rhythm: regular, Edema: is not appreciated, JVD: is not appreciated. 09:20 Respiratory: the patient does not display signs of respiratory distress, Respirations: normal, no use of accessory muscles, no retractions, no splinting, no tachypnea, labored breathing, is not present, Breath sounds: are clear throughout, no decreased breath sounds, no stridor, no wheezing. 09:20 Abdomen/GI: Inspection: abdomen appears normal, Bowel sounds: active, all quadrants, Palpation: soft, in all quadrants, moderate abdominal tenderness, in the epigastric area, rebound tenderness, is not appreciated, voluntary guarding, is elicited in the epigastric area. 09:20 Back: ROM is normal. 09:20 Skin: no rash present. 09:20 Neuro: Orientation: to person, place \T\ time. Mentation: is normal, Cerebellar function: is grossly normal, Motor: moves all fours, strength is normal, Sensation: is normal. 12:33 ECG was reviewed by the Attending Physician. cp Vital Signs: 08:56 Pulse 66; Resp 18; Temp 98.4(O); Pulse Ox 99% on R/A; Weight 70.31 kg; Height 5 ft. 4 ss in. (162.56 cm); Pain 5/10; 09:00 BP 148 / 103; ss 09:20 BP 140 / 93 LA; Pulse 94; em 10:00 BP 145 / 91; Pulse 63; Resp 18; Pulse Ox 99% on R/A; em 11:30 BP 145 / 104; Pulse 64; Resp 18; Pulse Ox 99% on R/A; Pain 0/10; em 12:36 BP 169 / 110; Pulse 62; Resp 16; Pulse Ox 100% on R/A; Pain 0/10; em 13:58 BP 134 / 80; Pulse 60; Resp 16; Pulse Ox 100% on R/A; Pain 0/10; em 08:56 Body Mass Index 26.61 (70.31 kg, 162.56 cm) ss 11:30 reports she has not had her BP medications today em MDM: 08:57 Patient medically screened. cp 09:40 Differential diagnosis: AAA, acute coronary syndrome, gastritis, gastroesophageal cp reflux disease, GI Bleed, pancreatitis, Peptic Ulcer Disease, Perf. Duodenal Ulcer, Perf. Gastric Ulcer, Pyelonephritis, Ureterolithiasis. 13:28 Data reviewed: vital signs, nurses notes, lab test result(s), EKG, radiologic studies, cp CT scan, plain films. 13:28 Test interpretation: by ED physician or midlevel provider: ECG, plain radiologic cp studies. 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 Response to treatment: the patient's symptoms have markedly improved after treatment, and as a result, I will discharge patient. Special discussion: Based on the patient's Hx, exam, and Dx evaluation, there is no indication for emergent surgery or inpatient Tx. It is understood by the patient/guardian that if the Sx's persist or worsen they need to return immediately for re-evaluation. 13:28 ED course: VSS. Patient reports pain markedly improved with meds. Initial and repeat cp EKGs and troponin levels negative. 03/17 09:07 Order name: Basic Metabolic Panel; Complete Time: 09:54 cp 03/17 09:54 Interpretation: Normal except: GLUC 120; GFR 63. cp / 09:07 Order name: CBC with Diff; Complete Time: 09:54 cp / 09:54 Interpretation: Normal except: RBC 5.82; HGB 17.3; HCT 51.0; PLT 260. cp / 09:07 Order name: LFT's; Complete Time: 09:54 cp 03/17 11:04 Interpretation: Normal except: BILID 0.3; GLOB 4.0; A/G 1.0. cp / 09:07 Order name: Magnesium; Complete Time: 09:54 cp / 09:07 Order name: NT PRO-BNP; Complete Time: 09:54 cp / 09:07 Order name: PT-INR; Complete Time: 09:54 cp / 09:07 Order name: Troponin (emerg Dept Use Only); Complete Time: 09:54 cp / 10:47 Interpretation: TROPED < 0.02; Reviewed. cp / 09:07 Order name: XRAY Chest (1 view); Complete Time: 09:54 cp 03/17 09:07 Order name: Lipase; Complete Time: 09:54 cp 03/17 09:58 Order name: CT Aorta for Dissection; Complete Time: 11:01 cp 03/17 12:07 Order name: Troponin (emerg Dept Use Only) ss 03/17 09:07 Order name: EKG; Complete Time: 09:10 cp 03/17 09:07 Order name: Cardiac monitoring; Complete Time: 09:13 cp 03/17 09:07 Order name: EKG - Nurse/Tech; Complete Time: 09:13 cp 03/17 09:07 Order name: IV Saline Lock; Complete Time: 09:13 cp 03/17 09:07 Order name: Labs collected and sent; Complete Time: 09:13 cp 03/17 09:07 Order name: O2 Per Protocol; Complete Time: 09:13 cp 03/17 09:07 Order name: O2 Sat Monitoring; Complete Time: 09:13 cp 03/17 09:08 Order name: Blood Pressure Recheck: bilateral upper extremity; Complete Time: 11:34 cp 03/17 13:55 Order name: EKG Electrocardiogram EDAK EC:50 Rate is 64 beats/min. Rhythm is regular. UT interval is normal. QRS interval is normal. cp QT interval is normal. Interpreted by me. Reviewed by me. 12:33 Rate is 58 beats/min. Rhythm is regular. UT interval is prolonged at 206 msec. QRS cp interval is normal. QT interval is normal. T waves are Flattened in lead aVL. Interpreted by me. Reviewed by me. Administered Medications: 09:20 Drug: Pepcid 20 mg Route: IVP; Site: left forearm; ss 10:00 Follow up: Response: No adverse reaction em 09:22 Drug: Zofran 4 mg Route: IVP; Site: left forearm; ss 10:00 Follow up: Response: No adverse reaction; Nausea is decreased em 11:00 Drug: GI Cocktail without - (Maalox Suspension 30 ml, Lidocaine Liquid 2 % 15 aa5 ml) Route: PO; 12:10 Follow up: Response: No adverse reaction em 11:00 Drug: ProTONIX 40 mg Route: IVP; Site: left forearm; aa5 12:10 Follow up: Response: No adverse reaction em 12:38 Drug: Metoprolol 50 mg Route: PO; em 12:38 Drug: Lisinopril 40 mg Route: PO; em Disposition: 15:12 Co-signature as Attending Physician, Adonis Mc MD. rn Disposition: 03/17/19 13:29 Discharged to Home. Impression: Epigastric pain. - Condition is Stable. - Discharge Instructions: Gastritis, Adult, Gastroesophageal Reflux Disease, Adult, Upper Endoscopy. - Prescriptions for Pepcid 20 mg Oral Tablet - take 1 tablet by ORAL route every 12 hours for 10 days; 20 tablet. - Medication Reconciliation Form, Thank You Letter, Antibiotic Education, Prescription Opioid Use form. - Follow up: Jarrod Chavez MD; When: 2 - 3 days; Reason: Recheck today's complaints. - Problem is new. - Symptoms have improved. Signatures: Dispatcher [employer] Paul Ceballos, PORT PURSER PORT PURSER Adonis Diaz MD MD rn Calderon, Audri RN RN aa5 Essie Guillen RN RN ss Mike Valle, PA PA cp Corrections: (The following items were deleted from the chart) 13:59 13:29 03/17/2019 13:29 Discharged to Home. Impression: Epigastric pain. Condition is em Stable. Forms are Medication Reconciliation Form, Thank You Letter, Antibiotic Education, Prescription Opioid Use. Follow up: Jarrod Chavez; When: 2 - 3 days; Reason: Recheck today's complaints. Problem is new. Symptoms have improved. cp 03/18 13:37 03/17 09:13 The symptoms radiate to cp cp
[2019-03-17 14:16] VITALS: TEMP 98.4
[2019-03-17 14:22] VITALS: O2SAT 100
[2019-03-17 14:24] VITALS: BP 134/80
--- NOTE | 2019-03-18 09:04 | EKG ---
Test Date: 2019-03-17 Test Time: 12:26:06 Shellfish Checker: QUENTIN MEASUREMENT RESULTS: Intervals: Rate: 58 GA: 206 QRSD: 96 QT: 508 QTc: 498 [place]: P: 38 GA: 206 QRS: -37 T: 68 INTERPRETIVE STATEMENTS: Sinus bradycardia Left axis deviation Septal infarct, age undetermined Abnormal ECG Compared to ECG 03/17/2019 08:46:45 Myocardial infarct finding now present Sinus rhythm no longer present ST (T wave) deviation no longer present Prolonged QT interval no longer present Electronically Signed On 03-18-19 09:01:07 CDT by Pacheco Sotomayor
--- NOTE | 2019-03-18 09:05 | EKG ---
Test Date: 2019-03-17 Test Time: 08:46:45 Correctional Guard: QUENTIN MEASUREMENT RESULTS: Intervals: Rate: 64 KS: 190 QRSD: 88 QT: 484 QTc: 499 [place]: P: 16 KS: 190 QRS: -36 T: 59 INTERPRETIVE STATEMENTS: Normal sinus rhythm Left axis deviation Nonspecific ST and T wave abnormality Prolonged QT Abnormal ECG Compared to ECG 03/14/2019 12:04:58 Possible ischemia no longer present ST (T wave) deviation still present Electronically Signed On 03-18-19 09:01:20 CDT by Pacheco Sotomayor
== END 2019-03-17 13:59 | disposition home or self-care (01) ==
LOC: ER 08:50
DX: R10.13 Epigastric pain (principal); E78.5 Hyperlipidemia, unspecified; I11.0 Hypertensive heart disease with heart failure; I50.9 Heart failure, unspecified; D64.9 Anemia, unspecified; F25.9 Schizoaffective disorder, unspecified; F32.9 Major depressive disorder, single episode, unspecified; J44.9 Chronic obstructive pulmonary disease, unspecified; F17.210 Nicotine dependence, cigarettes, uncomplicated
CPT/HCPCS: 36415; 71045; 71275; 74175; 80048; 80076; 83690; 83735; 83880; 84484; 85025; 85610; 93005; 96374; 96375; 99285; C9113; J2405

== ENCOUNTER 2019-03-20 00:02 | Emergency (ER) | payer OTHER ==
--- OUTSIDE RECORDS SUMMARY | 2019-03-20 00:06 | XMS REPORT ---
[...] coronary artery I25.10 Active of [place] heart Assessment Atherosclerosis of coronary artery I25.10 Active of [place] heart Problem Tobacco use disorder Z72.0 Active Medications Medication Code Code Instructions Start End Status Dosage System Date Date Prozac [facility] 25568693977 40 MG Orally Active 1 capsule Once a day Trazodone HCl [facility] 36494048018 300 MG Orally Active 0.5 Once a day tablet at bedtime Lisinopril [facility] 51683717115 40 MG Orally Active 1 tablet Once a day Norvasc [facility] 98046930373 10 MG Orally Active 1 tablet Once a day Isosorbide Mononitrate [facility] 07240894949 60 MG Orally Active 1 tablet ER Once a day in the morning Aspir-81 [facility] 06222552804 81 MG Orally Active 1 tablet Once a day Latuda [facility] 22769471908 60 MG Orally Active 1 tablet Once a day with food Hydrochlorothiazide [facility] 10663378464 25 MG Orally Active 1 tablet Once a day in the morning Lipitor [facility] 80665215086 40 MG Orally Active 1 tablet Once a day Metoprolol Tartrate [facility] 19184337686 100 MG Orally Active 1 tablet Twice a day with food ProAir HFA [facility] 96318383305 108 (90 Base) Active 2 puffs MCG/ACT as needed Inhalation every 6 hrs HydrALAZINE HCl [facility] 66204532915 50 MG Orally Active 1 tablet Three times a with food day Results Name Result Date Reference Range Unit Abnormality Flag CBC W/AUTO DIFF CMP Magnesium, Serum LIPID PANEL WITH REFLEX TO DIRECT LDL Summary Purpose eClinicalWorks Submission
--- OUTSIDE RECORDS SUMMARY | 2019-03-20 00:06 | XMS REPORT ---
[...] Atherosclerosis of coronary artery I25.10 Active of [place] heart Problem Atherosclerosis of coronary artery I25.10 Active of [place] heart Problem Tobacco use disorder Z72.0 Active Medications Medication Code Code Instructions Start End Status Dosage System Date Date Isosorbide NDC 34919136675 60 MG Orally Active 1 tablet Mononitrate ER Once a day in the morning Results No Known Results Summary Purpose [employer] Submission
--- OUTSIDE RECORDS SUMMARY | 2019-03-20 00:06 | XMS REPORT ---
[...] Atherosclerosis of coronary artery I25.10 Active of [place] heart Problem Tobacco use disorder Z72.0 Active Medications Medication Code Code Instructions Start End Status Dosage System Date Date Lipitor ND 78834598901 40 MG Orally Active 1 tablet Once a day Lisinopril ND 85533012606 40 MG Orally Active 1 tablet Once a day HydrALAZINE HCl ND 94297559464 50 MG Orally Active 1 tablet Three times a with food day Hydrochlorothiazide ND 89772585183 25 MG Orally Active 1 tablet Once a day in the morning Metoprolol Tartrate ND 34344546401 100 MG Orally Active 1 tablet Twice a day with food Results No Known Results Summary Purpose eClinicalWorks Submission
--- OUTSIDE RECORDS SUMMARY | 2019-03-20 00:06 | XMS REPORT ---
[...] Atherosclerosis of coronary artery I25.10 Active of [place] heart Assessment Atherosclerosis of coronary artery I25.10 Active of [place] heart Problem Tobacco use disorder Z72.0 Active Medications Medication Code Code Instructions Start End Status Dosage System Date Date Metoprolol Tartrate [facility] 00212487830 100 MG Orally Active 1 tablet Twice a day with food Lisinopril [facility] 29273604471 40 MG Orally Active 1 tablet Once a day Trazodone HCl [facility] 06023553841 300 MG Orally Active 0.5 Once a day tablet at bedtime Norvasc [facility] 87697455972 10 MG Orally Active 1 tablet Once a day Latuda [facility] 97455046666 60 MG Orally Active 1 tablet Once a day with food HydrALAZINE HCl [facility] 51907333624 50 MG Orally Active 1 tablet Three times a with food day ProAir HFA [facility] 92129068230 108 (90 Base) Active 2 puffs MCG/ACT as needed Inhalation every 6 hrs as needed for cough, shortness of breath and wheezing Isosorbide Mononitrate [facility] 30406476172 60 MG Orally Active 1 tablet ER Once a day in the morning Prozac [facility] 56317177544 40 MG Orally Active 1 capsule Once a day Hydrochlorothiazide [facility] 04668423165 25 MG Orally Active 1 tablet Once a day in the morning -81 [facility] 33100902611 81 MG Orally Active 1 tablet Once a day Lipitor [facility] 35801806890 40 MG Orally Active 1 tablet Once a day Results No Known Results Summary Purpose eClinicalWorks Submission
--- OUTSIDE RECORDS SUMMARY | 2019-03-20 00:06 | XMS REPORT ---
:1955 Author Organization eClinicalWorks Care Team Providers Name Role Phone Rodriguez, Juancarlos Provider Role Unavailable Allergies No Known Allergies Problems Problem Type Condition Code Onset Dates Condition Status Problem Osteoarthritis of multiple joints M15.9 Active Problem Hyperlipidemia, mixed E78.2 Active Problem Hx of breast cancer Z85.3 Active Problem Atherosclerosis of coronary artery I25.10 Active of [place] heart Problem Tobacco use disorder Z72.0 Active [...]
--- OUTSIDE RECORDS SUMMARY | 2019-03-20 00:07 | XMS REPORT ---
[...] artery I25.10 Active of [place] heart Problem Hx of breast cancer Z85.3 [...]
--- OUTSIDE RECORDS SUMMARY | 2019-03-20 00:07 | XMS REPORT ---
[...] Atherosclerosis of coronary artery I25.10 Active of [place] heart Problem Atherosclerosis of coronary artery I25.10 Active of [place] heart Assessment Benign essential HTN I10 Active Problem Tobacco use disorder Z72.0 Active Medications Medication Code Code Instructions Start End Status Dosage System Date [facility] 10 MG Orally Active 1 tablet Once a day Hydrochlorothiazide [facility] 04502541661 25 MG Orally Active 1 tablet Once a day in the morning HydrALAZINE HCl [facility] 86398004893 50 MG Orally Active 1 tablet Three times a with food day Latuda [facility] 48076192846 60 MG Orally Active 1 tablet Once a day with food Lisinopril [facility] 51412580771 40 MG Orally Active 1 tablet Once a day Isosorbide Mononitrate [facility] 90565335312 60 MG Orally Active 1 tablet ER Once a day in the morning Aspir-81 [facility] 94504267690 81 MG Orally Active 1 tablet Once a day Metoprolol Tartrate [facility] 69555478745 100 MG Orally Active 1 tablet Twice a day with food Prozac [facility] 87112945618 40 MG Orally Active 1 capsule Once a day HydrALAZINE HCl [facility] 18697184061 50 MG Orally Active 1 tablet Three times a with food day Trazodone HCl [facility] 93908703163 300 MG Orally Active 0.5 Once a day tablet at bedtime Lipitor [facility] 04081006286 40 MG Orally Active 1 tablet Once a day Norvasc [facility] 82913796106 10 MG Orally Active 1 tablet Once a day ProAir HFA [facility] 23566835520 108 (90 Base) Active 2 puffs MCG/ACT as needed Inhalation every 6 hrs as needed for cough, shortness of breath and wheezing Isosorbide Mononitrate [facility] 09366566350 60 MG Orally Active 1 tablet ER Once a day in the morning Results No Known Results Summary Purpose eClinicalWorks Submission
--- OUTSIDE RECORDS SUMMARY | 2019-03-20 00:07 | XMS REPORT ---
:1955 Author Organization eClinicalWorks Care Team Providers Name Role Phone Misael Rodriguezh Provider Role Unavailable Allergies, Adverse Reactions, Alerts Substance Reaction Event Type N.K.D.A. Info Not Available Non Drug Allergy Problems Problem Type Condition Code Onset Dates Condition Status Problem GERD (gastroesophageal reflux K21.9 Active disease) Problem Atherosclerosis of coronary artery I25.10 Active of [place] heart Problem Benign essential HTN I10 Active [...] Start End Status Dosage System Date Date [facility] 72938343438 81 MG Orally Active 1 tablet Once a day Metoprolol Tartrate [facility] 87930721153 100 MG Orally Active 1 tablet Twice a day with food ProAir HFA [facility] 98779576162 108 (90 Base) Active 2 puffs MCG/ACT as needed Inhalation every 6 hrs as needed for cough, shortness of breath and wheezing Prozac [facility] 99212555263 40 MG Orally Active 1 capsule Once a day Metoprolol Tartrate [facility] 51984160995 100 MG Orally Active 1 tablet Twice a day with food HydrALAZINE HCl [facility] 30639378259 50 MG Orally Active 1 tablet Three times a with food day Lipitor [facility] 93775836243 40 MG Orally Active 1 tablet Once a day Hydrochlorothiazide [facility] 25830836800 25 MG Orally Active 1 tablet Once a day in the morning Isosorbide Mononitrate [facility] 58127195186 60 MG Active TAKE 1 ER TABLET BY MOUTH INTHE MORNING Latuda [facility] 79763002943 60 MG Orally Active 1 tablet Once a day with food Lisinopril [facility] 62260477700 40 MG Active TAKE 1 TABLET BY MOUTH ONCE DAILY HydrALAZINE HCl [facility] 36449801101 50 MG Orally Active 1 tablet Three times a with food day Trazodone HCl [facility] 46844086103 300 MG Orally Active 0.5 Once a day tablet at bedtime Isosorbide Mononitrate [facility] 09443818690 60 MG Orally Active 1 tablet ER Once a day in the morning Hydrochlorothiazide [facility] 77716526997 25 MG Orally Active 1 tablet Once a day in the morning Lipitor [facility] 76891093720 40 MG Orally Active 1 tablet Once a day Lisinopril [facility] 28097272347 40 MG Orally Active 1 tablet Once a day [facility] 56823938044 10 MG Orally Active 1 tablet Once a day [facility] 74462847139 10 MG Orally Active 1 tablet Once a day Results No Known Results Summary Purpose eClinicalWorks Submission
--- OUTSIDE RECORDS SUMMARY | 2019-03-20 00:07 | XMS REPORT ---
:1955 [facility] Address [address] [place] [address] Dr. García. [address] [place] [address] Care Team Providers Name Role Phone Unavailable Unavailable Unavailable Problems This patient has no known problems. Allergies, Adverse Reactions, Alerts This patient has no known allergies or adverse reactions. Medications This patient has no known medications.
--- OUTSIDE RECORDS SUMMARY | 2019-03-20 00:07 | XMS REPORT ---
:1955 Author Organization eClinicalWorks Care Team Providers Name Role Phone Juancarlos Rodriguez Provider Role Unavailable Allergies No Known Allergies Problems Problem Type Condition Code Onset Dates Condition Status Problem GERD (gastroesophageal reflux K21.9 Active disease) Problem Atherosclerosis of coronary artery I25.10 Active of [place] heart Problem Benign essential HTN I10 Active [...]
--- OUTSIDE RECORDS SUMMARY | 2019-03-20 00:08 | XMS REPORT ---
[...] Atherosclerosis of coronary artery I25.10 Active of [place] heart Assessment Chronic obstructive pulmonary J44.9 Active [...] Atherosclerosis of coronary artery I25.10 Active of [place] [facility] Problem Tobacco use disorder Z72.0 Active Medications Medication Code Code Instructions Start End Status Dosage System Date Date Isosorbide Mononitrate [facility] 55107763402 60 MG Orally Active 1 tablet ER Once a day in the morning Aspir-81 [place] 80549753867 81 MG Orally Active 1 tablet Once a day Lisinopril ND 53275677539 40 MG Orally Active 1 tablet Once a day Metoprolol Tartrate ND 83247694920 100 MG Orally Active 1 tablet Twice a day with food Advair HFA ND 21579896608 230-21 MCG/ACT Active 2 puffs Inhalation Twice a day HydrALAZINE HCl [facility] 54104397031 50 MG Orally Active 1 tablet Three times a with food day Latuda [facility] 93325138664 60 MG Orally Active 1 tablet Once a day with food Norvasc [facility] 38956582446 10 MG Orally Active 1 tablet Once a day Hydrochlorothiazide [facility] 43667095830 25 MG Orally Active 1 tablet Once a day in the morning Isosorbide Mononitrate [facility] 13923969380 60 MG Active TAKE 1 ER TABLET BY MOUTH INTHE MORNING ProAir HFA [facility] 76878000351 108 (90 Base) Active 2 puffs MCG/ACT as needed Inhalation every 6 hrs as needed for cough, shortness of breath and wheezing Lipitor [facility] 22034594546 40 MG Orally Active 1 tablet Once a day Prozac [facility] 59249945770 40 MG Orally Active 1 capsule Once a day Trazodone HCl [facility] 85915545474 300 MG Orally Active 0.5 Once a day tablet at bedtime Results No Known Results Summary Purpose eClinicalWorks Submission
--- OUTSIDE RECORDS SUMMARY | 2019-03-20 00:08 | XMS REPORT ---
[...] Atherosclerosis of coronary artery I25.10 Active of [place] heart Problem Atherosclerosis of coronary artery I25.10 Active of [place] heart Problem Hx of breast cancer Z85.3 [...] Instructions Start End Status Dosage System Date [facility] 40392630357 81 MG Orally Active 1 tablet Once a day Trazodone HCl [facility] 06540593527 300 MG Orally Active 0.5 Once a day tablet at bedtime Lisinopril [facility] 19433852970 40 MG Orally Active 1 tablet Once a day Norvasc [facility] 90311223571 10 MG Orally Active 1 tablet Once a day ProAir HFA [facility] 70545227907 108 (90 Base) Active 2 puffs MCG/ACT as needed Inhalation every 6 hrs as needed for cough, shortness of breath and wheezing Isosorbide Mononitrate [facility] 57297833302 60 MG Orally Active 1 tablet ER Once a day in the morning Prozac [facility] 52136976274 40 MG Orally Active 1 capsule Once a day HydrALAZINE HCl [facility] 47251146962 50 MG Orally Active 1 tablet Three times a with food day Metoprolol Tartrate [facility] 31316770981 100 MG Orally Active 1 tablet Twice a day with food Hydrochlorothiazide [facility] 97783796962 25 MG Orally Active 1 tablet Once a day in the morning Advair HFA [facility] 69341834093 230-21 MCG/ACT Active 2 puffs Inhalation Twice a day Isosorbide Mononitrate [facility] 86781710928 60 MG Active TAKE 1 ER TABLET BY MOUTH INTHE MORNING Lipitor [facility] 87229355196 40 MG Orally Active 1 tablet Once a day Latuda [facility] 15395551349 60 MG Orally Active 1 tablet Once a day with food Results No Known Results Summary Purpose eClinicalWorks Submission
--- OUTSIDE RECORDS SUMMARY | 2019-03-20 00:08 | XMS REPORT ---
:1955 Author Organization eClinicalWorks Care Team Providers Name Role Phone Juancarlos Rodriguez Provider Role Unavailable Allergies, Adverse Reactions, Alerts Substance Reaction Event Type N.K.D.A. Info Not Available Non Drug Allergy Problems Problem Type Condition Code Onset Dates Condition Status Problem GERD (gastroesophageal reflux K21.9 Active disease) Problem Atherosclerosis of coronary artery I25.10 Active of [place] heart Problem Benign essential HTN I10 Active [...] Status Dosage System Date Date ProAir HFA [facility] 36565430043 108 (90 Base) Active 2 puffs MCG/ACT as needed Inhalation every 6 hrs as needed for cough, shortness of breath and wheezing Isosorbide Mononitrate [facility] 58479015638 60 MG Active TAKE 1 ER TABLET BY MOUTH INTHE MORNING HydrALAZINE HCl [facility] 52393853341 50 MG Orally Active 1 tablet Three times a with food day [facility] 18212590862 10 MG Orally Active 1 tablet Once a day Prozac [facility] 75865021332 40 MG Orally Active 1 capsule Once a day Hydrochlorothiazide [facility] 75941323673 25 MG Orally Active 1 tablet Once a day in the morning Hydrochlorothiazide [facility] 10941787678 25 MG Orally Active 1 tablet Once a day in the morning [facility] 33822917916 10 MG Orally Active 1 tablet Once a day HydrALAZINE HCl [facility] 67835409623 50 MG Orally Active 1 tablet Three times a with food day Metoprolol Tartrate [facility] 99248025704 100 MG Orally Active 1 tablet Twice a day with food Latuda [facility] 14909630325 60 MG Orally Active 1 tablet Once a day with food Trazodone HCl [facility] 60560683870 300 MG Orally Active 0.5 Once a day tablet at bedtime Lisinopril [facility] 71825951359 40 MG Active TAKE 1 TABLET BY MOUTH ONCE DAILY Metoprolol Tartrate [facility] 71061902840 100 MG Orally Active 1 tablet Twice a day with food Aspir-81 [facility] 14132020270 81 MG Orally Active 1 tablet Once a day Lisinopril [facility] 71383846207 40 MG Orally Active 1 tablet Once a day Lipitor [facility] 70094217963 40 MG Orally Active 1 tablet Once a day Lipitor [facility] 94891637086 40 MG Orally Active 1 tablet Once a day Isosorbide Mononitrate [facility] 78355389035 60 MG Orally Active 1 tablet ER Once a day in the morning Results No Known Results Summary Purpose eClinicalWorks Submission
--- OUTSIDE RECORDS SUMMARY | 2019-03-20 00:08 | XMS REPORT ---
[...] Atherosclerosis of coronary artery I25.10 Active of [place] heart Problem Hx of breast cancer Z85.3 [...]
[2019-03-20] MEDS ORDERED: NA CHLORIDE 0.9% 1,000 ML ONE (01:00)
[2019-03-20 01:17] LABS: Absolute Lymphocytes (CBC) 2.8 K/uL (0.7-4.9); Absolute Monocytes 0.7 K/uL (0.1-1.3); Absolute Neutrophil 3.6 K/uL (1.8-8.0); Basophils % 1.1 % (0-1.3); Eosinophils % 1.6 % (0-4.4); Hematocrit 41.7 % (36.0-45.0); MPV 8.8 fL (7.6-11.3); Protime INR 0.96; RBC Red Blood Cell Count 4.73 M/uL (3.86-4.86)
[2019-03-20 01:27] LABS: Barbiturates NEGATIVE (NEGATIVE); Benzodiazepines NEGATIVE (NEGATIVE); Cocaine NEGATIVE (NEGATIVE); METHAMPHETAM NEGATIVE (NEGATIVE); Methadone NEGATIVE (NEGATIVE); Opiates NEGATIVE (NEGATIVE); Phencyclidine NEGATIVE (NEGATIVE); THC Cannibis NEGATIVE (NEGATIVE)
[2019-03-20 01:44] LABS: ALT/SGPT 29 U/L (12-78); AST/SGOT 27 U/L (15-37); Albumin 3.5 g/dL (3.4-5.0); Alkaline Phosphatase 60 U/L (45-117); BUN Blood Urea Nitrogen 9 mg/dL (7-18); Bicarbonate 29 mmol/L (21-32); Bilirubin Direct 0.2 mg/dL (0-0.2); Bilirubin Total 0.4 mg/dL (0.2-1.0); Creatine Phosphokinase 77 U/L (26-192); Glucose Level 143 mg/dL (74-106); Magnesium 2.2 mg/dL (1.8-2.4); Protein, Total 6.7 g/dL (6.4-8.2); Sodium Level 142 mmol/L (136-145)
[2019-03-20 01:45] LABS: Potassium 2.8 mmol/L (3.5-5.1)
[2019-03-20 01:48] LABS: Urine Blood NEGATIVE (NEG); Urine Glucose NEGATIVE (NEG); Urine Protein NEGATIVE (NEG); Urine Specific Gravity 1.015 (1.005-1.030); Urine pH 6.5 (5.0-7.0)
[2019-03-20] MEDS ORDERED: POTASSIUM 25 MEQ EFFERV TAB ONE (05:20)
--- NOTE | 2019-03-20 07:35 | EDPHYS ---
Physician Documentation [facility] Name: Ophelia Grady Age: 63 yrs Sex: Female : 1955 Arrival Date: 03/20/2019 Time: 00:05 Bed 15 Private MD: ED Physician Erik Sommer HPI: 03/20 02:58 This 63 yrs old Female presents to ER via Ambulatory with complaints of wa Dizziness. 02:58 The patient presents with lightheadedness. Onset: The symptoms/episode began/occurred wa just prior to arrival. Context: occurred at a park, occurred while the patient was at rest, just prior to the episode the patient experienced no apparent symptoms, states had taken her medication, including trazodone and hydralazine ready to go to bed in her car at [facility] parking lot. states felt dizzy so presented here to get checked. pt does not have a home to go to. states was kicked out by her boyfriend. Modifying factors: The symptoms are alleviated by nothing, the symptoms are aggravated by nothing. Associated signs and symptoms: Pertinent negatives: abdominal pain, blurred vision, chest pain, confusion, focal weakness, head injury, headache, near-syncope, numbness, palpitations, shortness of breath, syncope, tingling, vomiting. Severity of symptoms: At their worst the symptoms were moderate in the emergency department the symptoms have improved markedly. Patient's baseline: Neuro: alert and fully oriented, Motor: no deficits, Ambulation: walks without assistance, Speech: normal, The patient has a previous history of HTN. The patient has not experienced similar symptoms in the past. The patient has not recently seen a physician. Historical: - Allergies: 00:19 Benadryl; aa1 00:19 Codeine; aa1 00:19 Ketorolac; aa1 00:19 tramadol; aa1 - Home Meds: 00:19 aspirin 81 mg Oral TbEC 1 tab once daily [Active]; atorvastatin 40 mg Oral tab 1 tab aa1 once daily [Active]; buspirone 10 mg Oral tab 1 tab 2 times per day [Active]; fluoxetine 40 mg Oral cap 1 cap once daily [Active]; hydralazine 50 mg Oral tab 1 tab three times a day [Active]; isosorbide mononitrate 60 mg Oral Tb24 1 tab once daily [Active]; Latuda 60 mg Oral tab 1 tab once daily [Active]; lisinopril 40 mg Oral tab 1 tab once daily [Active]; metoprolol tartrate 100 mg Oral tab 1 tab 2 times per day [Active]; trazodone 300 mg Oral tab 1 tab nightly [Active]; - PMHx: 00:19 ADD/ADHD; Anemia; Cancer; CHF; COPD; Depression; Hyperlipidemia; Hypertension; Major aa1 Depressive Disorder; Schizo-affective disorder; - PSHx: 00:19 Mastectomy, Left; Hernia repair; Mastectomy, Right; Cholecystectomy; Heel Surgery both aa1 Feet; Umbilical Hernia Mesh; Tumor removal - L shoulder; Heart stents; - Immunization history:: Flu vaccine is up to date. - Social history:: Smoking status: Patient uses tobacco products, smokes one pack cigarettes per day. Patient/guardian denies using alcohol, street drugs, IV drugs. - Ebola Screening: : No symptoms or risks identified at this time. - Family history:: not pertinent. - Hospitalizations: : No recent hospitalization is reported. ROS: 03:02 Constitutional: Negative for fever, chills, and weight loss, Eyes: Negative for injury, wa pain, redness, and discharge, ENT: Negative for injury, pain, and discharge, Neck: Negative for injury, pain, and swelling, Cardiovascular: Negative for chest pain, palpitations, and edema, Respiratory: Negative for shortness of breath, cough, wheezing, and pleuritic chest pain, Abdomen/GI: Negative for abdominal pain, nausea, vomiting, diarrhea, and constipation, Back: Negative for injury and pain, : Negative for injury, bleeding, discharge, and swelling, MS/Extremity: Negative for injury and deformity, Skin: Negative for injury, rash, and discoloration, Psych: Negative for depression, anxiety, suicide ideation, homicidal ideation, and hallucinations. 03:02 Neuro: Positive for dizziness, Negative for altered mental status, gait disturbance, headache. 03:02 All other systems are negative. Exam: 03:03 Constitutional: This is a well developed, well nourished patient who is awake, alert, wa and in no acute distress. Head/Face: Normocephalic, atraumatic. Eyes: Pupils equal round and reactive to light, extra-ocular motions intact. Lids and lashes normal. Conjunctiva and sclera are non-icteric and not injected. Cornea within normal limits. Periorbital areas with no swelling, redness, or edema. ENT: Nares patent. No nasal discharge, no septal abnormalities noted. Tympanic membranes are normal and external auditory canals are clear. Oropharynx with no redness, swelling, or masses, exudates, or evidence of obstruction, uvula midline. Mucous membranes moist. Neck: Trachea midline, no thyromegaly or masses palpated, and no cervical lymphadenopathy. Supple, full range of motion without nuchal rigidity, or vertebral point tenderness. No Meningismus. Chest/axilla: Normal chest wall appearance and motion. Nontender with no deformity. No lesions are appreciated. Cardiovascular: Regular rate and rhythm with a normal S1 and S2. No gallops, murmurs, or rubs. Normal PMI, no JVD. No pulse deficits. Respiratory: Lungs have equal breath sounds bilaterally, clear to auscultation and percussion. No rales, rhonchi or wheezes noted. No increased work of breathing, no retractions or nasal flaring. Abdomen/GI: Soft, non-tender, with normal bowel sounds. No distension or tympany. No guarding or rebound. No evidence of tenderness throughout. Back: No spinal tenderness. No costovertebral tenderness. Full range of motion. Skin: Warm, dry with normal turgor. Normal color with no rashes, no lesions, and no evidence of cellulitis. MS/ Extremity: Pulses equal, no cyanosis. Neurovascular intact. Full, normal range of motion. 03:03 Neuro: Orientation: is normal, Mentation: is normal, Memory: is normal, Cranial nerves: grossly normal, Cerebellar function: is grossly normal, Motor: is normal, Sensation: is normal. Vital Signs: 00:19 BP 111 / 78; Pulse 64; Resp 18; Temp 98.4; Pulse Ox 98% on R/A; Weight 70.31 kg; Height aa1 5 ft. 4 in. (162.56 cm); Pain 0/10; 01:10 BP 96 / 65; Pulse 60; Resp 18; Pulse Ox 96% on R/A; Pain 0/10; aa1 02:00 BP 114 / 76; Pulse 57; Resp 18; Pulse Ox 96% on R/A; aa1 03:10 BP 124 / 82; Pulse 59; Resp 18; Pulse Ox 95% on R/A; Pain 0/10; aa1 04:38 BP 115 / 73; Pulse 59; Resp 16; Temp 98.1; Pulse Ox 94% on R/A; Pain 0/10; aa1 05:31 BP 111 / 69; Pulse 57; Resp 20; Pulse Ox 96% on R/A; Pain 0/10; aa1 06:47 BP 102 / 64; Pulse 60; Resp 18; Pulse Ox 96% on R/A; Pain 0/10; aa1 07:55 BP 104 / 65; Pulse 60; Resp 18; Pulse Ox 99% on R/A; hj 00:19 Body Mass Index 26.61 (70.31 kg, 162.56 cm) [facility] MDM: 00:14 Patient medically screened. 03:04 Differential diagnosis: cardiac arrhythmia, CVA, generalized weakness, hypovolemia, wa syncope, TIA, vertigo. Data reviewed: vital signs, nurses notes. Test interpretation: by ED physician or midlevel provider: EKG: HR 61. LAD. non-specific ST-T changes.. 03:07 Response to treatment: the patient's symptoms have markedly improved after treatment. 07:01 Test interpretation: by ED physician or midlevel provider: labs noted for hypokalemia wa of 2.8. EKG: HR 61. LAD. prolong QT. non-specific ST-Changes. . ED course: pt had called and advised she took a few more pills of her trazodone and gabapentin as she wanted to end her life. will have [facility] eval. 07:32 ED course: pt improved. denied SI attempt with on-going ideation to [facility] personnel. will d/c home with close f/u. dizziness resolved. 03/20 00:40 Order name: UDS ar 03/20 00:40 Order name: Basic Metabolic Panel; Complete Time: 03:03/20 00:40 Order name: CBC with Diff; Complete Time: 03:03/20 00:40 Order name: CPK; Complete Time: 03:03/20 00:40 Order name: Hepatic Function; Complete Time: 04:45 03/20 00:40 Order name: Magnesium; Complete Time: 04:45 03/20 00:40 Order name: CT Head Brain wo Cont wa 06/10 00:40 Order name: Protime (+inr); Complete Time: 04:45 03/20 00:40 Order name: Troponin (emerg Dept Use Only); Complete Time: 04:45 03/20 00:41 Order name: Salicylate; Complete Time: 04:45 03/20 00:41 Order name: Tylenol Level; Complete Time: 03:07 03/20 00:46 Order name: Urine Drug Screen; Complete Time: 04:45 EDMS 03/20 01:10 Order name: Urine Dipstick--Ancillary (enter results); Complete Time: 03:06 cm6 03/20 00:40 Order name: EKG; Complete Time: 00:46 03/20 00:40 Order name: Cardiac monitoring; Complete Time: :03/20 00:40 Order name: EKG - Nurse/Tech; Complete Time: 01:03/20 00:40 Order name: IV Saline Lock; Complete Time: :03/20 00:40 Order name: Labs collected and sent; Complete Time: :03/20 00:40 Order name: NPO; Complete Time: :03/20 00:40 Order name: O2 Per Protocol; Complete Time: :03/20 00:40 Order name: O2 Sat Monitoring; Complete Time: :03/20 00:40 Order name: Urine Dipstick-Ancillary (obtain specimen); Complete Time: 01:02 ar Administered Medications: 01:09 Drug: NS 0.9% 1000 ml Route: IV; Rate: 1 bolus; Site: right wrist; tl1 02:00 Follow up: IV Status: Completed infusion; IV Intake: 1000ml aa1 06:59 Follow up: IV Status: Infusion continued hj 05:00 Drug: Potassium Effervescent Tablet 50 mEq Route: PO; aa1 06:58 Follow up: Response: No adverse reaction Disposition: 03/20/19 07:34 Discharged to Home. Impression: dizziness. - Condition is Stable. - Discharge Instructions: Dizziness, [id number]. - Prescriptions for Potassium Chloride 20 meq Oral Packet - take 1 packet by ORAL route once daily 1 packet in 6 (six) ounces of water or juice; Take after meal; 12 packet. - Medication Reconciliation Form, Thank You Letter, Antibiotic Education, Prescription Opioid Use form. - Follow up: Jose Alfredo Claros MD; When: 1 - 2 days; Reason: Recheck today's complaints. - Problem is new. - Symptoms have improved. - Notes: follow up with the neurologist as discussed. also follow up per [facility] referral for issues regarding depression. return to ER for any worsening concerns Signatures: Dispatcher [employer] EDMS Shellie Lopez RN RN aa1 Christa Lawson RN RN tl1 Zhou Nava RN RN hj Erik Sommer MD MD wa Corrections: (The following items were deleted from the chart) 07:55 07:34 03/20/2019 07:34 Discharged to Home. Impression: dizziness. Condition is Stable. hj Forms are Medication Reconciliation Form, Thank You Letter, Antibiotic Education, Prescription Opioid Use. Follow up: Jose Alfredo Claros; When: 1 - 2 days; Reason: Recheck today's complaints. Problem is new. Symptoms have improved. wa
--- NOTE | 2019-03-20 07:35 | ER ---
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 Amb with steady gait from lobby. Transition of care: patient was not received from another setting of care. Onset of symptoms was March 20, 2019. Risk Assessment: Do you want to hurt yourself or someone else? Patient reports no desire to harm self or others. Initial Sepsis Screen: Does the patient meet any 2 criteria? No. Patient's initial sepsis screen is negative. Does the patient have a suspected source of infection? No. Patient's initial sepsis screen is negative. Care prior to arrival: None. 00:12 Method Of Arrival: Ambulatory aa1 00:12 Acuity: SHAWN 3 aa1 Triage Assessment: 00:19 General: Appears in no apparent distress. comfortable, Behavior is calm, cooperative, aa1 appropriate for age. Pain: Denies pain. Historical: - Allergies: 00:19 Benadryl; aa1 00:19 Codeine; aa1 00:19 Ketorolac; aa1 00:19 tramadol; aa1 - Home Meds: 00:19 aspirin 81 mg Oral TbEC 1 tab once daily [Active]; atorvastatin 40 mg Oral tab 1 tab aa1 once daily [Active]; buspirone 10 mg Oral tab 1 tab 2 times per day [Active]; fluoxetine 40 mg Oral cap 1 cap once daily [Active]; hydralazine 50 mg Oral tab 1 tab three times a day [Active]; isosorbide mononitrate 60 mg Oral Tb24 1 tab once daily [Active]; Latuda 60 mg Oral tab 1 tab once daily [Active]; lisinopril 40 mg Oral tab 1 tab once daily [Active]; metoprolol tartrate 100 mg Oral tab 1 tab 2 times per day [Active]; trazodone 300 mg Oral tab 1 tab nightly [Active]; - PMHx: 00:19 ADD/ADHD; Anemia; Cancer; CHF; COPD; Depression; Hyperlipidemia; Hypertension; Major aa1 Depressive Disorder; Schizo-affective disorder; - PSHx: 00:19 Mastectomy, Left; Hernia repair; Mastectomy, Right; Cholecystectomy; Heel Surgery both aa1 Feet; Umbilical Hernia Mesh; Tumor removal - L shoulder; Heart stents; - Immunization history:: Flu vaccine is up to date. - Social history:: Smoking status: Patient uses tobacco products, smokes one pack cigarettes per day. Patient/guardian denies using alcohol, street drugs, IV drugs. - Ebola Screening: : No symptoms or risks identified at this time. - Family history:: not pertinent. - Hospitalizations: : No recent hospitalization is reported. Screenin:30 Abuse screen: Denies threats or abuse. Nutritional screening: No deficits noted. tl2 Tuberculosis screening: No symptoms or risk factors identified. Fall Risk IV access (20 points). Assessment: 00:30 General: Appears in no apparent distress. uncomfortable, Behavior is calm, cooperative, tl2 appropriate for age, drowsy. Pain: Denies pain. Neuro: Level of Consciousness is awake, obeys commands, Oriented to person, place, time, situation, Reports dizziness. Cardiovascular: Denies chest pain. Respiratory: Airway is patent Respiratory effort is even, unlabored, Respiratory pattern is regular, symmetrical. GI: No signs and/or symptoms were reported involving the gastrointestinal system. Derm: Skin is pink, warm \T\ dry. 01:10 Reassessment: Patient appears in no apparent distress at this time. Patient and/or aa1 family updated on plan of care and expected duration. Pain level reassessed. Patient is alert, oriented x 3, equal unlabored respirations, skin warm/dry/pink. Pt resting quietly; awaiting lab and CT results Patient states symptoms have improved. 02:30 Reassessment: Patient appears in no apparent distress at this time. Patient and/or aa1 family updated on plan of care and expected duration. Pain level reassessed. Patient is alert, oriented x 3, equal unlabored respirations, skin warm/dry/pink. Awaiting CT results. 03:30 Reassessment: Patient appears in no apparent distress at this time. Patient and/or aa1 family updated on plan of care and expected duration. Pain level reassessed. Patient is alert, oriented x 3, equal unlabored respirations, skin warm/dry/pink. Awaiting provider reassessment. 04:36 Reassessment: Patient appears in no apparent distress at this time. Patient and/or aa1 family updated on plan of care and expected duration. Pain level reassessed. Patient is alert, oriented x 3, equal unlabored respirations, skin warm/dry/pink. Still awaiting provider reassessment. 05:30 Reassessment: Patient appears in no apparent distress at this time. Patient and/or aa1 family updated on plan of care and expected duration. Pain level reassessed. Patient is alert, oriented x 3, equal unlabored respirations, skin warm/dry/pink. Per MD, pt to have [facility] eval for mental illness hx. Per MD pt does not need sitter or safety checks at this time. 06:47 Reassessment: Patient appears in no apparent distress at this time. Patient and/or aa1 family updated on plan of care and expected duration. Pain level reassessed. Patient is alert, oriented x 3, equal unlabored respirations, skin warm/dry/pink. Awaiting evaluation from [facility]. 07:00 General: Appears in no apparent distress. uncomfortable, Behavior is calm, cooperative, hj appropriate for age. Pain: Denies pain. Neuro: Level of Consciousness is awake, alert, obeys commands, Oriented to person, place, time, situation, Appropriate for age Reports dizziness. Cardiovascular: Denies chest pain. Respiratory: Airway is patent Respiratory effort is even, unlabored, Respiratory pattern is regular, symmetrical. GI: No signs and/or symptoms were reported involving the gastrointestinal system. : No signs and/or symptoms were reported regarding the genitourinary system. EENT: No signs and/or symptoms were reported regarding the EENT system. Musculoskeletal: No signs and/or symptoms reported regarding the musculoskeletal system. 07:14 Reassessment: [facility] rep in room;. Vital Signs: 00:19 BP 111 / 78; Pulse 64; Resp 18; Temp 98.4; Pulse Ox 98% on R/A; Weight 70.31 kg; Height aa1 5 ft. 4 in. (162.56 cm); Pain 0/10; 01:10 BP 96 / 65; Pulse 60; Resp 18; Pulse Ox 96% on R/A; Pain 0/10; aa1 02:00 BP 114 / 76; Pulse 57; Resp 18; Pulse Ox 96% on R/A; aa1 03:10 BP 124 / 82; Pulse 59; Resp 18; Pulse Ox 95% on R/A; Pain 0/10; aa1 04:38 BP 115 / 73; Pulse 59; Resp 16; Temp 98.1; Pulse Ox 94% on R/A; Pain 0/10; aa1 05:31 BP 111 / 69; Pulse 57; Resp 20; Pulse Ox 96% on R/A; Pain 0/10; aa1 06:47 BP 102 / 64; Pulse 60; Resp 18; Pulse Ox 96% on R/A; Pain 0/10; aa1 07:55 BP 104 / 65; Pulse 60; Resp 18; Pulse Ox 99% on R/A; hj 00:19 Body Mass Index 26.61 (70.31 kg, 162.56 cm) aa1 ED Course: 00:05 Patient arrived in ED. ag3 00:14 Erik Sommer MD is Attending Physician. wa 00:15 Triage completed. aa1 00:19 Arm band placed on right wrist. Patient placed in an exam room, on a stretcher. aa1 00:30 Patient has correct armband on for positive identification. Bed in low position. Call tl2 light in reach. Side rails up X2. 01:00 Inserted saline lock: 22 gauge in right hand, using aseptic technique. Blood collected. tl2 01:05 EKG done, by ED staff, reviewed by Erik Sommer MD. aa1 01:09 Noemi Hall, RN is Primary Nurse. tl2 01:11 Initial lab(s) drawn, by ak, sent to lab. Urine collected: clean catch specimen, beau tl2 colored. 01:19 CT Head Brain wo Cont In Process Unspecified. EDMS 01:43 Notified ED physician of a critical lab result(s). potassium of 2.8. fc 07:34 Jose Alfredo Claros MD is Referral Physician. wa 07:52 No provider procedures requiring assistance completed. IV discontinued, intact, hj bleeding controlled, No redness/swelling at site. Pressure dressing applied. Administered Medications: 01:09 Drug: NS 0.9% 1000 ml Route: IV; Rate: 1 bolus; Site: right wrist; tl1 02:00 Follow up: IV Status: Completed infusion; IV Intake: 1000ml aa1 06:59 Follow up: IV Status: Infusion continued hj 05:00 Drug: Potassium Effervescent Tablet 50 mEq Route: PO; aa1 06:58 Follow up: Response: No adverse reaction hj Intake: 02:00 IV: 1000ml; Total: 1000ml. aa1 Outcome: 07:34 Discharge ordered by . kevin 07:52 Discharged to home ambulatory. 07:52 Condition: stable 07:52 Discharge instructions given to patient, Instructed on discharge instructions, follow up and referral plans. medication usage, Demonstrated understanding of instructions, follow-up care, medications, Prescriptions given X 1. 07:55 Patient left the ED. Signatures: Dispatcher [employer] EDMS Shellie Lopez RN RN aa1 Jael Canada RN Christa Thakur RN RN tl1 Zhou Nava RN RN hj Knox, Taylor, RN RN tl2 Erik Sommer MD MD wa Gomez, Alice ag3
[2019-03-20 08:12] VITALS: TEMP 98.1
[2019-03-20 08:16] VITALS: BP 104/65; O2SAT 99
--- NOTE | 2019-03-20 09:54 | EKG ---
Test Date: 2019-03-20 Test Time: 01:06:48 Slag Expander: TL MEASUREMENT RESULTS: Intervals: Rate: 61 NV: 202 QRSD: 102 QT: 498 QTc: 501 Frederick: P: 15 NV: 202 QRS: -38 T: 73 INTERPRETIVE STATEMENTS: Normal sinus rhythm Left axis deviation Nonspecific ST and T wave abnormality Prolonged QT Abnormal ECG Compared to ECG 03/17/2019 12:26:06 ST (T wave) deviation now present Prolonged QT interval now present Sinus bradycardia no longer present Myocardial infarct finding no longer present Electronically Signed On 03-20-19 09:53:51 CDT by Mahad Meredith
--- NOTE | 2019-03-20 10:30 | RAD REPORT ---
EXAM DESCRIPTION: CT - Head Brain Wo Cont - 03/20/2019 6:15 am CLINICAL HISTORY: The patient is 63 years old and is Female; DIZZINESS TECHNIQUE: Axial computed tomography images of the head/brain without intravenous contrast. Sagitt al and coronal reformatted images were created and reviewed. This CT exam was performed using one o r more of the following dose reduction techniques: automated exposure control, adjustment of the mA and/or kV according to patient size, and/or use of iterative reconstruction technique. COMPARISON: CT head September 28, 2018. FINDINGS: BRAIN: Unremarkable. The cid-white matter differentiation is preserved . No hemorrhag e. No significant white matter disease. No edema. No extra-axial fluid collections. VENTRICLES: Unremarkable. No ventriculomegaly. BONES/JOINTS: No acute fracture. SOFT TISSUES: Unremarkable. SINUSES: Unremarkable as visualized. No acute sinusitis. MASTOID AIR CELLS: Unremarkable as visualized. No mastoid effusion. IMPRESSION: No acute intracranial findings. Electronically signed by: Heike Mathis MD 03/20/2019 1:29 AM CDT Due to temporary technical issues with the PACS/Fluency reporting system, reports are being signed by the in house radiologist as a courtesy to ensure prompt reporting. The interpreting radiologist is f ully responsible for the content of the report.
== END 2019-03-20 07:55 | disposition home or self-care (01) ==
LOC: ER 00:02
DX: R42 Dizziness and giddiness (principal); I10 Essential (primary) hypertension; J44.9 Chronic obstructive pulmonary disease, unspecified; F90.9 Attention-deficit hyperactivity disorder, unspecified type; I50.9 Heart failure, unspecified; E78.5 Hyperlipidemia, unspecified; F32.9 Major depressive disorder, single episode, unspecified; F17.210 Nicotine dependence, cigarettes, uncomplicated; Z88.6 Allergy status to analgesic agent
CPT/HCPCS: 36415; 70450; 80048; 80076; 80307; 80329; 81003; 82550; 83735; 84484; 85025; 85610; 93005; 96360; 99284; J7030

== ENCOUNTER 2020-04-06 16:18 | Emergency (ER) | payer OTHER ==
--- OUTSIDE RECORDS SUMMARY | 2020-04-06 16:22 | XMS REPORT | Continuity of Care Document ---
:1955 Author Organization [employer] Care Team Providers Name Role Phone [employer] 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 Presence of 01/09/2019 [facility] coronary [facility] angioplasty implant and graft Hypertensive 01/09/2019 Jennifer chronic kidney [facility] disease with stage 1 through stage 4 chronic kidney disease, or unspecified chronic kidney disease Chronic kidney 01/09/2019 Aditya atkarson disease, stage 2 Hos pital (mild) Hyperlipidemia, 01/09/2019 [facility] unspecified Hospital Major depressive 01/09/2019 [facility] disorder, single Hos pital episode, unspecified Suicidal ideations 01/09/2019 [facility] Unspecified viral 01/09/2019 [facility] hepatitis C [facility] without hepatic coma Schizophrenia, 01/09/2019 [facility] at unspecified Hospital Bipolar disorder, 01/09/2019 [facility] Alysa unspecified Hospital Chronic 01/09/2019 [facility] obstructive [facility] pulmonary disease, unspecified Personal history 01/09/2019 [facility] of malignant Hospita l neoplasm of breast 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 Homelessness 01/09/2019 [facility] Nicotine 01/09/2019 [facility] dependence, Hospital cigarettes, uncomplicated Other senior care 01/09/2019 [facility] (current) drug [facility] therapy ESSENTIAL Active [facility] (PRIMARY) [facility] HYPERTENSION Medications Medication Details Route Status Patient Ordering Order Source Instructions Provider Date Lipitor Notes: (Same Inactive 06/23/ Alysa As: Lipitor) 2018 Hospital isosorbide 30 mg = 1 tab, Active 06/22/ Jennifer y mononitrate 30 PO, QAM, # 30 2018 Hos pital mg oral tablet, tab, 0 extended Refill(s) release Aspirin 81 MG 81 mg = 1 tab, Active Alysa Enteric Coated PO, Daily, # 30 2018 H ospital Tablet tab, 0 Refill(s) Alprazolam 0.25 0.25 mg = 1 No Longer Alysa MG Oral Tablet tab, PO, BID, Active 2018 Hos pital [Xanax] PRN Anxiety, Stress, X 10 day, # 20 tab, 0 Refill(s) Imdur Notes: (Same Inactive Alysa as:Imdur) "Do 2018 Hospital Not Crush" Take on empty stomach/ full glass of water. Do not crush Aspirin 81 MG 81 mg = 1 tab, Inactive [facility] Enteric Coated PO, Daily, 0 2018 Hosp ital Tablet Refill(s) Saline Flush Notes: (Same Inactive Ka ty 0.9% as: BD 2018 Hospital Posiflush) Aspirin 81 MG Notes: Do not Inactive [facility] Enteric Coated crush or chew. 2018 Ho spital Tablet (Same As: Ecotrin) Amlodipine Notes: (Same Inactive Alysa as: Norvasc) 2018 Hospital metoprolol Notes: (Same Inactive Alysa tartrate as: Lopressor) 2018 [facility] Prozac Notes: (Same Inactive Alysa as: Prozac, 2018 [facility] Sarafe) Trazodone Notes: (Same Inactive Alysa As: Desyrel) 2018 [facility] Hydralazine Notes: (Same Inactive Jennifer y as: Apresoline) 2018 Hospital May interfere w/enteral feedings Take With Food. Nicoderm C-Q Notes: (Same No Longer K aty as: Habitrol) Active 2018 Hospital "Remove old patch before application of new patch" WASTE: F/P - P Waste Black; E - P Waste Black remove patch Notes: Remove No Longer Alysa old patch Active [facility] Hospital before application of new patch. WASTE: F/P - P Waste Black; E - P Waste Black BD Normal Notes: (Same No Longer [facility] Saline Flush as: BD Active 2018 Hospital Posiflush) Saline Flush Notes: (Same No Longer K aty 0.9% as: BD Active 2018 Hospital Posiflush) Nitroglycerin Notes: (Same No Longer Alysa as:Nitroquick, Active 2018 Hospital Nitrostat) "Do Not Crush" Sublingual tablet Ondansetron Notes: (Same No Longer Ka ty as: Zofran) Active 2018 Hospital Latuda 60 mg, PO, Active [facility] Bedtime 2018 Hospital metoprolol 100 mg, PO, Active [facility] tartrate BID, hold if 2018 Hospital SBP<120 or HR< 60, 0 Refill(s) Hydralazine 50 mg, PO, TID, Active K aty 0 Refill(s) 2018 Hospital Lipitor 40 mg, PO, Active [facility] Daily, 0 2018 Hospital Refill(s) Prozac 40 mg, PO, Active [facility] Daily, 0 2018 Hospital Refill(s) Amlodipine 10 mg, PO, Active [facility] Daily, 0 2018 Hospital Refill(s) Trazodone 300 mg, PO, Active [facility] Bedtime, 0 2018 Hospital Refill(s) Aspirin Notes: Take Inactive Alysa with food. 2018 Hospital Nitroglycerin Notes: 1 gram Inactive Alysa 0.02 MG/MG is 2018 Hospital Topical approximately 1 Ointment inch of nitroglycerin ointment (20 mg NTG per gram) (Same as:Nitro-Bid) Saline Flush Notes: (Same Inactive Ka ty 0.9% as: BD 2017 Hospital Posiflush) Allergies, Adverse Reactions, Alerts No Known Medication Allergies Immunizations No Data Provided for This Section Results Order Name Results Value Reference Date Interpretation Comments [place] [facility] Range CARDIAC Troponin-I <0.02 0.00 - 06/22 [facility] ENZYMES 0.40 /2017 Hospital ELECTROLYTES AGAP 12.7 10.0 - 06/22 [facility] 20.0 /2017 Hospital ELECTROLYTES eGFR 98 06/22 Result Alysa /2017 Comment: The Hospital eGFR is calculated using the CKD-EPI formula. In most young, healthy individuals the eGFR will be >90 mL/min/1.73m2 . The eGFR declines with age. An eGFR of 60-89 may be normal in some populations, particularly the elderly, for whom the CKD-EPI formula has not been extensively validated. Use of the eGFR is not recommended in the following populations:< br/>
Miladis viduals with unstable creatinine concentration s, including patients and those with serious co-morbid conditions.<b r/>
Patie nts with extremes in muscle mass or diet.

The data above are obtained from the National Kidney Disease Education Program (NKDEP) which additionally recommends that when the eGFR is used in patients with extremes of body mass index for purposes of drug dosing, the eGFR should be multiplied by the estimated BMI. ELECTROLYTES Calcium Lvl 8.0 8.5 - 10.5 06/22 [facility] ELECTROLYTES CO2 24 24 - 32 06/22 [facility] ELECTROLYTES BUN 15 7 - 22 06/22 [facility] ELECTROLYTES Creatinine 0.61 0.50 - 06/22 [facility] Lvl 1.40 Hospital ELECTROLYTES Chloride Lvl 109 95 - 109 06/22 [facility] ELECTROLYTES Sodium Lvl 142 135 - 145 06/22 Jennifer y Hospital ELECTROLYTES Glucose Lvl 80 70 - 99 06/22 [facility] ELECTROLYTES Potassium Lvl 3.7 3.5 - 5.1 06/22 [facility] HEMATOLOGY WBC 6.0 3.7 - 10.4 06/22 [facility] HEMATOLOGY Hgb 13.9 12.0 - 06/22 [facility] 16.0 Hospital HEMATOLOGY RBC 4.65 4.20 - 06/22 [facility] 5.40 Hospital HEMATOLOGY MPV 9.0 7.4 - 10.4 06/22 [facility] HEMATOLOGY Platelet 173 133 - 450 06/22 [facility] HEMATOLOGY Hct 40.9 36.0 - 06/22 [facility] 48.0 Hospital HEMATOLOGY MCH 29.9 27.0 - 06/22 [facility] 31.0 Hospital HEMATOLOGY MCHC 33.9 32.0 - 06/22 [facility] 36.0 Hospital HEMATOLOGY MCV 88.0 80.0 - 06/22 [facility] 98.0 Hospital HEMATOLOGY RDW 13.6 11.5 - 06/22 [facility] 14.5 Hospital HEMATOLOGY Eosinophils # 0.2 0.0 - 0.5 06/22 [facility] HEMATOLOGY Monocytes # 0.5 0.0 - 0.8 06/22 [facility] HEMATOLOGY Segs 53.0 45.0 - 06/22 [facility] 75.0 Hospital HEMATOLOGY Lymphocytes 34.4 20.0 - 06/22 [facility] 40.0 Hospital HEMATOLOGY Basophils 0.8 0.0 - 1.0 06/22 Hospital HEMATOLOGY Eosinophils 2.9 0.0 - 4.0 06/22 Aly[facility] HEMATOLOGY Lymphocytes # 2.1 1.0 - 5.5 06/22 Ka [facility] HEMATOLOGY Neutrophils # 3.2 1.5 - 8.1 06/22 ty [facility] HEMATOLOGY Monocytes 8.9 2.0 - 12.0 06/22 Hospital LIPIDS VLDL 33 06/22 [facility] LIPIDS LDL 64 <=99 mg/dL 06/22 [facility] (Calculated) Hospital LIPIDS Chol 145 <=199 06/22 [facility] mg/dL Hospital LIPIDS Trig 164 <=149 06/22 [facility] mg/dL Hospital LIPIDS HDL 48 >=61 mg/dL 06/22 [facility] LIPIDS CHD Risk 3.02 3.90 - 06/22 [facility] 5.80 Hospital CARDIAC Troponin-I 0.02 0.00 - 06/22 [facility] ENZYMES 0.40 Hospital CARDIAC Troponin-I 0.02 0.00 - 06/21 [facility] ENZYMES 0.40 Hospital CARDIAC Total CK 56 12 - 191 06/21 [facility] ENZYMES Hospital CHEM PANEL eGFR 95 06/21 [facility] Comment: The Hospital eGFR is calculated using the CKD-EPI formula. In most young, healthy individuals the eGFR will be >90 mL/min/1.73m2 . The eGFR declines with age. An eGFR of 60-89 may be normal in some populations, particularly the elderly, for whom the CKD-EPI formula has not been extensively validated. Use of the eGFR is not recommended in the following populations:< br/>
Miladis viduals with unstable creatinine concentration s, including patients and those with serious co-morbid conditions.<b r/>
Patie nts with extremes in muscle mass or diet.

The data above are obtained from the National Kidney Disease Education Program (NKDEP) which additionally recommends that when the eGFR is used in patients with extremes of body mass index for purposes of drug dosing, the eGFR should be multiplied by the estimated BMI. CHEM PANEL B/C Ratio 24 6 - 25 06/21 Hospital CHEM PANEL A/G Ratio 1.1 0.7 - 1.6 06/21 Hospital CHEM PANEL Globulin 2.9 2.7 - 4.2 06/21 Hospital CHEM PANEL ALT 33 0 - 65 06/21 Hospital CHEM PANEL AST 23 0 - 37 06/21 Hospital CHEM PANEL Alk Phos 74 39 - 136 06/21 Hospital CHEM PANEL AGAP 8.6 10.0 - 06/21 [facility] 20.0 Hospital CHEM PANEL Bili Total 0.3 0.2 - 1.3 06/21 Hospital CHEM PANEL Sodium Lvl 144 135 - 145 06/21 Hospital CHEM PANEL Potassium Lvl 3.6 3.5 - 5.1 06/21 Hospital CHEM PANEL Chloride Lvl 108 95 - 109 06/21 Hospital CHEM PANEL BUN 16 7 - 22 06/21 Hospital CHEM PANEL Creatinine 0.68 0.50 - 06/21 [facility] Lvl 1.40 Hospital CHEM PANEL Calcium Lvl 8.4 8.5 - 10.5 06/21 Hospital CHEM PANEL Total Protein 6.2 6.4 - 8.4 06/21 Hospital CHEM PANEL Albumin Lvl 3.3 3.5 - 5.0 06/21 Hospital CHEM PANEL CO2 31 24 - 32 06/21 Hospital CHEM PANEL Glucose Lvl 95 70 - 99 06/21 Hospital HEMATOLOGY Basophils 1.1 0.0 - 1.0 06/21 Hospital HEMATOLOGY Eosinophils 2.4 0.0 - 4.0 06/21 Aly[facility] HEMATOLOGY Eosinophils # 0.2 0.0 - 0.5 09 [facility] HEMATOLOGY Basophils # 0.1 0.0 - 0.2 09 Aly[facility] HEMATOLOGY Lymphocytes # 2.1 1.0 - 5.5 06/21 ty [facility] HEMATOLOGY Monocytes # 0.5 0.0 - 0.8 06/21 Alysa [facility] HEMATOLOGY Neutrophils # 3.9 1.5 - 8.1 06/21 Ka [facility] HEMATOLOGY Segs 58.4 45.0 - 06/21 Alysa 75.0 /2017 Hospital HEMATOLOGY Monocytes 6.8 2.0 - 12.0 06/21 Alysa [facility] HEMATOLOGY Lymphocytes 31.3 20.0 - 06/21 [facility] 40.0 Hospital HEMATOLOGY MCHC 35.5 32.0 - 06/21 [facility] 36.0 Hospital HEMATOLOGY Platelet 183 133 - 450 06/21 Alysa [facility] HEMATOLOGY MPV 9.0 7.4 - 10.4 06/21 Alysa [facility] HEMATOLOGY RDW 13.6 11.5 - 06/21 Alysa 14.5 /2017 Hospital HEMATOLOGY MCH 31.2 27.0 - 06/21 [facility] 31.0 Hospital HEMATOLOGY MCV 87.8 80.0 - 06/21 Alysa 98.0 [facility] HEMATOLOGY Hct 40.5 36.0 - 06/21 Alysa 48.0 [facility] HEMATOLOGY Hgb 14.4 12.0 - 06/21 [facility] 16.0 Hospital HEMATOLOGY RBC 4.61 4.20 - 06/21 Alysa 5.40 /2017 Hospital HEMATOLOGY WBC 6.7 3.7 - 10.4 06/21 [facility] Pathology Reports No Data Provided for This Section Diagnostic Reports Report Value Date Source Chest 1view DX EXAM: XR CHEST 1 VIEW 06/21/2018 [facility] spital DATE: 06/21/2018 4:58 PM CDT INDICATION: Chest pain. COMPARISON: December 22, 2005. TECHNIQUE: Frontal radiograph of the chest was o btained. FINDINGS: No focal consolidation or pn eumothorax is identified. The cardiomediastinal silhouette is within normal limits. The costophrenic recesses are sharp and without effusion. No acute osseous abnormality is noted. IMPRESSION: No acute cardiopulmonary abnormality. SL: [id number] Consultation Notes No Data Provided for This Section Discharge Summaries No Data Provided for This Section History and Physicals No Data Provided for This Section Vital Signs Vital Sign Value Date Comments Source Temperature Oral (F) 98.3 F 2018 [facility] Systolic (mm Hg) 141 2018 [facility] Hos pital Diastolic (mm Hg) 95 2018 [facility] Ho spital Respitory Rate 18 2018 [facility] [facility] Temperature Oral (F) 97.3 F 2018 [facility] Systolic (mm Hg) 144 2018 [facility] Diastolic (mm Hg) 79 2018 [facility] spital Heart Rate 67 2018 [facility]ospita [facility] Respitory Rate 18 2018 [facility] Systolic (mm Hg) 135 2018 [facility] Hos [facility] Diastolic (mm Hg) 81 2018 [facility] spital Heart Rate 54 2018 [facility] Hospita l Respitory Rate 18 2018 [facility] Temperature Oral (F) 98.4 F 2018 [facility] BMI Calculated 26.83 2018 [facility] Height 162.56 cm 2018 [facility] Weight 70.909 2018 [facility] BMI Calculated 26.66 06/21/2018 [facility] Weight 70.455 06/21/[facility] Height 162.56 cm 06/21/2018 [facility] Encounters Location Location Encounter Encounter Reason Attending ADM DC Stat us Source Details Type Number For Provider Date Date Visit [facility] [id number] Renee 06/22 06/22 [facility] Ayaz [facility] Procedures Procedure Code Date Perfomer Comments Source Breast biopsy and [id number] [facility] related procedures Hospit al Cholecystectomy [id number] [facility] Foot repair [id number] [facility] Hernia repair [id number] [facility] Stent placement [id number] [facility] Assessment and Plan Assessment and Plan Date Source Extracted from:Title: History and Physical 2018 [facility] Author: Renee Jaime DO Date: 06/21/18 1.Atypical chest pain Patient will beadmitted under observatio n statusto the telemetry unit with anticipated LOS of 1 midnight. Heart healthy diet. IV fluids, homemedications, supportive care as appropriate. Cycle cardiac enzymes. Obtain a fasting lipid profile. 2.Essential hypertension Continue home medications as appropriate . PRN antihypertensive medications as appropriate. Ordered: Admit/Condition, 06/21/18 19:48:00 CDT, Status: Out Patient with Observation Services, Telemetry, Expected LOS: 1 Midnight, Renee Jaime DO, Admit MD Review/Approve Yes 3.Depression Continue medical management as appropria te. Patient was recently admitted to [facility] following suicide attempt 4.Tobacco use NicoDerm patch. Cessation encouraged DVT prophylaxis Patient will beadmitted under observat ion statusto the telemetry unit with anticipated LOS of 1 midnight. Patient was seen onSeptember 2017 at 7:58 PM. Plan of Care No Data Provided for This Section Social History Social History Date Source Social History TypeResponse [facility] Substance Abuse Use: Past. Type: Methamphetamines. Rec reational Drug Route: Inhaled, Intravenous, Oral.1 Alcohol Past, Last use: 2014. Smoking Status Current every day smoker; Type: Cigarett es; Exposure to Tobacco Smoke None; Cigarette Smoking Last 365 Days No; Reg Smoking Cessation Counseling No entered on: 06/22/18 1crack, meth, opiods stopped in 2014, re lapsed 1 month ago with crack and meth (smoke) for 24 hr period Family History No Data Provided for This Section Advance Directives No Data Provided for This Section Functional Status No Data Provided for This Section
--- OUTSIDE RECORDS SUMMARY | 2020-04-06 16:27 | XMS REPORT | Continuity of Care Document ---
:1955 Author Organization [facility] t Address [address] [place] [address] Care Team Providers Name Role Phone Doctor Unassigned, Name Attending Clinician Unavailable Lev PEREZ M Attending Clinician Chito Mejia DO Attending Clinician Aliza Boyle MD Attending Clinician Patricio CAMPOS Attending Clinician Liam Attending Clinician Patricio CAMPOS Admitting Clinician Alee Jaime Admitting Clinician Payers Payer Name Policy Type Policy Number Effective Date Expiration Date S ource Problems Condition Condition Condition Status Onset Resolution Last Treating Co mments Source Name Details Category Date Date Treatment Clinician Date ACUTE Diagnosis Active 2018-06-27 Mem oria CHEST 9-11 22:20:00 l PAIN, ACUTE 00:00: Ayaz ESSENTIAL CHEST 00 HYPERTENSI PAIN, ON ESSENTIAL HYPERTENSI ON Active 8 [facility] Osteoarthr Osteoarthr Problem Active [facility] it[facility] of itis of [facility] - multiple multiple Memori a joints joints l Outpati ent Clinics Hyperlipid Hyperlipid Problem Active [facility] emia, emia, [facility] mixed [facility] Hx of Hx of Problem Active [facility] breast breast [facility] cancer cancer [facility] GERD GERD Problem Active [facility] (gastroeso (gastroeso [facility]us kes - phageal phageal Memoria reflux reflux l disease) disease) Outpat i ent Clinics Insomnia Insomnia Problem [facility] Benign Benign Problem Active [facility] essential essential [facility] - HTN HTN [facility] Chronic Chronic Problem Active [facility] back pain back pain [facility] - [facility] Chronic Chronic Problem Active [facility] obstructiv obstructiv [facility]us kes - e e Memoria pulmonary pulmonary l disease disease [facility] Depression Depression Problem Active [facility] with with [facility] anxiety anxiety [facility] Stented Stented Problem Active [facility] coronary coronary [facility] artery artery [facility] Tobacco Tobacco Problem Active [facility] use use [facility] - disorder disorder [facility] Atheroscle Atheroscle Problem Active [facility] rosis of rosis of [facility] - coronary coronary Memori a artery of artery of l [place] [facility] heart [facility] Clin[facility] Other Other Problem Active [facility] chronic chronic [facility] pain pain [facility] Paresthesi Paresthesi Problem Active [facility] a [facility] Acute on Acute on Problem Active [facility] chronic chronic [facility] - diastolic diastolic Ramos cathy congestive congestive l heart heart Outpati failure failure ent Clinics COPD COPD Problem Active [facility] exacerbati exacerbati [facility] kes - on on [facility] Current Current Problem Active [facility] moderate moderate [facility] - episode of episode of Me moria major major l depressive depressive Ou tpati disorder disorder ent without without Clinics prior prior episode episode Breast Breast Problem Active [facility] implant implant [facility] - status status [facility] Chronic Chronic Problem Active [facility] diastolic diastolic Luke s - congestive congestive Me moria heart heart l failure failure [facility] Paroxysmal Paroxysmal Problem Active [facility] atrial atrial [facility] - fibrillati fibrillati Me moria on on l Outpati ent Clinics Type 2 Type [address] [facility] diabetes diabetes [facility] - mellitus mellitus Memori a with with l hyperglyce hyperglyce Ou tpati isaiah, isaiah, ent without without Clinics long-term long-term current current use of use of insulin insulin History of History of Problem Active [facility] endovascul endovascul [facility] kes - ar stent ar stent Memori a graft for graft for l abdominal abdominal Outp ati aortic aortic ent aneurysm aneurysm Clinic s Atheroscle Problem 2019-01-09 M emoria rotic 14:32:54 l heart Ayaz disease of Atheroscle [place] rotic coronary heart artery disease of without [place] angina coronary pectoris artery without angina pectoris 01/09/2019 [facility] Presence Problem 2019-01-09 Mem oria of 14:32:54 l coronary Presence Herm justin angioplast of y implant coronary and graft angioplast y implant and graft 01/09/2019 [facility] Hypertensi Problem 2019-01-09 M emoria ve chronic 14:32:54 l kidney Boomer disease Hypertensi with stage ve chronic 1 through kidney stage 4 disease chronic with stage kidney 1 through disease, stage 4 or chronic unspecifie kidney d chronic disease, kidney or disease unspecifie d chronic kidney disease 01/09/2019 [facility] Chronic Problem 2019-01-09 Ramos cathy kidney 14:32:54 l disease, Chronic Ju nn stage 2 kidney (mild) disease, stage 2 (mild) 01/09/2019 [facility] Hyperlipid Problem 2019-01-09 M emoria emia, 14:32:54 l unspecifie Ej n d Hyperlipid emia, unspecifie d 01/09/2019 [facility] Major Problem 2019-01-09 Memor ia depressive 14:32:54 l disorder, Major Ej n single depressive episode, disorder, unspecifie single d episode, unspecifie d 01/09/2019 [facility] Suicidal Problem 2019-01-09 Mem oria ideations 14:32:54 l Suicidal Ej n ideations 01/09/2019 [facility] Unspecifie Problem 2019-01-09 M emoria d viral 14:32:54 l hepatitis Ayaz C without Unspecifie hepatic d viral coma hepatitis C without hepatic coma 9 [facility] Schizophre Problem 2019-01-09 M emoria berta, 14:32:54 l unspecifie Ej n d Schizophre berta, unspecifie d 01/09/2019 [facility] Bipolar Problem 2019-01-09 Ramos cathy disorder, 14:32:54 l unspecifie Bipolar Her beltran d disorder, unspecifie d 01/09/2019 [facility] Chronic Problem 2019-01-09 Ramos cathy obstructiv 14:32:54 l e Chronic Ayaz pulmonary obstructiv disease, e unspecifie pulmonary d disease, unspecifie d 01/09/2019 [facility] Personal Problem 2019-01-09 Mem oria history of 14:32:54 l malignant Personal Her beltran neoplasm history of of breast malignant neoplasm of breast 01/09/2019 [facility] 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 Her beltran breasts absence of and bilateral nipples breasts and nipples 01/09/2019 [facility] Homelessne Problem 2019-01-09 M emoria ss 14:32:54 l Ayaz Homelessne ss 01/09/2019 [facility] Nicotine Problem 2019-01-09 Mem oria dependence 14:32:54 l , Nicotine Ej n cigarettes dependence , , uncomplica cigarettes yesy , uncomplica yesy 01/09/2019 [facility] Other long Problem 2019-01-09 M emoria term 14:32:54 l (current) Other Ej sage drug halfway therapy (current) drug therapy 01/09/2019 [facility] ESSENTIAL Diagnosis Active 2018-06-27 Memoria (PRIMARY) 22:20:00 l HYPERTENSI Ej n ON ESSENTIAL (PRIMARY) HYPERTENSI ON Active [facility] Other Problem 2019-01-09 2019-01-09 M emoria chest pain 9-18 14:32:54 14:32:54 l Other 04:21: Ayaz chest pain 29 06/28/2018 01/09/2019 [facility] Allergies, Adverse Reactions, Alerts Allergy Allergy Status Severity Reaction(s) Onset Inactive Treating Comm ents Source Name Type Date Date Clinician No Known DA Active U [facility] Allergie 2-15 Corpus s 00:00: Farnaz [address] [place] [address] Trazodon Adverse Active Info Not [facility] HCl Reaction Available [facility] Benadryl Adverse Active Info Not [facility] Reaction Available [facility] Social History Social Habit Start Date Stop Date Quantity Comments Source Social History 2018 2018 [facility] 05:41:43 05:41:43 Medications Ordered Filled Start Stop Current Ordering Indication Dosage Frequency Signature Comments Components Source Medication Medication Date Date Medication? Clinician (SIG) Name Name Lipitor No Notes: Memoria 06-23 (Same As: l 02:00: Lipitor) Boomer 00 isosorbide Yes 30 mg = 1 Me moria mononitrate 9-12 tab, PO, l 30 mg oral 14:46: QAM, # 30 He rmann tablet, 00 tab, 0 extended Refill(s) release Aspirin 81 Yes 81 mg = 1 Me moria MG Enteric 12 tab, PO, l Coated 14:46: Daily, # Boomer Tablet 00 30 tab, 0 Refill(s) Alprazolam No 0.25 mg = Me moria 0.25 MG 06-22 1 tab, PO, l Oral Tablet 14:46: BID, PRN He rmann [Xanax] 00 Anxiety, Stress, X 10 day, # 20 tab, 0 Refill(s) Imdur No Notes: Memoria 06-22 (Same l 14:31: as:Imdur) "Do Not Crush" Take on empty stomach/ full glass of water. Do not crush Aspirin 81 No 81 mg = 1 Me moria MG Enteric 12 tab, PO, l Coated 14:30: Daily, 0 Ayaz Tablet 00 Refill(s) Saline No Notes: Memoria Flush 0.9% 06-22 (Same as: l 14:00: BD Boomer 00 Posiflush) Aspirin 81 No Notes: Do Me moria MG Enteric 06-22 not crush l Coated 14:00: or chew. Ayaz Tablet 00 (Same As: Ecotrin) Amlodipine No Notes: Memor ia 06-22 (Same as: l 14:00: Norvasc) Boomer metoprolol No Notes: Memor ia tartrate 06-22 (Same as: l 14:00: Lopressor) Prozac No Notes: Memoria 06-22 (Same as: l 14:00: Prozac, Sarafem) Trazodone No Notes: Memori a 06-22 (Same As: l 06:00: Desyrel) Hydralazine No Notes: Ramos cathy 06-22 (Same as: l 05:00: Apresoline ) May interfere w/enteral feedings Take With Food. Nicoderm No Notes: Memoria C-Q 06-22 (Same as: l 04:00: Habitrol) "Remove old patch before applicatio n of new patch" WASTE: F/P - P Waste Black; E - P Waste Black remove No Notes: Memoria patch 06-22 Remove old l 04:00: patch before applicatio n of new patch. WASTE: F/P - P Waste Black; E - P Waste Black BD Normal No Notes: Memori a Saline 06-22 (Same as: l Flush 03:47: BD Posiflush) Saline No Notes: Memoria Flush 0.9% 06-22 (Same as: l 02:43: BD Posiflush) Nitroglycer No Notes: Ramos cathy in 06-22 (Same l 02:43: as:Nitroqu ick, Nitrostat) "Do Not Crush" Sublingual tablet Ondansetron No Notes: Ramos cathy 06-22 (Same as: l 02:43: Zofran) Latuda Yes 60 mg, PO, Memor ia 06-22 Bedtime l 02:31: metoprolol Yes 100 mg, Ramos cathy tartrate 06-22 PO, BID, l 02:31: hold if SBP<120 or HR< 60, 0 Refill(s) Hydralazine Yes 50 mg, PO, Memoria 06-22 TID, 0 l 02:31: Refill(s) Lipitor Yes 40 mg, PO, Ramos cathy 9-12 Daily, 0 l 02:31: Refill(s) Prozac Yes 40 mg, PO, Memor ia 9-12 Daily, 0 l 02:31: Refill(s) Amlodipine Yes 10 mg, PO, M emoria 12 Daily, 0 l 02:31: Refill(s) Trazodone Yes 300 mg, Memor ia 9-12 PO, l 02:31: Bedtime, 0 Refill(s) Aspirin No Notes: Memoria 06-21 Take with l 21:58: food. Nitroglycer No Notes: 1 Me moria in 0.02 06-21 gram is l MG/MG 21:58: approximat Ej n Topical 00 kevin 1 inch Ointment of nitroglyce rin ointment (20 mg NTG per gram) (Same as:Nitro-B id) Saline No Notes: Memoria Flush 0.9% 06-21 (Same as: l 21:58: BD Posiflush) Lisinopril Lisinopril Yes Juancarlos 1 tablet [facility] Gabapentin Gabapentin Yes Juancarlos 1 capsule [facility] Immunizations Ordered Filled Immunization Date Status Comments Sour e Immunization Name Name Olivier Aguayo 2020-03-[address] [facility] 00[facility]00 [facility] Out[facility] Vital Signs Vital Name Observation Time Observation Value Comments Source Temperature Oral (F) 2018 16:30:00 98.3 F [facility] Ayaz Systolic (mm Hg) 2018 16:30:00 Ramos rial Ayaz Diastolic (mm Hg) 2018 16:30:00 Mem orial Ayaz Respitory Rate 2018 16:30:00 Memori al Boomer Heart Rate 2018 16:30:00 [facility] Oral (F) 2018 12:22:00 97.3 F [facility] Boomer Systolic (mm Hg) 2018 12:22:00 Ramos rial Ayaz Diastolic (mm Hg) 2018 12:22:00 Mem orial Boomer Heart Rate 2018 12:22:00 [facility] Ayaz Respitory Rate 2018 12:22:00 Memori al Ayaz Systolic (mm Hg) 2018 08:42:00 Ramos rial Ayaz Diastolic (mm Hg) 2018 08:42:00 Mem orial Ayaz Heart Rate 2018 08:42:00 [facility] Boomer Respitory Rate 2018 08:42:00 Memori al Boomer Temperature Oral (F) 2018 08:42:00 98.4 F [facility] Boomer BMI Calculated 2018 05:28:00 Memori al Boomer Height 2018 05:28:00 162.56 cm [facility] Ayaz Weight 2018 05:28:00 [facility] Ayaz BMI Calculated 2018-06-21 21:38:00 Memori al Boomer Weight 2018-06-21 21:38:00 [facility] Ayaz Height 2018-06-21 21:38:00 162.56 cm [facility] Procedures Procedure Date / Time Performing Clinician Source Performed Breast biopsy and related Memori al Boomer procedures Cholecystectomy [facility] Ayaz Foot repair [facility] Hernia repair [facility] Stent placement [facility] Encounters Start End Encounter Admission Attending Care Care Encounter Source Date/Time Date/Time Type Type Clinicians Facility Department ID 2020-03-29 2020-03-29 Outpatient Chirag Beardt [id number] 14:47:00 14:47:00 [employer] [facility] Family Medicine l Medicine Outpati ent Clinics 2020-03-25 2020-03-25 [facility] [id number] 09:25:00 09:25:00 [facility] Strategic Funding Source [facility] Family Medicine l Medicine Outpati ent Clinics 2020-03-20 2020-03-20 [facility] [id number] [facility] 15:00:00 15:00:00 [employer] [facility] Medicine l Medicine Outpati ent Clinics 2020-03-15 2020-03-15 [facility] [id number] 09[facility]20:00 09:20:[address] [facility] Medicine Outpati ent Clinics 2020-03-15 2020-03-15 Orders Doctor DAVIS [id number] 00:00:00 00:00:00 Only Unassigned, ADRIAN [id number] [facility] [id number] 2020-02-28 2020-02-28 [facility] [id number] 15:14:00 15:14:00 t [employer] s [employer] [facility] Medicine Outpati ent Clinics 2020-02-28 2020-02-28 Transition Monse Ohara [id number] 00:00:00 00:00:00 of Care Sharmila Goncalves [id number] [place] [id number] 2020-02-23 2020-02-26 [facility] Roberto Claudette J [facility] [id number] 18:50:56 13:00:00 Encounter Heath Boyle [id number] Yasmine Curry [id number] [place] [id number] 2019-12-05 2019-12-05 [facility] [id number] [facility] 14:53:00 14:53:[address] [facility] Medicine Outpati ent Clinics 2019-08-24 2019-08-24 [facility] [id number] 09:51:00 09:51:00 t [employer] s [employer] [facility] Medicine Outpati ent Clinics 2019-04-19 2019-04-19 [facility] [id number] 15:30:00 15:30:00 t [employer] s [employer] [facility] Medicine Outpati ent Clinics 2019-04-03 2019-04-03 [facility] [id number] 14:15:00 14:15:00 t [employer] [facility] Medicine Outpati ent Clinics 2019-01-18 2019-01-18 [facility] [id number] 14:42:00 14:42:[address] [facility] - Drive [facility] Medicine Outpati ent Clinics 2019-01-13 2019-01-13 [facility] [id number] [address] 10:00:00 10:00:[address] [facility] - Drive [facility] Medicine Outpati ent Clinics 2018-11-28 2018-11-28 [facility] [id number] 11:30:00 11:30:[address] [facility] - Drive [facility] Medicine Outpati ent Clinics 2018-11-24 2018-11-24 [facility] [id number] 08:15:00 08:15:[address] [facility] - Drive [facility] Medicine Outpati ent Clinics 2018-11-15 2018-11-15 [facility] [id number] 15:00:00 15:00:[address] [facility] - Drive [facility] Medicine Outpati ent Clinics 2018-11-09 2018-11-09 [facility] [id number] 08:21:00 08:21:[address] [facility] - Drive [facility] Medicine Outpati ent Clinics 2018-09-21 2018-09-21 [facility] [id number] 16:57:00 16:57:00 t Byram Byram [employer] [facility] - Drive [facility] Medicine Outpati ent Clinics 2018-06-21 2018 Outpatient Liam, [id number] 19:48:00 14:55:00 Eneida [id number] 2018-05-17 2018-05-17 [facility] [id number] 13:30:00 13:30:00 t Byram Byram [employer] [facility] - Drive [facility] Medicine Outpati ent Clinics 2018-03-21 2018-03-21 [facility] [id number] 14:32:00 14:32:00 t [employer] [facility] ent Clinics 2018-03-14 2018-03-14 [facility] [id number] 09:52:00 09:52:00 [employer] [facility] ent Clinics 2018-03-08 2018-03-08 [facility] [id number] 14:00:00 14:00:00 [facility] 2018-02-28 2018-02-28 [facility] [id number] 11:31:00 11:31:00 [employer] [facility] [employer] [facility] 2018-01-24 2018-01-24 [facility] [id number] 15:00:00 15:00:00 [facility] Results Test Description Test Time Test Comments Results Result Comments Source RAPID PLASMA REAGIN 2020-01-02 10:03:00 Test Item Value Reference Range Interpretation Comme nts RAPID PLASMA REAGIN (test code = RPR) Nonreactive Nonreactive LIPID PROFILE (CORONARY RISK)2020-01-02 00:45:00 Test Item Value Reference Range Interpretation Comments TRIGLYCERIDES (test 88 MG/DL 30-200 N code = TRIG) CHOLESTEROL (test code 124 MG/DL 122-200 N = CHOL) CHOLESTEROL/HDL RATIO 2.3 1.5-4.5 N 1. I nitial (test code = CHOLHDL) classi fication based on total choles terol: <200 mg/dl Desirable chol esterol 200-239 m g/dl Borderline hi gh risk cholesterol >240 mg/dl H igh risk cholestero l2. Initial classif ication based on LDL cholesterol: <130 mg/dl Desirable LDL cholesterol 130-159 mg/dl Borderline high risk LDL >159 mg/dl High risk LDL cholesterol3. HDL < 35 mg/dl repres ent increased CHD r isk; HDL > 60 mg/dl represent decre ased CHD risk.4. C hol/HDL > 5.0 represent increased CHD risk in men; Chol/H DL > 4.5 represent increased CHD risk in women. HDL CHOLESTEROL (test 53 MG/DL 40-60 N code = HDL) LIPOPROTEIN LDL (test 53 MG/DL 62-130 L code = LDL) LIPOPROTEIN VLDL (test 18 MG/DL 3-60 N code = VLDL) GLYCOSYLATED HEMOGLOBIN (HA1C)2020-01-02 00:44:00 Test Item Value Reference Range Interpretation Comments GLYCOSYLATED HEMOGLOBIN (HA1C) 5.5 % TOT HB 4.5-6.2 N (test code = GLYHGB) COMPREHENSIVE METABOLIC [id number] 19:55:00 Test Item Value Reference Range Interpretation Comments SODIUM (test code = 142 MMOL/L 133-145 N NA) POTASSIUM (test code = 3.3 MMOL/L 3.6-5.2 L K) CHLORIDE (test code = 105 MMOL/L 100-108 N CL) CARBON DIOXIDE (test 30 MMOL/L 22-32 N code = CO2) GLUCOSE (test code = 96 MG/DL 65-99 N Results of this GLU) assay method ma y be falsely depress ed orelevated if patient is taki ng sulfasalazine. BLOOD UREA NITROGEN 14 MG/DL 6-20 N (test code = BUN) GLOMERULAR FILTRATION 73 45-104 N Report ing units: RATE (test code = GFR) mL/mi n/1.73m\\S\\2 (Modified MDRD Formula) CREATININE (test code 0.80 MG/DL 0.60-1.00 N = CREAT) TOTAL PROTEIN (test 6.6 G/DL 6.4-8.2 N code = PROT) ALBUMIN (test code = 3.3 G/DL 3.4-5.0 L ALB) GLOBULIN (test code = 3.3 G/DL 1.5-3.8 N GLOB) ALBUMIN/GLOBULIN RATIO 1.0 1.1-2.2 L (test code = A/G) CALCIUM (test code = 8.7 MG/DL 8.7-10.5 N CA) BILIRUBIN TOTAL (test 0.3 MG/DL 0.0-1.0 N code = BILT) SGOT/AST (test code = 29 Units/L 15-37 N Result s of this AST) assay method ma y be falsely depress ed orelevated if patient is taki ng sulfasalazine. SGPT/ALT (test code = 31 Units/L 30-65 N Result s of this ALT) assay method ma y be falsely depress ed orelevated if patient is taki ng sulfasalazine. ALKALINE PHOSPHATASE 101 Units/L 50-136 N TOTAL (test code = ALKP) [id number] 19:55:00 Test Item Value Reference Range Interpretation Comments ACETAMINOPHEN (test < 1 MCG/ML 10-30 L Acetamin ophen is code = ACET) possibly toxic at levels of: 1. m ore than 150 MCG/ML 4 hours post roberth stion. 2. more than 5 0 MCG/ML 12 hours post ingestion. [id number] 19:55:00 Test Item Value Reference Range Interpretation Comments SALICYLATE (test code = < 3 MG/DL 0-20 N Refe rence Range: JOCELINE) Analgesic...... ...... ...... < 10 mg /dl Therapeutic.... ...... ...... 15-20 mg /dl Mild Toxicity....... ...... . > 30 mg/dl Severe Toxicity....... ..... > 60 mg/dl [id number] 19:55:00 Test Item Value Reference Range Interpretation Comments ALCOHOL (test code = < 3 MG/DL 0-10 N 0 - 10: Should be ALC) interpreted as NEGATIVE. 11 - 50: None to mild euphoria. 51 - 100: Mild influence on vision and dark adapta tion. 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 > 400: Fatalities repo rted. Results are for medical purposes only a nd not forlegal or emp loyment evaluative purp oses. DRUG OF ABUSE SCREEN [id number] 19:45:00 Test Item Value Reference Interpretation Comments Range UR COCAINE (test NEGATIVE NEGATIVE code = COCAU) UR MDMA (test code = POSITIVE NEGATIVE A If conf irmatory testing MDMAQLU) required, conta ct laboratory. UR CANNABINOIDS NEGATIVE NEGATIVE (test code = CANU) UR AMPHETAMINE (test NEGATIVE NEGATIVE code = AMPHU) UR BARBITURATE QUAL NEGATIVE NEGATIVE (test code = BARBQLU) UR BENZODIAZEPINE NEGATIVE NEGATIVE (test code = BENZU) UR OPIATES QUAL NEGATIVE NEGATIVE (test code = OPIAQLU) UR PHENCYCLIDINE NEGATIVE NEGATIVE Urine Drug Abuse Screen (PCP) (test code = provides preliminary PHENCU) results thatmay be confirmed by vinod monte methods (i.e., GC/MS) at [facility]. Results of scre en may not be usedin crimi nal justice, job performance or professionalcre dential review, or infa nt custody issues. Negativ e Eckert Level ng/ml ------- ----- Cocaine 300 Methamp hetamine (Ecstacy) 500 Cannabinoids (THC) 50 Amphetamine 1000 Barbiturate s 200 Benzodia zepines 200 Opiat es 300 Ph encyclidine (PCP) 25 UA RFLX [id number] 19:37:00 Test Item Value Reference Range Interpretation Comments UA COLOR (test code = COLU) Yellow YELLOW UA APPEARANCE (test code = CLEAR CLEAR APPU) UA GLUCOSE DIPSTICK (test NORMAL mg/dL NEGATIVE code = DGLUU) UA BILIRUBIN DIPSTICK (test NEGATIVE NEGATIVE code = BILU) UA KETONE DIPSTICK (test code NEGATIVE mg/dL NEGATIVE = KETU) UA SPECIFIC GRAVITY (test 1.023 1.001-1.035 N code = SGU) UA BLOOD DIPSTICK (test code NEGATIVE NEGATIVE = MIKA) UA PH DIPSTICK (test code = 6.0 5.5-7.0 N DOROTHY) UA PROTEIN DIPSTICK (test NEGATIVE mg/dL NEGATIVE code = PROU) UA UROBILINOGEN DIPSTICK NORMAL mg/dL NORMAL (test code = URO) UA NITRITE DIPSTICK (test NEGATIVE NEGATIVE code = SANJANA) UA LEUKOCYTE ESTERASE NEGATIVE NEGATIVE DIPSTICK (test code = LEUU) UA COMMENT (test code = COMU) VOLUME 10-12 ML URINE SPECIMEN DESCRIPTION Clean Catch (test code = UASPEC) CBC W/AUTO [id number] 19:34:00 Test Item Value Reference Range Interpretation Comments WHITE BLOOD CELL (test code = 5.97 x10 3/uL 4.80-10.80 N WBC) RED BLOOD CELL (test code = 4.62 x10 6/uL 4.2-5.4 N RBC) HEMOGLOBIN (test code = HGB) 11.8 G/DL 12.0-16.0 L HEMATOCRIT (test code = HCT) 36.6 % 37-47 L MEAN CELL VOLUME (test code = 79.2 FL 81-99 L MCV) MEAN CELL HGB (test code = MCH) 25.5 PG 27-31 L MEAN CELL HGB CONCENTRATION 32.2 G/DL 33-37 L (test code = MCHC) RED CELL DISTRIBUTION WIDTH 17.6 % 11.5-14.5 H (test code = RDW) PLATELET COUNT (test code = 184 x10 3/uL 150-450 N PLT) MEAN PLATELET VOLUME (test code 10.0 FL 7.4-10.4 N = MPV) NEUTROPHIL % (test code = NT%) 56.2 % 42-86 N IMMATURE GRANULOCYTE % (test 0.3 % 0.0-2.0 N code = IG%) LYMPHOCYTE % (test code = LY%) 34.5 % 24-44 N MONOCYTE % (test code = MO%) 7.7 % 0.0-4.0 H EOSINOPHIL % (test code = EO%) 1.0 % 0.0-2.7 N BASOPHIL % (test code = BA%) 0.3 % 0.0-0.5 N NUCLEATED RBC % (test code = 0.0 % 0.0-0.0 N NRBC%) NEUTROPHIL # (test code = NT#) 3.35 x10 3/uL 1.8-7.7 N IMMATURE GRANULOCYTE # (test 0.02 x10 3/uL 0.00-0.03 N code = IG#) LYMPHOCYTE # (test code = LY#) 2.06 x10 3/uL 1.0-4.8 N MONOCYTE # (test code = MO#) 0.46 x10 3/uL 0.0-0.8 N EOSINOPHIL # (test code = EO#) 0.06 x10 3/uL 0.0-0.5 N BASOPHIL # (test code = BA#) 0.02 x10 3/uL 0.0-0.2 N NUCLEATED RBC # (test code = 0.0 X10 3/uL 0.0-0.2 N NRBC#) CBC W/AUTO [id number] 07:59:00 Test Item Value Reference Range Interpretation Comments WHITE BLOOD CELL (test code = 5.64 x10 3/uL 4.80-10.80 N WBC) RED BLOOD CELL (test code = 3.24 x10 6/uL 4.2-5.4 L RBC) HEMOGLOBIN (test code = HGB) 9.2 G/DL 12.0-16.0 L HEMATOCRIT (test code = HCT) 31.0 % 37-47 L MEAN CELL VOLUME (test code = 95.7 FL 81-99 N MCV) MEAN CELL HGB (test code = MCH) 28.4 PG 27-31 N MEAN CELL HGB CONCENTRATION 29.7 G/DL 33-37 L (test code = MCHC) RED CELL DISTRIBUTION WIDTH 16.5 % 11.5-14.5 H (test code = RDW) PLATELET COUNT (test code = 105 x10 3/uL 150-450 L PLT) MEAN PLATELET VOLUME (test code 11.3 FL 7.4-10.4 H = MPV) NEUTROPHIL % (test code = NT%) 58.3 % 42-86 N IMMATURE GRANULOCYTE % (test 0.5 % 0.0-2.0 N code = IG%) LYMPHOCYTE % (test code = LY%) 28.7 % 24-44 N MONOCYTE % (test code = MO%) 10.8 % 0.0-4.0 H EOSINOPHIL % (test code = EO%) 1.2 % 0.0-2.7 N BASOPHIL % (test code = BA%) 0.5 % 0.0-0.5 N NUCLEATED RBC % (test code = 0.0 % 0.0-0.0 N NRBC%) NEUTROPHIL # (test code = NT#) 3.28 x10 3/uL 1.8-7.7 N IMMATURE GRANULOCYTE # (test 0.03 x10 3/uL 0.00-0.03 N code = IG#) LYMPHOCYTE # (test code = LY#) 1.62 x10 3/uL 1.0-4.8 N MONOCYTE # (test code = MO#) 0.61 x10 3/uL 0.0-0.8 N EOSINOPHIL # (test code = EO#) 0.07 x10 3/uL 0.0-0.5 N BASOPHIL # (test code = BA#) 0.03 x10 3/uL 0.0-0.2 N NUCLEATED RBC # (test code = 0.0 X10 3/uL 0.0-0.2 N NRBC#) : REPEAT TO MONITOR H/HCOMPREHENSIVE METABOLIC [id number] 16:02:00 Test Item Value Reference Range Interpretation Comments SODIUM (test code = 137 MMOL/L 133-145 N NA) POTASSIUM (test code = 3.9 MMOL/L 3.6-5.2 N K) CHLORIDE (test code = 102 MMOL/L 100-108 N CL) CARBON DIOXIDE (test 30 MMOL/L 22-32 N code = CO2) GLUCOSE (test code = 86 MG/DL 65-99 N Results of this GLU) assay method ma y be falsely depress ed orelevated if patient is taki ng sulfasalazine. BLOOD UREA NITROGEN 14 MG/DL 6-20 N (test code = BUN) GLOMERULAR FILTRATION 86 45-104 N Report ing units: RATE (test code = GFR) mL/mi n/1.73m\\S\\2 (Modified MDRD Formula) CREATININE (test code 0.69 MG/DL 0.60-1.00 N = CREAT) TOTAL PROTEIN (test 5.9 G/DL 6.4-8.2 L code = PROT) ALBUMIN (test code = 2.5 G/DL 3.4-5.0 L ALB) GLOBULIN (test code = 3.4 G/DL 1.5-3.8 N GLOB) ALBUMIN/GLOBULIN RATIO 0.7 1.1-2.2 L (test code = A/G) CALCIUM (test code = 8.7 MG/DL 8.7-10.5 N CA) BILIRUBIN TOTAL (test 1.1 MG/DL 0.0-1.0 H code = BILT) SGOT/AST (test code = 42 Units/L 15-37 H Result s of this AST) assay method mich y be falsely depress ed orelevated if patient is taki ng sulfasalazine. SGPT/ALT (test code = 41 Units/L 30-65 N Result s of this ALT) assay method mich y be falsely depress ed orelevated if patient is taki ng sulfasalazine. ALKALINE PHOSPHATASE 116 Units/L 50-136 N TOTAL (test code = ALKP) LIPID PROFILE (CORONARY RISK)2019-09-22 16:02:00 Test Item Value Reference Range Interpretation Comments TRIGLYCERIDES (test 90 MG/DL 30-200 N code = TRIG) CHOLESTEROL (test code 133 MG/DL 122-200 N = CHOL) CHOLESTEROL/HDL RATIO 3.2 1.5-4.5 N 1. I nitial (test code = CHOLHDL) classi fication based on total choles terol: <200 mg/dl Desirable chol esterol 200-239 m g/dl Borderline hi gh risk cholesterol >240 mg/dl H igh risk cholestero l2. Initial classif ication based on LDL cholesterol: <130 mg/dl Desirable LDL cholesterol 130-159 mg/dl Borderline high risk LDL >159 mg/dl High risk LDL cholesterol3. HDL < 35 mg/dl repres ent increased CHD r isk; HDL > 60 mg/dl represent decre ased CHD risk.4. C hol/HDL > 5.0 represent increased CHD risk in men; Chol/H DL > 4.5 represent increased CHD risk in women. HDL CHOLESTEROL (test 42 MG/DL 40-60 N code = HDL) LIPOPROTEIN LDL (test 73 MG/DL 62-130 N code = LDL) LIPOPROTEIN VLDL (test 18 MG/DL 3-60 N code = VLDL) THYROID STIMULATING [id number] 16:02:00 Test Item Value Reference Range Interpretation Comments THYROID STIMULATING 1.96 0.42-5.47 N Micro-In ternational HORMONE (test code = TSH) Un its/LResults of this assay method ma y be falsely depress ed orelevated if p atient is taking high doses of Biotin. GLYCOSYLATED HEMOGLOBIN (HA1C)2019-09-22 15:43:00 Test Item Value Reference Range Interpretation Comments GLYCOSYLATED HEMOGLOBIN (HA1C) 5.0 % TOT HB 4.5-6.2 N (test code = GLYHGB) CBC W/AUTO [id number] 15:32:00 Test Item Value Reference Range Interpretation Comments WHITE BLOOD CELL (test code = 6.19 x10 3/uL 4.80-10.80 N WBC) RED BLOOD CELL (test code = 2.87 x10 6/uL 4.2-5.4 L RBC) HEMOGLOBIN (test code = HGB) 8.4 G/DL 12.0-16.0 L HEMATOCRIT (test code = HCT) 27.0 % 37-47 L MEAN CELL VOLUME (test code = 94.1 FL 81-99 N MCV) MEAN CELL HGB (test code = MCH) 29.3 PG 27-31 N MEAN CELL HGB CONCENTRATION 31.1 G/DL 33-37 L (test code = MCHC) RED CELL DISTRIBUTION WIDTH 16.5 % 11.5-14.5 H (test code = RDW) PLATELET COUNT (test code = 235 x10 3/uL 150-450 N PLT) MEAN PLATELET VOLUME (test code 9.7 FL 7.4-10.4 N = MPV) NEUTROPHIL % (test code = NT%) 67.7 % 42-86 N IMMATURE GRANULOCYTE % (test 1.0 % 0.0-2.0 N code = IG%) LYMPHOCYTE % (test code = LY%) 19.1 % 24-44 L MONOCYTE % (test code = MO%) 11.1 % 0.0-4.0 H EOSINOPHIL % (test code = EO%) 0.8 % 0.0-2.7 N BASOPHIL % (test code = BA%) 0.3 % 0.0-0.5 N NUCLEATED RBC % (test code = 0.0 % 0.0-0.0 N NRBC%) NEUTROPHIL # (test code = NT#) 4.19 x10 3/uL 1.8-7.7 N IMMATURE GRANULOCYTE # (test 0.06 x10 3/uL 0.00-0.03 H code = IG#) LYMPHOCYTE # (test code = LY#) 1.18 x10 3/uL 1.0-4.8 N MONOCYTE # (test code = MO#) 0.69 x10 3/uL 0.0-0.8 N EOSINOPHIL # (test code = EO#) 0.05 x10 3/uL 0.0-0.5 N BASOPHIL # (test code = BA#) 0.02 x10 3/uL 0.0-0.2 N NUCLEATED RBC # (test code = 0.0 X10 3/uL 0.0-0.2 N NRBC#) DRUG OF ABUSE SCREEN [id number] 09:45:00 Test Item Value Reference Interpretation Comments Range UR COCAINE (test NEGATIVE NEGATIVE code = COCAU) UR MDMA (test code = NEGATIVE NEGATIVE MDMAQLU) UR CANNABINOIDS NEGATIVE NEGATIVE (test code = CANU) UR AMPHETAMINE (test NEGATIVE NEGATIVE code = AMPHU) UR BARBITURATE QUAL NEGATIVE NEGATIVE (test code = BARBQLU) UR BENZODIAZEPINE NEGATIVE NEGATIVE (test code = BENZU) UR OPIATES QUAL NEGATIVE NEGATIVE (test code = OPIAQLU) UR PHENCYCLIDINE NEGATIVE NEGATIVE Urine Drug Abuse Screen (PCP) (test code = provides preliminary PHENCU) results thatmay be confirmed by vinod monte methods (i.e., GC/MS) at [facility]. Results of scre en may not be usedin crimi nal justice, job performance or professionalcre dential review, or infa nt custody issues. Negativ e Eckert Level ng/ml ------- ----- Cocaine 300 Methamp hetamine (Ecstacy) 500 Cannabinoids (THC) 50 Amphetamine 1000 Barbiturate s 200 Benzodia zepines 200 Opiat es 300 Ph encyclidine (PCP) 25 UA RFLX MICROSCOPIC [id number] 09:40:00 Test Item Value Reference Range Interpretation Comments UA COLOR (test code = COLU) Light-Galva YELLOW UA APPEARANCE (test code = Turbid CLEAR A APPU) UA GLUCOSE DIPSTICK (test NORMAL mg/dL NEGATIVE code = DGLUU) UA BILIRUBIN DIPSTICK (test NEGATIVE NEGATIVE code = BILU) UA KETONE DIPSTICK (test code NEGATIVE mg/dL NEGATIVE = KETU) UA SPECIFIC GRAVITY (test 1.008 1.001-1.035 N code = SGU) UA BLOOD DIPSTICK (test code 1+ NEGATIVE A = MIKA) UA PH DIPSTICK (test code = 7.5 5.5-7.0 H DOROTHY) UA PROTEIN DIPSTICK (test NEGATIVE mg/dL NEGATIVE code = PROU) UA UROBILINOGEN DIPSTICK NORMAL mg/dL NORMAL (test code = URO) UA NITRITE DIPSTICK (test NEGATIVE NEGATIVE code = SANJANA) UA LEUKOCYTE ESTERASE NEGATIVE NEGATIVE DIPSTICK (test code = LEUU) UA COMMENT (test code = COMU) VOLUME 10-12 ML URINE SPECIMEN DESCRIPTION Clean Catch (test code = UASPEC) UA WBC (test code = WBCU) < 10 #/HPF 0-10 UA SQUAMOUS CELLS (test code #/lpf <100 = SQU) UA CULTURE NEEDED? (test code = UACULT) Indication for culture: Temperature > 100.4 FURINE SOURCE: Clean CatchUA [id number] 09:40:00 Test Item Value Reference Range Interpretation Comments UA RBC (test code = RBCU) 0-2 #/HPF NONE SEEN UA TRANSITIONAL CELLS (test code = RARE #/LPF NONE SEEN TRANU) UA MUCUS (test code = MUCU) RARE #/lpf NONE SEEN UA YEAST (BUDDING) (test code = MOD #/HPF NONE YEASTUBD) Indication for culture: Temperature > 100.4 FURINE SOURCE: Clean CatchUA RFLX MICROSCOPIC [id number] 09:40:00 Test Item Value Reference Range Interpretation Comments UA COLOR (test code = COLU) Light-Galva YELLOW UA APPEARANCE (test code = Turbid CLEAR A APPU) UA GLUCOSE DIPSTICK (test NORMAL mg/dL NEGATIVE code = DGLUU) UA BILIRUBIN DIPSTICK (test NEGATIVE NEGATIVE code = BILU) UA KETONE DIPSTICK (test NEGATIVE mg/dL NEGATIVE code = KETU) UA SPECIFIC GRAVITY (test 1.008 1.001-1.035 N code = SGU) UA BLOOD DIPSTICK (test code 1+ NEGATIVE A = MIKA) UA PH DIPSTICK (test code = 7.5 5.5-7.0 H DOROTHY) UA PROTEIN DIPSTICK (test NEGATIVE mg/dL NEGATIVE code = PROU) UA UROBILINOGEN DIPSTICK NORMAL mg/dL NORMAL (test code = URO) UA NITRITE DIPSTICK (test NEGATIVE NEGATIVE code = SANJANA) UA LEUKOCYTE ESTERASE NEGATIVE NEGATIVE DIPSTICK (test code = LEUU) UA COMMENT (test code = VOLUME 10-12 ML COMU) URINE SPECIMEN DESCRIPTION Clean Catch (test code = UASPEC) UA WBC (test code = WBCU) < 10 #/HPF 0-10 UA SQUAMOUS CELLS (test code 0 - 20 #/LPF <100 = SQU) UA CULTURE NEEDED? (test Criteria not met code = UACULT) Indication for culture: Temperature > 100.4 FURINE SOURCE: Clean CatchUA [id number] 09:40:00 Test Item Value Reference Range Interpretation Comments UA RBC (test code = RBCU) 0-2 #/HPF NONE SEEN UA TRANSITIONAL CELLS (test code = RARE #/LPF NONE SEEN TRANU) UA MUCUS (test code = MUCU) RARE #/lpf NONE SEEN UA YEAST (BUDDING) (test code = MOD #/HPF NONE YEASTUBD) Indication for culture: Temperature > 100.4 FURINE SOURCE: Clean CatchUA RFLX MICROSCOPIC [id number] 09:38:00 Test Item Value Reference Range Interpretation Comments UA COLOR (test code = COLU) Light-Galva YELLOW UA APPEARANCE (test code = Turbid CLEAR A APPU) UA GLUCOSE DIPSTICK (test NORMAL mg/dL NEGATIVE code = DGLUU) UA BILIRUBIN DIPSTICK (test NEGATIVE NEGATIVE code = BILU) UA KETONE DIPSTICK (test code NEGATIVE mg/dL NEGATIVE = KETU) UA SPECIFIC GRAVITY (test 1.008 1.001-1.035 N code = SGU) UA BLOOD DIPSTICK (test code 1+ NEGATIVE A = MIKA) UA PH DIPSTICK (test code = 7.5 5.5-7.0 H DOROTHY) UA PROTEIN DIPSTICK (test NEGATIVE mg/dL NEGATIVE code = PROU) UA UROBILINOGEN DIPSTICK NORMAL mg/dL NORMAL (test code = URO) UA NITRITE DIPSTICK (test NEGATIVE NEGATIVE code = SANJANA) UA LEUKOCYTE ESTERASE NEGATIVE NEGATIVE DIPSTICK (test code = LEUU) UA COMMENT (test code = COMU) VOLUME 10-12 ML URINE SPECIMEN DESCRIPTION Clean Catch (test code = UASPEC) UA WBC (test code = WBCU) #/hpf <10 UA SQUAMOUS CELLS (test code #/lpf <100 = SQU) UA CULTURE NEEDED? (test code = UACULT) Indication for culture: Temperature > 100.4 FURINE SOURCE: Clean CatchUA [id number] 09:38:00 Test Item Value Reference Range Interpretation Comments UA RBC (test code = RBCU) #/HPF NONE SEEN Indication for culture: Temperature > 100.4 FURINE SOURCE: Clean CatchUA RFLX MICROSCOPIC [id number] 09:38:00 Test Item Value Reference Range Interpretation Comments UA COLOR (test code = COLU) Light-Galva YELLOW UA APPEARANCE (test code = Turbid CLEAR A APPU) UA GLUCOSE DIPSTICK (test NORMAL mg/dL NEGATIVE code = DGLUU) UA BILIRUBIN DIPSTICK (test NEGATIVE NEGATIVE code = BILU) UA KETONE DIPSTICK (test code NEGATIVE mg/dL NEGATIVE = KETU) UA SPECIFIC GRAVITY (test 1.008 1.001-1.035 N code = SGU) UA BLOOD DIPSTICK (test code 1+ NEGATIVE A = MIKA) UA PH DIPSTICK (test code = 7.5 5.5-7.0 H DOROTHY) UA PROTEIN DIPSTICK (test NEGATIVE mg/dL NEGATIVE code = PROU) UA UROBILINOGEN DIPSTICK NORMAL mg/dL NORMAL (test code = URO) UA NITRITE DIPSTICK (test NEGATIVE NEGATIVE code = SANJANA) UA LEUKOCYTE ESTERASE NEGATIVE NEGATIVE DIPSTICK (test code = LEUU) UA COMMENT (test code = COMU) VOLUME 10-12 ML URINE SPECIMEN DESCRIPTION Clean Catch (test code = UASPEC) UA WBC (test code = WBCU) #/hpf <10 UA SQUAMOUS CELLS (test code #/lpf <100 = SQU) UA CULTURE NEEDED? (test code = UACULT) Indication for culture: Temperature > 100.4 FURINE SOURCE: Clean CatchUA [id number] 09:38:00 Test Item Value Reference Range Interpretation Comments UA RBC (test code = RBCU) #/HPF NONE SEEN Indication for culture: Temperature > 100.4 FURINE SOURCE: Clean Catch- XR HIP W/PEL UNI 2+V [id number] 14:47:00 Patient Name: SAMINA LAWSON Unit No: [id number] EXAMS: CPT CODE: [id number] XR HIP W/PEL UNI 2+[place] [address] Reason: HIP PAIN EXAM: - XR L- SPINE 2/3 VIEWS, - XR HIP W/PEL UNI 2+V RT, - XR HIP W/PEL UNI 2+V LT REASON FOR EXAM: Hip pain, low back pain COMPARISON: Lumbar spine x-ray study 03/11/2017. FINDINGS: Lumbar spine x-ray 3 views at 13:51 demonstrate 6 lumbar type vertebrae with small right L1 rib identified. Enlarged left L6 transverse process identified, articulatingwith sacrum. Mild S-shaped curvature involving thoracolumbar spine seen. Mild to largeendplate spurs of thoracic spine and lumbar spine seen. No acute fracture or spondylolisthesis is identified. Intervertebral disc height is maintained. Mild to moderate degenerative facet disease involving middle to lower lumbar spine seen. Mild to moderate degenerative changes of SI joints and hip joints identified. Vascular calcifications of aorta and its branchesseen. Abundant stool seen in the colon. 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 No acute fracture or dislocation is identified.Vascular calcifications seen. Abundant stool stool seen in the ascending colon.2 views of left hip x- rays at 13:51 demonstrate mild to moderate degenerative changes of left SI joint and left hip joint. No acute fracture or dislocation identified. Vascular calcifications seen. IMPRESSION: Chronic findings as detailed above. No acute injury seen. at 1447 Reported and signed by: Arti Farrar MD CC: Nabila Tenorio DO; Remigio Koenig III DO Technologist: Yessi Lacey RT Trscrpt Dt/ ([id number] Orig Print D/T: S: 09/21/2019 ([id number]) [facility] NAME: SAMINA LAWSON [address] [facility] PHYS: [id number] - Remigio Koenig II [facility] [place] [place] [address] : 1955 AGE: 64 SEX: F LOC: ALEXIS PHONE #: [phone] EXAM DATE: 09/21/2019 STATUS: REG ER FAX #: RAD NO: DC Dt: PAGE 1 Signed Report- XR HIP W/PEL UNI 2+V [id number] 14:47:00 Patient Name: SAMINA LAWSON Unit No: [id number] EXAMS: CPT CODE: [id number] XR HIP W/PEL UNI 2+V RT [id number] Reason: Hip pain EXAM: - XR L-SPINE 2/3 VIEWS, - XR HIP W/PEL UNI 2+V RT, - XR HIP W/PEL UNI 2+V LT REASON FOR EXAM: Hip pain, low back pain COMPARISON: Lumbar spine x-ray study 03/11/2017. FINDINGS: Lumbar spine x-ray 3 views at 13:51 demonstrate 6 lumbar type vertebrae with small right L1 rib identified. Enlarged left L6 transverse process identified, articulatingwith sacrum. Mild S- shaped curvature involving thoracolumbar spine seen. Mild to largeendplate spurs of thoracic spine and lumbar spine seen. No acute fracture or spondylolisthesis is identified. Intervertebral disc height is maintained. Mild to moderate degenerative facet disease involving middle to lower lumbar spine seen. Mild to moderate degenerative changes of SI joints and hip joints identified. Vascular calcifications of aorta and its branchesseen. Abundant stool seen in the colon. 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 No acute fracture or dislocation is identified.Vascular calcifications seen. Abundant stool stool seen in the ascending colon.2 views of left hip x-rays at 13:51 demonstrate mild to moderate degenerative changes of left SI joint and left hip joint. No acute fracture or dislocation identified. Vascular calcifications seen. IMPRESSION: Chronic findings as detailed above. No acute injury seen. at 3006 Reported and signed by: Arti Farrar MD CC: Aliza Sanchez HOTEL ENGINEER; Nabila Tenorio DO; Remigio Koenig III DO Technologist: Yessi Lacey RT Trscrpt Dt/ ([email or web address] Orig Print D/T: S: 09/21/2019 ([id number]) [facility] NAME: SAMINA LAWSON [address] [facility] PHYS: JAVIER - Remigio Koenig II [facility] [place] [place] [address] : 1955 AGE: 64 SEX: F LOC: D.VIVIENNE PHONE #: [phone] EXAM DATE: 09/21/2019 STATUS: REG ER FAX #: RAD NO: DC Dt: PAGE 1 Signed Report- XR L-SPINE 2/3 [id number] 14:47:00 Patient Name: SAMINA LAWSON Unit No: [id number] EXAMS: CPT CODE: [id number] XR L-SPINE 2/3 VIEWS [id number] Reason: Hip pain, low back pain EXAM: - XR L-SPINE 2/3 VIEWS, - XR HIP W/PEL UNI 2+V RT, - XR HIP W/PEL UNI 2+V LT REASON FOR EXAM: Hip pain, low back pain COMPARISON: Lumbar spine x-ray study 03/11/2017. FINDINGS: Lumbar spine x-ray 3 views at 13:51 demonstrate 6 lumbar type vertebrae with small right L1 rib identified. Enlarged left L6 transverse process identified, articulatingwith sacrum. Mild S- shaped curvature involving thoracolumbar spine seen. Mild to largeendplate spurs of thoracic spine and lumbar spine seen. No acute fracture or spondylolisthesis is identified. Intervertebral disc height is maintained. Mild to moderate degenerative facet disease involving middle to lower lumbar spine seen. Mild to moderate degenerative changes of SI joints and hip joints identified. Vascular calcifications of aorta and its branchesseen. Abundant stool seen in the colon. 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 No acute fracture or dislocation is identified.Vascular calcifications seen. Abundant stool stool seen in the ascending colon.2 views of left hip x-rays at 13:51 demonstrate mild to moderate degenerative changes of left SI joint and left hip joint. No acute fracture or dislocation identified. Vascular calcifications seen. IMPRESSION: Chronic findings as detailed above. No acute injury seen. at 1447 Reported and signed by: Arti Farrar MD CC: Aliza Sanchez HOTEL ENGINEER; Nabila Tenorio DO; Remigio Koenig III DO Technologist: Yessi Lacey RT Trscrpt Dt/ ([id number] Orig Print D/T: S: 09/21/2019 ([id number]) [facility] NAME: SAMINA LAWSONLUCIANODanielle [address] [facility] PHYS: [email or web address] - [place] [address] : 1955 AGE: 64 SEX: F LOC: ALEXIS PHONE #: [phone] EXAM DATE: 09/21/2019 STATUS: REG ER FAX #: RAD NO: DC Dt: PAGE 1 Signed ReportMYCOPLASMA PNEUMONIAE [id number] 03:07:00 Test Item Value Reference Range Interpretation Comments MYCOPLASMA Negative Negative No Mycoplasma p neumoniae DNA PNEUMONIAE DNA detected.This test was (test code = developed and i ts performance MYCODNA) characteristics determined by [facility]. It conte s not been cleared or appr ovedby the Food and Drug Admini stration. The FDA hasdetermin ed that such clearance or ap proval is notnecessary.Pe rformed At: [facility] [id number] [facility] [place], [place] [id number] ra Nelsy CAMPOS Ph:[phone] DRUG OF ABUSE SCREEN [id number] 06:12:00 Test Item Value Reference Interpretation Comments Range UR COCAINE (test NEGATIVE NEGATIVE code = COCAU) UR MDMA (test code = NEGATIVE NEGATIVE MDMAQLU) UR CANNABINOIDS NEGATIVE NEGATIVE (test code = CANU) UR AMPHETAMINE (test NEGATIVE NEGATIVE code = AMPHU) UR BARBITURATE QUAL NEGATIVE NEGATIVE (test code = BARBQLU) UR BENZODIAZEPINE NEGATIVE NEGATIVE (test code = BENZU) UR OPIATES QUAL NEGATIVE NEGATIVE (test code = OPIAQLU) UR PHENCYCLIDINE NEGATIVE NEGATIVE Urine Drug Abuse Screen (PCP) (test code = provides preliminary PHENCU) results thatmay be confirmed by vinod monte methods [facility]i.e[facility] Results of scre en may not be usedin crimi nal justice, job performance or professionalcre dential review, or infa nt custody issues. Negativ e Eckert Level ng/ml ------- ----- Cocaine 300 Methamp hetamine (Ecstacy) 500 Cannabinoids (THC) 50 Amphetamine 1000 Barbiturate s 200 Benzodia zepines 200 Opiat es 300 Ph encyclidine (PCP) 25 PROCALCITONIN (PCT)2019-08-13 16:18:00 Test Item Value Reference Range Interpretation Comments PROCALCITONIN (PCT) (test code = 0.14 ng/mL 0.00-0.50 N PROCAL) LACTIC [id number] 15:53:00 Test Item Value Reference Range Interpretation Comments LACTIC ACID (test code = LACT) 1.8 MMOL/L 0.5-2.2 N - CT CHEST W/O [id number] 10:07:00 Patient Name: SAMINA LAWSON Unit No: [id number] EXAMS: CPT CODE: [id number] CT CHEST W/O CONTRAST [id number] Reason: ill defined opacity , sifnifican EXAM: - CT CHEST W/O CONTRAST REASON FOR EXAM: ill defined opacity , significant smoking hx 40 pack years COMPARISON: Chest x-ray study 08/11/2019. Techniques: [address] chest study performed without contrast. Coronal and sagittal reformation images obtained. FINDINGS: Areas of groundglass opacity with superimposed interlobular septal thickening and intralobular septal thickening identified bilaterally, most prominent at upper lobes. Subsegmental atelectasis of lung bases also identified. No discrete pulmonary nodule is seen. Trachea and main bronchi are otherwise normal. Heart size is normal. There is no pericardial effusion. Calcified plaques of coronary arteries identified. Calcified plaques of aorta seen without aneurysm. Main pulmonary arteries are normal. Short axis up to 1.4 cm paratracheal lymph node identified. Small calcification involving left lobe of thyroid gland up to 3 mm identified. Right lobe of thyroid gland is normal. Esophagus is normal. Upper abdominal visceral organs are normal with vascular calcifications identified. Intact breast implants identified. Endplate spurs of spine seen. Curvature of middle thoracic spine to right seen. Coronal and sagittal reformation images confirm above findings. IMPRESSION: Crazy paving pattern as noted. Differential diagnosis including bacterial pneumonia, acute interstitial pneumonia or pulmonary alveolar proteinosis, less likely other etiologies. Clinical correlation is advised. Likely reactive lymphadenopathy seen. Additional chronic findings as noted. at 1007 Reportedand signed by: Arti Farrar MD CC: Valarie Cox DO; Nabila Tenorio DO Technologist: [facility] CT Trscrpt Dt/ [email or web address] Orig Print D/T: S: 08/13/2019 (1010) CTDI: DLP: [facility] NAME: SAMINA LAWSON CHRISTIAN [address] PHYS: - Valarie Cox, [place] [id number] : 1955 AGE: 64 SEX: F LOC: [id number] PHONE #: [phone] EXAM DATE: 08/13/2019 STATUS: ADM IN FAX #: RAD NO: DC Dt: PAGE 1 Signed ReportBASIC METABOLIC [id number] 07:10:00 Test Item Value Reference Range Interpretation Comments SODIUM (test code = 142 MMOL/L 133-145 N NA) POTASSIUM (test code = 4.6 MMOL/L 3.6-5.2 N K) CHLORIDE (test code = 106 MMOL/L 100-108 N CL) CARBON DIOXIDE (test 32 MMOL/L 22-32 N code = CO2) GLUCOSE (test code = 100 MG/DL 65-99 H Results of this assay GLU) method may be f alsely depressed orele vated if patient is t aking sulfasalazine. BLOOD UREA NITROGEN 16 MG/DL 6-20 N (test code = BUN) GLOMERULAR FILTRATION 96 45-104 N Report ing units: RATE (test code = GFR) mL/mi n/1.73m\\S\\2 (Modified MDRD Formula) CREATININE (test code 0.63 MG/DL 0.60-1.00 N = CREAT) CALCIUM (test code = 9.1 MG/DL 8.7-10.5 N CA) [id number] 07:10:00 Test Item Value Reference Range Interpretation Comments MAGNESIUM (test code = MAG) 2.0 MG/DL 1.8-2.4 N CBC W/AUTO [id number] 06:26:00 Test Item Value Reference Range Interpretation Comments WHITE BLOOD CELL (test code = 18.63 x10 3/uL 4.80-10.80 H WBC) RED BLOOD CELL (test code = 4.48 x10 6/uL 4.2-5.4 N RBC) HEMOGLOBIN (test code = HGB) 13.2 G/DL 12.0-16.0 N HEMATOCRIT (test code = HCT) 40.9 % 37-47 N MEAN CELL VOLUME (test code = 91.3 FL 81-99 N MCV) MEAN CELL HGB (test code = 29.5 PG 27-31 N MCH) MEAN CELL HGB CONCENTRATION 32.3 G/DL 33-37 L (test code = MCHC) RED CELL DISTRIBUTION WIDTH 13.4 % 11.5-14.5 N (test code = RDW) PLATELET COUNT (test code = 215 x10 3/uL 150-450 N PLT) MEAN PLATELET VOLUME (test 10.4 FL 7.4-10.4 N code = MPV) NEUTROPHIL % (test code = NT%) 88.4 % 42-86 H IMMATURE GRANULOCYTE % (test 1.0 % 0.0-2.0 N code = IG%) LYMPHOCYTE % (test code = LY%) 4.7 % 24-44 L MONOCYTE % (test code = MO%) 5.7 % 0.0-4.0 H EOSINOPHIL % (test code = EO%) 0.0 % 0.0-2.7 N BASOPHIL % (test code = BA%) 0.2 % 0.0-0.5 N NUCLEATED RBC % (test code = 0.0 % 0.0-0.0 N NRBC%) NEUTROPHIL # (test code = NT#) 16.48 x10 3/uL 1.8-7.7 H IMMATURE GRANULOCYTE # (test 0.18 x10 3/uL 0.00-0.03 H code = IG#) LYMPHOCYTE # (test code = LY#) 0.87 x10 3/uL 1.0-4.8 L MONOCYTE # (test code = MO#) 1.07 x10 3/uL 0.0-0.8 H EOSINOPHIL # (test code = EO#) 0.00 x10 3/uL 0.0-0.5 N BASOPHIL # (test code = BA#) 0.03 x10 3/uL 0.0-0.2 N NUCLEATED RBC # (test code = 0.0 X10 3/uL 0.0-0.2 N NRBC#) AG STREPTOCOCCUS [id number] 11:11:00 Test Item Value Reference Range Interpretation Comments AG STREPTOCOCCUS NEGATIVE NEGATIVE Presumptive negative PNEUMO (test code = for pneu mococcal STREPPNAG) pneumonia, sugg estingno current or rece nt pneumococcal in fection. Infection duet o Strep pneumonia canno t be ruled out since the antigenpresent in the sample may be b elow the detection limit ofthe test. BASIC METABOLIC [id number] 06:36:00 Test Item Value Reference Range Interpretation Comments SODIUM (test code = 141 MMOL/L 133-145 N NA) POTASSIUM (test code = 4.2 MMOL/L 3.6-5.2 N K) CHLORIDE (test code = 106 MMOL/L 100-108 N CL) CARBON DIOXIDE (test 32 MMOL/L 22-32 N code = CO2) GLUCOSE (test code = 152 MG/DL 65-99 H Results of this assay GLU) method may be f alsely depressed orele vated if patient is t aking sulfasalazine. BLOOD UREA NITROGEN 15 MG/DL 6-20 N (test code = BUN) GLOMERULAR FILTRATION 86 45-104 N Report ing units: RATE (test code = GFR) mL/mi n/1.73m\\S\\2 (Modified MDRD Formula) CREATININE (test code 0.69 MG/DL 0.60-1.00 N = CREAT) CALCIUM (test code = 9.1 MG/DL 8.7-10.5 N CA) [id number] 06:36:00 Test Item Value Reference Range Interpretation Comments MAGNESIUM (test code = MAG) 2.1 MG/DL 1.8-2.4 N CBC W/AUTO [id number] 05:03:00 Test Item Value Reference Range Interpretation Comments WHITE BLOOD CELL (test code = 13.40 x10 3/uL 4.80-10.80 H WBC) RED BLOOD CELL (test code = 4.30 x10 6/uL 4.2-5.4 N RBC) HEMOGLOBIN (test code = HGB) 13.1 G/DL 12.0-16.0 N HEMATOCRIT (test code = HCT) 39.2 % 37-47 N MEAN CELL VOLUME (test code = 91.2 FL 81-99 N MCV) MEAN CELL HGB (test code = 30.5 PG 27-31 N MCH) MEAN CELL HGB CONCENTRATION 33.4 G/DL 33-37 N (test code = MCHC) RED CELL DISTRIBUTION WIDTH 13.2 % 11.5-14.5 N (test code = RDW) PLATELET COUNT (test code = 182 x10 3/uL 150-450 N PLT) MEAN PLATELET VOLUME (test 10.2 FL 7.4-10.4 N code = MPV) NEUTROPHIL % (test code = NT%) 90.4 % 42-86 H IMMATURE GRANULOCYTE % (test 0.5 % 0.0-2.0 N code = IG%) LYMPHOCYTE % (test code = LY%) 4.7 % 24-44 L MONOCYTE % (test code = MO%) 4.3 % 0.0-4.0 H EOSINOPHIL % (test code = EO%) 0.0 % 0.0-2.7 N BASOPHIL % (test code = BA%) 0.1 % 0.0-0.5 N NUCLEATED RBC % (test code = 0.0 % 0.0-0.0 N NRBC%) NEUTROPHIL # (test code = NT#) 12.12 x10 3/uL 1.8-7.7 H IMMATURE GRANULOCYTE # (test 0.07 x10 3/uL 0.00-0.03 H code = IG#) LYMPHOCYTE # (test code = LY#) 0.63 x10 3/uL 1.0-4.8 L MONOCYTE # (test code = MO#) 0.57 x10 3/uL 0.0-0.8 N EOSINOPHIL # (test code = EO#) 0.00 x10 3/uL 0.0-0.5 N BASOPHIL # (test code = BA#) 0.01 x10 3/uL 0.0-0.2 N NUCLEATED RBC # (test code = 0.0 X10 3/uL 0.0-0.2 N NRBC#) - XR CHEST 1 [id number] 18:09:00 Patient Name: SAMINA LAWSON Unit No: [id number] EXAMS: CPT CODE: [id number] XR CHEST 1 V [id number] Reason: follow up pneumonia COMPARISON: Previous ches t August 10, 2019 PROCEDURE: Chest one view 08/11/2019; 1745 hours FINDINGS: The heart size is normal. There are bilateral infrahilar/bibasilar infiltrates relatively unchanged when compared to the previous examination. The opacity seen overlying the right anterior 4th rib as intervally resolved which may be secondary to artifact or a resolving atelectasis. Aorta is tortuous. Degenerative changes are seen in the spine. IMPRESSION: Stable bilateral perihilar/bibasilar infiltrates. Increase of the opacity overlying the right anterior 4th rib. at 1809 Reported and signed by: Olegario Kang MD CC: Valarie Cox DO; Nabila Tenorio DO Technologist: Heide SUAREZ Trscrpt Dt/ (1808)[id number] Orig Print D/T: S: 08/11/2019 (1811) [facility] Cnt NAME: SAMINA LAWSON [address] PHYS: 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 BLOOD UREA NITROGEN 6 MG/DL 6-20 N (test code = BUN) GLOMERULAR FILTRATION 89 45-104 N Report ing units: RATE (test code = GFR) mL/mi n/1.73m\\S\\2 (Modified MDRD Formula) CREATININE (test code 0.67 MG/DL 0.60-1.00 N = CREAT) CALCIUM (test code = 8.9 MG/DL 8.7-10.5 N CA) [id number] 04:41:00 Test Item Value Reference Range Interpretation Comments MAGNESIUM (test code = MAG) 2.0 MG/DL 1.8-2.4 N CBC W/AUTO [id number] 04:18:00 Test Item Value Reference Range Interpretation Comments WHITE BLOOD CELL (test code = 10.09 x10 3/uL 4.80-10.80 N WBC) RED BLOOD CELL (test code = 4.71 x10 6/uL 4.2-5.4 N RBC) HEMOGLOBIN (test code = HGB) 14.1 G/DL 12.0-16.0 N HEMATOCRIT (test code = HCT) 42.8 % 37-47 N MEAN CELL VOLUME (test code = 90.9 FL 81-99 N MCV) MEAN CELL HGB (test code = 29.9 PG 27-31 N MCH) MEAN CELL HGB CONCENTRATION 32.9 G/DL 33-37 L (test code = MCHC) RED CELL DISTRIBUTION WIDTH 12.8 % 11.5-14.5 N (test code = RDW) PLATELET COUNT (test code = 162 x10 3/uL 150-450 N PLT) MEAN PLATELET VOLUME (test 10.1 FL 7.4-10.4 N code = MPV) NEUTROPHIL % (test code = NT%) 92.1 % 42-86 H IMMATURE GRANULOCYTE % (test 0.6 % 0.0-2.0 N code = IG%) LYMPHOCYTE % (test code = LY%) 4.8 % 24-44 L MONOCYTE % (test code = MO%) 2.4 % 0.0-4.0 N EOSINOPHIL % (test code = EO%) 0.0 % 0.0-2.7 N BASOPHIL % (test code = BA%) 0.1 % 0.0-0.5 N NUCLEATED RBC % (test code = 0.0 % 0.0-0.0 N NRBC%) NEUTROPHIL # (test code = NT#) 9.30 x10 3/uL 1.8-7.7 H IMMATURE GRANULOCYTE # (test 0.06 x10 3/uL 0.00-0.03 H code = IG#) LYMPHOCYTE # (test code = LY#) 0.48 x10 3/uL 1.0-4.8 L MONOCYTE # (test code = MO#) 0.24 x10 3/uL 0.0-0.8 N EOSINOPHIL # (test code = EO#) 0.00 x10 3/uL 0.0-0.5 N BASOPHIL # (test code = BA#) 0.01 x10 3/uL 0.0-0.2 N NUCLEATED RBC # (test code = 0.0 X10 3/uL 0.0-0.2 N NRBC#) LEGIONELLA ANTIGEN [id number] 01:33:00 Test Item Value Reference Range Interpretation Comments LEGIONELLA ANTIGEN NEGATIVE Negative Presumpti ve NEGATIVE for URINE (test code = L. pneumo nphila serogroup LEGAGUR) 1 antigenin the urine, suggesting no c urrent, or past infection. Infection due to Legionel la cannot be ruled out si nce otherserogroups and species may cau se disease, antige n may not bepresent in ea rly detection, and the level of antigen pres entin the urine may be be low the detection limit of the test. ARTERIAL BLOOD [id number] 21:27:00 Test Item Value Reference Range Interpretation Comments ARTERIAL BLOOD GAS PH (test code 7.41 7.35-7.45 N = PHA) ARTERIAL BLOOD GAS PCO2 (test 40.1 mmHg 35.0-45.0 N code = PCO2A) ARTERIAL BLOOD GAS PO2 (test code 66.4 mmHg 60.0-80.0 N = PO2A) BICARBONATE TOTAL HCO3 (test code 24.5 mmol/L 20.0-26.0 N = HCO3) BASE EXCESS (test code = NERY) -0.1 mmol/L -3.0-3.0 N ABG O2 SATURATION (test code = 94.2 % 95-100 L SATA) ABG TYPE (test code = TYPEA) Arterial MODE (test code = MODE) 3L NC ABG PATIENT RESP RATE (test code 16.0 /MIN = RRPATA) ABG TEMPERATURE (test code = 99.2 F TEMPA) STEVEN TEST (test code = ALN) Yes ABG SITE (test code = SITEA) LB TOTAL HGB (test code = THB) 13.9 G/DL 12.0-16.0 N OXYHEMOGLOBIN (test code = 89.1 % 92.0-98.0 L OOHGBT) CARBOXYHEMOGLOBIN (test code = 5.0 % 0.5-1.5 H HOHGBT) METHEMOGLOBIN (test code = 0.4 % 0.4-1.5 N METHGB) PROTHROMBIN [id number] 20:08:00 Test Item Value Reference Range Interpretation Comments PROTHROMBIN TIME 13.6 SECONDS 9.6-12.3 H PATIENT (test code = PTP) INTERNATIONAL NORMAL 1.20 Recomme nded INR range RATIO (test code = (warfarin therapy): INR) 2.0 - 3.0I NR (International Normalized Rati o) should beused w hen interpreting or al anticoaglulant therapy. For at rial fibrillation an d treatment orprevention of deep vein thrombosis . Patients with Palmaz-Consuelo s tent *: 2 .0 - 3.0 Patients wi th mechanical hear t valve *: 2.5 - 3.5 Patients with flex-stent *: 3.0 - 4.0(*) = poundmaster's suggested range Is patient on anticoagulants? UnknownC REACTIVE [id number] 20:02:00 Test Item Value Reference Range Interpretation Comments C REACTIVE PROTEIN (test code = 5.0 MG/DL < 0.9 H CRP) COMPREHENSIVE METABOLIC [id number] 20:02:00 Test Item Value Reference Range Interpretation Comments SODIUM (test code = 135 MMOL/L 133-145 N NA) POTASSIUM (test code = 3.8 MMOL/L 3.6-5.2 N K) CHLORIDE (test code = 98 MMOL/L 100-108 L CL) CARBON DIOXIDE (test 31 MMOL/L 22-32 N code = CO2) GLUCOSE (test code = 98 MG/DL 65-99 N Results of this assay GLU) method may be f alsely depressed orele vated if patient is t aking sulfasalazine. BLOOD UREA NITROGEN 7 MG/DL 6-20 N (test code = BUN) GLOMERULAR FILTRATION 98 45-104 N Report ing units: RATE (test code = GFR) mL/mi n/1.73m\\S\\2 (Modified MDRD Formula) CREATININE (test code 0.62 MG/DL 0.60-1.00 N = CREAT) TOTAL PROTEIN (test 7.1 G/DL 6.4-8.2 N code = PROT) ALBUMIN (test code = 3.3 G/DL 3.4-5.0 L ALB) GLOBULIN (test code = 3.8 G/DL 1.5-3.8 N GLOB) ALBUMIN/GLOBULIN RATIO 0.9 1.1-2.2 L (test code = A/G) CALCIUM (test code = 8.8 MG/DL 8.7-10.5 N CA) BILIRUBIN TOTAL (test 1.0 MG/DL 0.0-1.0 N code = BILT) SGOT/AST (test code = 24 Units/L 15-37 N Result s of this assay AST) method may be f alsely depressed orele vated if patient is t aking sulfasalazine. SGPT/ALT (test code = 23 Units/L 30-65 L Result s of this assay ALT) method may be f alsely depressed orele vated if patient is t aking sulfasalazine. ALKALINE PHOSPHATASE 84 Units/L 50-136 N TOTAL (test code = ALKP) [id number] 20:02:00 Test Item Value Reference Range Interpretation Comments PHOSPHOROUS (test code = PHOS) 2.0 MG/DL 2.5-4.9 L CBC W/AUTO [id number] 19:44:00 Test Item Value Reference Range Interpretation Comments WHITE BLOOD CELL (test code = 11.67 x10 3/uL 4.80-10.80 H WBC) RED BLOOD CELL (test code = 4.88 x10 6/uL 4.2-5.4 N RBC) HEMOGLOBIN (test code = HGB) 14.7 G/DL 12.0-16.0 N HEMATOCRIT (test code = HCT) 43.6 % 37-47 N MEAN CELL VOLUME (test code = 89.3 FL 81-99 N MCV) MEAN CELL HGB (test code = 30.1 PG 27-31 N MCH) MEAN CELL HGB CONCENTRATION 33.7 G/DL 33-37 N (test code = MCHC) RED CELL DISTRIBUTION WIDTH 12.8 % 11.5-14.5 N (test code = RDW) PLATELET COUNT (test code = 190 x10 3/uL 150-450 N PLT) MEAN PLATELET VOLUME (test 10.2 FL 7.4-10.4 N code = MPV) NEUTROPHIL % (test code = NT%) 83.8 % 42-86 N IMMATURE GRANULOCYTE % (test 0.6 % 0.0-2.0 N code = IG%) LYMPHOCYTE % (test code = LY%) 8.2 % 24-44 L MONOCYTE % (test code = MO%) 7.2 % 0.0-4.0 H EOSINOPHIL % (test code = EO%) 0.0 % 0.0-2.7 N BASOPHIL % (test code = BA%) 0.2 % 0.0-0.5 N NUCLEATED RBC % (test code = 0.0 % 0.0-0.0 N NRBC%) NEUTROPHIL # (test code = NT#) 9.78 x10 3/uL 1.8-7.7 H IMMATURE GRANULOCYTE # (test 0.07 x10 3/uL 0.00-0.03 H code = IG#) LYMPHOCYTE # (test code = LY#) 0.96 x10 3/uL 1.0-4.8 L MONOCYTE # (test code = MO#) 0.84 x10 3/uL 0.0-0.8 H EOSINOPHIL # (test code = EO#) 0.00 x10 3/uL 0.0-0.5 N BASOPHIL # (test code = BA#) 0.02 x10 3/uL 0.0-0.2 N NUCLEATED RBC # (test code = 0.0 X10 3/uL 0.0-0.2 N NRBC#) - XR CHEST 1 [id number] 19:43:00 Patient Name: SAMINA LAWSON Unit No: [id number] EXAMS: CPT CODE: [id number] XR CHEST 1 V [id number] Reason: sob COMPARISON: Previous ches t. 2017 PROCEDURE: Chest one view 08/10/2019; 1912 hours FINDINGS: The heart size is normal. Bilateral infrahilar/bibasilar airspace disease is seen more prominentin the right side. Faint opacity seen overlying the right anterior 4th rib which represent a an ill- defined infiltrate. Underlying pulmonary nodule cannot be excluded. No pleural effusion is seen. Aorta is tortuous with atheromatous changes. Degenerative changes are seen inthe spine. IMPRESSION: Bilateral infrahilar/right basal airspace disease with faint opacity in the right mid lung overlying the right anterior 4th rib. at 1943 Reported and signed by: Olegario Kang MD CC: Avani Arroyo DO; Vidya Tam HOTEL ENGINEER; Nabila Tenorio DO Technologist: Iggy Tenorio RT Trscrpt Dt/ (1942)[id number] Orig Print D/T: S: 08/10/2019 (1945) [facility] Cnt NAME:SAMINA LAWSON [address] PHYS: [place] [address] : 1955 AGE: 64 SEX: F LOC: ALEXIS PHONE #: [phone] EXAM DATE: 08/10/2019 STATUS: REG ER FAX #: RAD NO: DC Dt: PAGE 1 Signed ReportUA RFLX MICROSCOPIC [id number] 19:41:00 Test Item Value Reference Range Interpretation Comments UA COLOR (test code = COLU) YELLOW YELLOW UA APPEARANCE (test code = HAZY CLEAR APPU) UA GLUCOSE DIPSTICK (test NEGATIVE mg/dL NEGATIVE code = DGLUU) UA BILIRUBIN DIPSTICK (test NEGATIVE NEGATIVE code = BILU) UA KETONE DIPSTICK (test 5 mg/dL NEGATIVE A code = KETU) UA SPECIFIC GRAVITY (test 1.015 1.001-1.035 N code = SGU) UA BLOOD DIPSTICK (test code 1+ NEGATIVE A = MIKA) UA PH DIPSTICK (test code = 8.0 5.5-7.0 H DOROTHY) UA PROTEIN DIPSTICK (test NEGATIVE mg/dL NEGATIVE code = PROU) UA UROBILINOGEN DIPSTICK 8.0 mg/dL NORMAL A (test code = URO) UA NITRITE DIPSTICK (test NEGATIVE NEGATIVE code = SANJANA) UA LEUKOCYTE ESTERASE NEGATIVE NEGATIVE DIPSTICK (test code = LEUU) UA COMMENT (test code = VOLUME 10-12 ML COMU) URINE SPECIMEN DESCRIPTION Clean Catch (test code = UASPEC) UA WBC (test code = WBCU) < 10 #/hpf <10 UA SQUAMOUS CELLS (test code 0 - 20 #/lpf <100 = SQU) UA CULTURE NEEDED? (test Criteria not met code = UACULT) Indication for culture: Temperature > 100.4 FURINE SOURCE: Clean CatchUA [id number] 19:41:00 Test Item Value Reference Range Interpretation Comments UA RBC (test code = RBCU) 0-2 #/hpf NONE SEEN A UA BACTERIA (test code = BACU) FEW #/hpf NONE SEEN A Indication for culture: Temperature > 100.4 FURINE SOURCE: Clean CatchUA RFLX MICROSCOPIC [id number] 19:40:00 Test Item Value Reference Range Interpretation Comments UA COLOR (test code = COLU) YELLOW YELLOW UA APPEARANCE (test code = HAZY CLEAR APPU) UA GLUCOSE DIPSTICK (test NEGATIVE mg/dL NEGATIVE code = DGLUU) UA BILIRUBIN DIPSTICK (test NEGATIVE NEGATIVE code = BILU) UA KETONE DIPSTICK (test code 5 mg/dL NEGATIVE A = KETU) UA SPECIFIC GRAVITY (test 1.015 1.001-1.035 N code = SGU) UA BLOOD DIPSTICK (test code 1+ NEGATIVE A = MIKA) UA PH DIPSTICK (test code = 8.0 5.5-7.0 H DOROTHY) UA PROTEIN DIPSTICK (test NEGATIVE mg/dL NEGATIVE code = PROU) UA UROBILINOGEN DIPSTICK 8.0 mg/dL NORMAL A (test code = URO) UA NITRITE DIPSTICK (test NEGATIVE NEGATIVE code = SANJANA) UA LEUKOCYTE ESTERASE NEGATIVE NEGATIVE DIPSTICK (test code = LEUU) UA COMMENT (test code = COMU) VOLUME 10-12 ML URINE SPECIMEN DESCRIPTION Clean Catch (test code = UASPEC) UA WBC (test code = WBCU) #/hpf <10 UA SQUAMOUS CELLS (test code #/lpf <100 = SQU) UA CULTURE NEEDED? (test code = UACULT) Indication for culture: Temperature > 100.4 FURINE SOURCE: Clean CatchUA [id number] 19:40:00 Test Item Value Reference Range Interpretation Comments UA RBC (test code = RBCU) #/hpf NONE SEEN Indication for culture: Temperature > 100.4 FURINE SOURCE: Clean CatchUA RFLX MICROSCOPIC [id number] 19:40:00 Test Item Value Reference Range Interpretation Comments UA COLOR (test code = COLU) YELLOW YELLOW UA APPEARANCE (test code = HAZY CLEAR APPU) UA GLUCOSE DIPSTICK (test NEGATIVE mg/dL NEGATIVE code = DGLUU) UA BILIRUBIN DIPSTICK (test NEGATIVE NEGATIVE code = BILU) UA KETONE DIPSTICK (test code 5 mg/dL NEGATIVE A = KETU) UA SPECIFIC GRAVITY (test 1.015 1.001-1.035 N code = SGU) UA BLOOD DIPSTICK (test code 1+ NEGATIVE A = MIKA) UA PH DIPSTICK (test code = 8.0 5.5-7.0 H DOROTHY) UA PROTEIN DIPSTICK (test NEGATIVE mg/dL NEGATIVE code = PROU) UA UROBILINOGEN DIPSTICK 8.0 mg/dL NORMAL A (test code = URO) UA NITRITE DIPSTICK (test NEGATIVE NEGATIVE code = SANJANA) UA LEUKOCYTE ESTERASE NEGATIVE NEGATIVE DIPSTICK (test code = LEUU) UA COMMENT (test code = COMU) VOLUME 10-12 ML URINE SPECIMEN DESCRIPTION Clean Catch (test code = UASPEC) UA WBC (test code = WBCU) #/hpf <10 UA SQUAMOUS CELLS (test code #/lpf <100 = SQU) UA CULTURE NEEDED? 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 at [facility] [place] CARDIAC [id number] 08:47:00<0.02[facility] XjmvcbsZXKJLFJVNKLF3187-16-68 08:47:0012.7[facility] [id number] 08:47:0098[facility] [id number] 08:47:008.0[facility] HbitxmqZLOSPSRXWBDU0508-65-50 08:47:0024[facility] ZtwqyflZRDGGJVAUIDP9217-56-83 08:47:0015[facility] [id number] 08:47:000.61[facility] [id number] 08:47:60613Riuegapr PrgeijoJFWZQEOMCOIQ3273-08-94 08:47:97507Vwmvliqm Boomer [id number] 08:47:0080[facility] FdmowpsHWYRLGRTNCEF7603-60-06 08:47:00 3.7[facility] [id number] 08:47:006.0[facility] 2018 08:47:0013.9[facility] OxtgucoTJMUDMLQDP3180-10-94 08:47:004.65[facility] [id number] 08:47:009.0[facility] [id number] 08:47:34274Kdfupslz VgbdtnrFNLRCJBABW5276-67-85 08:47:0040.9[facility] [id number] 08:47:00 Test Item Value Reference Range Interpretation Comments MCH (test code = MCH) 29.9 pg 27.0-31.0 [facility] [id number] 08:47:0033.9[facility] 2018 08:47:0088.0[facility] CkcctifSCQMBRAWRL8716-73-03 08:47:0013.6[facility] FprjqvdNBRNVKKPPX6595-53-29 08:47:000.2[facility] DmfnwjsUUNLSWNIYR1815-96-96 08:47:000.5[facility] MrqmnypZZZTJVKIJV9692-28-87 08:47:0053.0[facility] OLTKWPTAZX0727-55-71 08:47:0034.4[facility] LqpoernDVWUWWYBEV6036-16-15 08:47:00 0.8[facility] KovugdtJVICBAOUDR3976-97-24 08:47:002.9[facility]annHEMATOLOGY 2018 08:47:002.1[facility] GinrpjuSIOAITZVSK8489-54-64 08:47:003.2[facility] JkvrcsfXUJSMYICXA7870-48-35 08:47:008.9[facility] FgwzmijWWZRVP4067-36-95 08:47:00 Test Item Value Reference Range Interpretation Comments VLDL (test code = VLDL) 33 1 [facility] EwonmlvXGXPKX5495-12-58 08:47:0064[facility] HtlbmlpLGGMAM0181-27-42 08:47:03520Ljjohtnf MpfdlkgYWSEKI9380-25-60 08:47:07796Wbvxxzad HermannLIPIDS 2018 08:47:0048[facility] GcjxrozXRHTRJ3668-03-71 08:47:00 Test Item Value Reference Range Interpretation Comments CHD Risk (test code = CHD Risk) 3.02 1 3.90-5.80 [facility]annCARDIAC VMXBSAL8782-98-98 03:29:000.02[facility]annCARDIAC AXVYFNB5417-74-00 23:08:000.02[facility]annCARDIAC PBNDZUE1643-01-62 23:08:00 56[facility]annCHEM UPBDQ9941-61-10 23:08:0095[facility]annCHEM PANEL 2018-06-21 23:08:00 Test Item Value Reference Range Interpretation Comments B/C Ratio (test code = B/C Ratio) 24 1 6-25 [facility]annCHE[facility] XMHOF5705-89-56 23:08:00 Test Item Value Reference Range Interpretation Comments A/G Ratio (test code = A/G Ratio) 1.1 1 0.7-1.6 [facility]annCHE[facility] CCNOI8797-94-65 23:08:002.9[facility]annCHEM PANEL 2018-06-21 23:08:0033[facility]annCHEM GXJEZ5419-47-57 23:08:0023[facility]annCHEM SYLND0317-10-44 23:08:0074[facility]annCHEM XKUGW9801-01-29 23:08:008.6[facility]annCHEM AGCCL7461-98-01 23:08:000.3[facility]annCHEM PCXOL4327-37-85 23:08:24158Kcnmhfhh HermannCHEM RBJZS1313-38-83 23:08:003.6 [facility]annCHE[facility] MIIBX8744-96-29 23:08:80556Tgbxhotw HermannCHEM PANEL 2018-06-21 23:08:0016[facility]annCHEM GLYNQ7939-26-46 23:08:000.68[facility]annCHEM EZCFT2080-81-56 23:08:008.4[facility]annCHEM LPBHR1357-63-74 23:08:006.2[facility]annCHEM LSJWO1960-03-03 23:08:003.3[facility]annCHEM QDGNM9357-87-50 23:08:0031[facility]annCHEM DPMBJ2626-80-03 23:08:0095 [facility] GqwhmmiQVPHRJAIYP5685-38-38 22:14:001.1[facility]annHEMATOLOGY 2018-06-21 22:14:002.4[facility] SvbsjloHQFOKNNJYH9208-97-28 22:14:000.2[facility] IsxsqjjKCVPUROQHG0147-02-45 22:14:000.1[facility] HegypqeUQFNPZSHBG2461-02-71 22:14:002.1[facility] QdbtsrdSJRVFDGDWS8227-21-50 22:14:000.5[facility] OHEPRHSHQV5617-46-32 22:14:003.9[facility] ZenssljFIUUJBTSJX9781-88-84 22:14:00 58.4[facility] LmhzjrhWGZXKFQHUE1929-98-04 22:14:006.8[facility]annHEMATOLOGY 2018-06-21 22:14:0031.3[facility] IhnbbcyHMHWEELFWE2683-86-84 22:14:0035.5[facility] CbyyrhjJJYLODFMRO6919-21-41 22:14:16143Dgdtnwdt AgibbooTJVLHTNTZN6658-44-48 22:14:009.0[facility] FixqwxbOWJZYXBLOH9226-43-64 22:14:0013.6[facility] ENUORKLZBL6379-90-92 22:14:00 Test Item Value Reference Range Interpretation Comments MCH (test code = MCH) 31.2 pg 27.0-31.0 [facility] YgqmldnBXJIGJUITC9215-90-82 22:14:0087.8[facility]annHEMATOLOGY 2018-06-21 22:14:0040.5[facility] QtrgbpcYFZRVXQIXI0884-18-07 22:14:0014.4[facility] NgxnidiEAPTZIRGRQ0075-51-52 22:14:004.61[facility] OyfnspuASJTSDQCHH6380-32-84 22:14:006.7[facility]
--- OUTSIDE RECORDS SUMMARY | 2020-04-06 16:29 | XMS REPORT ---
:1955 Author Organization [employer] Care Team Providers Name Role Phone Juancarlos Rodriguez Provider Role Unavailable Allergies, Adverse Reactions, Alerts Substance Reaction Event Type Trazodone HCl Info Not Available Drug Allergy Benadryl Info Not Available Drug Allergy Problems Problem Type Condition Code Onset Dates Condition Statu s Assessment Atherosclerosis of coronary artery I25.10 Active of [place] heart Assessment Tobacco use disorder Z72.0 Active Assessment Anemia, unspecified type D64.9 Act evelio Assessment Hypokalemia E87.6 Active Assessment 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 depressive disorder without prior episode Assessment Chronic obstructive pulmonary J44.9 Active disease Assessment Benign essential HTN I10 Active Assessment Type 2 diabetes mellitus with E11.65 Active hyperglycemia, without long-term current use of insulin Assessment Paroxysmal atrial fibrillation I48.0 Active Problem Atherosclerosis of coronary artery I25.10 Active of [place] heart Assessment Chronic diastolic congestive heart I50.32 Active failure Problem 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 depressive disorder without prior episode Problem Other chronic pain G89.29 Active Problem COPD exacerbation J44.1 Active Problem Paresthesia R20.2 Active Problem Chronic diastolic congestive heart I50.32 Active failure Problem Coronary artery disease involving I25.10 Active [place] coronary artery of [place] heart, angina presence unspecified Problem Chronic back pain M54.9 Active Problem Osteoarthritis of multiple joints M15.9 Active Assessment History of endovascular stent graft Z95.828 Active for abdominal aortic aneurysm Problem Paroxysmal atrial fibrillation I48.0 Active Problem Tobacco use disorder Z72.0 Active Assessment Encounter for tobacco use cessation Z71.6 Active counseling Problem Breast implant status Z98.82 Active Problem Acute on chronic diastolic I50.33 A ctive congestive heart failure Problem Type 2 diabetes mellitus with E11.65 Active hyperglycemia, without long-term current use of insulin Problem History of endovascular stent graft Z95.828 Active for abdominal aortic aneurysm Assessment Hyperlipidemia, mixed E78.2 Active Problem Hyperlipidemia, mixed E78.2 Active Assessment Insomnia G47.00 Active Problem Chronic obstructive pulmonary J44.9 Active disease Assessment Osteoarthritis of multiple joints M15.9 Active Problem Stented coronary artery Z95.5 Acti ve Assessment Stented coronary artery Z95.5 Acti ve Problem Depression with anxiety F41.8 Acti ve Assessment GERD (gastroesophageal reflux K21.9 Active disease) Problem Benign essential HTN I10 Active Assessment Gastric wall thickening K31.89 Acti ve Problem Hx of breast cancer Z85.3 Active Problem Insomnia G47.00 Active Problem GERD (gastroesophageal reflux K21.9 Active disease) Medications Medication Code Code Instructions Start End Status Dosage System Date Date Sertraline HCl [facility] 60396251895 50 MG Orally Active 1 tablet Once a day Lipitor ND 28705430057 40 MG Orally Active 1 table t Once a day ProAir HFA [facility] 47444859032 108 (90 Base) Active 2 p uffs as MCG/ACT needed Inhalation every 6 hrs as needed for cough, shortness of breath and wheezing Isosorbide ND 96637461101 60 MG Orally Active 1 ta blet Mononitrate ER Once a day in the morning HydrALAZINE HCl [facility] 39466880521 50 MG Orally Active 1 tablet Three times a with food day Lasix [facility] 59034424344 40 MG Orally Active 1 table t BID Gabapentin [facility] [address]-94 100 MG Orally Active 1 capsule BID Trazodone HCl [facility] 52344556184 300 MG Orally Active 0.5 tablet Once a day at bedtime Prozac [facility] 69623606033 40 MG Orally Active 1 capsu le Once a day Metoprolol ND 89306597003 100 MG Orally Active 1 t ablet Tartrate Twice a day with food Potassium [facility] 66678-[address]270 Active not defined Amiodarone HCl [facility] 13126687561 200 MG Orally Active 1 tablet Once a day Norvasc [facility] 99916049595 10 MG Orally Active 1 table t Once a day Latuda [facility] 56308297654 60 MG Orally Active 1 table t Once a day with food Potassium [facility] [address]-48 Active not Chloride defined Oxybutynin ND 07587202048 5 MG Orally Active 1 tab let Chloride Twice a day Trazodone HCl [facility] [address]-41 300 MG Orally Active 1 tablet Once a day at bedtime Gabapentin [facility] 94270170145 100 MG Orally Active 1 c apsule BID Aspir-81 [facility] 24863532370 81 MG Orally Active 1 tabl et Once a day Advair HFA [facility] 90303262525 230-21 MCG/ACT Active 2 puffs Inhalation Twice a day Lisinopril [facility] 26730524593 40 MG Orally Active 1 ta blet Once a day Results No Known Results Immunizations Vaccine Administration Date Afluria March 20, 2020 Summary Purpose [employer] Submission
--- OUTSIDE RECORDS SUMMARY | 2020-04-06 16:29 | XMS REPORT ---
:1955 Author Organization [employer] Care Team Providers Name Role Phone RodriguezJuancarlos Provider Role Unavailable Allergies No Known Allergies Problems Problem Type Condition Code Onset Dates Condition Statu s Problem Other chronic pain G89.29 Active Problem COPD exacerbation J44.1 Active Problem Paresthesia R20.2 Active Problem Chronic diastolic congestive heart I50.32 Active failure Problem Chronic back pain M54.9 Active Problem Coronary artery disease involving I25.10 Active [place] coronary artery of [place] heart, angina presence unspecified Problem Osteoarthritis of multiple joints M15.9 Active Problem Tobacco use disorder Z72.0 Active Problem Paroxysmal atrial fibrillation I48.0 Active Problem Breast implant status Z98.82 Active Problem Acute on chronic diastolic I50.33 A ctive congestive heart failure Problem Type 2 diabetes mellitus with E11.65 Active hyperglycemia, without long-term current use of insulin Problem History of endovascular stent graft Z95.828 Active for abdominal aortic aneurysm Problem Hyperlipidemia, mixed E78.2 Active Problem Chronic obstructive pulmonary J44.9 Active disease Problem Stented coronary artery Z95.5 Acti ve Problem Depression with anxiety F41.8 Acti ve Problem Benign essential HTN I10 Active Problem Hx of breast cancer Z85.3 Active Problem Insomnia G47.00 Active Problem Atherosclerosis of coronary artery I25.10 Active of [place] heart Problem GERD (gastroesophageal reflux K21.9 Active disease) Problem 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 depressive disorder without prior episode Medications No Known Medications Results No Known Results Summary Purpose [employer] Submission
--- OUTSIDE RECORDS SUMMARY | 2020-04-06 16:29 | XMS REPORT | Summary of Care ---
:1955 Author Organization [facility] - [facility] Address [address] [place] [address] Care Team Providers Name Role Phone Amb, Team Unavailable Unavailable [employer] Mamta Mejia Primary Care Provider Reason for Referral (Routine) Status Reason Specialty Diagnoses / Referred By Referred To Procedures Contact Contact New Request IM-CARDIOVASCULAR Diagnoses Acute on chronic diastolic congestive heart failure Frederick Ball, DISEASE Procedures Discharge Follow-Up: Specialty Service IM-CARDIOVASCULAR DISEASE; [address] [place] [id number] Radiology Services (STAT) Status Reason Specialty Diagnoses / Referred By Referred To Procedures Contact Contact New Request Diagnostic Diagnoses SOB (shortness of breath) Claudette Mejia Radiology Procedures Chest 1 View J, DO [address] [place] [address] Reason for Visit Reason Comments Shortness of Breath Auth/Cert Status Reason Specialty Diagnoses / Referred By Referred To Procedures Contact Contact Emergency Medicine Diagnoses SHORTNESS OF BREATH [facility] Emergency Dept [address] [place] [address] Fax: Encounter Details Date Type Department Care Team Description 02/23/2020 - [facility] Medicine Claudette Mejia DO [address] [place] [address] [phone] Acute on chronic 02/26/2020 Encounter Surgery Unit Heath Boyle MD [address] [facility] [id number] [place], [place] [id number] diastolic [address] [facility] Yasmine Curry MD [address] [facility] [place], [place] [id number] [place] [address] Allergies Active Allergy Reactions Severity Noted Date Comments Diphenhydramine Hcl Unknown - See comments 06/01/2006 Lorazepam Unknown - See comments 10/22/2005 restl ess legs Eszopiclone Unknown - See comments 06/01/2006 Promethazine Hcl Unknown - See comments 10/22/2005 R estless legs Quetiapine Fumarate Extra pyramidal effects 12/09/2011 documented as of this encounter (statuses as of 02/26/2020) Medications Medication Sig Dispensed Refills Start End Status Date Date amiodarone 200 mg Take 1 tablet 30 tablet 1 02/26/20 Active tabletIndications: by mouth 20 Acute on chronic daily. diastolic congestive heart failure atorvastatin (LIPITOR) Take 1 tablet 30 tablet 1 02/26/20 Active 40 mg by mouth at 20 tabletIndications: bedtime. Acute on chronic diastolic congestive heart failure oxybutynin chloride 5 Take 1 tablet 60 tablet 1 18/20 Active mg tabletIndications: by mouth 2 20 Acute on chronic (two) times diastolic congestive daily. heart failure SERTraline 50 mg Take 1 tablet 30 tablet 1 1820 Active tabletIndications: by mouth 20 Acute on chronic daily. diastolic congestive heart failure amLODIPine 10 mg Take 1 tablet 30 tablet 1 1820 Active tabletIndications: by mouth 20 Essential hypertension, daily. benign, Essential hypertension aspirin 81 mg EC Take 1 tablet 30 tablet 0 20 Active tabletIndications: by mouth 20 Coronary daily. atherosclerosis hydrALAZINE 50 mg Take 1 tablet 60 tablet 1 18/20 Active tabletIndications: by mouth 2 20 Essential hypertension (two) times daily. isosorbide mononitrate Take 3 90 tablet 1 20 Active 30 mg 24 hr tablets by 20 tabletIndications: mouth daily. Acute on chronic diastolic congestive heart failure lisinopril 40 mg Take 1 tablet 30 tablet 1 02/26/20 Active tabletIndications: by mouth 20 Benign hypertensive daily. heart disease without heart failure metoprolol tartrate 100 Take 1 tablet 60 tablet 1 02/26/20 Active mg tabletIndications: by mouth 2 20 Acute on chronic (two) times diastolic congestive daily. heart failure lurasidone 40 mg Take 1 tablet 30 tablet 1 02/26/20 Active tabletIndications: by mouth at 20 Acute on chronic bedtime. diastolic congestive heart failure temazepam 15 mg Take 1 30 capsule 0 02/26/20 Act evelio capsuleIndications: capsule by 20 Acute on chronic mouth at diastolic congestive bedtime. heart failure furosemide 40 mg Take 1 tablet 60 tablet 1 02/26/20 Active tabletIndications: by mouth 20 Acute on chronic every morning diastolic congestive and evening. heart failure KCL 20 mEq Take 1 tablet 30 tablet 0 02/26/20 Activ e tabletIndications: by mouth 20 Acute on chronic daily. diastolic congestive heart failure MULTIVITAMIN (MULTIPLE Take by 0 Discontinued VITAMIN mouth. 020 ORAL)Indications: Unspecified essential hypertension, Coronary atherosclerosis of unspecified type of vessel, [place] or graft TRAZODONE HCL Take 300 mg 0 Disc ontinued (TRAZODONE ORAL) by mouth at 020 bedtime. FLUoxetine (PROZAC) 40 Take 60 mg by 0 26/11 Discontinued mg capsule mouth daily. 020 aspirin 81 mg EC Take 1 Tab by 0 05/03/20 Discontinued tabletIndications: mouth daily. 15 020 (Reorder) Coronary atherosclerosis of unspecified type of vessel, [place] or graft isosorbide mononitrate Take 3 Tabs 90 Tab 5 09/11/2002/25 Discontinued (IMDUR) 30 mg 24 hr by mouth 15 020 (Reorder) tablet daily. traMADOL (ULTRAM) 50 mg Take 1 Tab by 60 Tab 0 09/11/20 Discontinued tablet mouth every 8 15 020 (eight) hours as needed for Pain (scale 7-10). amLODIPine (NORVASC) 10 Take 1 Tab by 30 Tab 11 09/12/20 Discontinued mg tabletIndications: mouth daily. 15 020 (Reorder) Essential hypertension, benign, Essential hypertension lurasidone (LATUDA) 40 Take 60 mg by 0 28/11 Discontinued mg tablet mouth at 020 (Reorder) bedtime. metoprolol tartrate Take 1 Tab by 60 Tab 11 11/05/19 Discontinued (LOPRESSOR) 100 mg mouth 2 (two) 16 020 (Reorder) tablet times daily. atorvastatin (LIPITOR) Take 1 Tab by 30 Tab 11 11/06/1928/11 Discontinued 40 mg tablet mouth at 16 020 (Reorde r) bedtime. lisinopril Take 1 Tab by 30 Tab 6 01/21/20 Disco ntinued (PRINIVIL,ZESTRIL) 40 mouth daily. 16 020 (Reorder) mg tabletIndications: Benign hypertensive heart disease without heart failure hydralAZINE Take 1 tablet 270 tablet 1 05/25/20 Dis continued (APRESOLINE) 50 mg by mouth 2 16 020 (Reorder) tabletIndications: (two) times Essential hypertension daily. HYDROCHLOROTHIAZIDE Take by 0 Discontinued ORAL mouth. 020 guaiFENesin 100 mg/5 mL Take 10 mL by 100 mL 0 05/03/20 Discontinued solution mouth every 4 17 020 (four) hours. For cough azithromycin 250 mg Take 1 tablet 3 tablet 0 05/03/20 Discontinued tablet by mouth 17 020 daily. Take 500 mg day 1, then 250 mg days 2 to 5. methylPREDNISolone 4 mg Take by 21 Each 0 05/03/20 Discontinued tablets mouth 17 020 SEE-INSTRUCTI ONS. follow package directions metoprolol tartrate 100 Take 1 tablet 60 tablet 0 05/03/20 Discontinued mg tablet by mouth 2 17 020 (two) times daily. isosorbide mononitrate Take 1 tablet 30 tablet 0 05/03/2026/11 Discontinued 60 mg 24 hr tablet by mouth 17 020 daily. furosemide 20 mg Take 2 15 tablet 0 11/08/19 Dis continued tabletIndications: tablets by 19 020 Acute exacerbation of mouth every chronic obstructive morning and pulmonary disease evening. (COPD), Acute on chronic congestive heart failure, unspecified heart failure type albuterol (PROAIR HFA) Inhale 2 1 Inhaler 1 11/08/19 Discontinued 90 mcg/actuation Puffs every 6 19 020 inhalerIndications: (six) hours Acute exacerbation of as needed for chronic obstructive Wheezing or pulmonary disease Shortness of (COPD), Acute on Breath. chronic congestive heart failure, unspecified heart failure type GABAPENTIN ORAL Take 100 mg 0 Di scontinued by mouth 2 020 (two) times daily as needed for Other (ANXIETY). SERTraline 50 mg tablet Take 50 mg by 0 Discontinued mouth daily. 020 (Reorde r) amiodarone HCl Take 200 mg 0 Dis continued (AMIODARONE ORAL) by mouth 020 daily. oxybutynin chloride 5 Take 5 mg by 0 02/25 Discontinued mg tablet mouth 2 (two) 020 (Reord er) times daily. ibuprofen 200 mg tablet Take 200 mg 0 02/08 05/12 Discontinued by mouth 020 every 6 (six) hours as needed. documented as of this encounter (statuses as of 02/26/2020) Active Problems Problem Noted Date Anemia 02/26/2020 Acute on chronic diastolic congestive heart failure PAF (paroxysmal atrial fibrillation) 02/24/2020 H/O endovascular stent graft for abdominal aortic aneu rysm 02/24/2020 Coronary artery disease involving [place] coronary [place] of [place] heart 02/24/2020 without angina pectoris Troponin I above reference range 02/24/2020 Hypertensive urgency 02/24/2020 Pigmentary retinopathy 11/06/2015 Refractive error 11/06/2015 Senile nuclear sclerosis, bilateral 11/06/2015 Type 2 diabetes mellitus without complication 11/06/19 16 Hypercholesterolemia 10/01/2015 SOB (shortness of breath) 08/22/2015 Chronic back pain 08/15/2015 Smoking 08/15/2015 Chlamydia trachomatis infection of other genitourinary sites 06/02/2013 History of RPR test--equivocal; needs repeat. 013 Breast cancer 05/25/2013 Cervical mass 05/25/2013 Suspicious nevus 05/25/2013 Overview: ICD10 Diagnosis [employer] Suicidal ideation 09/20/2011 Borderline personality disorder 06/18/2006 Essential hypertension, benign 06/17/2006 Drug dependence 06/15/2006 Overview: Cocaine,THC ICD10 Diagnosis [employer] Nondependent alcohol abuse 06/15/2006 Overview: ICD10 Diagnosis [employer] Chest pain 06/14/2006 Overview: ICD10 Diagnosis [employer] 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 Atherosclerosis of renal artery 06/09/2006 Chest pain 10/22/2005 Overview: ICD10 Diagnosis [employer] Coronary atherosclerosis 10/22/2005 Overview: ICD10 Diagnosis [employer] Essential hypertension 10/22/2005 Overview: ICD10 Diagnosis [employer] Bipolar 1 disorder 10/22/2005 Chronic obstructive airway disease with asthma 006 Overview: ICD10 Diagnosis [employer] documented as of this encounter (statuses as of 02/26/2020) Resolved Problems Problem Noted Date Resolved Date Borderline personality disorder 06/17/2006 06/17/20 Bipolar I disorder, most recent episode (or current) manic, 06/16/2006 07/01/2006 mild documented as of this encounter (statuses as of 02/26/2020) Immunizations Name Administration Dates Next Due Influenza Virus Vaccine 12/24/2011 Td 05/25/2011 documented as of this encounter Social History Tobacco Use Types Packs/Day Years Used Date Current Every Day Smoker Cigarettes 1 45 Sta rted: 04/26/1974 Smokeless Tobacco: Former User Tobacco Cessation: Ready to Quit: Yes; C ounseling Given: Yes Alcohol Use Drinks/Week oz/Week Comments Not Currently 0 Standard drinks or equivalent 0.0 history of alcohol use/ has been 42 months w ithout a drink Sex Assigned at Date Recorded Not on file Job Start Date Occupation Industry Not on file Not on file Not on file Travel History Travel Start Travel End No recent travel history available. COVID-19 Exposure Response Date Recorded In the last month, have you been in contact with No / Unsure 02/23/2020 6:56 PM CDT someone who was confirmed or suspected to have Coronavirus / COVID-19? documented as of this encounter Last Filed Vital Signs Vital Sign Reading Time Taken Comments Blood Pressure 132/74 02/26/2020 11:26 AM CDT Pulse 62 02/26/2020 11:26 AM CDT Temperature 36.7 C (98.1 F) 02/26/2020 11:26 AM CDT Respiratory Rate 18 02/26/2020 11:26 AM CDT Oxygen Saturation 95% 02/26/2020 11:26 AM CDT Inhaled Oxygen Concentration - - Weight 54.4 kg (120 lb) 02/23/2020 6:58 PM CDT Height 162.6 cm (5' 4") 02/23/2020 6:58 PM CDT Body Mass Index 20.6 02/23/2020 6:58 PM CDT documented in this encounter Discharge Instructions AttachmentsThe following attachments cannot be sent through Care Everywhere. Heart Failure, Discharge Instructions for (Russian)Heart Failure, Congestive (CHF) (Russian)Amiodarone tablets (Russian)Atorvastatin tablets (Russian) Oxybutynin tablets (Russian)Amlodipine tablets (Russian)Aspirin, ASA chewable tablets (Russian)Hydralazine tablets (Russian)Isosorbide Mononitrate tablets (Russian)Lisinopril tablets (Russian)Metoprolol tablets (Russian)Furosemide tablets (Russian)Potassium Salts tablets, extended-release tablets or capsules (Russian)Temazepam tablets or capsules (Russian)Lurasidone oral tablet (Russian) documented in this encounter Progress Notes Arnie Oconnor RN - 02/26/2020 10:39 AM CDTCare Management Social Functional Assessment Patient Name: Ophelia Grady Age: [age] year old Sex: female Patient's Previous Admission Date at [facility]: 09/05/2015 Current diagnosis and co-morbidities: CHF exacerbation SHORTNESS OF BREATH Troponin I above reference range Readmission Questions: Was patient discharged from any acute care hospital within the last 30 days: No Social Functional Assessment: Primary language spoken/preferred: Russian Mental Status: Alert & Oriented to Person,Place & Time Information given by: Self Name and number of support system: Viktoria Murray sister [phone] Primary Reservation Agent: Self MPOA: Same as support system Living Arrangement: Home Address of living arrangement : [id number] [place] [address] [address] Persons living in home: Same as support system Barriers to returning home: None Baseline functional status- ambulation: Requires minimal to moderate assistance Functional status-baseline personal care: Requires minimal to moderate assistance Baseline functional status- driving: Requires minimal to moderate assistance Baseline functional status- grocery shopping: Requires minimal to moderate assistance Functional status-baseline housekeeping: Requires minimal to moderate assistance Functional status-baseline meal prep: Requires minimal to moderate assistance Current functional status same as prior: Yes Do you have a PCP?: Yes Name of PCP: Dr Rodrigeuz Home Health Care Agency: No Provider Services: No DME Company: No Equipment: None Hemodialysis: No Community resources utilized: None Funding Resources: Commercial Prescription coverage plan: Medicaid unlimited slots Pharmacy where meds are filled: Other Other pharmacy: [facility] Anticipated services prior to disharge: Continue Medical Eval Expected mode of discharge transportation: Same as support system Additional info required for discharge planning: Pending P/T O/T recommendation;Pending medical evaluation Recommended discharge plan: Home SFA Complete: Social Functional Assessment complete: Yes Alcohol Use Screening (AUDIT-C) How often do you have a drink containing alcohol?: Never SCORE: 0 Role of Care Management explained. Yes Arnie Oconnor RN, BSN [facility] ADC Post Form Remover O [phone] Arnie Mera RN - 02/26/2020 8:56 AM CDT Care Management Social Functional Assessment Patient Name: Ophelia Grady Age: [age] year old Sex: female Patient's Previous Admission Date at [facility]: 09/05/2015 Current diagnosis and co-morbidities: CHF exacerbation SHORTNESS OF BREATH Troponin I above reference range Readmission Questions: Was patient discharged from any acute care hospital within the last 30 days: No Social Functional Assessment: Primary language spoken/preferred: Russian Mental Status: Alert & Oriented to Person,Place & Time Information given by: Self Name and number of support system: Viktoria Adanjohn sister [phone] Primary Reservation Agent: Self MPOA: Same as support system Living Arrangement: Home Address of living arrangement : [address] [place] [address] Persons living in home: Same as support system Barriers to returning home: None Baseline functional status- ambulation: Requires minimal to moderate assistance Functional status-baseline personal care: Requires minimal to moderate assistance Baseline functional status- driving: Requires minimal to moderate assistance Baseline functional status- grocery shopping: Requires minimal to moderate assistance Functional status-baseline housekeeping: Requires minimal to moderate assistance Functional status-baseline meal prep: Requires minimal to moderate assistance Current functional status same as prior: Yes Do you have a PCP?: Yes Name of PCP: Dr Rodriguez Home Health Care Agency: No Provider Services: No DME Company: No Equipment: None Hemodialysis: No Community resources utilized: None Funding Resources: Medicaid HMO Prescription coverage plan: Medicaid unlimited slots Pharmacy where meds are filled: Other Other pharmacy: [facility] Anticipated services prior to disharge: Continue Medical Eval Expected mode of discharge transportation: Same as support system Additional info required for discharge planning: Pending P/T O/T recommendation;Pending medical evaluation Recommended discharge plan: Home Alcohol Use Screening (AUDIT-C) How often do you have a drink containing alcohol?: Never SCORE: 0 Role of Care Management explained. Yes Any issues or concerns with obtaining/affording your medications at home: no. Are you or your support system able to garbage pick up man medications at discharge: yes. Describe: Arnie Oconnor RN, BSN [facility] ADC Post Form Remover O [phone] F [phone] El Doherty MD - 02/26/2020 7:57 AM CDT [facility] Cardiology progress note Date of Service: 02/26/2020 Ophelia Grady is a 64 years old female hospitalized for progressive dyspnea. Feeling better but still SOB. Still on O2. PHYSICAL EXAM Vitals: 02/25/20 1641 02/25/20 1930 02/26/20 0000 02/26/20 0418 BP: 132/80 138/72 135/79 Pulse: 67 70 66 Resp: Temp: 36.6 C (97.9 F) 36.4 C (97.6 F) 36.7 C (98 F) TempSrc: Temporal Artery Temporal Artery Temporal Artery SpO2: 93% 94% 94% 95% Weight: Height: General: alert and oriented x 3 (person, place and date/time); no apparent distress HEENT: normocephalic atraumatic Neck: supple, no lymphadenopathy, no bruits, no JVD Lungs: clear to auscultation bilaterally Cardio: S1, S2, normal rate, regular; no murmurs, rubs or gallops Abdomen: non-distended : not examined Rectal: not examined Extremities: no clubbing, cyanosis, or edema Skin: no rashes Neuro: no focal deficits Medications: I have reviewed the patient's medications; see Medication Reconciliation. Labs: I have reviewed the patient's labs. ASSESSMENT AND PLAN Principal Problem: Acute on chronic diastolic congestive heart failure Active Problems: Essential hypertension Chronic obstructive airway disease with asthma Hypercholesterolemia Type 2 diabetes mellitus without complication PAF (paroxysmal atrial fibrillation) H/O endovascular stent graft for abdominal aortic aneurysm Coronary artery disease involving [place] coronary artery of [place] heart without angina pectoris Troponin I above reference range Hypertensive urgency Anemia Acute on chronic HFpEF--presented with progressive dyspnea and orthopnea with BNP elevation and mildinterstitial changes. No leg edema and is losing weight. BNP trending down. OK to discharge from cardiology with increase home dose of lasix. Daily weight. Low salt diet. I/O. Keep K > 4 and Mg >2. Troponin elevation--likely type 2 HI, demand ischemia, due to HF and elevated BP. No chest pain. ECHO to assess LVEF and wall motion. Troponin trending down. Hypertensive emergency--now better controlled. Continue amlodipine, lisinopril, metoprolol. PAfib--Now in normal sinus rhythm. On amiodarone. Not on anticoagulation. S/p thoracic aortic endovascular intervention--ASA. CAD--s/p PCI stenting. Continue ASA/metoprolol/Imdur/lipitor. Anemia--new onset since 2019. May contribute to her SOB. Per primary team. F/u with me in 2-3 weeks. El Barksdale MD, [facility] [place] Alarm Technician, Division of Cardiology [facility] Frederick Reynoso MD - 02/25/2020 4:10 PM CDT [facility] Hospitalist Progress Note SUBJECTIVE: Feels better today but still short of breath. CURRENT MEDICATIONS - reviewed. Current Facility-Administered Medications Medication Dose Route Frequency Last Rate Last Dose iron sucrose (VENOFER) 400 mg in NaCl 0.9% (NS) 250 mL infusion 400 mg IV Infusion ONCE acetaminophen (TYLENOL) tablet 650 mg 650 mg Oral Q6HPRN amiodarone (PACERONE) tablet 200 mg 200 mg Oral DAILY 200 mg at 02/25/20 0838 amLODIPine (NORVASC) tablet 10 mg 10 mg Oral DAILY 10 mg at 02/25/20 0838 aspirin chewable tablet 81 mg 81 mg Oral DAILY 81 mg at 02/25/20 0838 atorvastatin (LIPITOR) tablet 40 mg 40 mg Oral QHS 40 mg at 02/24/202019 dextrose 50 % in water (D50W) injection 25 mL 25 mL Slow IV Push PRN furosemide (LASIX) injection 40 mg 40 mg Slow IV Push Q12H 40 mg at 02/25/20 0838 glucagon (GLUCAGEN DIAGNOSTIC KIT) injection 1 mg 1 mg Intramuscular PRN hydralAZINE (APRESOLINE) injection 10 mg 10 mg Intravenous Q6HPRN hydrALAZINE (APRESOLINE) tablet 50 mg 50 mg Oral BID 50 mg at 02/25/20 0839 ipratropium-albuterol (DUONEB) 0.5 mg-3 mg(2.5 mg base)/3 mL nebulizer solution 3 mL 3 mL Inhalation QIDPRN isosorbide mononitrate (IMDUR) 24 hr tablet 90 mg 90 mg Oral DAILY 90 mg at 02/25/2038 lisinopril (PRINIVIL,ZESTRIL) tablet 40 mg 40 mg Oral DAILY 40 mg at 02/25/20 0839 metoprolol tartrate (LOPRESSOR) tablet 100 mg 100 mg Oral BID 100 mg at 02/25/20 0839 nicotine (NICODERM) 14 mg/24 hr patch 1 Patch 1 Patch Topical Q24H 1 Patch at 02/25/20 0846 ondansetron (ZOFRAN (PF)) injection 4 mg 4 mg Slow IV Push Q6HPRN oxybutynin chloride (DITROPAN) tablet 5 mg 5 mg Oral BID 5 mg at 02/25/20 0839 SERTraline (ZOLOFT) tablet 50 mg 50 mg Oral DAILY 50 mg at 02/25/20 0839 Sliding Scale Insulin-Regular + Fsbg Testing Subcutaneous AC+HS Stopped at 02/24/20 07 temazepam (RESTORIL) capsule 15 mg 15 mg Oral QHS 15 mg at 02/24/202019 traMADol (ULTRAM) tablet 50 mg 50 mg Oral Q8HPRN 50 mg at 02/25/20 0839 traZODone (DESYREL) tablet 300 mg 300 mg Oral QHSPRN PHYSICAL EXAM: BP (!) 141/72 | Pulse 64 | Temp 36.9 C (98.4 F) (Temporal Artery) | Resp 18 | Ht 5' 4" (1.626 m) | Wt 120 lb (54.4 kg) | SpO2 95% | BMI 20.60 kg/m General: No respiratory distress Neuro: AAOx3, no focal deficits Psych: Normal affect LABS/IMAGING - reviewed, pertinent results as below: CBC BMP PT/INR WBC x10^3 (/uL) Date Value 03/13/2012 7.3 WBC (10*3/L) Date Value 02/25/2020 5.90 NA Date Value 02/25/2020 140 mmol/L 03/13/2012 140 MMOL/L No results found for: PT RBC x10^6 (/uL) Date Value 03/13/2012 4.45 RBC (10*6/L) Date Value 02/25/2020 3.24 (L) K Date Value 02/25/2020 3.3 mmol/L (L) 03/13/2012 3.9 MMOL/L INR (no units) Date Value 06/27/2018 0.9 PLT x10^3 (/uL) Date Value 03/13/2012 275 PLT (10*3/L) Date Value 02/25/2020 260 CALCIUM Date Value 02/25/2020 8.8 mg/dL 03/13/2012 9.5 MG/DL HGB Date Value 02/25/2020 8.0 g/dL (L) 03/13/2012 13.0 G/DL CL Date Value 02/25/2020 104 mmol/L 03/13/2012 108 MMOL/L aPTT HCT (%) Date Value 02/25/2020 26.2 (L) 03/13/2012 38.7 BUN Date Value 02/25/2020 21 mg/dL 03/13/2012 15 MG/DL APTT Patient (Seconds) Date Value 09/12/2015 26 CREATININE Date Value 02/25/2020 0.65 mg/dL 03/13/2012 0.80 MG/DL IMAGING- Hospital Encounter on 02/23/20 Chest 1 View Narrative XR CHEST 1 VW Comparison: 11/08/2018 History: sob Findings: Bilateral hazy opacities are present, appear more confluent and patchy in the lung bases, associated with small bilateral pleural effusion. Findings have worsened since prior examination. The cardiomediastinal silhouette is enlarged. Aortic stent in the area arch and descending thoracic aorta, new since prior. No acute osseous abnormality is present. Impression Cardiomegaly with hilar vascular congestion. Interval placement of the aortic endograft. Bilateral hazy opacities are present, appear more confluent and patchy in the lung bases, associated with small bilateral pleural effusion. Findings have worsened since prior examination, may represent worsening edema or infection in the proper clinical setting. Preliminary Report Dictated by Resident: Jil Overton I, Selina Yeung MD., have reviewed this study and agree with the above report. ASSESSMENT/PLAN Ophelia Grady is a 64 year old female with PMH as listed above, admitted to the hospital with: Acute on chronic diastolic CHF 2/2 hypertensive urgency Improved with IV lasix. Strict I/Os. BNP down-trending. CXR now clear. On amlodipine, metoprolol, lisinopril Cardiology on board Troponin elevation Type 2 NSTEMI due to CHF, hypertension. Echo pending. Paroxysmal a-fib On amiodarone, metoprolol. Defer AC to cardiology. Hx CAD s/p PCI, thoracic aorta endovascular stent On aspirin, statin, imdur, metoprolol Has vascular f/u Prophylaxis: DVT- SCD Stress Ulcer: no indication for prophylaxis Code Status: Full Disposition: Home tomorrow [place] [employer] was verified during stay Frederick Ball MD ARDOTCniko, MD El - 02/25/2020 9:52 AM CDT [facility] Cardiology progress note Date of Service: 02/25/2020 Ophelia Grady is a 64 years old female hospitalized for progressive dyspnea. Feeling better. Reported good UOP. Still on O2. PHYSICAL EXAM Vitals: 02/24/20 1950 02/25/20 0400 02/25/20 0737 02/25/20 0800 BP: 135/73 (!) 152/87 (!) 155/87 Pulse: 65 63 66 Resp: 18 20 Temp: 36.9 C (98.5 F) 36.7 C (98.1 F) 36.9 C (98.5 F) TempSrc: Tympanic Oral Temporal Artery SpO2: 95% 95% 95% 93% Weight: Height: Date 02/25/20 0700 - 02/26/20 0659 Shift [id number] [id number] [id number] 24 Hour Total INTAKE Oral 240 240 Shift Total 240 240 OUTPUT Shift Total Weight (kg) 54.4 54.4 54.4 54.4 General: alert and oriented x 3 (person, place and date/time); no apparent distress HEENT: normocephalic atraumatic Neck: supple, no lymphadenopathy, no bruits, no JVD Lungs: clear to auscultation bilaterally Cardio: S1, S2, normal rate, regular; no murmurs, rubs or gallops Abdomen: non-distended : not examined Rectal: not examined Extremities: no clubbing, cyanosis, or edema Skin: no rashes Neuro: no focal deficits Medications: I have reviewed the patient's medications; see Medication Reconciliation. Labs: I have reviewed the patient's labs. ASSESSMENT AND PLAN Principal Problem: Acute on chronic diastolic congestive heart failure Active Problems: Essential hypertension Chronic obstructive airway disease with asthma Hypercholesterolemia Type 2 diabetes mellitus without complication PAF (paroxysmal atrial fibrillation) H/O endovascular stent graft for abdominal aortic aneurysm Coronary artery disease involving [place] coronary artery of [place] heart without angina pectoris Troponin I above reference range Hypertensive urgency Acute on chronic HFpEF--presented with progressive dyspnea and orthopnea with BNP elevation and mildinterstitial changes. No leg edema and is losing weight. Will continue IV lasix as tolerated. Good response. Daily weight. Fluid restriction. I/O. BNP trending down. Keep K > 4 and Mg > 2. Troponin elevation--likely type 2 HI, demand ischemia, due to HF and elevated BP. No chest pain. ECHO to assess LVEF and wall motion. Troponin trending down. Hypertensive emergency--now better controlled. Continue amlodipine, lisinopril, metoprolol. PAfib--Now in normal sinus rhythm. On amiodarone. Not on anticoagulation. S/p thoracic aortic endovascular intervention--ASA. CAD--s/p PCI stenting. Continue ASA/metoprolol/Imdur/lipitor. El Barksdale MD, FACC, GENESIS Alarm Technician, Division of Cardiology [facility] documented in this encounter Plan of Treatment Name Type Priority Associated Diagnoses Date/Ti me VITAMIN B1 (THIAMINE), LAB Routine 02/23 11:13 AM CDT WHOLE BLOOD Name Type Priority Associated Diagnoses Order S chedule CBC with Differential LAB Routine EVERY MORNING AT 0400 for 5 Occurrenc es starting 2019 until 0, 2 completed Basic Metabolic Panel (NA, LAB Routine E VERY MORNING AT 0400 K, CL, CO2, GLUCOSE, BUN, fo r 5 Occurrences CREATININE, CA) starting until 0, 2 completed VITAMIN B1 (THIAMINE), LAB Routine ONCE for 1 Occurrences WHOLE BLOOD starting 2019 until 0 Health Maintenance Due Date Last Done Comments Breast Cancer Screening 1997 (MAMMOGRAM) EYE EXAM 11/06/2016 11/06/2015 LDL-C 05/02/2018 05/02/2017, 08/23/2015, 08/01/2015, Additional history exists URINE MICROALBUMIN 04/17/2020 Postponed fro m 1967 (Insu igor / Financial) COLONOSCOPY 04/24/2020 Postponed from 2007 ([place]te [place] Guidelines) FOOT EXAM 04/24/2020 Postponed from 1975 ([place]te rnative Guidelines) HgA1C 04/24/2020 05/01/2017, 08/01/2015, Postpone d from 08/27/2011 11/01/2017 (Alte rnative Guidelines) LUNG CANCER SCREEN: 04/24/2020 08/22/2015 Postponed fr om Recommended for age 55-80 2015 (Alternative with 30 + pack year history Guid elines) Zoster Recombinant Vaccine 04/26/2020 Postp oned from (SHINGRIX) (1 of 2) 2007 ( Insurance / Financial) INFLUENZA VACCINE (Season 06/11/2020 12/24/2011 Ended) CREATININE (SERUM) 02/24/2021 02/25/2020, 02/23/2020, 02/26/2019, Additional history exists DTaP,Tdap,and Td Vaccines 04/23/2021 05/25/2011 Postpo sheng from (1 - Tdap) 1968 ([place]te [place]native Guidelines) PAP SMEAR 05/04/2021 05/04/2018, 05/25/2013, 01/22/2011, Additional history exists PNEUMOCOCCAL 0-64 YEARS 04/22/2022 Postpone d from COMBINED SERIES (1 of 3 - 1962 (Insurance / PCV13) Financial) HEPATITIS C (HCV) SCREEN Completed 08/27/2011 documented as of this encounter Procedures Procedure Name Priority Date/Time Associated Comments Diagnosis POCT GLUCOSE Routine 02/26/2020 11:30 Results for this (AUTOMATED) AM CDT procedure are i n the results section. CBC WITH DIFFERENTIAL Routine 02/26/2020 5:57 Re sults for this AM CDT procedure are i n the results section. N-TERMINAL PRO-BNP Add-on 02/26/2020 5:57 Resul ts for this AM CDT procedure are i n the results section. CBC WITH DIFFERENTIAL Routine 02/26/2020 5:57 Re sults for this AM CDT procedure are i n the results section. BASIC METABOLIC PANEL Routine 02/26/2020 5:57 Re sults for this (NA, K, CL, CO2, AM CDT procedure a re in GLUCOSE, BUN, the results CREATININE, CA) section. POCT GLUCOSE Routine 02/25/2020 8:13 Results for this (AUTOMATED) PM CDT procedure are i n the results section. POCT GLUCOSE Routine 02/25/2020 4:46 Results for this (AUTOMATED) PM CDT procedure are i n the results section. POCT GLUCOSE Routine 02/25/2020 11:02 Results for this (AUTOMATED) AM CDT procedure are i n the results section. POCT GLUCOSE Routine 02/25/2020 7:40 Results for this (AUTOMATED) AM CDT procedure are i n the results section. CBC WITH DIFFERENTIAL Routine 02/25/2020 1:48 Re sults for this AM CDT procedure are i n the results section. N-TERMINAL PRO-BNP Add-on 02/25/2020 1:48 Resul ts for this AM CDT procedure are i n the results section. CBC WITH DIFFERENTIAL Routine 02/25/2020 1:48 Re sults for this AM CDT procedure are i n the results section. BASIC METABOLIC PANEL Routine 02/25/2020 1:48 Re sults for this (NA, K, CL, CO2, AM CDT procedure a re in GLUCOSE, BUN, the results CREATININE, CA) section. TROPONIN I Routine 02/25/2020 1:48 Results for this AM CDT procedure are i n the results section. POCT GLUCOSE Routine 02/24/2020 7:53 Results for this (AUTOMATED) PM CDT procedure are i n the results section. TROPONIN I Routine 02/24/2020 5:58 Results for this PM CDT procedure are i n the results section. POCT GLUCOSE Routine 02/24/2020 4:11 Results for this (AUTOMATED) PM CDT procedure are i n the results section. CBC WITH DIFFERENTIAL Routine 02/24/2020 11:13 Re sults for this AM CDT procedure are i n the results section. DIFF CONSULT Routine 02/24/2020 11:13 Results for this INTERPRETATION AM CDT procedure are in the results section. VITAMIN D, 25-OH Routine 02/24/2020 11:13 Results for this AM CDT procedure are i n the results section. CBC WITH DIFFERENTIAL Routine 02/24/2020 11:13 Re sults for this AM CDT procedure are i n the results section. DIFF CONSULT Routine 02/24/2020 11:13 Results for this INTERPRETATION AM CDT procedure are in the results section. TROPONIN I Routine 02/24/2020 11:13 Results for this AM CDT procedure are i n the results section. FOLATE Routine 02/24/2020 11:13 Results for this AM CDT procedure are i n the results section. VITAMIN B12, LEVEL Routine 02/24/2020 11:13 Resul ts for this AM CDT procedure are i n the results section. POCT GLUCOSE Routine 02/24/2020 11:08 Results for this (AUTOMATED) AM CDT procedure are i n the results section. POCT GLUCOSE Routine 02/24/2020 7:41 Results for this (AUTOMATED) AM CDT procedure are i n the results section. N-TERMINAL PRO-BNP STAT 02/23/2020 9:34 SOB (shortness of Results for this PM CDT breath) procedure are i n the results section. TROPONIN I STAT 02/23/2020 9:34 SOB (shortness of Result s for this PM CDT breath) procedure are i n the results section. FERRITIN SERUM Add-on 02/23/2020 9:34 Results f or this PM CDT procedure are i n the results section. IRON PANEL Add-on 02/23/2020 9:33 Results for this PM CDT procedure are i n the results section. BASIC METABOLIC PANEL STAT 02/23/2020 9:33 SOB (shortness of Results for this (NA, K, CL, CO2, PM CDT breath) procedure a re in GLUCOSE, BUN, the results CREATININE, CA) section. HEPATIC FUNCTION PANEL STAT 02/23/2020 9:33 SOB (shortness of Results for this (08102) (ALB,T.PRO,BILI PM CDT breath) proc edure are in T,BU/BC,ALT,AST,ALK the resu lts PHOS) section. THYROID STIMULATING Add-on 02/23/2020 9:33 Resu lts for this HORMONE PM CDT procedure are i n the results section. URINALYSIS STAT 02/23/2020 8:12 SOB (shortness of Result s for this PM CDT breath) procedure are i n the results section. CORONAVIRUS COVID-19 STAT 02/23/2020 7:32 SOB (shortness o f Results for this TESTING PM CDT breath) procedure are i n the results section. CBC WITH DIFFERENTIAL STAT 02/23/2020 7:32 SOB (shortness of Results for this PM CDT breath) procedure are i n the results section. CBC WITH DIFFERENTIAL Routine 02/23/2020 7:32 SOB (shortness of Results for this PM CDT breath) procedure are i n the results section. XR CHEST 1 VW STAT 02/23/2020 7:17 SOB (shortness of Resul ts for this PM CDT breath) procedure are i n the results section. documented in this encounter Results POCT GLUCOSE (AUTOMATED) (02/26/2020 11:30 AM CDT) [facility] POCT GLU 141 (H) 70 - 110 mg/dL [facility] Specimen Blood Performing Organization Address City/State/Zipcode Phone Number [facility] CLIA: [id number], [address], [place] [address] N-TERMINAL PRO-BNP (02/26/2020 5:57 AM CDT) Pathologist [facility] NT-proBNP 1,950 (H) <=125 pg/mL [facility] Specimen Blood - ARM, LEFT Narrative Performed At Biotin has been reported to cause a negative [facility] bias, interpret results relative to patient's use of biotin. Performing Organization Address City/State/[facility] Phone Number [facility] CLIA: [id number], [address], [place] [address] CBC WITH DIFFERENTIAL (02/26/2020 5:57 AM CDT) [facility] WBC 6.98 4.30 - 11.10 [facility] 10*3/L [facility] RBC 3.48 (L) 3.93 - 5.25 [facility] 10*6/L [facility] HGB 8.5 (L) 11.6 - 15.0 [facility] g/dL [facility] HCT 27.7 (L) 35.7 - 45.2 % [facility] MCV 79.6 (L) 80.6 - 95.5 fL [facility] MCH 24.4 (L) 25.9 - 32.8 pg [facility] MCHC 30.7 (L) 31.6 - 35.1 [facility] g/dL [facility] RDW-SD 50.3 (H) 39.0 - 49.9 fL [facility] RDW-CV 17.4 (H) 12.0 - 15.5 % [facility] PLT 253 166 - 358 [facility] 10*3/L [facility] MPV 9.3 (L) 9.5 - 12.9 fL [facility] NRBC/100 WBC 0.0 0.0 - 10.0 /100 [facility] WBCs [facility] NRBC x10^3 <0.01 10*3/L [facility] GRAN MAT (NEUT) % 69.6 % [facility] IMM GRAN % 0.40 % [facility] LYMPH % 16.6 % [facility] MONO % 11.5 % [facility] EOS % 1.6 % [facility] BASO % 0.3 % [facility] GRAN MAT x10^3(ANC) 4.86 1.88 - 7.09 [facility] 10*3/uL [facility] IMM GRAN x10^3 0.03 0.00 - 0.06 [facility] 10*3/uL [facility] LYMPH x10^3 1.16 (L) 1.32 - 3.29 [facility] 10*3/uL HOSPITAL LAB[facility]ORY MONO x10^3 0.80 0.33 - 0.92 [facility] 10*3/uL HOSPITAL LAB[facility]ORY EOS x10^3 0.11 0.03 - 0.39 [facility] 10*3/uL [facility] BASO x10^3 <0.03 0.01 - 0.07 [facility] 10*3/uL [facility] Specimen Blood - ARM, LEFT Performing Organization Address City/State/Zipcode Phone Number [facility] CLIA: [id number], [address], [place] [address] Basic Metabolic Panel (NA, K, CL, CO2, GLUCOSE, BUN, CREATININE, CA) (02/26/2020 5:57 AM CDT) [facility] NA 139 135 - 145 [facility] mmol/L [facility] K 3.4 (L) 3.5 - 5.0 [facility] mmol/L [facility] CL 104 98 - 108 mmol/L [facility] CO2 TOTAL 31 23 - 31 mmol/L [facility] AGAP 4 2 - 16 [facility] BUN 19 7 - 23 mg/dL [facility] GLUCOSE 119 (H) 70 - 110 mg/dL [facility] CREATININE 0.52 0.50 - 1.04 [facility] mg/dL [facility] CALCIUM 9.0 8.6 - 10.6 [facility] mg/dL [facility] eGFR Calculation 119.5 mL/min/1.73m2 [facility] (Non-[facility] LAB[facility]ATORY [place]) eGFR Calculation 144.8 mL/min/1.73m2 [facility] () [facility] Specimen Blood - ARM, LEFT Narrative Performed At Association of Glomerular Filtration Rate (GFR) [facility] and Staging of Kidney Disease* + + +- + | GFR (mL/min/1.73 m2) | With Kidney Damage | Without Kidney Damage + + +- + | >90 | Stage one | Normal + + +- + | 60-89 | Stage two | Decreased GFR + + +- + | 30-59 | Stage three | Stage three + + +- + | 15-29 | Stage four | Stage four + + +- + | <15 (or dialysis) | Stage five | Stage five + + +- + *Each stage assumes the associated GFR level has been in effect for at least three months. Stages 1 to 5, with or without kidney disease, indicate chronic kidney disease. Notes: Determination of stages one and two (with eGFR >59mL/min/1.73 m2) requires estimation of kidney damage for at least three months as defined by structural or functional abnormalities of the kidney, manifested by either: Pathological abnormalities or Markers of kidney damage (including abnormalities in the composition of the blood or urine or abnormalities in imaging tests). Performing Organization Address [facility] Phone Number [facility] CLIA: [id number], [address] [place] POCT GLUCOSE (AUTOMATED) (02/25/2020 8:13 PM CDT) Pathologist Sig nature POCT GLU 135 (H) 70 - 110 mg/dL [facility] Specimen Blood Performing Organization Address [facility] Phone Number [facility] CLIA: [id number], [address] POCT GLUCOSE (AUTOMATED) (02/25/2020 4:46 PM CDT) Pathologist Sig nature POCT GLU 126 (H) 70 - 110 mg/dL [facility] Specimen Blood Performing Organization Address [facility] Phone Number [facility] CLIA: [id number], [address] POCT GLUCOSE (AUTOMATED) (02/25/2020 11:02 AM CDT) Pathologist Sig nature POCT GLU 119 (H) 70 - 110 mg/dL [facility] Specimen Blood Performing Organization Address [facility] Phone Number [facility] CLIA: [id number], [address] POCT GLUCOSE (AUTOMATED) (02/25/2020 7:40 AM CDT) Pathologist Sig nature POCT GLU 105 70 - 110 mg/dL [facility] Specimen Blood Performing Organization Address [facility] Phone Number [facility] CLIA: [id number], [address], [place] [address] N-TERMINAL PRO-BNP (02/25/2020 1:48 AM CDT) [facility] NT-proBNP 6,210 (H) <=125 pg/mL [facility] Specimen Blood - ARM, RIGHT Narrative Performed At [facility] has been reported to cause a negative [facility] bias, interpret results relative to patient's use of biotin. Performing Organization Address City/State/Zipcode Phone Number [facility] CLIA: [id number], [address], [place] [address] CBC WITH DIFFERENTIAL (02/25/2020 1:48 AM CDT) [facility] WBC 5.90 4.30 - 11.10 [facility] 10*3/L [facility] RBC 3.24 (L) 3.93 - 5.25 [facility] 10*6/L [facility] HGB 8.0 (L) 11.6 - 15.0 [facility] g/dL [facility] HCT 26.2 (L) 35.7 - 45.2 % [facility] MCV 80.9 80.6 - 95.5 fL [facility] MCH 24.7 (L) 25.9 - 32.8 pg [facility] MCHC 30.5 (L) 31.6 - 35.1 [facility] g/dL [facility] RDW-SD 52.2 (H) 39.0 - 49.9 fL [facility] RDW-CV 17.7 (H) 12.0 - 15.5 % [facility] PLT 260 166 - 358 [facility] 10*3/L [facility] MPV 9.5 9.5 - 12.9 fL [facility] NRBC/100 WBC 0.0 0.0 - 10.0 /100 [facility] WBCs [facility] NRBC x10^3 <0.01 10*3/L [facility] GRAN MAT (NEUT) % 58.6 % [facility] IMM GRAN % 0.50 % [facility] LYMPH % 27.6 % [facility] MONO % 10.8 % [facility] EOS % 2.0 % [facility] BASO % 0.5 % [facility] GRAN MAT x10^3(ANC) 3.45 1.88 - 7.09 [facility] 10*3/uL HOSPITAL LABORATORY IMM GRAN x10^3 0.03 0.00 - 0.06 [facility] 10*3/uL HOSPITAL LABORATORY LYMPH x10^3 1.63 1.32 - 3.29 [facility] 10*3/uL HOSPITAL LAB[facility]ATORY MONO x10^3 0.64 0.33 - 0.92 [facility] 10*3/uL HOSPITAL LABORATORY EOS x10^3 0.12 0.03 - 0.39 [facility] 10*3/uL HOSPITAL LAB[facility]ATORY BASO x10^3 0.03 0.01 - 0.07 [facility] 10*3/uL HOSPITAL LAB[facility]ATORY Specimen Blood - ARM, LEFT Performing Organization Address [facility] Phone Number [facility] CLIA: [id number], [address] TROPONIN I (02/25/2020 1:48 AM CDT) Pathologist Sig nature TROPONIN I 0.026 <=0.034 ng/mL [facility] Specimen Blood - ARM, RIGHT Narrative Performed At Equal or Less than 0.034 ng/ml---Normal [facility] Note: Cardiac troponin begins to rise 3-4 hours after the onset of ischemia. Repeat in 4-6 hours if the sample was drawn within 3-4 hours of the onset of the symptom and found normal. Between 0.035 and 0.120 ng/mL--- Borderline. Questionable myocardial injury or necros is Note: Serial measurement may be necessary to confirm or exclude the diagnosis of myocardial injury or necrosis; Clinical correlation (symptoms, EKGs, imaging studies, and others) required; Repeat in 4-6 hours if clinically indicated. Equal or Higher than 0.121 ng/mL---Abnormal. Myocardial Injury or Necrosis Likely Biotin has been reported to cause a negative bias, interpret results relative to patient's use of biotin. Performing Organization Address [facility] Phone Number [facility] CLIA: [id number], [address] [address] [address] Basic Metabolic Panel (NA, K, CL, CO2, GLUCOSE, BUN, CREATININE, CA) (02/25/2020 1:48 AM CDT) Pathologist [facility] nature NA 140 135 - 145 [facility] mmol/L [facility] K 3.3 (L) 3.5 - 5.0 [facility] mmol/L [facility] CL 104 98 - 108 mmol/L [facility] CO2 TOTAL 31 23 - 31 mmol/L [facility] AGAP 5 2 - 16 [facility] BUN 21 7 - 23 mg/dL [facility] GLUCOSE 85 70 - 110 mg/dL [facility] CREATININE 0.65 0.50 - 1.04 [facility] mg/dL [facility] CALCIUM 8.8 8.6 - 10.6 [facility] mg/dL [facility] eGFR Calculation 92.4 mL/min/1.73m2 [facility] [place] eGFR Calculation 111.9 mL/min/1.73m2 [facility] () [facility] Specimen Blood - ARM, RIGHT Narrative Performed At Association of Glomerular Filtration Rate (GFR) [facility] and Staging of Kidney Disease* + + +- + | GFR (mL/min/1.73 m2) | With Kidney Damage | Without Kidney Damage + + +- + | >90 | Stage one | Normal + + +- + | 60-89 | Stage two | Decreased GFR + + +- + | 30-59 | Stage three | Stage three + + +- + | 15-29 | Stage four | Stage four + + +- + | <15 (or dialysis) | Stage five | Stage five + + +- + *Each stage assumes the associated GFR level has been in effect for at least three months. Stages 1 to 5, with or without kidney disease, indicate chronic kidney disease. Notes: Determination of stages one and two (with eGFR >59mL/min/1.73 m2) requires estimation of kidney damage for at least three months as defined by structural or functional abnormalities of the kidney, manifested by either: Pathological abnormalities or Markers of kidney damage (including abnormalities in the composition of the blood or urine or abnormalities in imaging tests). Performing Organization Address City/State/Zipcode Phone Number [facility] CLIA: [id number], [address], [place] [address] POCT GLUCOSE (AUTOMATED) (02/24/2020 7:53 PM CDT) Pathologist Sig [employer] POCT GLU 128 (H) 70 - 110 mg/dL [facility] Specimen Blood Performing Organization Address [facility] Phone Number [facility] CLIA: [id number], [address] TROPONIN I (02/24/2020 5:58 PM CDT) Pathologist [employer] TROPONIN I 0.030 <=0.034 ng/mL [facility] Specimen Blood - ARM, RIGHT Narrative Performed At Equal or Less than 0.034 ng/ml---Normal [facility] Note: Cardiac troponin begins to rise 3-4 hours after the onset of ischemia. Repeat in 4-6 hours if the sample was drawn within 3-4 hours of the onset of the symptom and found normal. Between 0.035 and 0.120 ng/mL--- Borderline. Questionable myocardial injury or necros is Note: Serial measurement may be necessary to confirm or exclude the diagnosis of myocardial injury or necrosis; Clinical correlation (symptoms, EKGs, imaging studies, and others) required; Repeat in 4-6 hours if clinically indicated. Equal or Higher than 0.121 ng/mL---Abnormal. Myocardial Injury or Necrosis Likely Biotin has been reported to cause a negative bias, interpret results relative to patient's use of biotin. Performing Organization Address [facility] Phone Number [facility] CLIA: [id number], [address] POCT GLUCOSE (AUTOMATED) (02/24/2020 4:11 PM CDT) Pathologist Sig [employer] POCT GLU 122 (H) 70 - 110 mg/dL [facility] Specimen Blood Performing Organization Address [facility] [facility] Phone Number [facility] CLIA: [id number], [address], [place] [address] CBC WITH DIFFERENTIAL (02/24/2020 11:13 AM CDT) Pathologist Sig [employer] WBC 8.26 4.30 - 11.10 [facility] 10*3/L HOSPITAL LABORATORY RBC 3.50 (L) 3.93 - 5.25 [facility] 10*6/L [facility]OS[facility]ITAL LAB[facility]ATORY HGB 8.6 (L) 11.6 - 15.0 [facility] g/dL HOSPITAL LAB[facility]ATORY HCT 28.3 (L) 35.7 - 45.2 % [facility] MCV 80.9 80.6 - 95.5 fL [facility] MCH 24.6 (L) 25.9 - 32.8 pg [facility] LAB[facility] MCHC 30.4 (L) 31.6 - 35.1 [facility] g/dL [facility] LABORATORY RDW-SD 51.8 (H) 39.0 - 49.9 fL [facility] LABOR[facility] RDW-CV 17.8 (H) 12.0 - 15.5 % [facility] LABORATORY PLT 292 166 - 358 [facility] 10*3/L [facility] LABORATORY MPV 9.3 (L) 9.5 - 12.9 fL [facility] NRBC/100 WBC 0.0 0.0 - 10.0 /100 [facility] WBCs [facility] LABORATORY NRBC x10^3 <0.01 10*3/L [facility] LABORAT[facility] GRAN MAT (NEUT) % 79.2 % [facility] IMM GRAN % 0.50 % [facility] LYMPH % 12.3 % [facility] MONO % 6.8 % [facility] EOS % 0.8 % [facility] BASO % 0.4 % [facility] GRAN MAT x10^3(ANC) 6.54 1.88 - 7.09 [facility] 10*3/uL HOSPITAL LABORATORY IMM GRAN x10^3 0.04 0.00 - 0.06 [facility] 10*3/uL HOSPITAL LABORATORY LYMPH x10^3 1.02 (L) 1.32 - 3.29 [facility] 10*3/uL HOSPITAL LABORATORY MONO x10^3 0.56 0.33 - 0.92 [facility] 10*3/uL HOSPITAL LABORATORY EOS x10^3 0.07 0.03 - 0.39 [facility] 10*3/uL HOSPITAL LABORATORY BASO x10^3 0.03 0.01 - 0.07 [facility] 10*3/uL HOSPITAL LABORATORY Specimen Blood - ARM, LEFT Performing Organization Address City/[facility]/Zipcode Phone Number [facility] CLIA: [id number], [address], [place] [address] DIFF CONSULT INTERPRETATION (02/24/2020 11:13 AM CDT) Specimen Blood - ARM, LEFT Narrative Performed At Red blood cells are microcytic and hypochromic with mo derate [facility] LABORATORY SERVICES anisopoikilocytosis. There are increased target cells, pencil cells and mis-shaped cells. Polychromasia is increased. No basophilic stippling seen. Neutrophils a ppear normal morphologically. Lymphocytes are small and matu re without abnormal lymphoid cells. Platelets are normal in number with increased microthrombocytes. Findings are consistent with iron deficiency anemia, likely due to chronic bleeding (if the reticulocytosis is not cause by medications such as iron). Performing Organization Address [facility] Phone Number [facility] LABORATORY SERVICES CLIA: [id number], [address] [place] [address] [address] [facility] VITAMIN D, 25-OH (02/24/2020 11:13 AM CDT) Pathologist Sig [facility] VIT D 25OH 64 25 - 80 ng/mL [facility] LABORATORY SERVICES Specimen Blood - ARM, LEFT Narrative Performed At Deficiency: <20 ng/mL [facility] LABORATORY SERVICES Insufficiency: 20-24 ng/mL Optimal: 25-80 ng/mL Performing Organization Address [facility] Phone Number [facility] LABORATORY SERVICES CLIA: [id number], [address] [place] [address] [address] [facility] FOLATE (02/24/2020 11:13 AM CDT) Pathologist Sig [facility] FOLATE SER >20.0 (H) 3.0 - 20.0 ng/mL [facility] LABORATORY SERVICES Specimen Blood - ARM, LEFT Performing Organization Address [facility] Phone Number [facility] LABORATORY SERVICES CLIA: [id number], [address] [place] [address] [address] [facility] VITAMIN B12, LEVEL (02/24/2020 11:13 AM CDT) Pathologist Sig [facility] VIT B12 441 240 - 930 pg/mL [facility] LABORATORY SERVICES Specimen Blood - ARM, LEFT Narrative Performed At Biotin has been reported to cause a positive bias, int erpret [facility] LABORATORY SERVICES results relative to patient's use of biotin. Performing Organization Address City/State/Zipcode Phone Number [facility] LABORATORY SERVICES CLIA: [id number], [address], [place] [address] [address] [facility] TROPONIN I (02/24/2020 11:13 AM CDT) [facility] [employer] TROPONIN I 0.054 (H) <=0.034 ng/mL [facility] LABORATORY Specimen Blood - ARM, LEFT Narrative Performed At Equal or Less than 0.034 ng/ml---Normal [facility] LABORAT[facility] Note: Cardiac troponin begins to rise 3-4 hours after the onset of ischemia. Repeat in 4-6 hours if the sample was drawn within 3-4 hours of the onset of the symptom and found normal. Between 0.035 and 0.120 ng/mL--- Borderline. Questionable myocardial injury or necros is Note: Serial measurement may be necessary to confirm or exclude the diagnosis of myocardial injury or necrosis; Clinical correlation (symptoms, EKGs, imaging studies, and others) required; Repeat in 4-6 hours if clinically indicated. Equal or Higher than 0.121 ng/mL---Abnormal. Myocardial Injury or Necrosis Likely Biotin has been reported to cause a negative bias, interpret results relative to patient's use of biotin. Performing Organization Address [facility] Phone Number [facility] CLIA: [id number], [address] [place] [place] [address] POCT GLUCOSE (AUTOMATED) (02/24/2020 11:08 AM CDT) [facility] [employer] POCT GLU 117 (H) 70 - 110 mg/dL [facility] LABORATORY Specimen Blood Performing Organization Address [facility]/Zipcode Phone Number [facility] CLIA: [id number], [address], [place] [address] POCT GLUCOSE (AUTOMATED) (02/24/2020 7:41 AM CDT) [facility] [employer] POCT GLU 110 70 - 110 mg/dL [facility] LABORATORY Specimen Blood Performing Organization Address City/[facility] Phone Number [facility] CLIA: [id number], [address], [place] [address] FERRITIN SERUM (02/23/2020 9:34 PM CDT) Pathologist Sig nature FERRITIN 50.7 11.0 - 264.0 ng/mL [facility] LABORATORY Specimen Blood - VENOUS Narrative Performed At Biotin has been reported to cause a negative [facility] LABORATORY bias, interpret results relative to patient's use of biotin. Performing Organization Address [facility] Phone Number [facility] CLIA: [id number], [address] N-TERMINAL PRO-BNP (02/23/2020 9:34 PM CDT) Pathologist Sig nature NT-proBNP 9,940 (H) <=125 pg/mL [facility] LABORATORY Specimen Blood - VENOUS Narrative Performed At Biotin has been reported to cause a negative [facility] LABORATORY bias, interpret results relative to patient's use of biotin. Performing Organization Address [facility] Phone Number [facility] CLIA: [id number], [address] Troponin I (02/23/2020 9:34 PM CDT) Pathologist Sig nature TROPONIN I 0.071 (H) <=0.034 ng/mL [facility] LABORATORY Specimen Blood - VENOUS Narrative Performed At Equal or Less than 0.034 ng/ml---Normal [facility] LAB[facility] Note: Cardiac troponin begins to rise 3-4 hours after the onset of ischemia. Repeat in 4-6 hours if the sample was drawn within 3-4 hours of the onset of the symptom and found normal. Between 0.035 and 0.120 ng/mL--- Borderline. Questionable myocardial injury or necros is Note: Serial measurement may be necessary to confirm or exclude the diagnosis of myocardial injury or necrosis; Clinical correlation (symptoms, EKGs, imaging studies, and others) required; Repeat in 4-6 hours if clinically indicated. Equal or Higher than 0.121 ng/mL---Abnormal. Myocardial Injury or Necrosis Likely Biotin has been reported to cause a negative bias, interpret results relative to patient's use of biotin. Performing Organization Address [facility] Phone Number [facility] CLIA: [id number], [address], [place] [address] THYROID STIMULATING HORMONE (02/23/2020 9:33 PM CDT) Pathologist Sig nature TSH 3.75 0.45 - 4.70 mIU/L [facility] [place] [facility] Specimen Blood - VENOUS Performing Organization Address [facility] Phone Number [facility] CLIA: [id number], [address], [place] [address] [facility] IRON PANEL (02/23/2020 9:33 PM CDT) Pathologist Sig nature IRON 23 (L) 50 - 160 ug/dL [facility] LABOR[facility] TIBC 216 (L) 250 - 410 ug/dL [facility] LAB[facility] % FE SAT 11 (L) 20 - 50 % [facility] LABOR[facility] Specimen Blood - VENOUS Performing Organization Address [facility] Phone Number [facility] CLIA: [id number], [address] Basic Metabolic Panel (NA, K, CL, CO2, GLUCOSE, BUN, CREATININE, CA) (02/23/2020 9:33 PM CDT) Pathologist Sig nature NA 139 135 - 145 mmol/L [facility] LABORAT[facility] K 3.8 3.5 - 5.0 mmol/L [facility] LABORAT[facility] CL 107 98 - 108 mmol/L [facility] CO2 TOTAL 27 23 - 31 mmol/L [facility] AGAP 5 2 - 16 [facility] LAB[facility] BUN 15 7 - 23 mg/dL [facility] LAB[facility] GLUCOSE 95 70 - 110 mg/dL [facility] LABOR[facility] CREATININE 0.51 0.50 - 1.04 [facility] mg/dL [facility] LABORATORY CALCIUM 9.0 8.6 - 10.6 mg/dL [facility] LABORATORY eGFR Calculation 122.2 mL/min/1.73m2 [facility] (Non[facility] LABORATOR Y eGFR Calculation 148.1 mL/min/1.73m2 [facility] LABORATORY Specimen Blood - VENOUS Narrative Performed At Association of Glomerular Filtration Rate (GFR) [facility] LABORATORY and Staging of Kidney Disease* + + +- + | GFR (mL/min/1.73 m2) | With Kidney Damage | Without Kidney Damage + + +- + | >90 | Stage one | Normal + + +- + | 60-89 | Stage two | Decreased GFR + + +- + | 30-59 | Stage three | Stage three + + +- + | 15-29 | Stage four | Stage four + + +- + | <15 (or dialysis) | Stage five | Stage five + + +- + *Each stage assumes the associated GFR level has been in effect for at least three months. Stages 1 to 5, with or without kidney disease, indicate chronic kidney disease. Notes: Determination of stages one and two (with eGFR >59mL/min/1.73 m2) requires estimation of kidney damage for at least three months as defined by structural or functional abnormalities of the kidney, manifested by either: Pathological abnormalities or Markers of kidney damage (including abnormalities in the composition of the blood or urine or abnormalities in imaging tests). Performing Organization Address [facility] Phone Number [facility] CLIA: [id number], [address] Hepatic Function Panel (ALB, T.PRO, BILI T, BU/BC, ALT, AST, ALK PHOS) (02/23/2020 9:33 PM CDT) Pathologist [facility] nature TOTAL BILI 0.3 0.1 - 1.1 mg/dL [facility] LABORATORY BILI UNCON 0.4 0.1 - 1.1 mg/dL [facility] LAB[facility] BILI CONJ 0.0 0.0 - 0.3 mg/dL [facility] LABORAT[facility] T PROTEIN 6.3 6.3 - 8.2 g/dL [facility] LABORAT[facility] ALBUMIN 3.4 (L) 3.5 - 5.0 g/dL [facility] LABORATORY ALK PHOS 113 34 - 122 U/L [facility] LAB[facility] ALTv 23 5 - 35 U/L [facility] LAB[facility] AST(SGOT) 35 13 - 40 U/L [facility] LABORATORY Specimen Blood - VENOUS Performing Organization Address [facility]/Zipcode Phone Number [facility] CLIA: [id number], [address], [place] [address] Urinalysis (02/23/2020 8:12 PM CDT) Pathologist Sig nature APPEARANCE Clear Clear [facility] LABORAT[facility] COLOR Yellow Yellow [facility] PH 7.0 4.8 - 8.0 [facility] LAB[facility] SP GRAVITY 1.011 1.003 - 1.030 [facility] LAB[facility] GLU U QUAL Normal Normal [facility] BLOOD Negative Negative [facility] KETONES Negative Negative [facility] PROTEIN Negative Negative [facility] UROBILIN Normal Normal [facility] BILIRUBIN Negative Negative [facility] NITRITE Negative Negative [facility] LEUK AMANDA Negative Negative [facility] RBC/HPF 3 0 - 3 HPF [facility] LAB[facility] WBC/HPF 1 0 - 5 HPF [facility] LABORAT[facility] BACTERIA Few (A) Negative [facility] LAB[facility] SQ EPITH <1 HPF [facility] LAB[facility] HYAL CAST 1 <=2 LPF [facility] LABORAT[facility] Specimen Urine - URINE, CLEAN CATCH Performing Organization Address [facility]/Zipcode Phone Number [facility] CLIA: [id number], [address] CBC WITH DIFFERENTIAL (02/23/2020 7:32 PM CDT) Pathologist Sig nature WBC 9.64 4.30 - 11.10 [facility] 10*3/L HOSPITAL LABORATORY RBC 3.65 (L) 3.93 - 5.25 [facility] 10*6/L HOSPITAL LABORATORY HGB 9.0 (L) 11.6 - 15.0 [facility] g/dL [facility] LABORATORY HCT 29.4 (L) 35.7 - 45.2 % [facility] LABORATORY MCV 80.5 (L) 80.6 - 95.5 fL [facility] LABORATORY MCH 24.7 (L) 25.9 - 32.8 pg [facility] LABORATORY MCHC 30.6 (L) 31.6 - 35.1 [facility] g/dL [facility] LABORATORY RDW-SD 51.9 (H) 39.0 - 49.9 fL [facility] LABORATORY RDW-CV 17.9 (H) 12.0 - 15.5 % [facility] LABORATORY PLT 256 166 - 358 [facility] 10*3/L HOSPITAL LABORATORY MPV 10.4 9.5 - 12.9 fL [facility] LABORATORY NRBC/100 WBC 0.0 0.0 - 10.0 /100 [facility] WBCs [facility] LABORATORY NRBC x10^3 <0.01 10*3/L [facility] LABORATORY GRAN MAT (NEUT) % 80.9 % [facility] LABORATORY IMM GRAN % 0.40 % [facility] LYMPH % 11.4 % [facility] LAB[facility] MONO % 6.6 % [facility] LAB[facility] EOS % 0.4 % [facility] LABORAT[facility] BASO % 0.3 % [facility] LABORAT[facility] GRAN MAT x10^3(ANC) 7.79 (H) 1.88 - 7.09 [facility] 10*3/uL HOSPITAL LABORATORY IMM GRAN x10^3 0.04 0.00 - 0.06 [facility] 10*3/uL HOSPITAL LABORATORY LYMPH x10^3 1.10 (L) 1.32 - 3.29 [facility] 10*3/uL HOSPITAL LABORATORY MONO x10^3 0.64 0.33 - 0.92 [facility] 10*3/uL [facility] LABORATORY EOS x10^3 0.04 0.03 - 0.39 [facility] 10*3/uL HOSPITAL LABORATORY BASO x10^3 0.03 0.01 - 0.07 [facility] 10*3/uL [facility] LABORATORY Specimen Blood - VENOUS Performing Organization Address City/State/Zipcode Phone Number [facility] CLIA: [id number], [address], [place] [address] CORONAVIRUS COVID-19 TESTING (02/23/2020 7:32 PM CDT) Pathologist Sig nature SARS-CoV-2 Not Detected Not Detected [facility] LABORATORY Specimen Swab - NASOPHARYNGEAL SWAB Narrative Performed At [facility] COVID-19 Assay is an isothermal nucleic [facility] LABORATORY acid amplification test intended for the qualitative detection of nucleic acid from SARS-CoV-2 viral RNA in nasopharyngeal (PUMP ASSEMBLER) specimens. It is used under Emergency Use Authorization (EUA) by FDA. The limit of detection (LOD) of the assay is 125 Genome Equivalents/mL. A positive result is indicative of the presence of SARS-CoV-2 RNA. Clinical correlation with patient history and other diagnostic information is necessary to determine patient infection status. A negative (Not Detected) result does not preclude SARS-CoV-2 infection. Clinical correlation with patient history and other diagnostic information should be used in patient management decisions. Invalid: Please collect a new specimen for repeat patient testing if clinically indicated. Performing Organization Address City/State/Zipcode Phone Number [facility] CLIA: [id number], [address], [place] [address] [facility] [address] Chest 1 View (02/23/2020 7:17 PM CDT) Specimen Impressions Performed At PACS/VR/DOSE Cardiomegaly with hilar vascular congest ion. Interval placement of the aortic endograft. Bilateral hazy opacities are present, appear more conf luent and patchy in the lung bases, associated with small bilateral pleura l effusion. Findings have worsened since prior examination, m ay represent worsening edema or infection in the proper clinical setting . Preliminary Report Dictated by Resident: Jil Overton I, Selina Yeung MD., have reviewed this study and agree with the above report. Narrative Performed At XR CHEST 1 VW PACS/VR/DOSE Comparison: 11/08/2018 History: sob Findings: Bilateral hazy opacities are present, appear more conf luent and patchy in the lung bases, associated with small bilateral pleura l effusion. Findings have worsened since prior examination. The cardiomediastinal silhouette is enlarged. Aortic s tent in the area arch and descending thoracic aorta, new since prior. No acute osseous abnormality is present. Procedure Note [facility], Radiant Results Inft User - 2019 7:57 PM CDT XR CHEST 1 VW Comparison: 11/08/2018 History: sob Findings: Bilateral hazy opacities are present, ap pear more confluent and patchy in the lung bases, associated with small bi lateral pleural effusion. Findings have worsened since prior examination. The cardiomediastinal silhouette is enla rged. Aortic stent in the area arch and descending thoracic aorta, new since prior. No acute osseous abnormality is present. IMPRESSION Cardiomegaly with hilar vascular congest ion. Interval placement of the aortic endograft. Bilateral hazy opacities are present, ap pear more confluent and patchy in the lung bases, associated with small bi lateral pleural effusion. Findings have worsened since prior examination, m ay represent worsening edema or infection in the proper clinical setting . Preliminary Report Dictated by Resident: Jil Overton I, Selina Yeung MD., have reviewed this study and agree with the above report. Performing Organization Address City/State/Zipcode Phone Number PACS/VR/DOSE documented in this encounter Visit Diagnoses Diagnosis Acute on chronic diastolic congestive he art failure - Primary Acute on chronic diastolic heart failure SOB (shortness of breath) Shortness of breath Acute on chronic congestive heart failur e, unspecified heart failure type Essential hypertension, benign Essential hypertension Unspecified essential hypertension Coronary atherosclerosis Coronary atherosclerosis of unspecified type of vessel, [place] or graft Benign hypertensive heart disease withou t heart failure Chronic obstructive airway disease with asthma Chronic obstructive asthma, unspecified Hypercholesterolemia Pure hypercholesterolemia Type 2 diabetes mellitus without complic ation PAF (paroxysmal atrial fibrillation) Atrial fibrillation H/O endovascular stent graft for abdomin al aortic aneurysm Blood vessel replaced by other means Coronary artery disease involving [place] coronary artery of [place] heart without angina pectoris Troponin I above reference range Other abnormal blood chemistry Hypertensive urgency Unspecified essential hypertension Anemia Anemia, unspecified documented in this encounter Administered Medications Medication Order MAR Action Action Date Dose Rate Site acetaminophen (TYLENOL) tablet 650 mg 650 mg, Oral, Q6HPRN, Starting Sat at 0340, Until Discontinued, Routine, Pain (scale 1-3) amiodarone (PACERONE) tablet 200 mg Given 02/26/2020 8:27 AM CDT 200 mg 200 mg, Oral, DAILY, First dose on 02/24/20 at 0900, Until Discontinued Given 02/25/2020 8:38 AM CDT 200 mg Given 02/24/2020 9:01 AM CDT 200 mg amLODIPine (NORVASC) tablet 10 mg Given 02/26/2020 8:27 AM CDT 10 mg 10 mg, Oral, DAILY, First dose on 02/24/20 at 0900, Until Discontinued, Routine Given 02/25/2020 8:38 AM CDT 10 mg Given 02/24/2020 9:01 AM CDT 10 mg aspirin chewable tablet 81 mg Given 02/26/2020 8:27 AM CDT 81 mg 81 mg, Oral, DAILY, First dose on 02/24/20 at 1515, Until Discontinued, Routine Given 02/25/2020 8:38 AM CDT 81 mg atorvastatin (LIPITOR) tablet 40 mg Given 02/25/2020 7:55 PM CDT 40 mg 40 mg, Oral, QHS, First dose on 02/24/20 at 2100, Until Discontinued, Routine Given 02/24/2020 8:20 PM CDT 40 mg dextrose 50 % in water (D50W) injection 25 mL 25 mL, Slow IV Push, PRN, Starting Sat at 0657, Until Discontinued, RICHA, Blood Glucose < or = 70 mg/dL and patien t is unable to swallow or has mental status changes. furosemide (LASIX) injection 40 mg Given 02/26/2020 8:27 AM CDT 40 mg 40 mg, Slow IV Push, Q12H, First dose on 02/24/20 at 0900, Until Discontinued, Routine Given 02/25/2020 8:38 AM CDT 40 mg Given 02/24/2020 8:20 PM CDT 40 mg glucagon (GLUCAGEN DIAGNOSTIC KIT) injec tion 1 mg 1 mg, Intramuscular, PRN, Starting Sat at 0657, Until Discontinued, RICHA, Blood Glucose < or = 70 mg/dL and patient is unable to swallow or has mental changes. hydralAZINE (APRESOLINE) injection 10 mg 10 mg, Intravenous, Q6HPRN, Starting 02/24/20 at 06 56, Until Discontinued, Routine, Hypertension, FOR SBP > 160, DBP > 100 hydrALAZINE (APRESOLINE) tablet 50 mg Given 02/26/2020 8:26 AM CDT 50 mg 50 mg, Oral, BID, First dose on 02/24/20 at 0800, Until Discontinued, Routine Given 02/25/2020 7:55 PM CDT 50 mg Given 02/25/2020 8:39 AM CDT 50 mg ipratropium-albuterol (DUONEB) 0.5 mg-3 mg(2.5 mg base)/3 mL nebulizer solution 3 mL 3 mL, Inhalation, QIDPRN, Starting 02/24/20 at 0536 , Until Discontinued, Routine, Wheezing, Shortness of Breath, Bronchospasm, Chest tightness isosorbide mononitrate (IMDUR) 24 hr tablet Given 02/26/2020 8:27 AM CDT 90 mg 90 mg 90 mg, Oral, DAILY, First dose on 02/24/20 at 0900, Until Discontinued, Routine Given 02/25/2020 8:38 AM CDT 90 mg Given 02/24/2020 9:01 AM CDT 90 mg lisinopril (PRINIVIL,ZESTRIL) tablet 40 mg Given 02/26/2020 8:27 AM CDT 40 mg 40 mg, Oral, DAILY, First dose on 02/24/20 at 0900, Until Discontinued Given 02/25/2020 8:39 AM CDT 40 mg Given 02/24/2020 9:01 AM CDT 40 mg metoprolol tartrate (LOPRESSOR) tablet 100 Given 02/26/2020 8:26 AM CDT 100 mg mg 100 mg, Oral, BID, First dose on 02/24/20 at 0800, Until Discontinued, Routine Given 02/25/2020 7:54 PM CDT 100 mg Given 02/25/2020 8:39 AM CDT 100 mg nicotine (NICODERM) 14 mg/24 hr patch 1 Given 02/26/2020 8:27 A M CDT 1 Patch Patch 1 Patch, Topical, Administer over 24 Hours, Q24H, First dose on 02/24/20 at 0645, Until Discontinued, Routine Given 02/25/2020 8:46 AM CDT 1 Patch Given 02/24/2020 6:33 AM CDT 1 Patch ondansetron (ZOFRAN (PF)) injection 4 mg 4 mg, Slow IV Push, Q6HPRN, Starting 02/24/20 at 03 41, Until Discontinued, Routine, Nausea and Vomiting (N/V) oxybutynin chloride (DITROPAN) tablet 5 mg Given 02/26/2020 8:27 AM CDT 5 mg 5 mg, Oral, BID, First dose on 02/24/20 at 0800, Until Discontinued, Routine Given 02/25/2020 7:54 PM CDT 5 mg Given 02/25/2020 8:39 AM CDT 5 mg SERTraline (ZOLOFT) tablet 50 mg Given 02/26/2020 8:26 AM CDT 50 mg 50 mg, Oral, DAILY, First dose on 02/24/20 at 0900, Until Discontinued, Routine Given 02/25/2020 8:39 AM CDT 50 mg Given 02/24/2020 9:01 AM CDT 50 mg Sliding Scale Insulin-Regular + Fsbg Vivian ting Subcutaneous, AC+HS, First dose on Sat at 0730, Until Discontinued, Routine temazepam (RESTORIL) capsule 15 mg Given 02/25/2020 7:54 PM CDT 15 mg 15 mg, Oral, QHS, First dose on 02/24/20 at 2100, Until Discontinued, Routine Given 02/24/2020 8:20 PM CDT 15 mg Medication Order MAR Action Action Date Dose Rate Site enoxaparin (LOVENOX) Given 02/24/2020 9:02 AM CDT 40 mg Abdomen-SC injection 40 mg 40 mg, Subcutaneous, DAILY, First dose on 02/24/20 at 0900, Until Discontinued, Routine furosemide (LASIX) tablet 40 mg Given 02/23/2020 9:41 PM CDT 40 mg 40 mg, Oral, ONCE, 1 dose, Wed02/23/20 at 2145, RICHA traMADol (ULTRAM) tablet 50 mg Given 02/25/2020 6:06 PM CDT 50 mg 50 mg, Oral, Q8HPRN, Starting 02/24/20 at 0340, Until 02/26/20 at 0339, Routine, Pain (scale 4-6) Given 02/25/2020 8:39 AM CDT 50 mg Given 02/24/2020 8:51 PM CDT 50 mg documented in this encounter Insurance Payer Benefit Plan / Subscriber ID Effective Dates Phone Addre ss Type Group [facility] xxxxxxxxx 2015-Present Medicaid COMM PLAN - PLUS MANAGED MEDICAID documented as of this encounter Advance Directives Name Relationship Healthcare Agent Relationship Co mmunication Neyda Grday Other Primary healthcare agent Viktoria Gore Sibling [facility] [phone] agent (Mobile)
--- OUTSIDE RECORDS SUMMARY | 2020-04-06 16:29 | XMS REPORT ---
:1955 Author Organization eClinicalWorks Care Team Providers Name Role Phone Juancarlos Rodriguez Provider Role Unavailable Allergies No Known Allergies Problems Problem Type Condition Code Onset Dates Condition Statu s Problem Tobacco use disorder Z72.0 Active Problem Hx of breast cancer Z85.3 Active Problem Osteoarthritis of multiple joints M15.9 Active Problem Acute on chronic diastolic I50.33 A ctive congestive heart failure Problem COPD exacerbation J44.1 Active Problem Breast implant status Z98.82 Active Problem 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 depressive disorder without prior episode Problem Atherosclerosis of coronary artery I25.10 Active of [place] heart Problem Paresthesia R20.2 Active Problem Other chronic pain G89.29 Active Problem Chronic back pain M54.9 Active Problem Stented coronary artery Z95.5 Acti ve Problem GERD (gastroesophageal reflux K21.9 Active disease) Problem Benign essential HTN I10 Active Problem Depression with anxiety F41.8 Acti ve Problem Hyperlipidemia, mixed E78.2 Active Problem Insomnia G47.00 Active Problem Chronic obstructive pulmonary J44.9 Active disease Medications No Known Medications Results No Known Results Summary Purpose eClinicalWorks Submission
--- OUTSIDE RECORDS SUMMARY | 2020-04-06 16:29 | XMS REPORT | Summary of Care ---
:1955 Author Organization [facility] - Health Address [address] [place] [address] Care Team Providers Name Role Phone Amb, Team Unavailable Unavailable [employer] Insurance [employer] Mamta Mejia Primary Care Provider Reason for Visit Reason Comments Transition Of Care Encounter Details Date Type Department Care Team Description 02/28/2020 Transition of Care [facility]- RN [address] [id number] Allergies Active Allergy Reactions Severity Noted Date Comments Diphenhydramine Hcl Unknown - See comments 06/01/2006 Lorazepam Unknown - See comments 10/22/2005 restl ess legs Eszopiclone Unknown - See comments 06/01/2006 Promethazine Hcl Unknown - See comments 10/22/2005 R estless legs Quetiapine Fumarate Extra pyramidal effects 12/09/2011 documented as of this encounter (statuses as of 02/28/2020) Medications Medication Sig Dispensed Refills Start Date End Date Status amiodarone 200 mg Take 1 tablet 30 tablet 1 02/26/2020 Active tabletIndications: Acute by mouth daily. on chronic diastolic congestive heart failure atorvastatin (LIPITOR) Take 1 tablet 30 tablet 1 02/26/2020 Active 40 mg tabletIndications: by mouth at Acute on chronic bedtime. diastolic congestive heart failure oxybutynin chloride 5 mg Take 1 tablet 60 tablet 1 02/26/2020 Active tabletIndications: Acute by mouth 2 on chronic diastolic (two) times congestive heart failure daily. SERTraline 50 mg Take 1 tablet 30 tablet 1 02/26/2020 Active tabletIndications: Acute by mouth daily. on chronic diastolic congestive heart failure amLODIPine 10 mg Take 1 tablet 30 tablet 1 02/26/2020 Active tabletIndications: by mouth daily. Essential hypertension, benign, Essential hypertension aspirin 81 mg EC Take 1 tablet 30 tablet 0 02/26/2020 Active tabletIndications: by mouth daily. Coronary atherosclerosis hydrALAZINE 50 mg Take 1 tablet 60 tablet 1 02/26/2020 Active tabletIndications: by mouth 2 Essential hypertension (two) times daily. isosorbide mononitrate Take 3 tablets 90 tablet 1 02/26/2020 Active 30 mg 24 hr by mouth daily. tabletIndications: Acute on chronic diastolic congestive heart failure lisinopril 40 mg Take 1 tablet 30 tablet 1 02/26/2020 Active tabletIndications: by mouth daily. Benign hypertensive heart disease without heart failure metoprolol tartrate 100 Take 1 tablet 60 tablet 1 02/26/2020 Active mg tabletIndications: by mouth 2 Acute on chronic (two) times diastolic congestive daily. heart failure lurasidone 40 mg Take 1 tablet 30 tablet 1 02/26/2020 Active tabletIndications: Acute by mouth at on chronic diastolic bedtime. congestive heart failure temazepam 15 mg Take 1 capsule 30 capsule 0 02/26/2020 Active capsuleIndications: by mouth at Acute on chronic bedtime. diastolic congestive heart failure furosemide 40 mg Take 1 tablet 60 tablet 1 02/26/2020 Active tabletIndications: Acute by mouth every on chronic diastolic morning and congestive heart failure evening. KCL 20 mEq Take 1 tablet 30 tablet 0 02/26/2020 Acti ve tabletIndications: Acute by mouth daily. on chronic diastolic congestive heart failure documented as of this encounter (statuses as of 02/28/2020) Active Problems Problem Noted Date Anemia 02/26/2020 Acute on chronic diastolic congestive heart failure PAF (paroxysmal atrial fibrillation) 02/24/2020 H/O endovascular stent graft for abdominal aortic aneu rysm 02/24/2020 Coronary artery disease involving [place] coronary [place] heart 02/24/2020 without angina pectoris Troponin I [...] Suspicious nevus 05/25/2013 Overview: ICD10 Diagnosis Term [employer] Of [employer] Suicidal ideation 09/20/2011 Borderline personality disorder 06/18/2006 Essential hypertension, benign 06/17/2006 Drug dependence 06/15/2006 Overview: Cocaine,THC ICD10 Diagnosis Term [employer] Nondependent alcohol abuse 06/15/2006 Overview: ICD10 Diagnosis Term [employer] Of [employer] Chest pain 06/14/2006 Overview: ICD10 Diagnosis Term [employer] Of [employer] 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 Atherosclerosis of renal artery 06/09/2006 Chest pain 10/22/2005 Overview: ICD10 Diagnosis Term [employer] Of [employer] Coronary atherosclerosis 10/22/2005 Overview: ICD10 Diagnosis Term [employer] Of [employer] Essential hypertension 10/22/2005 Overview: ICD10 Diagnosis Term [employer] Of [employer] Bipolar 1 disorder 10/22/2005 Chronic obstructive airway disease with asthma 006 Overview: ICD10 Diagnosis Term [employer] Of [employer] documented as of this encounter (statuses as of 02/28/2020) Resolved Problems Problem Noted Date Resolved Date Borderline personality disorder 06/17/2006 06/17/20 06 Bipolar I disorder, most recent episode (or current) manic, 06/16/2006 07/01/2006 mild documented as of this encounter (statuses as of 02/28/2020) Immunizations Name Administration Dates Next Due Influenza Virus Vaccine 12/24/2011 Td 05/25/2011 documented as of this encounter Social History Tobacco Use Types Packs/Day Years Used Date Current Every Day Smoker Cigarettes 1 45 Sta rted: 04/26/1974 Smokeless Tobacco: Former User Alcohol Use Drinks/Week oz/Week Comments Not Currently [...] of this encounter Last Filed Vital Signs Not on filedocumented in this encounter Plan of Treatment Health Maintenance Due Date Last Done Comments [...] with 30 + pack year history Guid mckenna) Zoster Recombinant Vaccine 04/26/2020 Postp oned from ([facility]) (1 of 2) 2007 ( Insurance / Financial) INFLUENZA VACCINE (Season 06/11/2020 12/24/2011 Ended) CREATININE (SERUM) 02/25/2021 02/26/2020, 02/25/2020, 02/23/2020, Additional history exists DTaP,Tdap,and Td Vaccines 04/23/2021 05/25/2011 Postpo sheng from (1 - Tdap) 1968 ([place]) PAP SMEAR 05/04/2021 05/04/2018, 05/25/2013, 01/22/2011, Additional history exists PNEUMOCOCCAL 0-64 YEARS 04/22/2022 Postpone d from COMBINED SERIES (1 of 3 - 1962 (Insurance / PCV13) Financial) HEPATITIS C (HCV) SCREEN Completed 08/27/2011 documented as of this encounter Results Not on filedocumented in this encounter Insurance Payer Benefit Plan / Subscriber ID Effective Dates Phone Addre ss Type Group [facility] xxxxxxxxx 2015-Present Medicaid COMM PLAN - PLUS MANAGED MEDICAID documented as of this encounter Advance Directives Name Relationship Healthcare Agent Relationship Co mmunication Neyda Grady Other Primary healthcare agent Viktoria Gore Sibling Second [facility] healthcare agent (Mobile)
--- OUTSIDE RECORDS SUMMARY | 2020-04-06 16:30 | XMS REPORT ---
:1955 Author Organization eClinicalWorks Care Team Providers Name Role Phone RodriguezJuancarlos Provider Role Unavailable Allergies No Known Allergies Problems Problem Type Condition Code Onset Dates Condition Statu s Assessment Osteoarthritis of multiple joints M15.9 Active Problem Atherosclerosis of coronary artery I25.10 Active of [place] heart Assessment Benign essential HTN I10 Active Problem 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 depressive disorder without prior episode Problem Other chronic pain G89.29 Active Problem COPD exacerbation J44.1 Active Problem Paresthesia R20.2 Active Problem Chronic diastolic congestive heart I50.32 Active failure Problem Coronary artery disease involving I25.10 Active [place] coronary artery of [place] heart, angina presence unspecified Problem Chronic back pain M54.9 Active Problem Osteoarthritis of multiple joints M15.9 Active Problem Paroxysmal atrial fibrillation I48.0 Active Problem Tobacco use disorder Z72.0 Active Problem Breast implant status Z98.82 Active [...] reflux K21.9 Active disease) Medications Medication Code System Code Instructions Start End Date Status Dos age Date Gabapentin ND 65730336101 100 MG Orally BID Active 1 capsule Lisinopril NDC [id number] 40 MG Orally Once Active 1 tablet a day Results No Known Results Summary Purpose eClinicalWorks Submission
--- OUTSIDE RECORDS SUMMARY | 2020-04-06 16:30 | XMS REPORT ---
[...] Problem Coronary artery disease involving I25.10 Active [place] coronary artery of [place] heart, angina presence unspecified Problem Osteoarthritis of [...] Atherosclerosis of coronary artery I25.10 Active of [place] heart Problem GERD (gastroesophageal reflux K21.9 Active disease) Problem 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 depressive disorder without prior episode Medications No Known Medications Results No Known Results Summary Purpose eClinicalWorks Submission
--- OUTSIDE RECORDS SUMMARY | 2020-04-06 16:31 | XMS REPORT | Summary of Care ---
:1955 Author Organization [facility] - Health Address [address] [place] [address] Care Team Providers Name Role Phone Amb, Team Unavailable Unavailable [employer] Insurance [employer] Mamta Mejia Primary Care Provider Encounter Details Date Type Department Care Team Description 03/15/2020 Orders Only [facility] Doctor Unassigned, [address] [place] [address] [address] [place] [address] Allergies Active Allergy Reactions Severity Noted Date Comments Diphenhydramine Hcl Unknown - See comments 06/01/2006 Lorazepam Unknown - See comments 10/22/2005 restl ess legs Eszopiclone Unknown - See comments 06/01/2006 Promethazine Hcl Unknown - See comments 10/22/2005 R estless legs Quetiapine Fumarate Extra pyramidal effects 12/09/2011 documented as of this encounter (statuses as of 04/03/2020) Medications Medication Sig Dispensed Refills Start Date [...] as of this encounter (statuses as of 04/03/2020) Active Problems Problem Noted Date Anemia 02/26/2020 Acute on chronic diastolic congestive heart failure PAF (paroxysmal atrial fibrillation) 02/24/2020 H/O endovascular stent graft for abdominal aortic aneu rysm 02/24/2020 Coronary artery disease involving [place] coronary [place] heart 02/24/2020 without angina pectoris Troponin I [...] Suspicious nevus 05/25/2013 Overview: ICD10 Diagnosis Term [employer] Coordinator Utility Suicidal ideation 09/20/2011 Borderline personality disorder 06/18/2006 Essential hypertension, benign 06/17/2006 Drug dependence 06/15/2006 Overview: Cocaine,THC ICD10 Diagnosis Term [employer] Nondependent alcohol abuse 06/15/2006 Overview: ICD10 Diagnosis Term [employer] Coordinator [employer] Chest pain 06/14/2006 Overview: ICD10 Diagnosis Term [employer] Coordinator [employer] 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 Atherosclerosis of renal artery 06/09/2006 Chest pain 10/22/2005 Overview: ICD10 Diagnosis Term [employer] Coordinator Utility Coronary atherosclerosis 10/22/2005 Overview: ICD10 Diagnosis Term [employer] Coordinator Utility Essential hypertension 10/22/2005 Overview: ICD10 Diagnosis Term [employer] Bipolar 1 disorder 10/22/2005 Chronic obstructive airway disease with asthma 006 Overview: ICD10 Diagnosis Term [employer] Coordinator [employer] documented as of this encounter (statuses as of 04/03/2020) Resolved Problems Problem Noted Date Resolved Date Borderline personality disorder 06/17/2006 06/17/20 06 Bipolar I disorder, most recent episode (or current) manic, 06/16/2006 07/01/2006 mild documented as of this encounter (statuses as of 04/03/2020) Immunizations Name Administration Dates Next Due Influenza [...] 30 + pack year history Guid mckenna) Depression Screening 04/26/2020 04/26/2019, 04/26/2019 Zoster Recombinant Vaccine 04/26/2020 Postp oned from [...] encounter Procedures Procedure Name Priority Date/Time Associated Diagnosis Comme nts AUTHORIZATION FOR RELEASE Routine 03/15/2020 12:01 AM OF PHI CDT documented in this encounter Results Not on filedocumented in this encounter Insurance Payer Benefit Plan / Subscriber ID Effective Dates Phone Addre ss Type Group [facility] xxxxxxxxx 2015-Present Medicaid COMM PLAN - PLUS MANAGED MEDICAID documented as of this encounter Advance Directives Name Relationship Healthcare Agent Relationship Co mmunication Neyda Grady Other Primary healthcare agent Viktoria Gore Sibling Second [facility] [phone] agent (Mobile)
[2020-04-06 17:03] LABS: Absolute Lymphocytes (CBC) 2.1 K/uL (0.7-4.9); Basophils % 0.9 % (0-1.3); Hematocrit 33.4 % (36.0-45.0); Lymphocytes % 24.3 % (15.3-44.8); MPV 7.9 fL (7.6-11.3); RBC Red Blood Cell Count 4.43 M/uL (3.86-4.86)
--- NOTE | 2020-04-06 17:06 | RAD REPORT ---
EXAM DESCRIPTION: RAD - Chest Single View - 04/06/2020 5:01 pm CLINICAL HISTORY: CHEST PAIN Chest pain. COMPARISON: Chest Single View dated 03/17/2019; Chest Single View dated 03/14/2019; Chest Single View da yesy 11/25/2018; Chest Single View dated 11/24/2018 FINDINGS: Portable technique limits examination quality. The lungs are grossly clear. The heart is normal in size. Extensive stenting is seen in the thoracic aorta. IMPRESSION: No acute intrathoracic process suspected.
[2020-04-06 17:15] LABS: BUN Blood Urea Nitrogen 18 mg/dL (7-18); Bicarbonate 26 mmol/L (21-32); Glucose Level 85 mg/dL (74-106); NT PRO-BNP 1341 pg/mL (<125); Potassium 3.5 mmol/L (3.5-5.1); Sodium Level 138 mmol/L (136-145); Troponin (Emerg Dept Use Only) < 0.02 ng/mL (0.0-0.045)
--- NOTE | 2020-04-06 17:43 | EDPHYS ---
Physician Documentation [facility] Name: Ophelia Grady Age: 64 yrs Sex: Female : 1955 Arrival Date: 04/06/2020 Time: 16:22 Bed 4 Private MD: ED Physician Adonis Mc HPI: 04/06 16:24 This 64 yrs old Female presents to ER via Unassigned with complaints of left rn arm pain. 16:24 The patient or guardian complains of pain. The complaints affect the left arm. Onset: rn The symptoms/episode began/occurred today. Modifying factors: The symptoms are alleviated by nothing. the symptoms are aggravated by movement. Severity of symptoms: At their worst the symptoms were mild, in the emergency department the symptoms are unchanged. The patient has experienced similar episodes in the past. Reports has chronic pain to left leg, has been bothering more lately, asked neighbor for pain medication, took an oxycodone from her neighbor then began to "feel like having a stroke". Reports pain to left leg but no change from baseline as well as pain to left arm, worse with movement. Also reports pain"in back behind heart". No tearing/ripping sensation. No fever/cough/sob. No sick contacts. . Historical: - Allergies: 16:32 Benadryl; jl7 16:32 Codeine; jl7 16:32 Ketorolac; jl7 16:32 tramadol; jl7 - Home Meds: 16:32 trazodone 300 mg Oral tab 1 tab nightly [Active]; aspirin 81 mg Oral TbEC 1 tab once jl7 daily [Active]; atorvastatin 40 mg Oral tab 1 tab once daily [Active]; buspirone 10 mg Oral tab 1 tab 2 times per day [Active]; fluoxetine 40 mg Oral cap 1 cap once daily [Active]; hydralazine 50 mg Oral tab 1 tab three times a day [Active]; isosorbide mononitrate 60 mg Oral Tb24 1 tab once daily [Active]; Latuda 60 mg Oral tab 1 tab once daily [Active]; lisinopril 40 mg Oral tab 1 tab once daily [Active]; metoprolol tartrate 100 mg Oral tab 1 tab 2 times per day [Active]; - PMHx: 16:32 ADD/ADHD; Anemia; Cancer; CHF; COPD; Depression; Hyperlipidemia; Hypertension; Major jl7 Depressive Disorder; Schizo-affective disorder; Hepatitis; - PSHx: 16:32 Mastectomy, Left; Hernia repair; Mastectomy, Right; Cholecystectomy; Heel Surgery both jl7 Feet; Umbilical Hernia Mesh; Tumor removal - L shoulder; Heart stents; - Immunization history:: Adult Immunizations unknown. - Social history:: Smoking status: unknown. - Family history:: not pertinent. - Hospitalizations: : No recent hospitalization is reported. ROS: 16:24 Constitutional: Negative for fever, chills, and weight loss, Eyes: Negative for injury, rn pain, redness, and discharge, Neck: Negative for injury, pain, and swelling, Cardiovascular: Negative for palpitations, and edema, Respiratory: Negative for shortness of breath, cough, wheezing, and pleuritic chest pain, Abdomen/GI: Negative for abdominal pain, nausea, vomiting, diarrhea, and constipation, Back: Negative for injury MS/Extremity: Negative for injury and deformity, Skin: Negative for injury, rash, and discoloration, Neuro: Negative for headache, weakness, numbness, tingling, and seizure. Exam: 16:24 Constitutional: This is a well developed, well nourished patient who is awake, alert, rn and in no acute distress. Head/Face: Normocephalic, atraumatic. Cardiovascular: Regular rate and rhythm. No pulse deficits. Respiratory: No increased work of breathing, no retractions or nasal flaring. Abdomen/GI: soft, non-tender Skin: Warm, dry MS/ Extremity: Pulses equal, no cyanosis. Neurovascular intact. Full, normal range of motion. Equal circumference. Neuro: Awake and alert, GCS 15, oriented to person, place, time, and situation. Cranial nerves II-XII grossly intact. Motor strength 5/5 in all extremities. Sensory grossly intact. Cerebellar exam normal. 16:29 ECG was reviewed by the Attending Physician. rn Vital Signs: 16:27 BP 162 / 91; Pulse 68; Resp 17; Pulse Ox 96% ; jl7 17:02 BP 151 / 80; Pulse 69; Resp 17; Temp 97.6; Pulse Ox 97% ; jl7 MDM: 16:22 Patient medically screened. rn 17:41 Differential diagnosis: radiculopathy, chronic pain, medication reaction. Data rn reviewed: vital signs, nurses notes, lab test result(s), EKG, radiologic studies, plain films, and as a result, I will discharge patient. Counseling: I had a detailed discussion with the patient and/or guardian regarding: the historical points, exam findings, and any diagnostic results supporting the discharge/admit diagnosis, lab results, radiology results, the need for outpatient follow up, to return to the emergency department if symptoms worsen or persist or if there are any questions or concerns that arise at home. Response to treatment: the patient's condition has returned to base line, the patient is now symptom free, and as a result, I will discharge patient. Special discussion: Based on the patient's history, exam, and Dx evaluation, there is no indication for emergent intervention or inpatient Tx. It is understood by the patient/guardian that if the Sx's persist or worsen they need to return immediately for re-evaluation. I discussed with the patient/guardian in detail that at this point there is no indication for admission to the hospital. It is understood, however, that if the symptoms persist or worsen the patient needs to return immediately for re-evaluation. 04/06 16:23 Order name: Basic Metabolic Panel; Complete Time: 17:04/06 16:23 Order name: CBC with Diff; Complete Time: 17:04/06 16:23 Order name: NT PRO-BNP; Complete Time: 17:04/06 16:23 Order name: Troponin (emerg Dept Use Only); Complete Time: 17:04/06 16:23 Order name: XRAY Chest (1 view); Complete Time: 17:04/06 16:23 Order name: EKG; Complete Time: 16:04/06 16:23 Order name: IV Start; Complete Time: 17:04/06 16:23 Order name: Cardiac monitoring; Complete Time: 17:04/06 16:23 Order name: EKG - Nurse/Tech; Complete Time: 16:04/06 16:23 Order name: Labs collected and sent; Complete Time: 17:04/06 16:23 Order name: O2 Per Protocol; Complete Time: 17:04/06 16:24 Order name: O2 Sat Monitoring; Complete Time: 17:04/06 17:41 Order name: Diet Regular; Complete Time: 17:42 jl7 EC:29 Rate is 66 beats/min. Rhythm is regular. QRS [place] is Normal. MA interval is normal. QRS rn interval is normal. QT interval is normal. No Q waves. T waves are Normal. No ST changes noted. Clinical impression: NSR w/ Non-specific ST/T Changes. Interpreted by me. Reviewed by me. Administered Medications: No medications were administered Disposition: 04/06/20 17:42 Discharged to Home. Impression: Chest pain, unspecified. - Condition is Stable. - Discharge Instructions: Cervical Radiculopathy, Nonspecific Chest Pain, Chronic Pain. - Medication Reconciliation Form, Thank You Letter, Antibiotic Education, Prescription Opioid Use form. - Follow up: Private Physician; When: As needed; Reason: Recheck today's complaints, Re-evaluation by your physician. - Problem is new. - Symptoms have improved. Signatures: Dispatcher [employer] EDMS Adonis Mc MD MD rn Leal, Jahala, RN RN jl7 Corrections: (The following items were deleted from the chart) 18:33 17:42 04/06/2020 17:42 Discharged to Home. Impression: Chest pain, unspecified. jl7 Condition is Stable. Forms are Medication Reconciliation Form, Thank You Letter, Antibiotic Education, Prescription Opioid Use. Follow up: Private Physician; When: As needed; Reason: Recheck today's complaints, Re-evaluation by your physician. Problem is new. Symptoms have improved. rn
--- NOTE | 2020-04-06 17:43 | ER ---
Nurse's Notes [facility] Name: Ophelia Grady Age: 64 yrs Sex: Female : 1955 Arrival Date: 04/06/2020 Time: 16:22 Bed 4 Private MD: Diagnosis: Chest pain, unspecified Presentation: 04/06 16:27 Chief complaint: EMS states: Toned out for chest pain, on arrival pt 'thought she was jl7 having a stroke' reporting she took some OxyContin for left leg pain and didn't feel good. Coronavirus screen: Proceed with normal triage. Patient denies a cough. Patient denies shortness of breath or difficulty breathing. Patient denies measured and/or subjective temperature greater than 100.4F prior to today's visit. Patient denies travel on a cruise ship or to a country the [facility] currently lists as an affected area. Patient denies contact with known and/or suspected case of COVID-19. Ebola Screen: No symptoms or risks identified at this time. Initial Sepsis Screen: Does the patient meet any 2 criteria? No. Patient's initial sepsis screen is negative. Does the patient have a suspected source of infection? No. Patient's initial sepsis screen is negative. Risk Assessment: Do you want to hurt yourself or someone else? Patient reports no desire to harm self or others. Onset of symptoms is unknown. Care prior to arrival: None. Transition of care: patient was not received from another setting of care. 16:27 Method Of Arrival: EMS: [facility] 16:27 Acuity: SHAWN 3 jl7 Historical: - Allergies: 16:32 Benadryl; 16:32 Codeine; 16:32 Ketorolac; 16:32 tramadol; jl7 - Home Meds: 16:32 trazodone 300 mg Oral tab 1 tab nightly [Active]; aspirin 81 mg Oral TbEC 1 tab once jl7 daily [Active]; atorvastatin 40 mg Oral tab 1 tab once daily [Active]; buspirone 10 mg Oral tab 1 tab 2 times per day [Active]; fluoxetine 40 mg Oral cap 1 cap once daily [Active]; hydralazine 50 mg Oral tab 1 tab three times a day [Active]; isosorbide mononitrate 60 mg Oral Tb24 1 tab once daily [Active]; Latuda 60 mg Oral tab 1 tab once daily [Active]; lisinopril 40 mg Oral tab 1 tab once daily [Active]; metoprolol tartrate 100 mg Oral tab 1 tab 2 times per day [Active]; - PMHx: 16:32 ADD/ADHD; Anemia; Cancer; CHF; COPD; Depression; Hyperlipidemia; Hypertension; Major jl7 Depressive Disorder; Schizo-affective disorder; Hepatitis; - PSHx: 16:32 Mastectomy, Left; Hernia repair; Mastectomy, Right; Cholecystectomy; Heel Surgery both jl7 Feet; Umbilical Hernia Mesh; Tumor removal - L shoulder; Heart stents; - Immunization history:: Adult Immunizations unknown. - Social history:: Smoking status: unknown. - Family history:: not pertinent. - Hospitalizations: : No recent hospitalization is reported. Screenin:02 Abuse screen: Denies threats or abuse. Denies injuries from another. Nutritional jl7 screening: No deficits noted. Tuberculosis screening: No symptoms or risk factors identified. Fall Risk IV access (20 points). Total Paz Fall Scale indicates No Risk (0-24 pts). Assessment: 17:02 General: Appears in no apparent distress. uncomfortable, Behavior is cooperative, jl7 anxious. Pain: Complains of pain in "All over and m chest is sore from hurting.". Neuro: Level of Consciousness is awake, alert, obeys commands, Oriented to person, place, time, situation. Cardiovascular: Patient's skin is warm and dry. Respiratory: Airway is patent Respiratory effort is even, unlabored, Respiratory pattern is regular, symmetrical. Derm: Skin is pink, warm \\T\\ dry. 17:45 Reassessment: Pt states "You need to feed me before I leave." Diet tray ordered. [facility] 18:05 Reassessment: Diet tray given to pt. [facility] 18:06 Reassessment: Pt states "You need to go call Medicaid and a cab and get me a ride jl7 home." Charge nurse notified. 18:31 Reassessment: Pt refusing to eat food provided, states "Nobody will eat that. A retard jl7 might eat that shit. A retard will eat this shit but that's it. Take me to the bathroom." Assisted pt to the bathroom via wheelchair. Pt heard yelling "I've fallen and I can't get up." Pt sitting in wheelchair. Pt wheeled outside to cab. Vital Signs: 16:27 BP 162 / 91; Pulse 68; Resp 17; Pulse Ox 96% ; jl7 17:02 BP 151 / 80; Pulse 69; Resp 17; Temp 97.6; Pulse Ox 97% ; jl7 ED Course: 16:22 Patient arrived in ED. rn 16:22 Adonis Mc MD is Attending Physician. rn 16:27 Jolynn Miranda, ANA is Primary Nurse. jl7 16:30 Triage completed. jl7 16:32 Arm band placed on right wrist. jl7 17:01 XRAY Chest (1 view) In Process Unspecified. EDMS 17:02 Patient has correct armband on for positive identification. Bed in low position. Call jl7 light in reach. Side rails up X2. groundwater monitoring technician on. Pulse ox on. NIBP on. Warm blanket given. Assisted to bathroom. 17:02 Initial lab(s) drawn, by me, sent to lab. EKG done, by ED staff, reviewed by Adonis Mc MD. Inserted saline lock: 20 gauge in left hand, using aseptic technique. Blood collected. 18:33 No provider procedures requiring assistance completed. IV discontinued, intact, jl7 bleeding controlled, No redness/swelling at site. Pressure dressing applied. Administered Medications: No medications were administered Outcome: 17:42 Discharge ordered by . rn 18:33 Discharged to home ambulatory. jl7 18:33 Condition: stable 18:33 Discharge instructions given to patient, Instructed on discharge instructions, follow up and referral plans. Demonstrated understanding of instructions, follow-up care. 18:33 Patient left the ED. jl7 Signatures: Dispatcher [employer] EDPA Adonis Mc MD MD rn Leal, Jahala, RN RN jl7
[2020-04-06 18:49] VITALS: BP 151/80; TEMP 97.6; O2SAT 97
--- NOTE | 2020-04-07 10:19 | EKG ---
Test Date: 2020-04-06 Test Time: 16:27:07 Records Technician: JEANNE MEASUREMENT RESULTS: Intervals: Rate: 66 WY: 196 QRSD: 88 QT: 472 QTc: 494 Couch: P: 19 WY: 196 QRS: -14 T: 71 INTERPRETIVE STATEMENTS: Normal sinus rhythm Septal infarct, age undetermined Abnormal ECG Compared to ECG 03/20/2019 01:06:48 Myocardial infarct finding now present Left-axis deviation no longer present ST (T wave) deviation no longer present Prolonged QT interval no longer present Electronically Signed On 04-07-20 10:17:53 CDT by Pacheco Sotomayor
== END 2020-04-06 18:33 | disposition home or self-care (01) ==
LOC: ER 16:18
DX: R07.9 Chest pain, unspecified (principal); I10 Essential (primary) hypertension; F25.9 Schizoaffective disorder, unspecified; E78.5 Hyperlipidemia, unspecified; J44.9 Chronic obstructive pulmonary disease, unspecified; Z79.82 Long term (current) use of aspirin; Z88.5 Allergy status to narcotic agent; Z88.8 Allergy status to other drugs, medicaments and biological substances; Z95.818 Presence of other cardiac implants and grafts
CPT/HCPCS: 36415; 71045; 80048; 83880; 84484; 85025; 93005; 99284